=== PATIENT | female | born 1940 | race Caucasian/White ===

== ENCOUNTER → 2018-07-16 15:55 | Outpatient (CLI) | payer MEDICARE, SELFPAY ==
[2018-07-16 15:04] VITALS: BMI 23.3
[2018-07-17 01:14] LABS: Absolute Lymphocyte Count 2.67 X10^3/ul (0.83-4.51); Absolute Neutrophil Count 6.4 X10^3/uL (2.0-7.7); Basophil# 0.03 X10^3/uL; Basophil% 0.3 % (0-1); Eosinophil# 0.09 X10^3/uL; Eosinophils% 0.9 % (0-5); Hematocrit 46.9 % (37-47); Hemoglobin 15.3 g/dl (12.0-15.0); Lymphocyte # 2.67 X10^3/ul (4.0); Lymphocyte % 26.5 % (19-41); Mean Corp Hgb Conc 32.6 g/gl (32-36); Mean Corpuscular Hgb 29.4 pg (27.0-32.0); Mean Platelet Vol. 11.7 fl (6.2-12.0); Monocyte# 0.89 X10^3/uL; Monocyte% 8.8 % (0-10); Neutrophil # 6.36 X10^3/uL (2.7-7.7); Neutrophil % 63.2 % (47-70); Platelet Count 240 K/mm3 (150-450); RBC Distribution Width CV 13.6 % (11.6-14.6); RBC Distribution Width SD 44.5 fl (35.1-43.9); Red Blood Count 5.21 M/mm3 (4.2-5.4); White Blood Count 10.1 K/mm3 (4.4-11.0)
[2018-07-17 01:31] LABS: POSITIVE COUNT NO; POSITIVE DIFFERENTIAL NO; POSITIVE MORPHOLOGY NO
[2018-07-17 01:36] LABS: AST(SGOT) 19 U/L (15-37); Alanine Aminotransfer ALT/SGPT 16 U/L (13-56); Alkaline Phosphatase 70 U/L (45-117); Anion Gap 8 (5-15); BUN 23 mg/dL (7-18); BUN/Creat Ratio 19.8 RATIO (10-20); Calcium,Total 9.1 mg/dL (8.5-10.1); Chloride 105 mmol/L (98-107); Cholesterol 194 mg/dL (200); Creatinine, Serum 1.16 mg/dL (0.55-1.02); EST Glomerular Filtration Rate 48 mL/min (>60); Est Glom Filt Rate - Afr Amer 58 mL/min (>60); Globulin 4.1 g/dL (2.2-4.2); Glucose 99 mg/dL (74-106); High Density Lipoprotein 46 mg/dL; Potassium 4.6 mmol/L (3.5-5.1); Prealbumin 29.2 mg/dL (20.0-40.0); Protein, Total 8.1 g/dL (6.4-8.2); Sodium Level 137 mmol/L (136-145); Thyroid Stim Hormone (TSH) 1.07 uIU/mL (0.358-3.74); Triglycerides 170 mg/dL; Very Low Density Lipoprotein 34 mg/dL (5-40)
== END ==
PROVIDERS: Referring Provider Nurse Practitioner; Visit Provider Nurse Practitioner
DX: R63.4 Abnormal weight loss (principal); I10 Essential (primary) hypertension; E03.9 Hypothyroidism, unspecified
CPT/HCPCS: 80053; 80061; 84134; 84443; 85025

== ENCOUNTER → 2019-01-12 21:02 | Outpatient (CLI) | payer MEDICARE, SELFPAY ==
[2019-01-12 12:02] VITALS: BMI 22.8
[2019-01-12 21:25] LABS: Absolute Lymphocyte Count 3.11 X10^3/uL (0.83-4.51); Absolute Neutrophil Count 6.8 X10^3/uL (2.0-7.7); Basophil# 0.08 X10^3/uL; Basophil% 0.7 % (0-1); Eosinophil# 0.17 X10^3/uL; Eosinophils% 1.5 % (0-5); Hematocrit 44.9 % (37-47); Hemoglobin 14.5 g/dL (12.0-15.0); Lymphocyte # 3.11 X10^3/ul (4.0); Lymphocyte % 28.2 % (19-41); Mean Corp Hgb Conc 32.3 g/dL (32-36); Mean Corpuscular Hgb 29.8 pg (27.0-32.0); Mean Corpuscular Volume 92.2 fL (81-99); Mean Platelet Vol. 11.9 fl (6.2-12.0); Monocyte# 0.77 X10^3/uL; NRBC Flagged by Analyzer 0 % (0-5); Neutrophil # 6.83 X10^3/uL (2.7-7.7); Neutrophil % 62.1 % (47-70); Platelet Count 243 K/mm3 (150-450); RBC Distribution Width CV 13.2 % (11.6-14.6); RBC Distribution Width SD 44.9 fl (35.1-43.9); Red Blood Count 4.87 M/mm3 (4.2-5.4)
[2019-01-12 21:35] LABS: Erythrocyte Sedimentation Rate 12 mm/hr (0-30)
[2019-01-12 21:50] LABS: AST(SGOT) 16 U/L (15-37); Alanine Aminotransfer ALT/SGPT 24 U/L (13-56); Albumin, Serum 3.9 g/dL (3.2-5.0); Alkaline Phosphatase 70 U/L (45-117); Anion Gap 8 (5-15); BUN 34 mg/dL (7-18); BUN/Creat Ratio 34.4 RATIO (10-20); Calcium,Total 9.1 mg/dL (8.5-10.1); Chloride 107 mmol/L (98-107); Creatinine, Serum 0.99 mg/dL (0.55-1.02); EST Glomerular Filtration Rate 58 mL/min (>60); Est Glom Filt Rate - Afr Amer 70 mL/min (>60); Globulin 3.8 g/dL (2.2-4.2); Glucose 88 mg/dL (74-106); Potassium 4.4 mmol/L (3.5-5.1); Protein, Total 7.7 g/dL (6.4-8.2); Sodium Level 140 mmol/L (136-145); Thyroid Stim Hormone (TSH) 0.24 uIU/mL (0.358-3.74)
== END ==
PROVIDERS: Visit Provider Nurse Practitioner
DX: R42 Dizziness and giddiness (principal); I10 Essential (primary) hypertension; E03.9 Hypothyroidism, unspecified
CPT/HCPCS: 80053; 84443; 84484; 85025; 85652

== ENCOUNTER 2019-12-01 20:48 | Emergency (ER) | payer MEDICARE, SELFPAY ==
[2019-01-12 12:02] VITALS: BMI 22.8
[2019-12-01 20:52] VITALS: BP 180/89; PULSE 49; RESP 18; TEMP 36.1; O2SAT 99; BMI 22.9
--- NOTE | 2019-12-01 21:15 | RAD_ITS ---
STUDY: X-RAY - RIGHT WRIST REASON FOR EXAM: Female, 79 years old. Fall today. Rt wrist pain TECHNIQUE: 3 view(s) of the wrist were obtained. COMPARISON: None. FINDINGS: There is generalized osteopenia. There is a comminuted impacted fracture distal metaphysis of the radius with dorsal angulation. There is a nondisplaced comminuted fracture distal metaphysis of the ulna with avulsion of the ulnar styloid process. There is calcification of the TFCC. There are are faint density overlying the dorsal aspect of the wrist. There is sclerosis of the first carpometacarpal joint.. There is soft tissue edema. RAD/Wrist min 3 Views IMPRESSION: Generalized osteopenia Soft tissue edema comminuted impacted fracture distal metaphysis of the radius with dorsal angulation. There is a nondisplaced comminuted fracture distal metaphysis of the ulna with avulsion of the ulnar styloid process Calcification of the TFCC degenerative versus calcium pyrophosphate deposition disease Likely fractures of the triquetrum and possibly involving the pisiform Electronically Signed: Honorio Summers, at 21:54 EDT Tel , Service support ,
[2019-12-01] MEDS: fentaNYL 100 MCG/2 ML Ampul 50 MCG IM (21:17)
--- NOTE | 2019-12-01 23:22 | RAD_ITS ---
HISTORY: POST REDUCTION EXAMINATION/TECHNIQUE: XR right wrist one view portable 2334 hrs. COMPARISON: 2111 hrs. FINDINGS: Right wrist Colles' fracture status post closed reduction and cast fixation. Single post reduction AP view and bony detail is partly limited by cast material. Previously identified fractures of the distal right radius and ulna show improved position. Evaluation of fracture alignment is limited secondary to single view exam. RAD/Wrist min 3 Views IMPRESSION: Colles' fracture of the distal right radius status post closed reduction and cast fixation. No complication seen. at 0028 Reported and signed by: Ac Robbins MD Electronically Signed: Ac Robbins, at 0:27 EDT Tel , Service support ,
--- NOTE | 2019-12-01 23:58 | ED.DCSUM_ITS ---
- ER Visit Summary Date of Service: 12/01/19 Chief Complaint: Fall and right wrist pain History of Present Illness: The patient is a [address] Waters. She is right-hand dominant. She reports that just prior to coming emerge department she lost her balance stepping off a step and injured her right wrist. She states she did hit her head. No loss of consciousness. She is not on anticoagulants. She denies headache. She reports that she has right wrist pain that is a throbbing pain is 7 on 10 severity. Is worsened by movement relieved by rest. She denies any paresthesias distally. Physical Examination: Vitals: Stable. Afebrile. Neck: No vertebral tenderness. Full ROM without difficulty. Cleared by NEXUS criteria. Back: No vertebral tenderness. General: A&O x 3. NAD. Cardiovascular exam: Regular rate and rhythm, no murmur, rub or gallop. Respiratory exam: Chest nontender. No crepitus. Clear to auscultation bilaterally. No wheezes or stridor. Abdominal exam: Soft, nontender, nondistended, normal bowel sounds. No pain in RUQ or LUQ specifically. No peritoneal signs. Extremity: Severe tenderness palpation obvious deformity to the distal radius on the right. She has decreased range of motion secondary pain. She is neuro vas intact distally.. Test Results: Clinical Impression(s) from Imaging Studies Wrist X-Ray 12/01/19 21:15 IMPRESSION: Generalized osteopenia Soft tissue edema comminuted impacted fracture distal metaphysis of the radius with dorsal angulation. There is a nondisplaced comminuted fracture distal metaphysis of the ulna with avulsion of the ulnar styloid process Calcification of the TFCC degenerative versus calcium pyrophosphate deposition disease Likely fractures of the triquetrum and possibly involving the pisiform Electronically Signed: Honorio Summers, at 21:54 EDT Tel , Service support , Wrist X-Ray 12/01/19 23:22 IMPRESSION: Colles' fracture of the distal right radius status post closed reduction and cast fixation. No complication seen. at 0028 Reported and signed by: Ac Robbins MD Electronically Signed: Ac Rosendo, at 0:27 EDT Tel , Service support , Emergency Department Course and Treatment: Initial x-ray showed approximately 20 degrees of dorsal angulation. The patient was given a shot of fentanyl IM and a hematoma block was performed with 10 cc of lidocaine. She was then placed in finger traps and the fracture was reduced. She was placed in an AP plaster splint. She tolerated this well. Repeat x-ray shows the dorsal angulation to be improved. Treatment Plan: Patient was discussed with Dr. Abelino Zamorano. She will be discharged with instructions to follow-up in 3 to 5 days for another exam. She will be discharged with Percocet and Colace. Return to the emergency department for any worsening symptoms. Disposition: To home in improved and stable condition. Impression: 1. Fall. 2. Right distal radius fracture. 3. Right ulnar styloid fracture. 4. Reduction right distal radius fracture by ED physician. 5. Plaster AP splint, fabricated. This note was generated with [employer] dictation software. It may contain incorrect words, spelling, and punctuation that were not noted in review of the chart prior to signing ED Disposition - Plan for ED Patient: Disposition: Home or Assisted Living Instructions: ED Fx Colles Wrist Redu Requ Prescriptions: Docusate Sodium [Colace] 100 mg PO DAILY #20 cap Prescription Printed Oxycodone HCl/Acetaminophen [Percocet 5/325] 1 tab PO Q6H PRN PRN 5 Days #20 tab PRN Reason: Pain Score 6-10/10 Prescription Printed Referrals: Abelino Zamorano MD [STAFF PHYSICIAN] - 3-5 Days
[2019-12-02] MEDS: HYDROCODONE/APAP 7.5-325/15ML 15 ML UDC 10 ML PO (00:25)
[2019-12-02 00:32] VITALS: BP 173/75; PULSE 63; RESP 18; O2SAT 99
== END 2019-12-02 00:33 | disposition home or self-care (01) ==
LOC: ED 21:39
PROVIDERS: Emergency Provider Emergency Medicine; PCP Family Medicine
DX: S52.614A Nondisplaced fracture of right ulna styloid process, initial encounter for closed fracture (principal); S52.531A Colles' fracture of right radius, initial encounter for closed fracture; W10.8XXA Fall (on) (from) other stairs and steps, initial encounter; I10 Essential (primary) hypertension; J44.9 Chronic obstructive pulmonary disease, unspecified; E78.00 Pure hypercholesterolemia, unspecified; E03.9 Hypothyroidism, unspecified; Z79.899 Other long term (current) drug therapy; Z79.82 Long term (current) use of aspirin
CPT/HCPCS: 25605; 73110; 96372; 99283

== ENCOUNTER 2021-09-14 22:12 | Outpatient (CLI) | payer MEDICARE, SELFPAY ==
[2021-09-14 22:25] LABS: Absolute Lymphocyte Count 2.68 X10^3/uL (0.83-4.51); Absolute Neutrophil Count 6.4 X10^3/uL (2.0-7.7); Basophil# 0.07 X10^3/uL; Basophil% 0.7 % (0-1); Eosinophil# 0.28 X10^3/uL; Eosinophils% 2.7 % (0-5); Hematocrit 42.5 % (37-47); Hemoglobin 14.1 g/dL (12.0-15.0); Lymphocyte # 2.68 X10^3/ul (0.83-4.51); Lymphocyte % 26.2 % (19-41); Mean Corp Hgb Conc 33.2 g/dL (32-36); Mean Corpuscular Hgb 29.7 pg (27.0-32.0); Mean Corpuscular Volume 89.7 fL (81-99); Mean Platelet Vol. 10.9 fl (6.2-12.0); Monocyte# 0.74 X10^3/uL; Monocyte% 7.2 % (0-10); NRBC Flagged by Analyzer 0 % (0-5); Neutrophil # 6.39 X10^3/uL (2.7-7.7); Neutrophil % 62.6 % (47-70); Platelet Count 282 K/mm3 (150-450); RBC Distribution Width CV 13.4 % (11.6-14.6); RBC Distribution Width SD 43.8 fl (35.1-43.9); Red Blood Count 4.74 M/mm3 (4.2-5.4); White Blood Count 10.2 K/mm3 (4.4-11.0)
[2021-09-14 22:54] LABS: ALB/GLOB Ratio 1.1 RATIO (0.9-2.4); AST(SGOT) 22 U/L (15-37); Alanine Aminotransfer ALT/SGPT 24 U/L (13-56); Albumin, Serum 3.9 g/dL (3.2-5.0); Alkaline Phosphatase 79 U/L (45-117); Anion Gap 5 (5-15); BUN 23 mg/dL (7-18); BUN/Creat Ratio 22.5 RATIO (10-20); Calcium,Total 9.3 mg/dL (8.5-10.1); Chloride 103 mmol/L (98-107); Creatinine, Serum 1.02 mg/dL (0.55-1.02); EST Glomerular Filtration Rate 55 mL/min (>60); Est Glom Filt Rate - Afr Amer 67 mL/min (>60); Globulin 3.7 g/dL (2.2-4.2); Glucose 120 mg/dL (74-106); Potassium 4.4 mmol/L (3.5-5.1); Protein, Total 7.6 g/dL (6.4-8.2); Sodium Level 136 mmol/L (136-145); Thyroid Stim Hormone (TSH) 6.43 uIU/mL (0.358-3.74)
== END 2021-09-14 23:59 | disposition home or self-care (01) ==
PROVIDERS: PCP Family Medicine; Visit Provider Nurse Practitioner
DX: E03.9 Hypothyroidism, unspecified (principal); I10 Essential (primary) hypertension
CPT/HCPCS: 80053; 84443; 85025

== ENCOUNTER → 2021-11-30 | Outpatient (CLI) | payer MEDICARE, SELFPAY ==
[2021-11-30 21:37] LABS: Absolute Lymphocyte Count 2.92 X10^3/uL (0.83-4.51); Basophil# 0.05 X10^3/uL; Basophil% 0.4 % (0-1); Eosinophil# 0.22 X10^3/uL; Hematocrit 42.2 % (37-47); Lymphocyte # 2.92 X10^3/ul (0.83-4.51); Lymphocyte % 26.1 % (19-41); Mean Corp Hgb Conc 33.2 g/dL (32-36); Mean Corpuscular Hgb 29.4 pg (27.0-32.0); Mean Corpuscular Volume 88.5 fL (81-99); Mean Platelet Vol. 10.8 fl (6.2-12.0); Monocyte# 0.96 X10^3/uL; Monocyte% 8.6 % (0-10); NRBC Flagged by Analyzer 0 % (0-5); Neutrophil # 6.99 X10^3/uL (2.7-7.7); Neutrophil % 62.4 % (47-70); Platelet Count 307 K/mm3 (150-450); RBC Distribution Width CV 13.4 % (11.6-14.6); RBC Distribution Width SD 43.7 fl (35.1-43.9); Red Blood Count 4.77 M/mm3 (4.2-5.4); White Blood Count 11.2 K/mm3 (4.4-11.0)
[2021-11-30 21:59] LABS: AST(SGOT) 22 U/L (15-37); Alanine Aminotransfer ALT/SGPT 28 U/L (13-56); Albumin, Serum 3.8 g/dL (3.2-5.0); Alkaline Phosphatase 90 U/L (45-117); Anion Gap 7 (5-15); BUN 28 mg/dL (7-18); BUN/Creat Ratio 25.7 RATIO (10-20); CRP, High Sensitivity Cardiac 1.41 mg/L; Calcium,Total 9.5 mg/dL (8.5-10.1); Chloride 103 mmol/L (98-107); Cholesterol 111 mg/dL (200); Creatinine, Serum 1.09 mg/dL (0.55-1.02); EST Glomerular Filtration Rate 51 mL/min (>60); Est Glom Filt Rate - Afr Amer 62 mL/min (>60); Globulin 3.9 g/dL (2.2-4.2); Glucose 120 mg/dL (74-106); High Density Lipoprotein 48 mg/dL; Potassium 4.9 mmol/L (3.5-5.1); Protein, Total 7.7 g/dL (6.4-8.2); Sodium Level 137 mmol/L (136-145); Thyroid Stim Hormone (TSH) 0.41 uIU/mL (0.358-3.74); Triglycerides 113 mg/dL; Very Low Density Lipoprotein 23 mg/dL (5-40)
[2021-11-30 22:06] LABS: D-Dimer Quantitative (DVT/PE) 0.72 FEU/ug/m (0.27-0.49)
== END | disposition home or self-care (01) ==
PROVIDERS: PCP Family Medicine; Visit Provider Nurse Practitioner
DX: R06.02 Shortness of breath (principal); I10 Essential (primary) hypertension
CPT/HCPCS: 80053; 80061; 84443; 85025; 85379; 86141

== ENCOUNTER 2021-12-01 09:08 | Emergency (ER) | payer MEDICARE, SELFPAY ==
[2021-12-01 09:09] VITALS: BP 163/81; PULSE 81; RESP 14; TEMP 36.5; O2SAT 95; BMI 30.7
[2021-12-01 09:22] VITALS: BP 192/76; PULSE 66; RESP 20; O2SAT 95; O2SAT 96
--- NOTE | 2021-12-01 09:28 | EKG12_ITS ---
Test Reason : ABNORMAL LABS Blood Pressure : / mmHG Vent. Rate : 064 BPM Atrial Rate : 064 BPM P-R Int : 180 ms QRS Dur : 104 ms QT Int : 416 ms P-R-T Axes : 055 003 048 degrees QTc Int : 429 ms Normal sinus rhythm Normal ECG Confirmed by JUANCARLOS GUILLORY, PEDRO ([id number]), slot editor LALITO BRAUN ([id number]) on 12/03/2021 11:28:21 AM Referred By: TONYA Confirmed By:PEDRO BAUER MD
--- NOTE | 2021-12-01 09:29 | EX.ED.DYSGE1 ---
HPI History of Present Illness Chief Complaint: Abn Labs Informant: patient Narrative Narrative: Patient is an 81-year-old female with history of hypertension and hypothyroid presenting with worsening shortness of breath/dyspnea on exertion. She states she can even walk to the bathroom in her small apartment and then back without getting really short of breath again. She notes she does feel it gets harder to take a deep breath when she is laying flat on her back but she is been sleeping on her sides with pillows. She does get swelling in her legs that gets worse throughout the day or if she keeps her legs down/does not elevate them. Has had mild cough that is not productive. It seems to be worse when she lays flat. Denies any chest pain or chest discomfort. Denies any fever. Denies any upper respiratory symptoms. She saw nurse practitioner yesterday and had outpatient labs including a CBC, BMP, TSH and D-dimer. Lab work was grossly normal however her D-dimer was 0.79. This is normal for age adjustment. Patient was sent in by her nurse practitioner for further evaluation and for possible chest x-ray. Patient notes that she did not take her blood pressure medication this morning. [facility] Medical History COPD exacerbation COVID Hypertension Hypothyroid Pneumonia Home Medications aspirin 81 mg chewable tablet 81 mg PO DAILY 12/01/19 [History Last Taken Unknown] atorvastatin 20 mg tablet 20 mg PO QHS 12/01/19 [History Last Taken Unknown] cholecalciferol (vitamin D3) 50 mcg (2,000 unit) capsule 2,000 unit PO DAILY 12/01/19 [History Last Taken Unknown] metoprolol succinate 25 mg tablet,extended release 24 hr 12.5 mg PO DAILY 12/01/19 [History Last Taken Unknown] multivitamin 1 ea PO DAILY 12/01/19 [History Last Taken Unknown] levothyroxine 112 mcg tablet 112 mcg PO DAILY #90 tabs 09/15/21 [Rx Last Taken Unknown] amlodipine 5 mg tablet 5 mg PO DAILY 09/16/21 [History Last Taken Unknown] calcium carbonate 600 mg calcium (1,500 mg) tablet (Calcium) 600 mg PO DAILY 09/16/21 [History Last Taken Unknown] tiotropium bromide 18 mcg capsule with inhalation device 18 mcg inhalation DAILY #90 inhalations 11/30/21 [Rx Last Taken Unknown] prednisone 20 mg tablet 40 mg PO DAILY #8 tabs 12/01/21 [Rx Last Taken Unknown] Allergy/AdvReac Type Severity Reaction Status Date / Time Penicillins Allergy Severe Rash Verified 12/01/21 09:12 esomeprazole [From Nexium] Allergy Hives Verified 12/01/21 09:12 SB ANTIHISTAMINE Allergy Severe UNK Uncoded 12/01/21 09:12 Family History Other Breast cancer COPD (chronic obstructive pulmonary disease) Surgical History History of thyroid irradiation S/P appendectomy Tubal ligation status Social History Smoking Status: Former smoker ROS ROS ED Constitutional Constitutional ED: Denies chills, fever(s) or weight loss Eyes Eyes: Denies change in vision ENT ENT ED: Denies ear pain, rhinorrhea or sore throat Cardiovascular Cardiovascular: Reports orthopnea and other Details: Leg swelling ; Denies chest pain, palpitations or racing heartbeat Respiratory/Chest Respiratory/Chest: Reports cough, dyspnea on exertion and orthopnea Gastrointestinal Gastrointestinal: Reports other Details: Feels bloated ; Denies abdominal pain, constipation, nausea or vomiting Genitourinary Genitourinary ED: Denies dysuria or hematuria Musculoskeletal Musculoskeletal: Denies arthralgias, back pain or neck pain Integumentary Denies rash Neurologic Neurologic: Denies headache(s) or weakness Psychiatric Psychiatric: Denies anxiety EXAM Physical Exam Const Vital Signs: 12/01/21 09:09 12/01/21 09:22 12/01/21 09:22 Temperature 97.7 F L Temperature Source Temporal Pulse Rate 81 66 Respiratory Rate 14 20 H Respiratory Effort Short of Breath Respiratory Depth Normal Respiratory Pattern Normal Blood Pressure 163/81 H 192/76 H Blood Pressure Mean 108 114 Pulse Ox 95 96 Oxygen Delivery Method Room Air Room Air Room Air Positive well nourished and well developed General Appearance ED: well developed and NAD HEENT Reports moist mucous membranes Negative for trauma Eyes PERRL and EOMs intact bilaterally Neck supple and no JVD Chest Wall inspection of chest normal and palpation of chest normal Resp normal respiratory effort Resp Narrative: Crackles at the bases, more pronounced at the right base Auscultation: Negative for wheezes Cardio regular rate, regular rhythm and no murmurs GI non-tender GI Narrative: No pitting edema of the abdominal wall noted Inspection: abdominal distention Palpation: soft; Negative for tender or guarding Extremity normal to inspection General Extremety ED: Negative for edema or tenderness General Extremity: Negative for edema Neuro oriented x3 Motor Exam: general weakness Psych mental status grossly normal Skin no rashes or lesions noted MDM MDM MDM Narrative Medical decision making narrative: Evaluated for worsening dyspnea on exertion. Patient appears nontoxic. Arrival she is quite hypertensive however she admits she did not take her blood pressure medication this morning. She is given her amlodipine and metoprolol in the emergency room. I do not think her presentation is a hypertensive emergency. Cardiac work-up including high-sensitivity troponin, BNP and EKG does not show any acute ischemic changes or findings consistent with ACS. D-dimer is normal for age adjustment yesterday so its not repeated. Chest x-ray shows emphysema without pneumonia or atelectasis. Patient does not really have wheezing on exam however she is mildly tachypneic. She is ambulated in the emergency room and does not go below 90%. She is comfortable going home but we will treat with a short course of steroids to see if this helps with her work of breathing. She will be given a referral for pulmonology. She does have Spiriva and albuterol at home but she states she very rarely uses her albuterol. She is encouraged to use it more frequently. Patient is counseled on return precautions. Patient and her daughter verbalized agreement understand this plan. She is discharged home in stable condition. Lab Data Attestation: I reviewed the patient's lab results. Labs: Laboratory Results - last 24 hr 12/01/21 12/01/21 12/01/21 09:35 09:35 09:35 WBC 11.5 H RBC 4.64 Hgb 13.5 Hct 41.3 MCV 89.0 MCH 29.1 MCHC 32.7 RDW Std Deviation 43.3 RDW Coeff of Flaco 13.3 Plt Count 281 MPV 10.2 Immature Gran % (Auto) 0.500 Neut % (Auto) 64.1 Lymph % (Auto) 24.2 Harnett % (Auto) 8.7 Eos % (Auto) 1.9 Baso % (Auto) 0.6 Absolute Neuts (auto) 7.4 Absolute Lymphs (auto) 2.78 Nucleated RBC % 0 Sodium 139 Potassium 4.1 Chloride 106 Carbon Dioxide 27.0 Anion Gap 6 BUN 29 H Creatinine 1.11 H Estim Creat Clear Calc 43.71 Est GFR (MDRD) Af Amer 61 Est GFR (MDRD) Non-Af 50 L BUN/Creatinine Ratio 26.1 H Glucose 103 Calcium 9.3 Troponin I High Sens 7 B-Natriuretic Peptide 40.1 Radiography Chest X-Ray - ED: 1 View, Read by ED Physician, Read by Radiologist, Chronic Changes and No Infiltrates Diagnostic Testing: Clinical Impression(s) from Imaging Studies Chest X-Ray 12/01/21 09:45 IMPRESSION: Emphysema without pneumonia or atelectasis. Electronically Signed: Home Ya MD at 10:28 EDT Reading Location ID and State: [address] [place] [address] Tel , Service support , Rhythm Strip Rhythm Strip: Sinus Rhythm Rate: 64 Ectopy: None EKG Initial EKG: Attestation: I personally reviewed and interpreted this EKG as follows: Interpretation: Sinus Rhythm Comments: Normal sinus rhythm and rate of 64 Normal axis Normal intervals Normal ST segments Discharge Plan Triage Chief Complaint: Abn Labs ED Provider: Mariya Hoffman Dx/Rx/DC Orders Clinical Impression: LIRA (dyspnea on exertion), Emphysema/COPD Instructions: ED Dyspnea Prescriptions: New prednisone 20 mg tablet 40 mg PO DAILY Qty: 8 0RF No Action levothyroxine 112 mcg tablet 112 mcg PO DAILY Qty: 90 0RF amlodipine 5 mg tablet 5 mg PO DAILY calcium carbonate [Calcium 600] 600 mg calcium (1,500 mg) tablet 600 mg PO DAILY tiotropium bromide 18 mcg capsule, w/inhalation device 18 mcg inhalation DAILY Qty: 90 3RF multivitamin 1 EACH tablet 1 ea PO DAILY atorvastatin 20 MG tablet 20 mg PO QHS aspirin 81 MG tablet,chewable 81 mg PO DAILY metoprolol succinate 25 MG tablet 12.5 mg PO DAILY cholecalciferol (vitamin D3) 2,000 UNIT capsule 2,000 unit PO DAILY Primary Care Provider: Opal Aponte [employer] Referrals: Leo Cartagena MD [STAFF PHYSICIAN] - As soon as possible Melva Waters [[facility]] - Activity Restrictions/Additional Instructions: No signs of heart strain or fluid overload today. I do not think this is a blood clot. Your chest x-ray does show emphysema so we will treat her shortness of breath with steroids. Please use your albuterol inhaler a couple times a day as needed to help. Return if your symptoms are worsening or your oxygen is going below 90% at home, especially at rest. Disposition Disposition: Home, Self Care
--- NOTE | 2021-12-01 09:31 | NURSING ---
NO OLD EKGS
--- NOTE | 2021-12-01 09:45 | RAD_ITS ---
STUDY: X-RAY CHEST REASON FOR EXAM: Female, 81 years old. sob TECHNIQUE: Single AP portable view of the chest. COMPARISON: None. FINDINGS: There is hyperinflation of the lungs consistent with chronic obstructive lung disease (COPD). There is no demonstrated pleural abnormality. There is moderate cardiac enlargement. Normal mediastinum and gaby. Normal visualized pulmonary arteries. Normal visualized aortic arch and descending thoracic aorta. Normal visualized thoracic spine. Normal visualized ribs, clavicles, and shoulders. There is no demonstrated abnormality of the visualized soft tissue structures of the upper abdomen. RAD/Chest 1 View (Portable) IMPRESSION: Emphysema without pneumonia or atelectasis. Electronically Signed: Home Ya MD at 10:28 EDT ,
[2021-12-01 09:50] LABS: Absolute Lymphocyte Count 2.78 X10^3/uL (0.83-4.51); Absolute Neutrophil Count 7.4 X10^3/uL (2.0-7.7); Basophil# 0.07 X10^3/uL; Basophil% 0.6 % (0-1); Eosinophil# 0.22 X10^3/uL; Eosinophils% 1.9 % (0-5); Hematocrit 41.3 % (37-47); Hemoglobin 13.5 g/dL (12.0-15.0); Lymphocyte # 2.78 X10^3/ul (0.83-4.51); Lymphocyte % 24.2 % (19-41); Mean Corp Hgb Conc 32.7 g/dL (32-36); Mean Corpuscular Hgb 29.1 pg (27.0-32.0); Mean Platelet Vol. 10.2 fl (6.2-12.0); Monocyte% 8.7 % (0-10); NRBC Flagged by Analyzer 0 % (0-5); Neutrophil # 7.37 X10^3/uL (2.7-7.7); Neutrophil % 64.1 % (47-70); Platelet Count 281 K/mm3 (150-450); RBC Distribution Width CV 13.3 % (11.6-14.6); RBC Distribution Width SD 43.3 fl (35.1-43.9); Red Blood Count 4.64 M/mm3 (4.2-5.4); White Blood Count 11.5 K/mm3 (4.4-11.0)
[2021-12-01 10:04] LABS: Anion Gap 6 (5-15); BUN 29 mg/dL (7-18); BUN/Creat Ratio 26.1 RATIO (10-20); Calcium,Total 9.3 mg/dL (8.5-10.1); Chloride 106 mmol/L (98-107); Creatinine, Serum 1.11 mg/dL (0.55-1.02); EST Glomerular Filtration Rate 50 mL/min (>60); Est Glom Filt Rate - Afr Amer 61 mL/min (>60); Estimated Creatinine Clearance 43.71 ml/min; Glucose 103 mg/dL (74-106); Potassium 4.1 mmol/L (3.5-5.1); Sodium Level 139 mmol/L (136-145); Troponin-I HS 7 pg/mL (3.0-54.0)
[2021-12-01 10:05] LABS: BNP,B-Type NATRIURETIC PEPTIDE 40.1 pg/mL (0-100)
[2021-12-01] MEDS: Metoprolol(XL)Succ 25 MG Tablet 12.5 MG PO (10:24)
[2021-12-01] MEDS: amLODIPine 5 MG Tablet PO (10:24)
[2021-12-01] MEDS: predniSONE 20 MG Tablet 40 MG PO (11:58)
[2021-12-01 11:59] VITALS: BP 161/72; PULSE 75; RESP 17; O2SAT 95
== END 2021-12-01 12:12 | disposition home or self-care (01) ==
PROVIDERS: Emergency Provider Emergency Medicine; PCP Nurse Practitioner; Visit Provider Emergency Medicine
DX: R06.00 Dyspnea, unspecified (principal); J43.9 Emphysema, unspecified; I10 Essential (primary) hypertension; Z87.891 Personal history of nicotine dependence; E03.9 Hypothyroidism, unspecified; Z86.16 Personal history of COVID-19; Z79.82 Long term (current) use of aspirin
CPT/HCPCS: 71045; 80048; 83880; 84484; 85025; 87426; 93005; 99284; A4216

== ENCOUNTER → 2022-01-18 | Outpatient (CLI) | payer MEDICARE, SELFPAY ==
--- NOTE | 2022-01-19 08:37 | PFT ---
INTRODUCTION: The patient is an 81-year-old female that presents for pulmonary function studies secondary to a diagnosis of shortness of breath. Respiratory therapy reported good patient effort. Bronchodilators were used during testing. INTERPRETATION: Forced expiration spirometry demonstrates no evidence of a large airways obstructive ventilatory defect. There was no significant response to aerosolized bronchodilators. Spirograms are of good quality and plateau normally. Body plethysmography was performed and revealed a decreased TLC to 4.67 L, 79% of predicted, indicative of a mild restrictive ventilatory impairment. Diffusing capacity by single breath CO is reduced at 54% of predicted. IMPRESSION: Mild restrictive ventilatory impairment with disproportionate reduction in diffusing capacity.
== END | disposition home or self-care (01) ==
PROVIDERS: PCP Nurse Practitioner; Referring Provider Internal Medicine Critical Care Medicine; Visit Provider Internal Medicine Critical Care Medicine
DX: R06.02 Shortness of breath (principal)
CPT/HCPCS: 94060; 94726; 94729

== ENCOUNTER → 2022-01-20 | Outpatient (CLI) | payer MEDICARE, SELFPAY ==
[2022-01-20 13:08] VITALS: PULSE 56; PULSE 74; PULSE 78; PULSE 80; PULSE 83; PULSE 87; PULSE 91; PULSE 93; O2SAT 89; O2SAT 90; O2SAT 91; O2SAT 95; O2SAT 97
--- NOTE | 2022-01-21 07:33 | PCM.PSN.6M ---
PSN 6 Minute Walk Test 6 Minute Walk Test 6 Minute Walk Test: 6 Minute Walk Test PSN:6-Minute Walk Test Start: 01/20/22 13:08 Freq: Status: Active Protocol: RESP.6MINW Document 01/20/22 13:08 [facility] (Rec: 01/20/22 13:12 [facility] [id number]) 6 Minute Walk Test Date Performed 01/20/22 Time Performed 12:30 Height 5 ft 10.5 in Weight: 226 lb Weight in Pounds 226.[address]: Darryl Ramos Assistive device used: Walker Pre-test Oxygen Delivery Method Room Air Pulse Ox (%) 95 Pulse Rate (60-100 beats/min) 56 L Dyspnea Shruti Scale (0-10) 0 1st minute Oxygen Delivery Method Room Air Pulse Ox (%) 91 Pulse Rate (60-100 beats/min) 78 Dyspnea Shruti Scale (0-10) 0 Number of Rests Taken 0 2nd minute Oxygen Delivery Method Room Air Pulse Ox (%) 89 Pulse Rate (60-100 beats/min) 80 Dyspnea Shruti Scale (0-10) 0 Number of Rests Taken 0 3rd minute Oxygen Delivery Method Room Air Pulse Ox (%) 89 Pulse Rate (60-100 beats/min) 83 Dyspnea Shruti Scale (0-10) 0 Number of Rests Taken 0 4th minute Oxygen Delivery Method Room Air Pulse Ox (%) 90 Pulse Rate (60-100 beats/min) 87 Dyspnea Shruti Scale (0-10) 0 Number of Rests Taken 1 5th minute Oxygen Delivery Method Room Air Pulse Ox (%) 90 Pulse Rate (60-100 beats/min) 91 Dyspnea Shruti Scale (0-10) 0 Number of Rests Taken 0 6th minute Oxygen Delivery Method Room Air Pulse Ox (%) 90 Pulse Rate (60-100 beats/min) 93 Dyspnea Shruti Scale (0-10) 0 Number of Rests Taken 0 Post-test Oxygen Delivery Method Room Air Pulse Ox (%) 97 Pulse Rate (60-100 beats/min) 74 Dyspnea Shruti Scale (0-10) 0 Full Laps Walked 11 Partial Lap, Number of Tiles Walked 0 Total Distance Walked (ft) 649 Interpretation Interpretation: The patient ambulated 649 feet over the course of 6 minutes beginning on room air with the use of a wheeled walker. Pretesting oxygen saturation was noted to be 95% on room air. With ambulation, the delmar oxygen saturation was 89%. There was evidence of both impaired walk distance and significant exertional oxygen desaturation, consistent with a pulmonary limitation to exercise tolerance. Recommendations Recommendations: There is no indication for the use of supplemental oxygen at this time. However, close interval follow-up is recommended, given the degree of oxygen desaturation noted during this study.
== END | disposition home or self-care (01) ==
LOC: PSN 12:17
PROVIDERS: PCP Nurse Practitioner; Referring Provider Internal Medicine Critical Care Medicine; Visit Provider Internal Medicine Critical Care Medicine
DX: R06.02 Shortness of breath (principal)
CPT/HCPCS: 94618

== ENCOUNTER → 2022-02-25 | Outpatient (CLI) | payer MEDICARE, SELFPAY ==
--- NOTE | 2022-02-25 10:29 | ECHOCS_ITS ---
Reason For Study: DYSPNEA Procedure This was a 2D Doppler, Color Flow transthoracic echocardiogram. Technically difficult studdy due to breast implants. The study was technically difficult. Exam performed in department. Left Ventricle Normal LV size. Left ventricular systolic function is normal. The estimated ejection fraction is 65 %. No evidence for diastolic dysfunction. No regional wall motion abnormalities noted. Right Ventricle Normal RV size. Normal systolic function. Atria Normal left atrium. The right atrium is mildly enlarged. Prominent eustachian valve. No doppler evidence for ASD. Mitral Valve There is no mitral annular calcification. Normal mitral valve. Trivial mitral valve insufficiency. Tricuspid Valve Normal tricuspid valve. Trivial tricuspid valve insufficiency. Right ventricular systolic pressure estimated to be 31 mmHg. Aortic Valve The aortic valve is not well visualized, however, based upon the 2D echocardiographic images obtained there appears to be thickening, calcification, and partial restriction. Trivial aortic valve insufficiency. Pulmonic Valve The pulmonic valve is not well visualized. Great Vessels The aortic root is not well visualized. Pericardium/Pleural No pericardial effusion. MMode/2D Measurements & Calculations RVDd: 3.5 cm LAV(MOD-bp): 73.7 ml LVAd ap4: 27.1 cm2 LAV(MOD-bp) Indexed: 32.7 ml/m2 LVLd ap4: 8.4 cm LAV(MOD-sp2): 104.4 ml EDV(MOD-sp4): 72.1 ml LAV(MOD-sp4): 49.1 ml EDV(sp4-el): 74.1 ml LVAs ap4: 14.7 cm2 LVLs ap4: 6.9 cm ESV(MOD-sp4): 26.4 ml ESV(sp4-el): 26.4 ml EF(MOD-sp4): 63.4 % EF(sp4-el): 64.3 % SV(MOD-sp4): 45.7 ml SV(sp4-el): 47.7 ml LA A4 area: 18.5 cm2 LA dimension(2D): 4.3 cm RA A4 area: 21.0 cm2 Time Measurements MV dec time: 0.27 sec Doppler Measurements & Calculations MV E max ivan: 70.6 cm/sec Lat Peak E' Ivan: 12.2 cm/sec Med Peak E' Ivan: 8.4 cm/sec MV A max ivan: 94.3 cm/sec E/E' lat: 5.8 E/E' med: 8.4 MV E/A: 0.75 MV V2 max: 105.8 cm/sec MV dec slope: 270.2 cm/sec2 Ao V2 max: 184.3 cm/sec MV max P.5 mmHg Ao max P.7 mmHg MV V2 mean: 55.6 cm/sec Ao V2 mean: 120.8 cm/sec MV mean P.4 mmHg Ao mean P.9 mmHg MV V2 VTI: 38.3 cm Ao V2 VTI: 41.9 cm LV V1 max: 156.9 cm/sec TR max ivan: 240.9 cm/sec LV V1 max P.9 mmHg TR max P.2 mmHg LV V1 mean P.8 mmHg LV V1 mean: 101.4 cm/sec LV V1 VTI: 33.2 cm ECHO/Echo Complete W/ Contrast Interpretation Summary The study was technically difficult. Left ventricular systolic function is normal. The estimated ejection fraction is 65 %. The right atrium is mildly enlarged. Prominent eustachian valve. Trivial mitral valve insufficiency. Trivial tricuspid valve insufficiency. The aortic valve is not well visualized, however, based upon the 2D echocardiog raphic images obtained there appears to be thickening, calcification, and partial restriction . Trivial aortic valve insufficiency. Right ventricular systolic pressure estimated to be 31 mmHg. No evidence for diastolic dysfunction. Ordering Physician: Melva Donaldson Referring Physician: Melva Donaldson Performed By: María Gómez RCS
== END | disposition home or self-care (01) ==
PROVIDERS: PCP Nurse Practitioner; Referring Provider Nurse Practitioner Acute Care; Visit Provider Nurse Practitioner Acute Care
DX: R06.02 Shortness of breath (principal)
CPT/HCPCS: 93306; C8929

== ENCOUNTER → 2022-08-03 | Outpatient (CLI) | payer MEDICARE, SELFPAY ==
--- NOTE | 2022-08-03 12:13 | CT_ITS ---
STUDY: CTA CHEST REASON FOR EXAM: Female, 81 years old. Dyspnea RADIATION DOSAGE (If Supplied By Facility): CTDIvol = ( 10.56 ) mGy, DLP = ( 391.84 ) mGycm TECHNIQUE: The examination was performed with the intravenous administration of IV 100mL Isovue-370. Post-processing of the angiographic images was performed, with multiplanar reformation and 3D reconstruction. Individualized dose optimization techniques were used for this CT. COMPARISON: Chest x-ray 12/01/2021 FINDINGS: Bilateral breast implants. Normal enhancement of the main pulmonary artery and right and left pulmonary arteries. Normal enhancement of the bilateral peripheral pulmonary arteries. There is no demonstrated pulmonary embolism. Borderline aneurysmal dilatation of the ascending aorta measuring 3.97 cm transverse by 3.67 cm AP. 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 No evidence of aortic dissection. Moderate atherosclerotic vascular calcification of the aortic arch. There is no demonstrated aortic dissection. Mild cardiomegaly. No evidence of pericardial effusion. Normal mediastinum. Normal hilar regions. Normal visualized trachea and bronchi. The lungs are well expanded. Moderate biapical pleural parenchymal fibrosis. Moderate bronchiectasis within the right apex. Mild bronchiectasis throughout remainder of both upper lobes. Mild fibrosis throughout the right middle lobe and lingula. Moderate bibasilar fibrosis predominantly in the posterior basilar segments and to lesser degree remainder of the basilar segments. Normal pleura. Normal chest wall structures. Normal osseous structures. Mild degenerative changes lower thoracic spine. Atrophic right kidney which could represent scarring and/or renal vascular disease. There is some fullness to the anterior midpole of the left kidney. CT/CTA Chest W/WO Contrast IMPRESSION: No demonstrated pulmonary embolism or arterial dissection. 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 Bilateral breast implants. Mild cardiomegaly. Atrophic right kidney. Fullness change or midpole left kidney. If stability not previously established recommend ultrasound for further evaluation if clinically warranted. Mild degenerative changes lower thoracic spine. Electronically Signed: Chay Montes MD, SHERYL at 12:56 EST ,
[2022-08-03 12:51] LABS: CREATININE FINGERSTICK < 0.9 mg/dL (0.55-1.02); EGFR FINGERSTICK > 60.0000 mL/min (>60)
== END | disposition home or self-care (01) ==
LOC: CT 12:12
PROVIDERS: PCP Nurse Practitioner; Visit Provider Internal Medicine Critical Care Medicine
DX: I26.99 Other pulmonary embolism without acute cor pulmonale (principal)
CPT/HCPCS: 71275; Q9967

== ENCOUNTER → 2022-08-11 | Outpatient (CLI) | payer MEDICARE, SELFPAY ==
[2022-08-11 10:19] LABS: BNP,B-Type NATRIURETIC PEPTIDE 93.3 pg/mL (0-100)
[2022-08-11 10:22] LABS: Anion Gap 6 (5-15); BUN 25 mg/dL (7-18); BUN/Creat Ratio 22.7 RATIO (10-20); Calcium,Total 9.7 mg/dL (8.5-10.1); Chloride 105 mmol/L (98-107); EST Glomerular Filtration Rate 51 mL/min (>60); Est Glom Filt Rate - Afr Amer 61 mL/min (>60); Glucose 117 mg/dL (74-106); Potassium 4.4 mmol/L (3.5-5.1); Sodium Level 141 mmol/L (136-145)
== END | disposition home or self-care (01) ==
LOC: LAB 09:41
PROVIDERS: PCP Nurse Practitioner; Referring Provider Internal Medicine Cardiovascular Disease; Visit Provider Internal Medicine Cardiovascular Disease
DX: R06.02 Shortness of breath (principal); I10 Essential (primary) hypertension
CPT/HCPCS: 36415; 80048; 83880

== ENCOUNTER → 2022-08-20 | Outpatient (CLI) | payer MEDICARE, SELFPAY ==
[2022-08-20 10:34] LABS: BNP,B-Type NATRIURETIC PEPTIDE 46.9 pg/mL (0-100)
[2022-08-20 11:14] LABS: Anion Gap 8 (5-15); BUN 21 mg/dL (7-18); BUN/Creat Ratio 22.3 RATIO (10-20); Calcium,Total 9.7 mg/dL (8.5-10.1); Chloride 103 mmol/L (98-107); Creatinine, Serum 0.94 mg/dL (0.55-1.02); EST Glomerular Filtration Rate 61 mL/min (>60); Est Glom Filt Rate - Afr Amer 73 mL/min (>60); Glucose 123 mg/dL (74-106); Potassium 4.5 mmol/L (3.5-5.1); Sodium Level 136 mmol/L (136-145)
== END | disposition home or self-care (01) ==
LOC: LAB 09:54
PROVIDERS: PCP Nurse Practitioner; Referring Provider Internal Medicine Cardiovascular Disease; Visit Provider Internal Medicine Cardiovascular Disease
DX: I10 Essential (primary) hypertension (principal); R06.02 Shortness of breath
CPT/HCPCS: 36415; 80048; 83880

== ENCOUNTER → 2022-08-26 | Outpatient (CLI) | payer MEDICARE, SELFPAY ==
--- NOTE | 2022-08-26 06:17 | ECHOCS_ITS ---
Reason For Study: sob Procedure This was a 2D Doppler, Color Flow transthoracic echocardiogram. The study was technically difficult. Exam performed in department. Left Ventricle Normal size and thickness. The left ventricular ejection fraction is 60 %. Normal diastology for age. Right Ventricle Normal right ventricle. Atria The left and right atria are normal. Prominent eustachian valve. Bubble contrast study is negative for PFO/ASD. Mitral Valve The mitral valve is structurally normal. No prolapse or stenosis seen. Tricuspid Valve Trivial tricuspid valve insufficiency. Unable to estimate RV systolic pressure due to insufficient tricuspid regurgitant envelope. Aortic Valve Trisinus/trileaflet aortic valve. Trivial aortic valve insufficiency. Pulmonic Valve The pulmonic valve is not well visualized. Great Vessels Mildly dilated aortic root. Pericardium/Pleural No pericardial effusion. Medication Diluted definity 2ml given slow IV push to enhance endocardial definition. Performed a rapid injection of agitated mix of 9 cc saline and 1cc air to assess for atrial septal defect. MMode/2D Measurements & Calculations LVIDd: 4.4 cm IVSd: 0.85 cm LVOT diam: 2.0 cm LVIDs: 2.6 cm LVPWd: 1.0 cm RVDd: 3.4 cm FS: 42.5 % LVOT area: 3.0 cm2 Ao root diam: 3.3 cm LAV(MOD-bp): 34.5 ml LVAd ap4: 26.5 cm2 LAV(MOD-bp) Indexed: 15.9 ml/m2 LVLd ap4: 8.0 cm LAV(MOD-sp2): 36.4 ml EDV(MOD-sp4): 71.6 ml LAV(MOD-sp4): 32.3 ml EDV(sp4-el): 75.1 ml LVAs ap4: 12.6 cm2 LVLs ap4: 5.9 cm ESV(MOD-sp4): 21.4 ml ESV(sp4-el): 22.6 ml EF(MOD-sp4): 70.0 % EF(sp4-el): 69.9 % SV(MOD-sp4): 50.1 ml SV(sp4-el): 52.5 ml LA A4 area: 14.1 cm2 LA dimension(2D): 3.3 cm RA A4 area: 13.6 cm2 Time Measurements MV dec time: 0.31 sec Doppler Measurements & Calculations MV E max ivan: 60.4 cm/sec Lat Peak E' Ivan: 11.8 cm/sec Med Peak E' Ivan: 7.4 cm/sec MV A max ivan: 111.8 cm/sec E/E' lat: 5.1 E/E' med: 8.1 MV E/A: 0.54 Ao V2 max: 205.6 cm/sec LV V1 max: 151.5 cm/sec SV(LVOT): 96.9 ml Ao max P.9 mmHg LV V1 max P.2 mmHg Ao V2 mean: 149.7 cm/sec LV V1 mean P.1 mmHg Ao mean P.8 mmHg LV V1 mean: 93.9 cm/sec Ao V2 VTI: 44.9 cm LV V1 VTI: 32.3 cm AV (velocity ratio): 0.72 RAÚL(I,D): 2.2 cm2 RAÚL(V,D): 2.2 cm2 PA V2 max: 144.7 cm/sec TR max ivan: 268.9 cm/sec TR max P.9 mmHg ECHO/Echo Complete W/ Contrast Interpretation Summary The left ventricular ejection fraction is 60 %. Mildly dilated aortic root. Ordering Physician: Sriram Tomlin Referring Physician: ALBINA BAEZA Performed By: Lucia Torrez RDCS
== END | disposition home or self-care (01) ==
LOC: CVS 06:16
PROVIDERS: PCP Nurse Practitioner; Referring Provider Internal Medicine Cardiovascular Disease; Visit Provider Internal Medicine Cardiovascular Disease
DX: R06.02 Shortness of breath (principal); R07.89 Other chest pain; I10 Essential (primary) hypertension
CPT/HCPCS: 78452; 93017; 93306; A9500; Q9957; A4216; C8929; J2785

== ENCOUNTER → 2022-11-10 | Outpatient (CLI) | payer MEDICARE, SELFPAY ==
[2022-11-10 22:00] LABS: Absolute Neutrophil Count 6.4 X10^3/uL (2.0-7.7); Basophil# 0.08 X10^3/uL; Basophil% 0.8 % (0-1); Eosinophil# 0.24 X10^3/uL; Eosinophils% 2.3 % (0-5); Hematocrit 45.5 % (37-47); Hemoglobin 14.8 g/dL (12.0-15.0); Lymphocyte % 29.2 % (19-41); Mean Corp Hgb Conc 32.5 g/dL (32-36); Mean Corpuscular Hgb 28.7 pg (27.0-32.0); Mean Corpuscular Volume 88.3 fL (81-99); Mean Platelet Vol. 10.2 fl (6.2-12.0); Monocyte# 0.73 X10^3/uL; Monocyte% 6.9 % (0-10); NRBC Flagged by Analyzer 0 % (0-5); Neutrophil # 6.43 X10^3/uL (2.7-7.7); Neutrophil % 60.4 % (47-70); Platelet Count 327 K/mm3 (150-450); RBC Distribution Width SD 45.3 fl (35.1-43.9); Red Blood Count 5.15 M/mm3 (4.2-5.4); White Blood Count 10.6 K/mm3 (4.4-11.0)
[2022-11-10 22:20] LABS: ALB/GLOB Ratio 0.9 RATIO (0.9-2.4); AST(SGOT) 22 U/L (15-37); Alanine Aminotransfer ALT/SGPT 29 U/L (13-56); Albumin, Serum 3.7 g/dL (3.2-5.0); Alkaline Phosphatase 97 U/L (45-117); Anion Gap 8 (5-15); BUN 25 mg/dL (7-18); BUN/Creat Ratio 25.7 RATIO (10-20); Calcium,Total 9.4 mg/dL (8.5-10.1); Chloride 104 mmol/L (98-107); Cholesterol 170 mg/dL (200); Creatinine, Serum 0.97 mg/dL (0.55-1.02); EST Glomerular Filtration Rate 58 mL/min (>60); Est Glom Filt Rate - Afr Amer 71 mL/min (>60); Glucose 112 mg/dL (74-106); High Density Lipoprotein 58 mg/dL; Protein, Total 7.7 g/dL (6.4-8.2); Sodium Level 138 mmol/L (136-145); Thyroid Stim Hormone (TSH) 0.49 uIU/mL (0.358-3.74); Triglycerides 121 mg/dL; Very Low Density Lipoprotein 24 mg/dL (5-40)
[2022-11-11 12:01] LABS: BNP,B-Type NATRIURETIC PEPTIDE 66.9 pg/mL (0-100)
== END | disposition home or self-care (01) ==
PROVIDERS: PCP Nurse Practitioner; Visit Provider Nurse Practitioner
DX: I10 Essential (primary) hypertension (principal); E03.9 Hypothyroidism, unspecified; E78.5 Hyperlipidemia, unspecified
CPT/HCPCS: 80053; 80061; 83880; 84443; 85025

== ENCOUNTER → 2022-11-22 | Outpatient (CLI) | payer MEDICARE, SELFPAY ==
--- NOTE | 2022-11-22 07:40 | RDU_ITS ---
Reason For Study: uncontrolled HTN Right Renal Artery Left Renal Artery Unable to demonstrate flow in the Left renal artery ostium 397.5/52.2 right renal artery. PSV/EDV. Right Renal Parenchyma Left renal artery proximal PSV/EDV Upper Pole Medula 9.0/4.1 PSV/EDV. 330.7/48.2 . Right upper pole medulla EDR .45 . Left renal artery mid 187.4/37.1 Right upper pole medulla R.I. .55 . PSV/EDV . Upper [place] Cortx 10.8/5.3 PSV/EDV. Left renal artery distal 152.8/43.0 Right upper pole cortex EDR .49 . PSV/EDV. Right upper pole cortex R.I. .51 . Left RAR 4.9. Right lower Pole medulla 18.2/6.5 Left Renal Parenchyma PSV/EDV . Left upper pole medulla 58.1/14.2 Right lower pole medulla EDR .36 . PSV/EDV . Right lower pole medulla R.I. .64 . Left upper pole medulla EDR .25 . Lower Pole Cortex 9.0/4.7 PSV/EDV. Left upper pole medulla R.I. .75 . Right lower pole cortex EDR .52 . UP Cortex 21.5/6.9 PSV/EDV. Right lower pole cortex R.I. .48 . Left upper pole cortex EDR .32 . Right Renal Hilar Left upper pole cortex R.I. .68 . Right Hilar avg 20.0/6.5 PSV/EDV. Left lower Pole medulla 40.7/9.7 Right hilar acceleration time 50 PSV/EDV . m/sec. Left lower pole medulla EDR .24 . Right Renal Dimensions Left lower pole medulla R.I. .76 . Right kidney size 10.0 cm . Lower Pole Cortx 16.1/7.9 PSV/EDV. Right cortical dimension .71 cm . Left lower pole cortex EDR .49 . Left lower pole cortex R.I. .51 . Left Renal Hilar LT Hilar avg 57.2/15.2 PSV/EDV . Left hilar acceleration time 40 m/sec. Left Renal Dimensions Left kidney size 11.1 cm . Left cortical dimension 1.48 cm . Aorta Proximal abdominal aorta 1.97 x 2.01 cm . Proximal abdominal aorta peak systolic velocity is 80.6 cm/sec . Distal abdominal aorta 1.86 x 1.78 cm . Distal abdominal aorta peak systolic velocity is 58.5 cm/sec . Normal left renal vein. Prelim to Dr. Tomlin's office. VL/Renal Artery Duplex Ultrasound Interpretation Summary No flow is visualized in the right renal artery. There is evidence of hemodynamically significant stenosis on the left, greater than 60%. No flow visualized in the right renal vein Left renal vein patent Right kidney normal in size Left kidney normal in size Ordering Physician: Sriram Tomlin Performed By: Roe Feliciano RVT
[2022-11-22 09:48] LABS: Anion Gap 5 (5-15); BUN 21 mg/dL (7-18); Calcium,Total 9.3 mg/dL (8.5-10.1); Chloride 107 mmol/L (98-107); EST Glomerular Filtration Rate 57 mL/min (>60); Est Glom Filt Rate - Afr Amer 68 mL/min (>60); Glucose 105 mg/dL (74-106); Potassium 4.9 mmol/L (3.5-5.1); Sodium Level 138 mmol/L (136-145)
== END | disposition home or self-care (01) ==
PROVIDERS: PCP Nurse Practitioner; Referring Provider Internal Medicine Cardiovascular Disease; Visit Provider Internal Medicine Cardiovascular Disease
DX: I10 Essential (primary) hypertension (principal)
CPT/HCPCS: 36415; 80048; 93975

== ENCOUNTER 2022-12-02 11:29 | Observation (INO) | payer MEDICARE, SELFPAY ==
--- NOTE | 2022-12-02 07:28 | US_ITS ---
INDICATION: Renal Artery Stenosis -- In Clinical [facility] Room 3 EXAMINATION: Ultrasound US Kidney(s) complete (eg, kidneys and bladder) TECHNIQUE: Lin scale and color doppler images were obtained of the kidneys. COMPARISON: None. FINDINGS: Right kidney: 8.7 x 3.6 x 3.8 cm. Mildly asymmetrically atrophic. The cortex measures 0.9 cm and is asymmetrically thickened. There is mildly increased parenchymal echogenicity. No parenchymal masses. No echogenic calculi or hydronephrosis. Decreased intrarenal color flow. Left kidney: 12.8 x 5.5 x 5.4 cm. Normal size. The parenchyma measures 1.5 cm and is within normal limits. Normal parenchymal echogenicity. No parenchymal masses. No echogenic calculi or hydronephrosis. Bladder: No acute findings although assessment is limited without distention. US/Kidney and Bladder IMPRESSION: 1. Asymmetrically atrophic right kidney with parenchymal thinning, increased cortical echogenicity, and decreased intrarenal vascularity. Findings are compatible with chronic renal failure and likely secondary to provided history of renal artery stenosis. 2. No acute findings in the left kidney. Electronically Signed: Sivakumar Acevedo DO at 9:54 EDT ,
[2022-12-02 07:37] VITALS: BMI 31.5
--- NOTE | 2022-12-02 11:45 | PCM.OP.BLANK ---
Operative Report Date of Procedure: 12/02/22 Procedures performed: 1. Bilateral selective renal angiography 2. Successful balloon angioplasty and stent placement to the right renal artery. Indications: 1. Hypertension 2. Renal artery stenosis. Technique of procedure: Access was obtained from the right common femoral artery with modified Seldinger technique. A #6 Maur[place] Cordis sheath was introduced. Next a 5 Mauritanian mammary artery catheter was advanced over a J-wire. This catheter was used to selectively engage the ostium of the left renal artery and then the right renal artery. Selective left and right renal angiography was performed. After reviewing the angiographic films, it was decided to intervene on the right renal artery. Patient was given a bolus of heparin. #6 [place]ian mammary artery guiding catheter was selectively engaged in the ostium of the right renal artery. The lesion was successfully crossed using the 0.014 inch run-through wire. We tried to cross the lesion over this wire with a 3.5 mm noncompliant balloon and then a 3.0 mm compliant balloon. However these were unsuccessful.'s subsequently the lesion was first dilated using a 1.5 mm balloon. Subsequently angioplasty was performed using the 3.0 mm balloon and then 3.5 mm noncompliant balloon. Repeat angiography was performed. It showed improvement however still more than 70% residual stenosis was noted. Decision was therefore made to stent the vessel. A 4.0 x 15 mm stent was placed across the lesion and deployed. The stent was then optimized using a 5.0 mm balloon. Final angiography was performed. It showed excellent results with no dissections or perforations. The catheter was withdrawn over a J-wire. The access site in the right common femoral artery was successfully closed using a Perclose closure device. Angiographic findings: 1. The left renal artery is noted to have about 50 to 60% stenosis in its ostial and proximal part. 2. The right renal artery was noted to be heavily calcified in its proximal part with severe stenosis quantified at about 95 to 99%. Conclusions: 1. 50 to 60% stenosis of the proximal left renal artery. 2. 95 to 99% heavily calcified stenosis of the proximal right renal artery. Successfully treated using a 4.0 x 15 mm stent, postdilated using 5.0 mm balloon. Recommendations: Postprocedure care would be directed towards the prevention of any hemorrhagic or vascular complications. Continue aspirin lifelong. Clopidogrel treatment for at least 2 weeks.
[2022-12-02 12:00] VITALS: BP 130/74; PULSE 70; RESP 16; TEMP 36.7; O2SAT 91
[2022-12-02 12:11] LABS: ACT Activated Clotting Time 203 sec (74-137)
[2022-12-02 12:22] VITALS: BMI 33.4
[2022-12-02] MEDS: 0.9% Normal Saline 1,000 ML 150 ML IV ×2 (12:44→18:50)
[2022-12-02 14:00] VITALS: BP 167/69; PULSE 72; RESP 16; TEMP 36.6; O2SAT 93
[2022-12-02 18:14] VITALS: BP 142/69; PULSE 83; RESP 18; TEMP 36.8; O2SAT 90
[2022-12-02 20:00] VITALS: BP 135/84; PULSE 85; RESP 16; TEMP 36.6; O2SAT 92
[2022-12-02] MEDS: Acetaminophen 325 MG Tablet PO (21:00)
[2022-12-02] MEDS: Pravastatin 20 MG Tablet PO (21:00)
[2022-12-03] MEDS: 0.9% Normal Saline 1,000 ML 150 ML IV ×2 (01:07→07:01)
[2022-12-03 02:15] VITALS: BP 132/78; PULSE 56; RESP 14; TEMP 36.6; O2SAT 92
[2022-12-03] MEDS: Levothyroxine 112 MCG Tablet PO (05:57)
[2022-12-03 06:32] LABS: Hematocrit 41.2 % (37-47); Hemoglobin 13.4 g/dL (12.0-15.0); Mean Corp Hgb Conc 32.5 g/dL (32-36); Mean Corpuscular Hgb 29.2 pg (27.0-32.0); Mean Corpuscular Volume 89.8 fL (81-99); Mean Platelet Vol. 10.3 fl (6.2-12.0); Platelet Count 267 K/mm3 (150-450); RBC Distribution Width CV 13.7 % (11.6-14.6); RBC Distribution Width SD 44.8 fl (35.1-43.9); Red Blood Count 4.59 M/mm3 (4.2-5.4); White Blood Count 9.1 K/mm3 (4.4-11.0)
[2022-12-03 07:11] LABS: Anion Gap 5 (5-15); BUN 20 mg/dL (7-18); BUN/Creat Ratio 23.5 RATIO (10-20); Chloride 110 mmol/L (98-107); Creatinine, Serum 0.85 mg/dL (0.55-1.02); EST Glomerular Filtration Rate 68 mL/min (>60); Est Glom Filt Rate - Afr Amer 83 mL/min (>60); Estimated Creatinine Clearance 56.13 ml/min; Glucose 99 mg/dL (74-106); Potassium 4.2 mmol/L (3.5-5.1); Sodium Level 139 mmol/L (136-145)
[2022-12-03 08:15] VITALS: BP 124/53; PULSE 68; RESP 16; TEMP 36.5; O2SAT 94
[2022-12-03] MEDS: Furosemide 20 MG Tablet PO (09:35)
[2022-12-03] MEDS: Cholecalciferol (VIT D3) 25 MCG TABLET (1,000 UNITS) 50 MCG PO (09:35)
[2022-12-03] MEDS: Ascorbic Acid 500 MG Tablet PO (09:35)
[2022-12-03] MEDS: Losartan Potassium 25 MG Tablet PO (09:35)
[2022-12-03] MEDS: Aspirin 81 MG TAB.CHEW PO (09:36)
[2022-12-03] MEDS: Clopidogrel Bisulfate 75 MG Tablet PO (09:36)
[2022-12-03] MEDS: Calcium (Elemental) 500 MG Tablet PO (09:36)
[2022-12-03] MEDS: Potassium Chloride Oral Tablet 10 MEQ PO (09:36)
[2022-12-03] MEDS: amLODIPine 5 MG Tablet PO (09:36)
[2022-12-03] MEDS: Multivitamins,Therapeutic Tablet 1 TABLET PO (09:36)
== END 2022-12-03 10:07 | disposition home or self-care (01) ==
LOC: CLSP 11:39 → PCU 12:00
PROVIDERS: Admitting Provider Internal Medicine Cardiovascular Disease; PCP Nurse Practitioner; Referring Provider Internal Medicine Cardiovascular Disease; Visit Provider Internal Medicine Cardiovascular Disease
DX: I70.1 Atherosclerosis of renal artery (principal); I10 Essential (primary) hypertension; Z79.899 Other long term (current) drug therapy; Z79.82 Long term (current) use of aspirin; Z79.890 Hormone replacement therapy; E78.5 Hyperlipidemia, unspecified; E03.9 Hypothyroidism, unspecified; Z86.16 Personal history of COVID-19; Z87.891 Personal history of nicotine dependence; N28.89 Other specified disorders of kidney and ureter; R42 Dizziness and giddiness; M25.512 Pain in left shoulder; R60.0 Localized edema; R53.81 Other malaise; R06.02 Shortness of breath
CPT/HCPCS: 36252; 36415; 37236; 76770; 80048; 85027; 85347; 96360; 96361; 99152; 99153; 99221; J7030; J7040; Q9967; C1725; C1760; C1769; C1876; C1887; G0378

== ENCOUNTER → 2023-03-16 | Outpatient (CLI) | payer MEDICARE, SELFPAY ==
--- NOTE | 2023-03-16 14:29 | RAD_ITS ---
STUDY: X-RAY CHEST REASON FOR EXAM: Female, 82 years old. LIRA, for heart cath TECHNIQUE: PA and lateral views of the chest. COMPARISON: CT angiogram chest August 03, 2022 FINDINGS: There are bilateral breast implants obscuring the lower lobes on the PA view. There is minimal atelectasis in the lung bases seen on the lateral view. There is biapical scarring. There is a suggestion of possible emphysematous change in the lung apices. Normal size heart. Normal mediastinum and gaby. Normal visualized pulmonary arteries. There is atherosclerotic calcification of the aortic arch with tortuosity. Normal visualized thoracic spine. Normal visualized ribs, clavicles, and shoulders. There is no demonstrated abnormality of the visualized soft tissue structures of the upper abdomen. RAD/Chest PA and Lateral IMPRESSION: Limited images, due to overlying artifact from breast implants. No definitive focal infiltrate chronic interstitial changes.. A CT scan of the chest without contrast may be necessary to fully evaluate the parenchyma. Electronically Signed: Lalita Javier MD at 5:59 EDT ,
[2023-03-16 15:15] LABS: Hematocrit 43.4 % (37-47); Hemoglobin 13.7 g/dL (12.0-15.0); Mean Corp Hgb Conc 31.6 g/dL (32-36); Mean Corpuscular Hgb 29.2 pg (27.0-32.0); Mean Corpuscular Volume 92.5 fL (81-99); Mean Platelet Vol. 10.4 fl (6.2-12.0); Platelet Count 300 K/mm3 (150-450); RBC Distribution Width CV 13.4 % (11.6-14.6); RBC Distribution Width SD 45.1 fl (35.1-43.9); Red Blood Count 4.69 M/mm3 (4.2-5.4); White Blood Count 11.6 K/mm3 (4.4-11.0)
[2023-03-16 15:40] LABS: Anion Gap 4 (5-15); BUN 35 mg/dL (7-18); BUN/Creat Ratio 26.3 RATIO (10-20); Calcium,Total 9.5 mg/dL (8.5-10.1); Chloride 110 mmol/L (98-107); Creatinine, Serum 1.33 mg/dL (0.55-1.02); EST Glomerular Filtration Rate 41 mL/min (>60); Est Glom Filt Rate - Afr Amer 49 mL/min (>60); Glucose 115 mg/dL (74-106); Potassium 4.8 mmol/L (3.5-5.1); Sodium Level 140 mmol/L (136-145)
[2023-03-16 16:58] LABS: BNP,B-Type NATRIURETIC PEPTIDE 93.9 pg/mL (0-100)
== END | disposition home or self-care (01) ==
PROVIDERS: PCP Nurse Practitioner; Referring Provider Internal Medicine Cardiovascular Disease; Visit Provider Internal Medicine Cardiovascular Disease
DX: R06.00 Dyspnea, unspecified (principal); R07.89 Other chest pain; R94.31 Abnormal electrocardiogram [ECG] [EKG]; I10 Essential (primary) hypertension
CPT/HCPCS: 36415; 71046; 80048; 83880; 85027

== ENCOUNTER 2023-05-18 06:30 | Day surgery (SDC) | payer MEDICARE, SELFPAY ==
[2023-04-04 15:18] VITALS: BMI 32.4
--- NOTE | 2023-04-20 12:54 | PCM.HP.BLA ---
History and Physical Date of Admission: 05/03/23 This patient is here for a heart catheterization. She has had renal angiography done. It showed severe lesion in the right renal artery. It was successfully treated with balloon angioplasty and stent. Patient has been keeping a record of her blood pressure readings. Most of the time it is well controlled. Patient complains of retrosternal chest discomfort after eating food particularly breakfast. No relationship to exertion. For the last couple of months, patient has noticed increasing shortness of breath with exertion. Denies orthopnea or PND. No ankle edema. No rest symptoms. No wheezing. A heart catheterization was ordered after last office visit, but denied by insurance company on account of elevated blood pressure and not optimizing medical therapy. She was started on isosorbide therapy. She did not tolerate beta-yandy therapy on account of bradycardia. Despite adding isosorbide therapy, she continues to be short of breath. This is worsening. Given progressive shortness of breath despite medical therapy, it is recommend that she proceed with a heart catheterization. She has a history of significant atherosclerotic disease with bilateral renal artery stenosis. Intake Vital Signs: See EMR Intake Visit Reasons: [facility] Pitch Flaker Required: No Accompanied by: Daughter Is patient in pain?: No Allergies Penicillins Allergy (Severe, Verified 03/16/23 13:14) Rash Antihistamines - Alkylamine Allergy (Intermediate, Verified 03/16/23 13:14) NEEDS FOLLOW-UP esomeprazole [From Nexium] Allergy (Verified 03/16/23 13:14) Hives atorvastatin Adverse Reaction (Intermediate, Verified 03/16/23 13:14) Severe leg myalgias Medications See EMR Ejection fraction %: 60 to 64 [facility] Medical History Bilateral renal artery stenosis COVID Dizzy Dyslipidemia Hypertension Hypothyroidism (acquired) Left shoulder pain Malaise Obesity Pneumonia Rib pain on right side Sinusitis, acute maxillary SOB (shortness of breath) Unilateral edema of lower extremity Weight loss observed on examination Surgical History History of left heart catheterization History of thyroid irradiation Hx of breast augmentation Hx of hernia repair S/P appendectomy Tubal ligation status Family History Mother Lung cancerFather Heart disease Pacemaker COPD (chronic obstructive pulmonary disease)Other Breast cancer Social History Smoking Status: Former smoker pack-years: 15 Tobacco: How many years used: 30 Electronic Cigarette Use: not used second hand exposure: No alcohol intake: current alcohol intake frequency: holidays/special occasions only substance use type: does not use caffeine: Yes Type: coffee Number of servings: 1 and tea Number of servings: 2 ROS Const Const: Positive for fatigue; Negative for weakness ENT ENT: Negative for dizziness or balance problems Cardio Chest Pain: Yes (x 2-3 months, worsening) Frequency: weekly Character: other (uncomfortable) Onset: with meals (mainly with breakfast) Location: mid sternal Duration: minutes (5-10 minutes) Palpitations: Yes Edema: None Muscle aches with walking: None Resp Respiratory: Positive for SOB with activity (worsening over 2 months); Negative for SOB at rest or SOB orthopnea\SOB lying down GI GI: Negative nausea, vomiting or heartburn Musc Musc: Negative for muscle weakness or balance problems Neuro Neuro: Negative for dizziness, lightheadedness, near syncope, syncope or weakness Endo Endo: Positive for fatigue Cardiology Exam Const Appearance: comfortable and no acute distress Nutritional Appearance: well nourished Neck Neck: no JVD Carotids: Negative bruit Chest Auscultation: Bilateral: Clear to Auscultation Cardio Rate: regular rate Rhythm: regular rhythm Heart sounds: S1 normal and S2 normal 2/6 systolic murmur at base Neuro General: patient alert, patient awake and patient oriented x3 Extremities Lower Extremity Edema: None: Bilateral Supplemental Info Supplemental Information ECHOCARDIOGRAM 08/26/22 Interpretation Summary The left ventricular ejection fraction is 60 %. Mildly dilated aortic root. ECHOCARDIOGRAM 02/25/22: Interpretation Summary The study was technically difficult. ? Left ventricular systolic function is normal. The estimated ejection fraction is 65 %. The right atrium is mildly enlarged. Prominent eustachian valve. Trivial mitral valve insufficiency. Trivial tricuspid valve insufficiency. The aortic valve is not well visualized, however, based upon the 2D echocardiographic images obtained there appears to be thickening, calcification, and partial restriction. Trivial aortic valve insufficiency. Right ventricular systolic pressure estimated to be 31 mmHg. No evidence for diastolic dysfunction. Stress Test Report:Date: 08/26/2022 Procedure: Pharmacologic stress nuclear imaging study? ? Indications: Dyspnea ? Consent: Per the patient ? Procedure: ? The patient underwent pharmacologic (Regadenoson 0.4mg ) evaluation with a peak heart rate of 75 beats per minute (50%predicted maximal heart rate) and a peak blood pressure of 134/80 mmHg. ? The baseline ECG demonstrated normal sinus rhythm with left bundle branch block.? The peak pharmacologic ECG demonstrated no diagnostic change. ? There were no cardiac dysrhythmias pretest, during pharmacologic infusion, or recovery. ? There was no complaint of chest discomfort during pharmacologic infusion or recovery. The patient was injected with 15.0 millicuries of technetium 99m Cardiolite and subsequently rest SPECT Cardiolite nuclear imaging was obtained in the horizontal long, vertical long, and short axis views. The patient underwent pharmacologic (Regadenoson) evaluation. The patient was injected with 45.0 millicuries of technetium 99m Cardiolite and subsequently stress SPECT Cardiolite nuclear imaging was obtained in the horizontal long, vertical long, and short axis views.? A gated Cardiolite study at peak stress was obtained. ? The examination was stopped secondary to completion of protocol. Rest and stress SPECT Cardiolite nuclear imaging status post realignment, normalization, and attenuation correction demonstrate no fixed or reversible perfusion defects.? There is end systolic thickening and brightening.? The gated Cardiolite study demonstrates myocardial thickening and inward wall motion.? The reported LVEF is 75%. ? Impression: ? 1.? Pharmacologic (Regadenoson) evaluation 2.? Peak pharmacologic ECG with no diagnostic changes. 3.? There were no cardiac dysrhythmias pretest, during pharmacologic infusion, or recovery. 5.? No fixed or reversible perfusion defects. 6.? The gated Cardiolite study reports an LVEF of 75%. ? ? CTA CHEST 08/03/22: IMPRESSION: No demonstrated pulmonary embolism or arterial dissection. 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 Bilateral breast implants. Mild cardiomegaly. Atrophic right kidney. Fullness change or midpole left kidney.? If stability not previously established recommend ultrasound for further evaluation if clinically warranted. Mild degenerative changes lower thoracic spine. Assessment and Plan Assessment and Plan (1) Chest discomfort: Status: Chronic Plan: Postprandial. Consider GI related. Start on Protonix 20 mg daily. Further management and follow-up as per primary care physician. (2) LIRA (dyspnea on exertion): Status: Acute Plan: Given the patient's stress test done few months ago was negative for any inducible ischemia, concern remains for significant coronary artery disease in view of her history of atherosclerotic vascular disease. Risks benefits and alternatives explained. She understands these and wishes to proceed with heart catheterization. She did not tolerate additional medications and her symptoms are worsening despite such adjustments. (3) Hypertension: Status: Chronic Qualifiers: Hypertension type: essential hypertension Qualified Code(s): I10 - Essential (primary) hypertension Plan: Status post renal artery stent. Blood pressure controlled. Continue to monitor. (4) History of renal artery stenosis: Status: Chronic Plan: Status post stent to the right renal artery. Blood pressure improved. Continue to monitor. (5) History of stent insertion of renal artery: Status: Chronic Plan: Aspirin and Plavix. (6) Hypothyroidism: Status: Chronic Plan: TSH within normal range. Continue to follow as per primary care physician.
[2023-04-28 14:36] LABS: Hematocrit 40.7 % (37-47); Mean Corp Hgb Conc 31.9 g/dL (32-36); Mean Corpuscular Volume 90.8 fL (81-99); Mean Platelet Vol. 10.3 fl (6.2-12.0); Platelet Count 289 K/mm3 (150-450); RBC Distribution Width CV 13.4 % (11.6-14.6); RBC Distribution Width SD 44.8 fl (35.1-43.9); Red Blood Count 4.48 M/mm3 (4.2-5.4); White Blood Count 9.9 K/mm3 (4.4-11.0)
[2023-04-28 15:19] LABS: Anion Gap 6 (5-15); BUN 22 mg/dL (7-18); BUN/Creat Ratio 22.5 RATIO (10-20); Calcium,Total 9.2 mg/dL (8.5-10.1); Chloride 108 mmol/L (98-107); Creatinine, Serum 0.98 mg/dL (0.55-1.02); EST Glomerular Filtration Rate 58 mL/min (>60); Est Glom Filt Rate - Afr Amer 70 mL/min (>60); Estimated Creatinine Clearance 48.69 ml/min; Glucose 101 mg/dL (74-106); Potassium 4.4 mmol/L (3.5-5.1); Sodium Level 141 mmol/L (136-145)
--- NOTE | 2023-05-17 09:51 | HP.PCM_ITS ---
History and Physical Date of Admission: 05/18/23 This is a 82 year old lady who presents today for a cardiac catheterization. She has had renal angiography done. 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 It was successfully treated with balloon angioplasty and stent. Patient has been keeping a record of her blood pressure readings. Most of the time it is well controlled. Patient complains of retrosternal chest discomfort after eating food particularly breakfast. No relationship to exertion. For the last couple of months, patient has noticed increasing shortness of breath with exertion. Denies orthopnea or PND. No ankle edema. No rest symptoms. No wheezing. Intake Vital Signs See EMR Allergies See EMR Medications See EMR Ejection fraction %: 60 to 64 PFSH Medical History Bilateral renal artery stenosis COVID Dizzy Dyslipidemia Hypertension Hypothyroidism (acquired) Left shoulder pain Malaise Obesity Pneumonia Rib pain on right side Sinusitis, acute maxillary SOB (shortness of breath) Unilateral edema of lower extremity Weight loss observed on examination Surgical History History of left heart catheterization History of thyroid irradiation Hx of breast augmentation Hx of hernia repair S/P appendectomy Tubal ligation status Family History Mother Lung cancerFather Heart disease Pacemaker COPD (chronic obstructive pulmonary disease)Other Breast cancer Social History Smoking Status: Former smoker pack-years: 15 Tobacco: How many years used: 30 Electronic Cigarette Use: not used second hand exposure: No alcohol intake: current alcohol intake frequency: holidays/special occasions only substance use type: does not use caffeine: Yes Type: coffee Number of servings: 1 and tea Number of servings: 2 ROS Const Const: Positive for fatigue; Negative for weakness ENT ENT: Negative for dizziness or balance problems Cardio Chest Pain: Yes (x 2-3 months, worsening) Frequency: weekly Character: other (uncomfortable) Onset: with meals (mainly with breakfast) Location: mid sternal Duration: minutes (5-10 minutes) Palpitations: Yes Edema: None Muscle aches with walking: None Resp Respiratory: Positive for SOB with activity (worsening over 2 months); Negative for SOB at rest or SOB orthopnea\SOB lying down GI GI: Negative nausea, vomiting or heartburn Musc Musc: Negative for muscle weakness or balance problems Neuro Neuro: Negative for dizziness, lightheadedness, near syncope, syncope or weakness Endo Endo: Positive for fatigue Cardiology Exam Const Appearance: comfortable and no acute distress Nutritional Appearance: well nourished Neck Neck: no JVD Carotids: Negative bruit Chest Auscultation: Bilateral: Clear to Auscultation Cardio Rate: regular rate Rhythm: regular rhythm Heart sounds: S1 normal and S2 normal 2/6 systolic murmur at base Neuro General: patient alert, patient awake and patient oriented x3 Extremities Lower Extremity Edema: None: Bilateral Supplemental Info Supplemental Information ECHOCARDIOGRAM 08/26/22 Interpretation Summary The left ventricular ejection fraction is 60 %. Mildly dilated aortic root. ECHOCARDIOGRAM 02/25/22: Interpretation Summary The study was technically difficult. ? Left ventricular systolic function is normal. The estimated ejection fraction is 65 %. The right atrium is mildly enlarged. Prominent eustachian valve. Trivial mitral valve insufficiency. Trivial tricuspid valve insufficiency. The aortic valve is not well visualized, however, based upon the 2D echocardiographic images obtained there appears to be thickening, calcification, and partial restriction. Trivial aortic valve insufficiency. Right ventricular systolic pressure estimated to be 31 mmHg. No evidence for diastolic dysfunction. Stress Test Report:Date: 08/26/2022 Procedure: Pharmacologic stress nuclear imaging study? ? Indications: Dyspnea ? Consent: Per the patient ? Procedure: ? The patient underwent pharmacologic (Regadenoson 0.4mg ) evaluation with a peak heart rate of 75 beats per minute (50%predicted maximal heart rate) and a peak blood pressure of 134/80 mmHg. ? The baseline ECG demonstrated normal sinus rhythm with left bundle branch block.? The peak pharmacologic ECG demonstrated no diagnostic change. ? There were no cardiac dysrhythmias pretest, during pharmacologic infusion, or recovery. ? There was no complaint of chest discomfort during pharmacologic infusion or recovery. The patient was injected with 15.0 millicuries of technetium 99m Cardiolite and subsequently rest SPECT Cardiolite nuclear imaging was obtained in the horizontal long, vertical long, and short axis views. The patient underwent pharmacologic (Regadenoson) evaluation. The patient was injected with 45.0 millicuries of technetium 99m Cardiolite and subsequently stress SPECT Cardioli te nuclear imaging was obtained in the horizontal long, vertical long, and short axis views.? A gated Cardiolite study at peak stress was obtained. ? The examination was stopped secondary to completion of protocol. Rest and stress SPECT Cardiolite nuclear imaging status post realignment, normalization, and attenuation correction demonstrate no fixed or reversible perfusion defects.? There is end systolic thickening and brightening.? The gated Cardiolite study demonstrates myocardial thickening and inward wall motion.? The reported LVEF is 75%. ? Impression: ? 1.? Pharmacologic (Regadenoson) evaluation 2.? Peak pharmacologic ECG with no diagnostic changes. 3.? There were no cardiac dysrhythmias pretest, during pharmacologic infusion, or recovery. 5.? No fixed or reversible perfusion defects. 6.? The gated Cardiolite study reports an LVEF of 75%. ? ? CTA CHEST 08/03/22: IMPRESSION: No demonstrated pulmonary embolism or arterial dissection. 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 Bilateral breast implants. Mild cardiomegaly. Atrophic right kidney. Fullness change or midpole left kidney.? If stability not previously established recommend ultrasound for further evaluation if clinically warranted. Mild degenerative changes lower thoracic spine. Assessment and Plan Assessment and Plan (1) Chest discomfort: Status: Chronic Plan: (2) LIRA (dyspnea on exertion): Status: Acute Plan: A heart catheterization was ordered after last office visit, but denied by insurance company on account of elevated blood pressure and not optimizing medical therapy. She was started on isosorbide therapy. She did not tolerate beta-yandy therapy on account of bradycardia. Despite adding isosorbide therapy, she continues to be short of breath. This is worsening. Given progressive shortness of breath despite medical therapy, it is recommend that she proceed with a heart catheterization. She has a history of bilateral renal artery stenosis.
--- NOTE | 2023-05-18 10:49 | CL.D_ITS ---
Patient Name: PARVEEN CARUSO Study Date: 05/18/2023 Performing: Sriram Tomlin MD Ht: 70 inches 177.8 cm : 1940 Wt: 226 lbs 102.51 kg Age: 82 Gender: female BSA: 2.2 PROCEDURE(S) PERFORMED [id number])[facility] CLINICAL PROFILE AND INDICATIONS Indications: Suspected CAD Heart Failure: None Angina Classification Anginal Classification w/in 2 Weeks: CCS III CAD Presentations: Stable angina. CONCLUSIONS 80% Prox Mid, 65% distal Mid LAD Calcified Prox LCX with no luminal obstruction 70% calcified Prox RCA; 80% heavily calcified eccentric Mid RCA Accessory/dual LAD from RCA noted. Heavily calcified distal Ascending Aorta and Arch RECOMMENDATIONS Refer for consideration for rotablation of Mid RCA. Staged PCI to LAD DESCRIPTION OF PROCEDURE The patient arrived to the procedure lab. The risks and benefits of the procedure as well as a full description of our services here and current unavailability of surgical backup were fully explained to the patient and/or their significant other prior to the catheterization. The Timeout was completed, verifying the correct patient and procedure. The patient's procedural site was prepped and draped in the usual fashion. Local anesthetic was given subcutaneously to right radial region with Lidocaine 2%. Using a modified Seldinger technique, arterial access was obtained via the right radial artery, a 6Fr sheath was inserted. Left Coronary Artery selective angiography was performed in multiple views using a 5 Fr. JL3.5 catheter. Right Coronary Artery selective angiography was then performed in multiple views using a 5 Fr. 3DRC (Yan) catheter.The arterial sheath was pulled and a TR Band was applied for hemostasis 12 ml of air sheath flushed aspirated CORONARY ANGIOGRAPHY DOMINANCE: Right Dominant LEFT MAIN: 20% distal LEFT ANTERIOR DESCENDING ARTERY: LAD: Tubular 80% Mid lesion in LAD Tubular 65% Mid lesion in LAD OM 1: Tubular 50% Ostial lesion in MARG1 OM 2: Tubular 50% Ostial lesion in MARG1 RIGHT CORONARY ARTERY: RCA: Calcified 70% Proximal lesion in RCA Eccentric Calcified 80% Mid lesion in RCA COMPLICATIONS No Complications PROCEDURE MEDICATIONS Fentanyl 50 mcg IV Versed 1 mg IV Oxygen: 2 L/min via nasal cannula Heparin given IA 05/18/2023 09:17:15 Heparin 2000 unit(s) IV 05/18/2023 09:30:11 Heparin 3000 unit(s) IV 05/18/2023 09:42:05 Verapamil 2.5mg, Ntg 200mcgs, 2000 units of Heparin given IA 05/18/2023 09:17:15 IV Bolus: .9 NaCl 250 ml total 05/18/2023 09:11:25 SUMMARY OF HEMODYNAMIC DATA Time AIR REST ECG 07:01:31 AO 169/76 (109) SA 09:33:42 AO 166/76 (118) 09:33:57 Signed By Sriram Tomlin MD On 05/18/2023 10:48:13 Sriram Tomlin MD
[2023-05-18 11:55] LABS: ACT Activated Clotting Time 217 sec (74-137)
== END 2023-05-18 12:15 | disposition home or self-care (01) ==
PROVIDERS: PCP Nurse Practitioner; Referring Provider Internal Medicine Cardiovascular Disease; Visit Provider Internal Medicine Cardiovascular Disease
DX: I71.22 Aneurysm of the aortic arch, without rupture (principal); E78.5 Hyperlipidemia, unspecified; M47.814 Spondylosis without myelopathy or radiculopathy, thoracic region; N26.1 Atrophy of kidney (terminal); I10 Essential (primary) hypertension; Z87.891 Personal history of nicotine dependence; Z86.16 Personal history of COVID-19; R00.2 Palpitations; R06.00 Dyspnea, unspecified; R07.89 Other chest pain; E03.9 Hypothyroidism, unspecified
CPT/HCPCS: 36415; 80048; 85027; 85347; 93454; 99152; 99153; J7040; Q9967; C1769; C1894

== ENCOUNTER → 2023-06-21 | Outpatient (CLI) | payer MEDICARE, SELFPAY ==
--- OUTSIDE RECORDS SUMMARY | 2023-06-21 10:50 | XMS RPT_ITS | CCD ---
Author Name Unknown Address [address] [facility] [address] [place] [address] Organization [facility] Care Team Providers Care Fishing Gear Mechanic Name Role Phone Unavailable Primary Care Provider Unavailhelen e Melva Waters Primary Care Provider Melva Waters Primary Care Provider Melva Waters Primary Care Provider Melva Waters DO Primary Care Provider [phone] Melva Waters DO Primary Care Provider Melva Waters Referring Unavailable Melva Waters Primary Care Unavailable RILEY OLIVER Attending Unavailable Melva Waters Referring Unavailable Melva Waters Primary Care Unavailable Jillian Huyhn Attending Unavailable Melva Waters Referring Unavailable Melva Waters Primary Care Unavailable Melva Waters Attending Unavailable Fadi PVC LOADER.Albina MADERA Primary Care Provide r DEX OGDEN Referring Unavailable ALBINA BAEZA Primary Care Unavailable PEDRO WYLIE Attending Unavailable ALBINA BAEAZ Primary Care Unavailable DEX OGDEN Attending Unavailable DEX OGDEN Admitting Unavailable ALBINA BAEZA Primary Care Unavailable Allergies Allergy Classification Reported Allergen(s) Allergy Type Date of Onset Reaction(s) Facility Penicillins (antibiotic) (2 sources) Penicillins Drug Allergy 5 [facility] Proton Pump Inhibitors (2 sources) Esomeprazole Drug Allergy 5 [facility] (14 sources) Esomeprazole; Translations: [ESOMEPRAZOLE MAGNESIUM] Drug Allergy 5 Rash [place] (13 sources) Penicillins; Translations: [PENICILLINS] Propensity to adverse reactions to drug 5 [place] (1 source) Penicillins Drug Allergy 5 Rash [facility] Medications Current Medications Medication Drug Class(es) Dates Sig (Normalized) Sig (Original) atorvastatin 20 mg oral tablet (10 sources) HMG-CoA Reductase Inhibitor Start: 09-30-2019 take 1 tablet by mouth once daily atorvastatin (LIPITOR) 20 MG tablet take 1 tablet by mouth daily 90 tablet 3 10/06/2020 Active Completed/Discontinued Medications Medication Drug Class(es) Dates Sig (Normalized) Sig (Original) acetaminophen 500 mg oral tablet (1 source) Start: 08-06-2020 take 2 tablets by mouth every six hours as needed acetaminophen (TYLENOL) 500 mg tablet Take 2 tablets by mouth every 6 hours as needed. 0 08/06/2020 Active Problems Active Problems Problem Classification Problem Date Documented Da te Episodic/Chronic Chronic obstructive pulmonary disease and bronchiectasis (15 sources) Chronic obstructive lung disease; Translations: [Chronic obstructive pulmonary disease, unspecified] Onset: 10-05-2016 10-05-2016 Chronic Coronary atherosclerosis and other heart disease (5 sources) Stable angina; Translations: [Angina pectoris] Onset: 07-27-2020 05-19-2023 Chronic Coronary atherosclerosis and other heart disease (1 source) Coronary angioplasty status; Translations: [Post PTCA] Onset: 06-07-2023 Episodic Delirium dementia and amnestic and other cognitive disorders (13 sources) Primary degenerative dementia of the Alzheimer type, senile onset, uncomplicated; Translations: [Alzheimer's disease with late onset] Onset: 03-06-2019 03-06-2019 Chronic Disorders of lipid metabolism (3 sources) Mixed hyperlipidemia; Translations: [Dyslipidemia] Onset: 06-22-2021 06-22-2021 Chronic Essential hypertension (19 sources) Essential hypertension; Translations: [Essential (primary) hypertension] Onset: 10-06-2015 10-06-2015 Chronic Malaise and fatigue (1 source) Fatigue; Translations: [Chronic fatigue] Episodic Mycoses (1 source) Candidiasis of mouth; Translations: [Thrush] Episodic Nutritional deficiencies (2 sources) Vitamin D deficiency; Translations: [Vitamin D deficiency, unspecified] Chronic Other endocrine disorders (1 source) Syndrome of inappropriate vasopressin secretion; 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] Onset: 08-04-2020 08-06-2020 Chronic Other gastrointestinal disorders (1 source) Constipation; Translations: [Constipation, unspecified] 09-11-2021 Episodic Other injuries and conditions due to external causes (1 source) Injury of elbow; Translations: [Elbow injury, left, initial encounter] Episodic Other lower respiratory disease (1 source) Dyspnea; Translations: [Shortness of breath] Episodic Other non-traumatic joint disorders (1 source) Effusion, left elbow; Translations: [Elbow effusion, left] Episodic Other non-traumatic joint disorders (1 source) Pain in right hip joint; Translations: [Pain in right hip] Episodic Other screening for suspected conditions (not mental disorders or infectious disease) (1 source) Viral screening status; Translations: [Need for hepatitis C screening test] Episodic Pneumonia (except that caused by tuberculosis or sexually transmitted disease) (1 source) Pneumonia; Translations: [Pneumonia, unspecified organism] 08-06-2020 Episodic Residual codes; unclassified (1 source) Postmenopausal state; Translations: [Postmenopausal] Episodic Thyroid disorders (20 sources) Hypothyroidism; Translations: [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] Onset: 10-05-2016 10-05-2016 Chronic Thyroid disorders (1 source) Disorder of thyroid gland; Translations: [Disorder of thyroid, unspecified] 08-06-2020 Episodic Unclassified (1 source) Finding of region of thorax; Translations: [Chest heaviness] Past or Other Problems Problem Classification Problem Date Documented Date Episodic/Chronic Fluid and electrolyte disorders (2 sources) Hyperkalemia; Translations: [Hyponatremia] Onset: 08-04-2020 09-11-2021 Episodic Genitourinary symptoms and ill-defined conditions (1 source) Increased frequency of urination; Translations: [Urinary frequency] Episodic Other hematologic conditions (1 source) Other specified abnormalities of plasma proteins; Translations: [Elevated troponin] Onset: 11-15-2022 Episodic Other nervous system disorders (13 sources) Impairment of balance; Translations: [Other abnormalities of gait and mobility] Onset: 10-06-2015 10-06-2015 Episodic Residual codes; unclassified (13 sources) Memory impairment; Translations: [Other amnesia] Onset: 10-06-2015 10-06-2015 Episodic Residual codes; unclassified (13 sources) Amnesia; Translations: [Other amnesia] Onset: 11-06-2015 11-06-2015 Episodic Urinary tract infections (1 source) Urinary tract infectious disease; Translations: [Urinary tract infection, site not specified] Onset: 09-09-2021 09-09-2021 Episodic Viral infection (2 sources) COVID-19; Translations: [Acute respiratory failure] Onset: 07-25-2020 08-06-2020 Episodic Results Test Name Value Interpretation Reference Range Facil ity Vital Signs Date Time Vital Sign Value Performing Clinician Faci lity 02-02-2020 14:19-0400 Body Temperature 98.29 [degF] [facility] [place] 02-02-2020 14:19-0400 BP Diastolic 95 mm[Hg] [place], [place] 02-02-2020 14:19-0400 BP Systolic 138 mm[Hg] [place] 02-02-2020 14:19-0400 Pulse (Heart Rate) 103 /min [place], [place] 02-02-2020 14:19-0400 Pulse Oximetry 96 % [place] 02-02-2020 14:19-0400 Respiratory Rate 16 /min [place], [place] 09-05-2019 10:24-0400 BMI (Body Mass Index) 22.96 kg/m2 Evan Del Rio [place], [place] 09-05-2019 10:24-0400 Body weight 72.58 kg [place], [place] 09-05-2019 10:24-0400 Height 177.8 cm [place] Encounters Encounter Date Encounter Type Care Provider Facility Start: 06-07-2023 End: 06-08-2023 ambulatory DEX OGDEN Facility:[facility] Start: 05-25-2023 End: 05-26-2023 ambulatory DEX OGDEN Facility:[facility] Start: 05-19-2023 Orders Only Dex cates MD Work Phone: [facility] Procedures Date Procedure Procedure Detail Performing Clinician Start: 09-02-2021 Assay of free thyroxine Jillian Huynh APRN - FIRESETTER Work Phone: Start: 01-20-2021 Radex hip unilateral with pelvis 2-3 views Jillian Huynh PVC LOADER - FIRESETTER Work Phone: Start: 10-16-2020 End: 10-16-2020 Assay of free thyroxine Melva russell DO Work Phone: Start: 09-10-2020 Assay of free thyroxine Melva Waters Work Phone: Start: 09-10-2020 Assay of thyroid sti mulating hormone tsh Melva Waters Work Phone: Start: 09-10-2020 Hepatitis c antibody Ch edgar Waters Work Phone: Start: 06-02-2020 Dxa bone density chante dy 1/> sites axial skel Melva Waters Work Phone: Start: 06-02-2020 Comprehensive metabo lic panel Melva Waters Work Phone: Start: 06-02-2020 Lipid panel Melva Waters Work Phone: Start: 03-12-2020 Potassium serum plas ma/whole blood Melva Waters Work Phone: Start: 02-02-2020 Radex elbow complete minimum 3 views Bryan Vilma Work Phone: Start: 01-30-2020 Comprehensive metabo lic panel Josefa Saundra Work Phone: Start: 09-05-2019 ECHOCARDIOGRAM PHARMACOLOGICAL STRESS TEST Evan Del Rio Work Phone: Start: 08-26-2019 Radiologic exam ches t 2 views Melva Waters Work Phone: Start: 08-26-2019 Blood count complete automated Melva Waters Work Phone: Start: 08-26-2019 Comprehensive metabo lic panel Melva Waters Work Phone: Start: 08-06-2019 25 hydroxy includes fractions if performed Melva Waters Work Phone: Start: 04-17-2019 Assay of thyroid sti mulating hormone tsh Melva Waters Work Phone: Start: 04-17-2019 Blood count complete auto&auto difrntl wbc Melva Cullen Jt Work Phone: Start: 04-17-2019 Comprehensive metabo lic panel Melva Cullen Jt Work Phone: Start: 04-17-2019 Cyanocobalamin vitamin b-12 Melav Cullen Jt Work Phone: Plan of Treatment Date Care Activity Detail Author Start: 11-14-2025 Diabetes Screening Diabetes Screening [facility] Start: 02-10-2023 Covid-19 Vaccine () Covid-19 Vaccine () [facility] Start: 02-10-2023 Influenza vaccination Influ[facility] Vacc[facility] Start: 09-02-2022 Thyroid stimulating hormone measurement TSH testing [facility] Start: 06-12-2022 Advance Directive Discussion Advance Directive Discussion [facility] Start: 06-09-2022 Annual Wellness Visit (AWV) Annual Wellness Visit (AWV) [facility] Start: 06-08-2022 Creatinine measurement Creatinine monitoring [facility] Start: 06-08-2022 Depression Screen Depression Screen [facility] Start: 06-08-2022 Hepatitis B surface antibody level LDL Cholesterol [facility] Start: 06-08-2022 Lipid panel Lipid screen [facility] Start: 06-08-2022 Potassium monitoring Potassium monitoring [facility] Start: 12-07-2021 End: 12-07-2021 Patient encounter procedure 12/07/2021 Office Visit Family Medicine Melva Waters, DO [address] [place] [id number] [facility] Start: 10-16-2021 Thyroid stimulating hormone measurement TSH testing [facility] Work Phone: Start: 09-10-2021 Thyroid stimulating hormone measurement TSH testing [facility] Work Phone: Start: 09-10-2021 TSH Qn TSH testing [facility] Work Phone: Start: 08-05-2021 COVID-19 Vaccine (3 - Booster for Pfizer series) COVID-19 Vaccine (3 - Booster for Pfizer series) [facility] Start: 06-07-2021 End: 06-07-2021 Office Visit 06/07/2021 Office Visit Family Medicine Melva Waters DO [address] [place], [place] [id number] [facility] Start: 06-02-2021 Creatinine measurement Creatinine monitoring [facility] [place] Start: 06-02-2021 Lipid panel Lipid screen [facility] [place] [place] Start: 06-02-2021 Potassium monitoring Potassium monitoring [facility] [place] [place] Start: 05-31-2021 End: 05-31-2021 Patient encounter procedure 05/31/2021 Office Visit Family Medicine Melva Waters DO [address] [place], [place] [id number] [facility] Start: 05-30-2021 Annual Wellness Visit (AWV) Annual Wellness Visit (AWV) [facility] [place] [place] Start: 02-10-2021 Influenza vaccination [facility] Work Phone: Start: 02-06-2021 Creatinine measurement Creatinine monitoring [facility] [place] Start: 02-06-2021 Potassium monitoring Potassium monitoring [facility] [place] [place] Start: 01-29-2021 Creatinine measurement Creatinine monitoring [facility] [place] Start: 01-29-2021 Potassium monitoring Potassium monitoring [facility] [place] [place] Start: 11-27-2020 End: 11-27-2020 Office Visit 11/27/2020 Office Visit Family Medicine Melva Waters DO [address] [place], [place] [id number] [facility] Start: 09-29-2020 Statin Therapy Statin Therapy [facility] [place] [place] Start: 08-25-2020 Creatinine measurement Creatinine monitoring [facility] [place] Start: 08-25-2020 Creatinine monitoring Creatinine monitoring [facility] [place] [facility] [place] Start: 08-25-2020 Potassium monitoring Potassium monitoring [facility] [place] [place] Start: 05-29-2020 End: 05-29-2020 Office Visit 05/29/2020 Office Visit Family Medicine Melva Waters DO [address] [place], [place] [id number] [facility] Start: 04-17-2020 Creatinine monitoring Creatinine monitoring [facility] [place] Start: 04-17-2020 Potassium monitoring Potassium monitoring [facility] [place] Start: 04-17-2020 TSH Qn TSH testing [place] Start: 04-17-2020 TSH testing TSH testing [place] Start: 02-11-2020 Influenza vaccination Flu vaccine (#1) [place] Start: 02-03-2020 End: 02-03-2020 Office Visit 02/03/2020 Office Visit Family Medicine Troy Adkins MD [address] [place] [id number] [facility] Start: 10-18-2019 End: 10-18-2019 Office Visit 10/18/2019 Office Visit Cardiology Evan Del Rio MD [address] [place] [phone] [facility] Start: 03-07-2019 End: 03-07-2019 Office Visit 03/07/2019 Office Visit Geriatric Medicine Clara Rubio MD [address] [place] [address] [phone] [facility] Start: 02-10-2019 Influenza vaccination Flu vaccine (#1) [place] Start: 11-29-2018 Annual Wellness Visit (AWV) Annual Wellness Visit (AWV) [place] Start: 11-01-2018 Creatinine monitoring Creatinine monitoring [facility] [place] Start: 11-01-2018 Lipid panel Lipid screen [place] Start: 11-01-2018 Lipid screen Lipid screen [place] Start: 11-01-2018 Potassium monitoring Potassium monitoring [facility] [place] Start: 11-01-2018 TSH testing TSH testing [place] Start: 2006 DEXA (modify frequency per FRAX score) DEXA (modify frequency per FRAX score) [place] Start: 2004 Annual Wellness Visit (AWV) Annual Wellness Visit (AWV) [place] Start: 2001 RSV Vaccine (1 - 1-dose 60+ series) RSV Vaccine (1 - 1-dose 60+ series) [facility] Start: 1996 DEXA (modify frequency per FRAX score) DEXA (modify frequency per FRAX score) [place] Start: [address] lung screening Low dose CT lung screening [place] Start: 1996 Screening for osteoporosis DEXA (modify frequency per FRAX score) [place] Start: 11-29-1991 Screening for malignant neoplasm of lung Low dose CT lung screening [facility] Start: 11-29-1991 Shingles Vaccine (1 of 2) Shingles Vaccine (1 of 2) [facility] Start: 11-29-1991 Shingrix Vaccine (1 of 2) Shingrix Vaccine (1 of 2) [facility] Start: 1960 DTaP/Tdap/Td vaccine (1 - Tdap) DTaP/Tdap/Td vaccine (1 - Tdap) [facility] Start: 1960 Urine microalbumin profile DTaP,Tdap,Td Vaccine (1 - Tdap) [facility] Start: 11-29-1959 Spirometry Spirometry [facility] Start: 1957 COVID-19 Vaccine (1) COVID-19 Vaccine (1) [facility] Work Phone: Start: 1953 COVID-19 Vaccine (1) COVID-19 Vaccine (1) [facility] Work Phone: Start: 1952 DTaP/Tdap/Td vaccine (1 - Tdap) DTaP/Tdap/Td vaccine (1 - Tdap) [place] End: 09-02-2021 TSH with Reflex TSH with Reflex Lab Routine Hypothyroidism, unspecified type 1 Occurrences starting 09/02/2021 until 09/02/2021 [facility] Work Phone: Immunizations Immunization Date Immunization Notes Care Provider Robert diane 04-01-2022 influenza virus vacc ine, unspecified formulation Dex Ogden MD Work Phone: [facility] 06-08-2021 Influenza, High-dose , Quadv, 65 yrs +, IM (Fluzone) Melva Waters DO Work Phone: [facility] 04-17-2018 pneumococcal polysaccharide vaccine, 23 valent Clara Rubio [facility] 11-03-2016 pneumococcal conjuga te vaccine, 13 valent Clara Rubio [facility] Payers Date Payer Category Payer Medicare [id number] 2019 Unknown 2016 Medicare xxxxxxxxxxxx [id number] 1940 Unknown [id number] 1941 Unknown [id number] 1941 Unknown [id number] Social History Date Type Detail Facility Start: 01-08-2015 End: 01-24-2019 Tobacco smoking status NHIS Former sm[place] Start: 01-24-2019 End: 11-15-2022 Alcohol intake No [facility] Work Phone: Start: 1940 Sex Assigned At Not on file [place] End: 04-17-2007 History of tobacco use Current smoker [place] End: 04-17-2007 History of tobacco use Cigarette Smoker [place] Start: 04-17-2019 End: 11-15-2022 Cigarettes smoked current (pack per day) - Reported [facility] Work Phone: Start: 06-20-2019 End: 06-22-2021 Alcohol intake Current non-drinker of alcohol (finding) [facility] [place] Start: 02-02-2020 End: 06-19-2020 Tobacco use and exposure Never used [facility] [place] Exposure to SARS-CoV -2 (event) Not sure [facility] [place], [place] Exposure to SARS-CoV -2 (event) Yes [facility] [place] Start: 1940 Sex Assigned At Female S [facility] Work Phone: Start: 06-19-2020 Tobacco smoking stat [facility] Never smoked tobacco [facility] Start: 11-14-2022 Alcohol intake Lifetime non-d lyla (finding) [facility] How often to you hav e a drink containing alcohol? Never [facility] Work Phone: Average Number of Drinks Not on file [facility] Goals Date Patient Goal Desired Activity /State Clinical Note 06-08-2023 Note Date & Type Note Facility 06-08-2023 Note HNO ID: [id number] Author: Adrienne Chaney RN Service: Care Management Author Type: Registered Nurse Type: Care Mgt Initial Assessment Filed: 06/08/2023 9:42 AM Note Text: CARE MANAGEMENT: ASSESSMENT AND DISCHARGE PLAN SERVICE DATE: June 08, 2023 SERVICE TIME: 9:41 AM PCP: Albina Baeza APRN.CNP Primary Contact: Extended Emergency Contact Information Primary Emergency Contact: Kat Olmos [facility] Mobile Relation: Daughter Secondary Emergency Contact: Harpreet Robles Mobile Relation: Son Admission Status: Ambulatory Surgery Insurance Provider[place] [facility] Planning requested by: Per Department Practice Potential Transition Plans Home;No Services Indicated Advance Directives Current Living Arrangements and Support Lives with: Alone Type of Residence: Private Residence (Apartment or Condo) Does the patient have to climb stairs at home?: No Support: Children, Friends/neighbors How do you manage to accomplish the following: Independent: Ambulation;Bathe/Shower;Dress;Going to the bathroom;Medication Management Needs Assistance: Meals/Meal Prep ([place] facility provides meals) Dependent: Transportation to appointments/community (children provide transportation) Current Services/Equipment Current Post-Acute Service(s): DME Current DME Type: Rollator Scooter, Walker Discharge Planning Patient Goal(s): Independent living [place] Explained: [place] Given: No Reason Not Given: No placements necessary Are you interested in bedside delivery of your medications? No Discharge Planning Participant(s): Patient Patient/Family Comments: Caregiver Assessment: Transport at Discharge: Needs Prior to Discharge: Needs Prior to Discharge: Ready for Discharge Post-Acute Discharge Plan: Patient from [facility]. Patient admitted as amb surgery s/p heart cath with PCI. +PCP - albina Baeza +Rx - [facility] #[id number] +DME - rollator, walker Patient to return to [place] at discharge. Patient states her son will transport her home. SIGNATURE: Adrienne Chaney RN PATIENT NAME: Parveen Robles DATE: June 08, 2023 TIME: 9:41 AM CONTACT #: [phone] [facility] Clinical Note 06-07-2023 Note Date & Type Note Facility 06-07-2023 Note HNO ID: [id number] Author: Cleo Mattson RN Service: Nursing Author Type: Registered Nurse Type: Nursing Progress Note Filed: 06/07/2023 12:42 PM Note Text: Other: Dr Johnson aware of pain, no new orders given. [facility] Clinical Note 07-21-2020 Note Date & Type Note Facility 07-21-2020 Note Patient Outreach ([place] [facility]) ZULYPARVEEN ([id number]) 1940 F Date Time Provider Department 07/21/20 ANGELIC BUCKLEY During your visit today, we recorded the following information about you: Allergies As of Date: 07/21/2020 Noted Allergy Reaction ESOMEPRAZOLE MAGNESIUM 01/08/2015 2 - Rash PENICILLINS 01/08/2015 2 - Rash Date Reviewed: 06/19/2020 Reviewed by: Betzaida Martins Ma - Fully Assessed Order(s):SARS-COVID VACCINE 1ST DOSE APPT [[id number]] Order #: [id number] FUTURE Prescriptions as of 07/21/2020 Sig: ASPIRIN 81 MG TABLET,DELAYED * Take 81 mg by mouth once austen* ATORVASTATIN 20 MG TABLET Take 20 mg by mouth once austen* CHOLECALCIFEROL (VITAMIN D3) * Take 2,000 Units by mouth onc* LEVOTHYROXINE 88 MCG TABLET Take 1 tablet by mouth once d* LISINOPRIL 5 MG TABLET Take 1 tablet by mouth once d* METOPROLOL SUCCINATE ER 25 MG* Take 0.5 tablets by mouth onc* NITROGLYCERIN 0.4 MG SUBLINGU* Dissolve 0.4 mg under the ton* TIOTROPIUM BROMIDE 18 MCG CAP* Inhale 1 capsule as instructe* Problem List As Of Date: 07/21/2020 (None) Letter Text Encounter Status:Closed by ALEXUS, PRODUSER on 07/24/20 [facility] Evaluation note Note Date & Type Note Facility documented in this encounter [facility] Work Phone: Evaluation note Note Date & Type Note Facility documented in this encounter [facility] Work Phone: Evaluation note Note Date & Type Note Facility documented in this encounter [facility] Work Phone: Evaluation note Note Date & Type Note Facility documented in this encounter [facility] Advance Directives No Advanced Directives Records FoundDocuments on File Type Date Recorded Patient Foreman/Pile Driving And Erection Expl anation Advance Directives and Living Will Power of Chemical Librarian Power of Chemical Librarian 11/19/2015 1:07 PM 2015 Power of Chemical Librarian Documents on File Type Date Recorded Patient Foreman/Pile Driving And Erection Expl anation Advance Directives and Living Will Advance Directives and Living Will 03/07/2019 8:55 AM Living Will Power of Chemical Librarian Power of Chemical Librarian 11/19/2015 1:07 PM 2015 Power of Chemical Librarian Power of Chemical Librarian 03/07/2019 8:56 AM healt care Power of Chemical Librarian Documents on File Type Date Recorded Patient Foreman/Pile Driving And Erection Expl anation Advance Directives and Living Will Advance Directives and Living Will 03/07/2019 8:55 AM Living Will Power of Chemical Librarian Power of Chemical Librarian 11/19/2015 1:07 PM 2015 Power of Chemical Librarian Power of Chemical Librarian 03/07/2019 8:56 AM healt h care Power of Chemical Librarian Documents on File Type Date Recorded Patient Foreman/Pile Driving And Erection Expl anation ACP-Advance Directive ACP-Advance Directive 03/07/2019 8:55 AM L iving Will ACP-Power of Chemical Librarian ACP-Power of Chemical Librarian 11/19/2015 1:07 PM Power of Chemical Librarian ACP-Power of Chemical Librarian 03/07/2019 8:56 AM h ealth care Power of Chemical Librarian Documents on File Type Date Recorded Patient Foreman/Pile Driving And Erection Expl anation ACP-Advance Directive ACP-Advance Directive 03/07/2019 8:55 AM L iving Will ACP-Power of Chemical Librarian ACP-Power of Chemical Librarian 11/19/2015 1:07 PM Power of Chemical Librarian ACP-Power of Chemical Librarian 03/07/2019 8:56 AM h ealth care Power of Chemical Librarian Documents on File Type Date Recorded Patient Foreman/Pile Driving And Erection Expl anation ACP-Advance Directive ACP-Power of Chemical Librarian ACP-Advance Directive 03/07/2019 8:55 AM L iving Will ACP-Power of Chemical Librarian 03/07/2019 8:56 AM h [facility] Power of Chemical Librarian ACP-Power of Chemical Librarian 11/19/2015 1:07 PM Power of Chemical Librarian Latest Code Status on File Code Status Date Activated Date Inactivated Comments DNR-CCA 09/10/2021 5:19 PM 09/11/2021 3:29 PM Question Answer Comments DNR Order Discussed With: Patient Code Status History Code Status Date Activated Date Inactivated Comments Full Code 09/10/2021 5:06 PM 09/10/2021 5:19 PM Question Answer Comments Full Code Order Discussed With: Patient DNR-CCA 07/27/2020 5:07 PM 08/06/2020 9:32 PM Question Answer Comments DNR Order Discussed With: Patient Full Code 07/25/2020 4:36 PM 07/27/2020 5:07 PM Question Answer Comments Full Code Order Discussed With: Patient Assessments Diagnosis Vitamin D deficiency, unspecified Chronic fatigue Other malaise and fatigue Diagnosis Vitamin D deficiency Unspecified vitamin D deficiency Diagnosis Shortness of breath Chest heaviness Other chest pain Diagnosis Stable angina pectoris (HCC) Essential hypertension Unspecified essential hypertension Angina pectoris (HCC) Other and unspecified angina pectoris Diagnosis Elbow injury, left, initial encounter Elbow effusion, left Thrush Candidiasis of mouth Diagnosis Hyperkalemia Hyperpotassemia Diagnosis Essential hypertension Unspecified essential hypertension Mixed hyperlipidemia Postmenopausal Asymptomatic postmenopausal status (age-related) (natural) Diagnosis Urinary frequency Diagnosis Need for hepatitis C screening test Special screening examination for other specified viral diseases 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 Summary Purpose Family History No Family History Records FoundNo Family History Records FoundNo Family History Records FoundNo Family History Records FoundNo Family History Records FoundNo Family History Records FoundNo Family History Records Found Reason for Referral Status Reason Specialty Diagnoses / Procedures Re ferred By Contact Referred To Contact Closed Cardiology Diagnoses Stable angina pectoris (HCC) Essential hypertension Angina pectoris (HCC) Procedures ECHO (Dobutamine) Pharmacological Stress Test Evan Del Rio MD [address] [place] [address] Status Reason Specialty Diagnoses / Procedures Referred By Contact Referred To Contact Open Specialty Services Required Orthopedic Surgery Diagnoses Elbow effusion, left Bryan Esparza MD [address] [place] [address] [facility] [address] [place] [address] Scheduling Instructions [facility] [place] [address] Status Reason Specialty Diagnoses / Procedures Referre d By Contact Referred To Contact Open Radiology Diagnoses Postmenopausal Procedures DEXA BONE DENSITY AXIAL SKELETON Melva Waters DO [address] [place] [address] Discharge Instructions * Instructions* Bryan Esparza MD - 02/02/2020 Mandatory orthopedic follow-up with her referral orthopedist, call your general medical doctor on Monday regarding her urinary tract culture results, continue antibiotics, use the medication for thrush that was prescribed, return of his increasing pain numbness tingling in the arm or if there is fever chills sweats or other problems present. * Attachments The following attachments cannot be sent through Care Everywhere. * Candidiasis (Kazakh) * Radial Head Fracture (Kazakh) documented in this encounter Additional Source Comments INFORMATION SOURCE (unrecogn ized section and content) DATE CREATED AUTHOR AUTHOR'S ORGANIZ ATION 07/07/2021 [facility] DATE CREATED AUTHOR AUTHOR'S ORGANIZ ATION 03/19/2022 [facility] DATE CREATED AUTHOR AUTHOR'S ORGANIZ ATION 09/27/2022 [facility] DATE CREATED AUTHOR AUTHOR'S ORGANIZ ATION 05/27/2023 [facility] DATE CREATED AUTHOR AUTHOR'S ORGANIZ ATION 06/10/2023 [facility] Reason for Visit (unrecogniz ed section and content) Care Teams (unrecognized sec tion and content) Fishing Gear Mechanic Relationship Specialty Start Date End Date Albina Baeza APRN.FIRESETTER [address] [facility] [address] [place] [address] PCP - General Family Medicine 11/14/22 Source Comments (unrecognize d section and content) In the event this informatio n is protected by the Federal Confidentiality of Alcohol and Drug Abuse Patient Records regulations: The Federal rules restrict any use of the information to criminally investigate or prosecute any alcohol or drug abuse patient.[facility] FOR RECORDS PERTAINING TO PATIENTS WHO ARE OR HAVE BEEN ENROLLED IN A CHEMICAL DEPENDENCY/SUBSTANCEABUSE PROGRAM, SOME INFORMATION MAY BE OMITTED. This clinical summary was aggregated from multiple sources. Caution should be exercised in using it in the provision of clinical care. This summary normalizes information from multiple sources, and as a consequence, information in this document may materially change the coding, format and clinical context of patient data. In addition, data may be omitted in some cases. CLINICAL DECISIONS SHOULD BE BASED ON THE PRIMARY CLINICAL RECORDS. [employer] [facility]. provides no warranty or guarantee of the accuracy or completeness of information in this document.
[2023-06-21 11:09] LABS: Hemoglobin 12.2 g/dL (12.0-15.0); Mean Corp Hgb Conc 31.3 g/dL (32-36); Mean Corpuscular Hgb 28.4 pg (27.0-32.0); Mean Corpuscular Volume 90.7 fL (81-99); Mean Platelet Vol. 10.2 fl (6.2-12.0); Platelet Count 378 K/mm3 (150-450); RBC Distribution Width SD 46.5 fl (35.1-43.9); White Blood Count 10.2 K/mm3 (4.4-11.0)
[2023-06-21 11:25] LABS: Partial Thromboplast Time 26.5 Seconds (24.1-36.2); Prothrombin Time (Protime)PT. 12.7 SECONDS (11.7-14.9)
[2023-06-21 12:00] LABS: Anion Gap 4 (5-15); BUN 23 mg/dL (7-18); BUN/Creat Ratio 20.5 RATIO (10-20); Calcium,Total 9.5 mg/dL (8.5-10.1); Chloride 109 mmol/L (98-107); Creatinine, Serum 1.12 mg/dL (0.55-1.02); EST Glomerular Filtration Rate 50 mL/min (>60); Est Glom Filt Rate - Afr Amer 60 mL/min (>60); Glucose 103 mg/dL (74-106); Potassium 4.3 mmol/L (3.5-5.1); Sodium Level 141 mmol/L (136-145)
== END | disposition home or self-care (01) ==
LOC: LAB 10:17
PROVIDERS: PCP Nurse Practitioner; Referring Provider Internal Medicine Cardiovascular Disease; Visit Provider Internal Medicine Cardiovascular Disease
DX: I25.10 Atherosclerotic heart disease of native coronary artery without angina pectoris (principal); Z95.5 Presence of coronary angioplasty implant and graft
CPT/HCPCS: 36415; 80048; 85027; 85610; 85730

== ENCOUNTER 2023-07-21 10:36 | Observation (INO) | payer MEDICARE, SELFPAY ==
[2023-07-21] VITALS (12 sets, daily range): BP systolic 120–169; BP diastolic 45–92; PULSE 45–68; RESP 12–20; TEMP 36.2–36.6; O2SAT 91–96; BMI 32.4
--- OUTSIDE RECORDS SUMMARY | 2023-07-21 07:31 | XMS RPT_ITS | CCD ---
Author Name Unknown Address [address] [place] [address] Organization [facility] Care Team Providers Care Plate Gauger Name Role Phone Unavailable Primary Care Provider UnavailMelva Lay Primary Care Provider Melva Waters Primary Care Provider Melva Waters Primary Care Provider Melva Waters DO Primary Care Provider [phone] Melva Waters DO Primary Care Provider [phone] Melva Waters Referring Unavailable Melva Waters Primary Care Unavailable RILEY OLIVER Attending Unavailable Melva Waters Referring Unavailable Melva Waters Primary Care Unavailable Jillian Huynh Attending Unavailable Melva Waters Referring Unavailable Melva Waters Primary Care Unavailable Melva Waters Attending Unavailable Fadi CRAFT.Albina MADERA Primary Care Provide r DEX OGDEN Referring Unavailable ALBINA BAEZA Primary Care Unavailable PEDRO WYLIE Attending Unavailable ALBINA BAEZA Primary Care Unavailable DEX OGDEN Attending Unavailable DEX OGDEN Admitting Unavailable ALBINA BAEZA Primary Care Unavailable Allergies Allergy Classification Reported Allergen(s) Allergy Type Date of Onset Reaction(s) Facility Penicillins (antibiotic) (2 sources) Penicillins Drug Allergy 5 [facility] Proton Pump Inhibitors (2 sources) Esomeprazole Drug Allergy 5 [facility] (14 sources) Esomeprazole; Translations: [ESOMEPRAZOLE MAGNESIUM] Drug Allergy 5 Rash [place], [place] (13 sources) Penicillins; Translations: [PENICILLINS] Propensity to adverse reactions to drug 5 [place], [place] (1 source) Penicillins Drug Allergy 5 Rash [facility] Medications Current Medications Medication Drug Class(es) Dates [...] lity 02-02-2020 14:19-0400 Body Temperature 98.29 [degF] [place], [place] 02-02-2020 14:19-0400 BP Diastolic 95 mm[Hg] [place], [place] 02-02-2020 14:19-0400 BP Systolic 138 mm[Hg] [place] 02-02-2020 14:19-0400 Pulse (Heart Rate) 103 /min [place], [place] 02-02-2020 14:19-0400 Pulse Oximetry 96 % [place], [place] 02-02-2020 14:19-0400 Respiratory Rate 16 /min [place], [place] 09-05-2019 10:24-0400 BMI (Body Mass Index) 22.96 kg/m2 Evan Del Rio [place], [place] 09-05-2019 10:24-0400 Body weight 72.58 kg Evan [place], [place] 09-05-2019 10:24-0400 Height 177.8 cm [place], [place] Encounters Encounter Date Encounter Type Care Provider Facility Start: 06-07-2023 End: 06-08-2023 ambulatory DEX OGDEN Facility:[facility] Start: 05-25-2023 End: 05-26-2023 ambulatory DEX OGDEN Facility:[facility] Start: 05-19-2023 Orders Only Dex cates MD Work Phone: [facility] [place] Procedures Date Procedure Procedure Detail Performing Clinician Start: 09-02-2021 Assay of free thyroxine Jillian Huynh APRN - TAPE KELLER OPERATOR Work Phone: Start: 01-20-2021 Radex hip unilateral with pelvis 2-3 views Jillian Huynh SUPERINTENDENT GENERAL - TAPE KELLER OPERATOR Work Phone: Start: 10-16-2020 End: 10-16-2020 Assay [...] Radex elbow complete minimum 3 views Bryan Esparza Work Phone: Start: 01-30-2020 Comprehensive metabo lic [...] Work Phone: Start: 04-17-2019 Cyanocobalamin vitamin b-12 Melva M Jt Work Phone: Plan of Treatment Date Care Activity Detail Author Start: 11-14-2025 Diabetes Screening Diabetes Screening [facility] Start: 02-10-2023 Covid-19 Vaccine () Covid-19 Vaccine () [facility] Start: 02-10-2023 Influenza vaccination Influenza Vaccine (#1) [facility] Start: 09-02-2022 Thyroid stimulating hormone measurement TSH testing [facility] Start: 06-12-2022 Advance Directive Discussion Advance Directive Discussion [facility] Start: 06-09-2022 Annual Wellness Visit (AWV) Annual Wellness Visit (AWV) [facility] Start: 06-08-2022 Creatinine measurement Creatinine monitoring [facility] Start: 06-08-2022 Depression Screen Depression Screen [facility] Start: 06-08-2022 Hepatitis B surface antibody level LDL Cholesterol [facility] Start: 06-08-2022 Lipid panel Lipid screen [facility] Start: 06-08-2022 Potassium monitoring Potassium monitoring [facility] Start: 12-07-2021 End: 12-07-2021 Patient encounter procedure 12/07/2021 Office Visit Family Medicine Melva Waters, DO [address] [place] [address] [facility] Start: 10-16-2021 Thyroid stimulating hormone measurement TSH testing [facility] Work Phone: Start: 09-10-2021 Thyroid stimulating hormone measurement TSH testing [facility] Work Phone: Start: 09-10-2021 TSH Qn TSH testing [facility] Work Phone: Start: 08-05-2021 COVID-19 Vaccine (3 - Booster for Pfizer series) COVID-19 Vaccine (3 - Booster for Pfizer series) [facility] Start: 06-07-2021 End: 06-07-2021 Office Visit 06/07/2021 Office Visit Family Medicine Melva Waters DO [address], [place] [address] [facility] Start: 06-02-2021 Creatinine measurement Creatinine monitoring [facility] [place] Start: 06-02-2021 Lipid panel Lipid screen [facility] [place] [place] Start: 06-02-2021 Potassium monitoring Potassium monitoring [facility] [place] Start: 05-31-2021 End: 05-31-2021 Patient encounter procedure 05/31/2021 Office Visit Family Medicine Melva Waters DO [address], [place] [id number] [facility] Start: 05-30-2021 Annual Wellness Visit (AWV) Annual Wellness Visit (AWV) [facility] [place] [place] Start: 02-10-2021 Influenza vaccination [facility] Work Phone: Start: 02-06-2021 Creatinine measurement Creatinine monitoring [facility] [place] Start: 02-06-2021 Potassium monitoring Potassium monitoring [facility] [place] Start: 01-29-2021 Creatinine measurement Creatinine monitoring [facility] [place] Start: 01-29-2021 Potassium monitoring Potassium monitoring [facility] [place] Start: 11-27-2020 End: 11-27-2020 Office Visit 11/27/2020 Office Visit Family Medicine Melva Waters DO [address], [place] [id number] [facility] Start: 09-29-2020 Statin Therapy Statin Therapy [facility] [place] Start: 08-25-2020 Creatinine measurement Creatinine monitoring [facility] [place] Start: 08-25-2020 Creatinine monitoring Creatinine monitoring [facility] [place] [facility] [place] Start: 08-25-2020 Potassium monitoring Potassium monitoring [facility] [place] Start: 05-29-2020 End: 05-29-2020 Office Visit 05/29/2020 Office Visit Family Medicine Melva Waters DO [address], [place] [phone] [facility] Start: 04-17-2020 Creatinine monitoring Creatinine monitoring [place], [place] Start: 04-17-2020 Potassium monitoring Potassium monitoring [place] Start: 04-17-2020 TSH Qn TSH testing [place] Start: 04-17-2020 TSH testing TSH testing [place] Start: 02-11-2020 Influenza vaccination Flu vaccine (#1) [place] Start: 02-03-2020 End: 02-03-2020 Office Visit 02/03/2020 Office Visit Family Medicine Troy Adkins MD [address] [place] [id number] [facility] Start: 10-18-2019 End: 10-18-2019 Office Visit 10/18/2019 Office Visit Cardiology Evan Del Rio MD [address] [place] [id number] [facility] Start: 03-07-2019 End: 03-07-2019 Office Visit 03/07/2019 Office Visit Geriatric Medicine Clara Rubio MD [address] [place] [phone] [facility] Start: 02-10-2019 Influenza vaccination Flu vaccine (#1) [place] Start: 11-29-2018 Annual Wellness Visit (AWV) Annual Wellness Visit (AWV) [place] Start: 11-01-2018 Creatinine monitoring Creatinine monitoring [place] Start: 11-01-2018 Lipid panel Lipid screen [place] Start: 11-01-2018 Lipid screen Lipid screen [place] Start: 11-01-2018 Potassium monitoring Potassium monitoring [place] Start: 11-01-2018 TSH testing TSH testing [place] Start: 2006 DEXA (modify frequency per FRAX score) DEXA (modify frequency per FRAX score) [place] Start: 2004 Annual Wellness Visit (AWV) Annual Wellness Visit (AWV) [place] Start: 2001 RSV Vaccine (1 - 1-dose 60+ series) RSV Vaccine (1 - 1-dose 60+ series) [facility] Start: 1996 DEXA (modify frequency per FRAX score) DEXA (modify frequency per FRAX score) [place] Start: [address] lung screening Low dose CT lung screening [place] Start: 1996 Screening for osteoporosis DEXA (modify frequency per FRAX score) [place] Start: 11-29-1991 Screening for malignant neoplasm of lung Low dose CT lung screening [facility] Start: 11-29-1991 Shingles Vaccine (1 of 2) Shingles Vaccine (1 of 2) [facility] Start: 11-29-1991 Shingrix Vaccine (1 of 2) Shingrix Vaccine (1 of 2) [facility] Start: 1960 DTaP/Tdap/Td vaccine (1 - Tdap) DTaP/Tdap/Td vaccine (1 - Tdap) [facility] Start: 1960 Urine microalbumin profile DTaP,Tdap,Td Vaccine (1 - Tdap) [facility] Start: 11-29-1959 Spirometry Spirometry [facility] Start: 1957 COVID-19 Vaccine (1) COVID-19 Vaccine (1) [facility] Work Phone: Start: 1953 COVID-19 Vaccine (1) COVID-19 Vaccine (1) [facility] Work Phone: Start: 1952 DTaP/Tdap/Td vaccine (1 - Tdap) DTaP/Tdap/Td vaccine (1 - Tdap) [place] End: 09-02-2021 TSH with Reflex TSH with Reflex Lab Routine Hypothyroidism, unspecified type 1 Occurrences starting 09/02/2021 until 09/02/2021 [facility] Work Phone: Immunizations Immunization Date Immunization Notes Care Provider Robert diane 04-01-2022 influenza virus vacc ine, unspecified formulation Dex Ogden MD Work Phone: [facility] 06-08-2021 Influenza, High-dose , Quadv, 65 yrs +, IM (Fluzone) Melva Waters DO Work Phone: [facility] 04-17-2018 pneumococcal polysaccharide vaccine, 23 valent Clara Rubio [facility] 11-03-2016 pneumococcal conjuga te vaccine, 13 valent Clara Rubio [facility] Payers Date Payer Category Payer Medicare [id number] 2019 Unknown 2016 Medicare xxxxxxxxxxxx [id number] 1941 Unknown [id number] 1941 Unknown [id number] 1940 Unknown [id number] Social History Date Type Detail Facility Start: 01-08-2015 End: 01-24-2019 Tobacco smoking status NHIS Former sm[place] Start: 01-24-2019 End: 11-15-2022 Alcohol intake No [facility] Work Phone: Start: 1940 Sex Assigned At Not on file [place] End: 04-17-2007 History of tobacco use Current smoker [place] End: 04-17-2007 History of tobacco use Cigarette Smoker [place] Start: 04-17-2019 End: 11-15-2022 Cigarettes smoked current (pack per day) - Reported [facility] Work Phone: Start: 06-20-2019 End: 06-22-2021 Alcohol intake Current non-drinker of alcohol (finding) [employer] [place] Start: 02-02-2020 End: 06-19-2020 Tobacco use and exposure Never used [employer] Exposure to SARS-CoV -2 (event) Not sure [employer] Exposure to SARS-CoV -2 (event) Yes [employer] Start: 1940 Sex Assigned At Female [facility] Work Phone: Start: 06-19-2020 Tobacco smoking stat [facility] Never smoked tobacco [facility] Start: 11-14-2022 Alcohol intake Lifetime non-d lyla (finding) [facility] How often to you hav e a drink containing alcohol? Never [facility] Work Phone: Average Number of Drinks Not on file [facility] Goals Date Patient Goal Desired Activity /State Clinical Note 06-08-2023 Note Date & Type Note Facility 06-08-2023 Note HNO ID: [id number] Author: Adrienne Chaney RN Service: Care Management Author Type: Registered Nurse Type: Care Mgt Initial Assessment Filed: 06/08/2023 9:42 AM Note Text: CARE MANAGEMENT: ASSESSMENT AND DISCHARGE PLAN SERVICE DATE: June 08, 2023 SERVICE TIME: 9:41 AM PCP: Albina Baeza APRN.CNP Primary Contact: Extended Emergency Contact Information Primary Emergency Contact: Kat Olmos [facility] Mobile Relation: Daughter Secondary Emergency Contact: Harpreet Robles Mobile Relation: Son Admission Status: Ambulatory Surgery Insurance Provider: OMID YEPEZ [facility] [place] Planning requested by: Per Department Practice [...] Walker Discharge Planning Patient Goal(s): Independent living [place] Explained: [place] Given: No Reason Not Given: No placements necessary Are you interested in bedside delivery of your medications? No Discharge Planning Participant(s): Patient Patient/Family Comments: Caregiver Assessment: Transport at Discharge: Needs Prior to Discharge: Needs Prior to Discharge: Ready for Discharge Post-Acute Discharge Plan: Patient from [facility]. Patient admitted as amb surgery s/p heart cath with PCI. +PCP - albina Baeza +Rx - [facility] #[id number] +DME - rollator, walker Patient to return to [place] at discharge. Patient states her son will transport her home. SIGNATURE: Adrienne Chaney RN PATIENT NAME: Parveen Robles DATE: June 08, 2023 TIME: 9:41 AM CONTACT #: [phone] [facility] Clinical Note 06-07-2023 Note Date & Type Note Facility 06-07-2023 Note HNO ID: [id number] Author: Cleo Mattson RN Service: Nursing Author Type: Registered Nurse Type: Nursing Progress Note Filed: 06/07/2023 12:42 PM Note Text: Other: Dr Johnson aware of pain, no new orders given. [facility] Clinical Note 07-21-2020 Note Date & Type Note Facility 07-21-2020 Note Patient Outreach ([place] [facility]) ZULYPARVEEN Pena ([id number]) 1940 F Date Time Provider Department 07/21/20 ANGELIC BUCKLEY During your visit today, we recorded the following information about you: Allergies As of Date: 07/21/2020 Noted Allergy Reaction ESOMEPRAZOLE MAGNESIUM 01/08/2015 2 - Rash PENICILLINS 01/08/2015 2 - Rash Date Reviewed: 06/19/2020 Reviewed by: Betzaida Martins Ma - Fully Assessed Order(s):SARS-COVID VACCINE 1ST DOSE APPT [[id number]] Order #: [id number] FUTURE Prescriptions as of 07/21/2020 Sig: ASPIRIN [...] 07/21/2020 (None) Letter Text Encounter Status:Closed by EPIC, PRODUSER on 07/24/20 [facility] Evaluation note Note Date & Type Note Facility documented in this encounter [facility] Work Phone: Evaluation note Note Date & Type Note Facility documented in this encounter [facility] Work Phone: Evaluation note Note Date & Type Note Facility documented in this encounter [facility] Work Phone: Evaluation note Note Date & Type Note Facility documented in this encounter [facility] Advance Directives No Advanced Directives Records FoundDocuments on File Type Date Recorded Patient Energy And Sustainability Manager Expl anation Advance Directives and Living Will Power of Spring Up Supervisor Power of Spring Up Supervisor 11/19/2015 1:07 PM 2015 Power of Spring Up Supervisor Documents on File Type Date Recorded Patient Energy And Sustainability Manager Expl anation Advance Directives and Living Will Advance Directives and Living Will 03/07/2019 8:55 AM Living Will Power of Spring Up Supervisor Power of Spring Up Supervisor 11/19/2015 1:07 PM 2015 Power of Spring Up Supervisor Power of Spring Up Supervisor 03/07/2019 8:56 AM healt care Power of Spring Up Supervisor Documents on File Type Date Recorded Patient Energy And Sustainability Manager Expl anation Advance Directives and Living Will Advance Directives and Living Will 03/07/2019 8:55 AM Living Will Power of Spring Up Supervisor Power of Spring Up Supervisor 11/19/2015 1:07 PM 2015 Power of Spring Up Supervisor Power of Spring Up Supervisor 03/07/2019 8:56 AM healt h care Power of Spring Up Supervisor Documents on File Type Date Recorded Patient Energy And Sustainability Manager Expl anation ACP-Advance Directive ACP-Advance Directive 03/07/2019 8:55 AM L iving Will ACP-Power of Spring Up Supervisor ACP-Power of Spring Up Supervisor 11/19/2015 1:07 PM Power of Spring Up Supervisor ACP-Power of Spring Up Supervisor 03/07/2019 8:56 AM h ealth care Power of Spring Up Supervisor Documents on File Type Date Recorded Patient Energy And Sustainability Manager Expl anation ACP-Advance Directive ACP-Advance Directive 03/07/2019 8:55 AM L iving Will ACP-Power of Spring Up Supervisor ACP-Power of Spring Up Supervisor 11/19/2015 1:07 PM Power of Spring Up Supervisor ACP-Power of Spring Up Supervisor 03/07/2019 8:56 AM h ealth care Power of Spring Up Supervisor Documents on File Type Date Recorded Patient Energy And Sustainability Manager Expl anation ACP-Advance Directive ACP-Power of Spring Up Supervisor ACP-Advance Directive 03/07/2019 8:55 AM L iving Will ACP-Power of Spring Up Supervisor 03/07/2019 8:56 AM h ealth care Power of Spring Up Supervisor ACP-Power of Spring Up Supervisor 11/19/2015 1:07 PM Power of Spring Up Supervisor Latest Code Status on File Code Status [...] Stress Test Evan Del Rio MD [address] [place] [address] Status Reason Specialty Diagnoses / Procedures Referred By Contact Referred To Contact [facility] Required Orthopedic Surgery Diagnoses Elbow effusion, left Bryan Esparza MD [address] [place] [address] [facility] [address] [place] [address] Scheduling Instructions [facility] [place] [address] Status Reason Specialty Diagnoses / Procedures Referre d By Contact Referred To Contact [facility] Diagnoses Postmenopausal Procedures DEXA BONE DENSITY AXIAL SKELETON Melva Waters DO [address] [place] [address] Discharge Instructions * Instructions* Bryan Esparza MD [...] be sent through Care Everywhere. * Candidiasis (South African) * Radial Head Fracture ([place] African) documented in this encounter Additional Source Comments INFORMATION SOURCE (unrecogn ized section and content) DATE CREATED AUTHOR AUTHOR'S ORGANIZ ATION 07/07/2021 [facility] DATE CREATED AUTHOR AUTHOR'S ORGANIZ ATION 03/19/2022 [facility] DATE CREATED AUTHOR AUTHOR'S ORGANIZ ATION 09/27/2022 [facility] DATE CREATED AUTHOR AUTHOR'S ORGANIZ ATION 05/27/2023 [facility] DATE CREATED AUTHOR AUTHOR'S ORGANIZ ATION 06/10/2023 [facility] Reason for Visit (unrecogniz ed section and content) Care Teams (unrecognized sec tion and content) Plate Gauger Relationship Specialty Start Date End Date Albina Baeza APRN.TAPE KELLER OPERATOR [address] [facility] [address] [place] [address] PCP - General Family Medicine 11/14/22 Source Comments (unrecognize d section and content) In the event this informatio n is protected by the Federal Confidentiality of Alcohol and Drug Abuse Patient Records regulations: The Federal rules restrict any use of the information to criminally investigate or prosecute any alcohol or drug abuse patient.[facility] FOR RECORDS PERTAINING TO PATIENTS WHO ARE [...] BE BASED ON THE PRIMARY CLINICAL RECORDS. [employer] provides no warranty or guarantee of the accuracy or completeness of information in this document.
--- NOTE | 2023-07-21 10:44 | DCINST_ITS ---
Discharge Instructions Diet Discharge Diet: Low fat / Low cholesterol Activity Discharge Activity: Return to Normal Activity Dressing / Incision Call your doctor if your incision/area has: Continuous Slow Oozing, Sudden Increased Bleeding, Increased Pain/ Swelling, Increased Redness, Foul Smelling Discharge and Swelling at the incision site Follow Up Care Please Follow Up With: Sriram Tomlin MD When: 2-4 weeks Test Results: Test results from this visit will be discussed in further detail at your follow- up appointment, if applicable. Discharge Plan Admission Attending Provider: Sriram Tomlin Primary Care Provider: Opal Aponte NP Discharge Orders/Prescriptions Prescriptions: Continued ascorbic acid (vitamin C) 500 mg tablet 500 mg PO DAILY pravastatin 40 mg tablet 40 mg PO QHS Patient Comments: take 1 tablet by mouth at bedtime calcium carbonate [Calcium 600] 600 mg calcium (1,500 mg) tablet 600 mg PO DAILY coenzyme [id number] 100-100 mg-unit capsule 1 cap PO DAILY Fish Oil 300-500 mg capsule 1 cap PO DAILY levothyroxine 112 mcg tablet 112 mcg PO DAILY Qty: 90 3RF aspirin 81 MG tablet,chewable 81 mg PO DAILY cholecalciferol (vitamin D3) 2,000 UNIT capsule 2,000 unit PO DAILY multivitamin Tablet 1 tab PO DAILY furosemide [Lasix] 20 mg tablet 20 mg PO DAILY Qty: 90 3RF potassium chloride 10 mEq capsule, extended release 10 meq PO DAILY Qty: 90 3RF amlodipine 5 mg tablet 5 mg PO DAILY Qty: 90 3RF clopidogrel [Plavix] 75 mg tablet 75 mg PO DAILY Qty: 90 3RF valsartan 80 mg tablet 80 mg PO DAILY Qty: 90 3RF pantoprazole 20 mg tablet,delayed release (DR/EC) 20 mg PO DAILY Qty: 90 1RF isosorbide mononitrate 30 mg tablet extended release 24 hr 30 mg PO DAILY Qty: 90 3RF Referrals / Follow Up: Opal Aponte NP, [facility] [Primary Care Provider] - Disposition Disposition (needs filled in before D/C Order can be placed): Home, Self Care
--- NOTE | 2023-07-21 10:45 | EKG12_ITS ---
Test Reason : AM EKG Blood Pressure : / mmHG Vent. Rate : 044 BPM Atrial Rate : 044 BPM P-R Int : 214 ms QRS Dur : 136 ms QT Int : 488 ms P-R-T Axes : 050 038 008 degrees QTc Int : 417 ms Marked sinus bradycardia with 1st degree A-V block with Premature atrial complexes in a pattern of bi geminy Right bundle branch block Abnormal ECG When compared with ECG of 21-JUL-2023 12:09, MANUAL COMPARISON REQUIRED, DATA IS UNCONFIRMED Confirmed by Stephen Davis ([id number]), photography editor LALITO BRAUN ([id number]) on 07/25/2023 9:39:42 AM Referred By: Sriram Tomlin Confirmed By:Stephen Davis
[2023-07-21 11:12] LABS: ACT Activated Clotting Time 228 sec (74-137)
[2023-07-21 11:13] LABS: ACT Activated Clotting Time 244 sec (74-137)
--- OUTSIDE RECORDS SUMMARY | 2023-07-21 11:17 | XMS RPT_ITS | CCD ---
Author Name Unknown Address [address] [place] [address] Organization [facility] Care Team Providers Care Boilermaker Welder Name Role Phone Unavailable Primary Care Provider UnavailMelva Lay Primary Care Provider Melva Waters Primary Care Provider Melva Waters Primary Care Provider Melva Waters DO Primary Care Provider [phone] Melva Waters DO Primary Care Provider Melva [...] Translations: [ESOMEPRAZOLE MAGNESIUM] Drug Allergy 5 Rash [place], [place] (13 sources) Penicillins; Translations: [PENICILLINS] Propensity to adverse reactions to drug 5 [place], [place] (1 source) Penicillins Drug Allergy 5 Rash [facility] Medications Current Medications Medication Drug Class(es) [...] lity 02-02-2020 14:19-0400 Body Temperature 98.29 [degF] [place], [place] 02-02-2020 14:19-0400 BP Diastolic 95 mm[Hg] [place], [place] 02-02-2020 14:19-0400 BP Systolic 138 mm[Hg] [place], [place] 02-02-2020 14:19-0400 Pulse (Heart Rate) 103 /min [place] 02-02-2020 14:19-0400 Pulse Oximetry 96 % [place], [place] 02-02-2020 14:19-0400 Respiratory Rate 16 /min [place], [place] 09-05-2019 10:24-0400 BMI (Body Mass Index) 22.96 kg/m2 Evan Dle Rio [place], [place] 09-05-2019 10:24-0400 Body weight 72.58 kg Evan [place], [place] 09-05-2019 10:24-0400 Height 177.8 cm [place], [place] Encounters Encounter Date Encounter Type Care Provider Facility Start: 06-07-2023 End: 06-08-2023 ambulatory DEX OGDEN Facility:[facility] Start: 05-25-2023 End: 05-26-2023 ambulatory DEX OGDEN Facility:[facility] Start: 05-19-2023 Orders Only Dex cates MD Work Phone: [facility] Procedures Date Procedure Procedure Detail Performing Clinician Start: 09-02-2021 Assay of free thyroxine Jillian Huynh APRN - BORING MILL OPERATOR Work Phone: Start: 01-20-2021 Radex hip unilateral with pelvis 2-3 views Jillian Huynh FRAMING INSPECTOR - BORING MILL OPERATOR Work Phone: Start: 10-16-2020 End: 10-16-2020 [...] Author Start: 11-14-2025 Diabetes Screening Diabetes Screening [facility] Start: 02-10-2023 Covid-19 Vaccine () Covid-19 Vaccine () [facility] Start: 02-10-2023 Influenza vaccination Influenza Vaccine (#1) [facility] Start: 09-02-2022 Thyroid stimulating hormone measurement TSH testing [facility] Start: 06-12-2022 Advance Directive Discussion Advance Directive Discussion [facility] Start: 06-09-2022 Annual Wellness Visit (AWV) Annual Wellness Visit (AWV) [facility] Start: 06-08-2022 Creatinine measurement Creatinine monitoring [facility] Start: 06-08-2022 Depression Screen Depression Screen [facility] Start: 06-08-2022 Hepatitis B surface antibody level LDL Cholesterol [facility] Start: 06-08-2022 Lipid panel Lipid screen [facility] Start: 06-08-2022 Potassium monitoring Potassium monitoring [facility] Start: 12-07-2021 End: 12-07-2021 Patient encounter procedure 12/07/2021 Office Visit Family Medicine Melva Waters, DO [address] [place] [address] [facility] Start: 10-16-2021 Thyroid stimulating hormone measurement TSH testing [facility] Work Phone: Start: 09-10-2021 Thyroid stimulating hormone measurement TSH testing [facility] Work Phone: Start: 09-10-2021 TSH Qn TSH testing [facility] Work Phone: Start: 08-05-2021 COVID-19 Vaccine (3 - Booster for Pfizer series) COVID-19 Vaccine (3 - Booster for Pfizer series) [facility] Start: 06-07-2021 End: 06-07-2021 Office Visit 06/07/2021 Office Visit Family Medicine Melva Waters DO [address] [place], [place] [id number] [facility] Start: 06-02-2021 Creatinine measurement Creatinine monitoring [facility] [place] Start: 06-02-2021 Lipid panel Lipid screen [facility] [place] Start: 06-02-2021 Potassium monitoring Potassium monitoring [facility] [place] Start: 05-31-2021 End: 05-31-2021 Patient encounter procedure 05/31/2021 Office Visit Family Medicine Melva Waters DO [address] [place], [place] [id number] [facility] Start: 05-30-2021 Annual Wellness Visit (AWV) Annual Wellness Visit (AWV) [facility] [place] [place] Start: 02-10-2021 Influenza vaccination [facility] Work Phone: Start: 02-06-2021 Creatinine measurement Creatinine monitoring [facility] [place] [place] Start: 02-06-2021 Potassium monitoring Potassium monitoring [facility] [place] Start: 01-29-2021 Creatinine measurement Creatinine monitoring [facility] [place] Start: 01-29-2021 Potassium monitoring Potassium monitoring [facility] [place] Start: 11-27-2020 End: 11-27-2020 Office Visit 11/27/2020 Office Visit Family Medicine Melva Waters DO [address] [place], [place] [id number] [facility] Start: 09-29-2020 Statin Therapy Statin Therapy [facility] [place] Start: 08-25-2020 Creatinine measurement Creatinine monitoring [facility] [place] Start: 08-25-2020 Creatinine monitoring Creatinine monitoring [facility] [place] Start: 08-25-2020 Potassium monitoring Potassium monitoring [facility] [place] Start: 05-29-2020 End: 05-29-2020 Office Visit 05/29/2020 Office Visit Family Medicine Melva Waters DO [address] [place], [place] [address] [facility] Start: 04-17-2020 Creatinine monitoring Creatinine monitoring [place] Start: 04-17-2020 Potassium monitoring Potassium monitoring [place] Start: 04-17-2020 TSH Qn TSH testing [place] Start: 04-17-2020 TSH testing TSH testing [place] Start: 02-11-2020 Influenza vaccination Flu vaccine (#1) [place] Start: 02-03-2020 End: 02-03-2020 Office Visit 02/03/2020 Office Visit Family Medicine Troy Adkins MD [address] [place] [address] [id number] [facility] Start: 10-18-2019 End: 10-18-2019 Office Visit 10/18/2019 Office Visit Cardiology Evan Del Rio MD [address] [place] [address] [id number] [facility] Start: 03-07-2019 End: 03-07-2019 Office Visit 03/07/2019 Office Visit Geriatric Medicine Clara Rubio MD [address] [place] [phone] [facility] Start: 02-10-2019 Influenza vaccination Flu vaccine (#1) [place] Start: 11-29-2018 Annual Wellness Visit (AWV) Annual Wellness Visit (AWV) [place] Start: 11-01-2018 Creatinine monitoring Creatinine monitoring [place] Start: 11-01-2018 Lipid panel Lipid screen [place] Start: 11-01-2018 Lipid screen Lipid screen [place] Start: 11-01-2018 Potassium monitoring Potassium monitoring [place] Start: 11-01-2018 TSH testing TSH testing [place] Start: 2006 DEXA (modify frequency per FRAX score) DEXA (modify frequency per FRAX score) [place] Start: 2004 Annual Wellness Visit (AWV) Annual Wellness Visit (AWV) [place] Start: 2001 RSV Vaccine (1 - 1-dose 60+ series) RSV Vaccine (1 - 1-dose 60+ series) [facility] Start: 1996 DEXA (modify frequency per FRAX score) DEXA (modify frequency per FRAX score) [place] Start: [address] lung screening Low dose CT lung screening [place] Start: 1996 Screening for osteoporosis DEXA (modify frequency per FRAX score) [place] Start: 11-29-1991 Screening for malignant neoplasm of lung Low dose CT lung screening [facility] Start: 11-29-1991 Shingles Vaccine (1 of 2) Shingles Vaccine (1 of 2) [facility] Start: 11-29-1991 Shingrix Vaccine (1 of 2) Shingrix Vaccine (1 of 2) [facility] Start: 1960 DTaP/Tdap/Td vaccine (1 - Tdap) DTaP/Tdap/Td vaccine (1 - Tdap) [facility] Start: 1960 Urine microalbumin profile DTaP,Tdap,Td Vaccine (1 - Tdap) [facility] Start: 11-29-1959 Spirometry Spirometry [facility] Start: 1957 COVID-19 Vaccine (1) COVID-19 Vaccine (1) [facility] Work Phone: Start: 1953 COVID-19 Vaccine (1) COVID-19 Vaccine (1) [facility] Work Phone: Start: 1952 DTaP/Tdap/Td vaccine (1 - Tdap) DTaP/Tdap/Td vaccine (1 - Tdap) [place] End: 09-02-2021 TSH with Reflex TSH with Reflex Lab Routine Hypothyroidism, unspecified type 1 Occurrences starting 09/02/2021 until 09/02/2021 [facility] Work Phone: Immunizations Immunization Date Immunization Notes Care Provider Robert diane 04-01-2022 influenza virus vacc ine, unspecified formulation Dex Ogden MD Work Phone: [facility] 06-08-2021 Influenza, High-dose , Quadv, 65 yrs +, IM (Fluzone) Melva Waters DO Work Phone: [facility] 04-17-2018 pneumococcal polysaccharide vaccine, 23 valent Clara Rubio [facility] 11-03-2016 pneumococcal conjuga te vaccine, 13 valent Clara Rubio [facility] Payers Date Payer Category Payer Medicare [id number] 2019 Unknown 2016 Medicare xxxxxxxxxxxx [id number] 1941 Unknown [id number] 1941 Unknown [id number] 1941 Unknown [id number] Social History Date Type Detail Facility Start: 01-08-2015 End: 01-24-2019 Tobacco smoking status NHIS Former smoker [place] Start: 01-24-2019 End: 11-15-2022 Alcohol intake No [facility] Work Phone: Start: 1940 Sex Assigned At Not on file [place] End: 04-17-2007 History of tobacco use Current smoker [place] End: 04-17-2007 History of tobacco use Cigarette Smoker [place] Start: 04-17-2019 End: 11-15-2022 Cigarettes smoked current (pack per day) - Reported [facility] Work Phone: Start: 06-20-2019 End: 06-22-2021 Alcohol intake Current non-drinker of alcohol (finding) [employer] [place] Start: 02-02-2020 End: 06-19-2020 Tobacco use and exposure Never used [employer] Exposure to SARS-CoV -2 (event) Not sure [employer] Exposure to SARS-CoV -2 (event) Yes [employer] Start: 1940 Sex Assigned At Female [facility] Work Phone: Start: 06-19-2020 Tobacco smoking stat [facility] Never smoked tobacco [facility] Start: 11-14-2022 Alcohol intake Lifetime non-d lyla (finding) [facility] How often to you hav e a drink containing alcohol? Never [facility] Work Phone: Average Number of Drinks Not on file [facility] Goals Date Patient Goal Desired Activity /State Clinical Note 06-08-2023 Note Date & Type Note Facility 06-08-2023 Note HNO ID: [id number] Author: Adrienne Chaney RN Service: Care Management Author Type: Registered Nurse Type: Care Mgt Initial Assessment Filed: 06/08/2023 9:42 AM Note Text: CARE MANAGEMENT: ASSESSMENT AND DISCHARGE PLAN SERVICE DATE: June 08, 2023 SERVICE TIME: 9:41 AM PCP: Albina Baeza APRN.CNP Primary Contact: Extended Emergency Contact Information Primary Emergency Contact: Kat Olmos [facility] Mobile Relation: Daughter Secondary Emergency Contact: Harpreet Robles Mobile Relation: Son Admission Status: Ambulatory Surgery Insurance Provider: OMID YEPEZ [facility] Discharge Planning requested by: Per Department Practice [...] Walker Discharge Planning Patient Goal(s): Independent living [place] Explained: [place] Given: No Reason Not Given: No placements necessary Are you interested in bedside delivery of your medications? No Discharge Planning Participant(s): Patient Patient/Family Comments: Caregiver Assessment: Transport at Discharge: Needs Prior to Discharge: Needs Prior to Discharge: Ready for Discharge Post-Acute Discharge Plan: Patient from [facility]. Patient admitted as amb surgery s/p heart cath with PCI. +PCP - albina Baeza +Rx - [facility] #[id number] +DME - rollator, walker Patient to return to [place] at discharge. Patient states her son will transport her home. SIGNATURE: Adrienne Chaney RN PATIENT NAME: Parveen Robles DATE: June 08, 2023 TIME: 9:41 AM CONTACT #: [phone] [facility] Clinical Note 06-07-2023 Note Date & Type Note Facility 06-07-2023 Note HNO ID: [id number] Author: Cleo Mattson RN Service: Nursing Author Type: Registered Nurse Type: Nursing Progress Note Filed: 06/07/2023 12:42 PM Note Text: Other: Dr Johnson aware of pain, no new orders given. [facility] Clinical Note 07-21-2020 Note Date & Type Note Facility 07-21-2020 Note Patient Outreach ([place] [facility]) ZULYPARVEEN Pena ([id number]) 1940 F Date Time Provider Department 07/21/20 ANGELIC BUCKLEY During your visit today, we recorded the following information about you: Allergies As of Date: 07/21/2020 Noted Allergy Reaction ESOMEPRAZOLE MAGNESIUM 01/08/2015 2 - Rash PENICILLINS 01/08/2015 2 - Rash Date Reviewed: 06/19/2020 Reviewed by: Betzaida Martins Ma - Fully Assessed Order(s):SARS-COVID VACCINE 1ST DOSE APPT [[id number]] Order #: [id number] FUTURE Prescriptions as of 07/21/2020 Sig: ASPIRIN [...] on 07/24/20 [facility] Evaluation note Note Date & Type Note Facility documented in this encounter [facility] Work Phone: Evaluation note Note Date & Type Note Facility documented in this encounter [facility] Work Phone: Evaluation note Note Date & Type Note Facility documented in this encounter [facility] Work Phone: Evaluation note Note Date & Type Note Facility documented in this encounter [facility] Advance Directives No Advanced Directives Records FoundDocuments on File Type Date Recorded Patient Sql Engineer Expl anation Advance Directives and Living Will Power of Library Circulation Department Chief Power of Library Circulation Department Chief 11/19/2015 1:07 PM 2015 Power of Library Circulation Department Chief Documents on File Type Date Recorded Patient Sql Engineer Expl anation Advance Directives and Living Will Advance Directives and Living Will 03/07/2019 8:55 AM Living Will Power of Library Circulation Department Chief Power of Library Circulation Department Chief 11/19/2015 1:07 PM 2015 Power of Library Circulation Department Chief Power of Library Circulation Department Chief 03/07/2019 8:56 AM healt care Power of Library Circulation Department Chief Documents on File Type Date Recorded Patient Sql Engineer Expl anation Advance Directives and Living Will Advance Directives and Living Will 03/07/2019 8:55 AM Living Will Power of Library Circulation Department Chief Power of Library Circulation Department Chief 11/19/2015 1:07 PM 2015 Power of Library Circulation Department Chief Power of Library Circulation Department Chief 03/07/2019 8:56 AM healt h care Power of Library Circulation Department Chief Documents on File Type Date Recorded Patient Sql Engineer Expl anation ACP-Advance Directive ACP-Advance Directive 03/07/2019 8:55 AM L iving Will ACP-Power of Library Circulation Department Chief ACP-Power of Library Circulation Department Chief 11/19/2015 1:07 PM Power of Library Circulation Department Chief ACP-Power of Library Circulation Department Chief 03/07/2019 8:56 AM h ealth care Power of Library Circulation Department Chief Documents on File Type Date Recorded Patient Sql Engineer Expl anation ACP-Advance Directive ACP-Advance Directive 03/07/2019 8:55 AM L iving Will ACP-Power of Library Circulation Department Chief ACP-Power of Library Circulation Department Chief 11/19/2015 1:07 PM Power of Library Circulation Department Chief ACP-Power of Library Circulation Department Chief 03/07/2019 8:56 AM h ealth care Power of Library Circulation Department Chief Documents on File Type Date Recorded Patient Sql Engineer Expl anation ACP-Advance Directive ACP-Power of Library Circulation Department Chief ACP-Advance Directive 03/07/2019 8:55 AM L iving Will ACP-Power of Library Circulation Department Chief 03/07/2019 8:56 AM h ealth care Power of Library Circulation Department Chief ACP-Power of Library Circulation Department Chief 11/19/2015 1:07 PM Power of Library Circulation Department Chief Latest Code Status on File Code Status [...] Stress Test Evan Del Rio MD [address] [place] [address] Status Reason Specialty Diagnoses / Procedures Referred By Contact Referred To Contact [facility] Required Orthopedic Surgery Diagnoses Elbow effusion, left Bryan Esparza MD [address] [place] [address] [facility] [address] [place] [address] Scheduling Instructions [facility] [place] [address] Status Reason Specialty Diagnoses / Procedures Referre d By Contact Referred To Contact [facility] Diagnoses Postmenopausal Procedures DEXA BONE DENSITY AXIAL SKELETON Melva Waters DO [address] [place] [address] Discharge Instructions * Instructions* Bryan Esparaz MD - 02/02/2020 Mandatory orthopedic follow-up with [...] sent through Care Everywhere. * Candidiasis ([place]) * Radial Head Fracture ([place]) documented in this encounter Additional Source Comments INFORMATION SOURCE (unrecogn ized section and content) DATE CREATED AUTHOR AUTHOR'S ORGANIZ ATION 07/07/2021 [facility] DATE CREATED AUTHOR AUTHOR'S ORGANIZ ATION 03/19/2022 [facility] DATE CREATED AUTHOR AUTHOR'S ORGANIZ ATION 09/27/2022 [facility] DATE CREATED AUTHOR AUTHOR'S ORGANIZ ATION 05/27/2023 [facility] DATE CREATED AUTHOR AUTHOR'S ORGANIZ ATION 06/10/2023 [facility] Reason for Visit (unrecogniz ed section and content) Care Teams (unrecognized sec tion and content) Boilermaker Welder Relationship Specialty Start Date End Date Albina Baeza APRN.BORING MILL OPERATOR [address] [facility] [address] [place] [address] PCP - General Family Medicine 11/14/22 Source Comments (unrecognize d section and content) In the event this informatio n is protected by the Federal Confidentiality of Alcohol and Drug Abuse Patient Records regulations: The Federal rules restrict any use of the information to criminally investigate or prosecute any alcohol or drug abuse patient.[facility] FOR RECORDS PERTAINING TO PATIENTS WHO [...] BE BASED ON THE PRIMARY CLINICAL RECORDS. [employer] provides no warranty or guarantee of the accuracy or completeness of information in this document.
--- NOTE | 2023-07-21 11:46 | CRPHASE1 ---
Patient Communication Patient Information Former Patient:: Phase I PHII Cardiac Rehab Discussed with Patient:: Yes Guide to Cardiac Rehab Given to Patient:: Yes Cardiac Rehab Facility Choice List Given to Patient:: Yes Communication to Cardiac Rehab Choice Program [facility] CR PHII:: Communication Given to CR Wine Steward/Stewardess:: Sriram Tomlin Phase II Cardiac Rehab:: Yes Sessions:: 36 sessions - 3 days/wk, 12 weeks Cardiac Rehabilitation Info Program Information Cardiac Rehabilitation Program Information: Cardiac Rehab The cardiac rehab team at [facility] consists of highly skilled exercise physiologists, nurses, respiratory therapists and physicians working together with you. Our purpose is to help you have a full recovery and achieve the goals you set for yourself. Over the years many of our patients have returned to activities they assumed they would never do again! We can help restore your confidence and motivation to make lifestyle changes that can have a significant impact on your health and quality of life! We can help answer questions and concerns you may have about exercise, lifestyle, medications, diet, stress and anxiety which are common following a hospitalization. WE monitor ECG and vital signs during exercise and discuss your progress with you and report to your physician(s). Cardiac Rehab is proven to help reduce readmissions, improve functional capacity and lower recurrence of problems with your heart. Our Cardiac Rehab program is Certified by the [place] [employer] Cardio-Vascular and Pulmonary Rehabilitation (AACVPR) and Accredited by the [place] through our [facility]. You can contact us at . We invite you to call us with your questions or to get started in our program. If you have other questions or concerns be sure to ask your physician/provider during your follow-up visit. WE look forward to seeing you!
--- NOTE | 2023-07-21 11:47 | CRPH1.INSTRU ---
General Education Discussed with Patient CAD and cardiac anatomy and function:: Patient communicates acknowledgment Explanation of diagnoses and procedures:: Patient communicates acknowledgment Sign/Symptoms of AK:: Patient communicates acknowledgment Antiplatelet therapy: Patient communicates acknowledgment Proper use of NTG-SL: Patient communicates acknowledgment Emergency procedures and activation of EMS: Patient communicates acknowledgment Compliance of all prescribed medications: Patient communicates acknowledgment Smoking Risk Factors Patient Nicotine/Smoking Risk Factors Are:: Non-smoker Recommendations Recommendations Include:: Previous smoker; encourage continued cessation Response Code Nicotine/Smoking Response Code:: Patient communicates acknowledgment Dyslipidemia Risk Factors Patient Dyslipidemia Risk Factors Are:: Total Cholesterol, Triglycerides, HDL and LDL Recommendations Recommendations Include:: Lipid profile not available and Therapeutic Lifestyle Change dietary guidelines Response Code Dyslipidemia Response Code:: Patient communicates acknowledgment Overweight/Obesity Risk Factors Patient Overweight/Obesity Risk Factors Are:: Obesity - > or = 30 Recommendations Recommendations Include:: Weight loss of 5-10%, Reduced calorie diet and Exercise 5-7 times/week Response Code Overweight/Obesity:: Patient communicates acknowledgment Hypertension Recommendations Recommendations Include:: Maintain BP <130/85 and Decrease/maintain normal body weight Response Code Hypertension:: Patient communicates acknowledgment Heart Disease Risk Factors Patient Heart Disease Risk Factors Are:: Family history of heart disease < 65 years old Recommendations Recommendations Include:: Educated family members of their risk Response Code Heart Disease Response Code:: Patient communicates acknowledgment Diabetes Risk Factors Patient Diabetes Risk Factors Are:: No documented hx of diabetes Sedentary Risk Factors Patient Sedentary Risk Factors Are:: Lack of regular exercise Recommendations Recommendations Include:: Aerobic exercise 5-7 times/week for 20-30 minutes continuously, Benefits of regular exercise, Discussed home walking program and Monitored Outpatient Cardiac Rehab Response Code Sedentary Response Code:: Patient communicates acknowledgment
[2023-07-21] MEDS: 0.9% Normal Saline (1000mL) 1,000 ML 150 ML IV (12:02)
--- NOTE | 2023-07-21 12:07 | PHA.DC.MR.R ---
Pharmacy [place] Med Reconciliation Pharmacy Service has performed discharge medication reconciliation for this patient. The patient's discharge medication list was reviewed for discrepancies and discrepancies were resolved. Medications at Discharge Home Medications aspirin 81 mg chewable tablet 81 mg PO DAILY 12/01/19 cholecalciferol (vitamin D3) 50 mcg (2,000 unit) capsule 2,000 unit PO DAILY 12/01/19 calcium carbonate 600 mg calcium (1,500 mg) tablet (Calcium) 600 mg PO DAILY 09/16/21 multivitamin 1 tab PO DAILY 08/10/22 furosemide 20 mg tablet (Lasix) 20 mg PO DAILY #90 tabs 08/22/22 potassium chloride 10 mEq capsule,extended release 10 meq PO DAILY #90 caps 08/22/22 coenzyme [id number] E 100 mg-100 unit capsule 1 cap PO DAILY 11/10/22 omega-3 fatty acids-fish oil 300 mg-500 mg capsule (Fish Oil) 1 cap PO DAILY 11/10/22 levothyroxine 112 mcg tablet 112 mcg PO DAILY #90 tabs 11/11/22 ascorbic acid (vitamin C) 500 mg tablet 500 mg PO DAILY 11/15/22 amlodipine 5 mg tablet 5 mg PO DAILY #90 tabs 05/02/23 clopidogrel 75 mg tablet (Plavix) 75 mg PO DAILY #90 tabs 05/15/23 pantoprazole 20 mg tablet,delayed release 20 mg PO DAILY #90 tabs 05/22/23 valsartan 80 mg tablet 80 mg PO DAILY #90 tabs 05/22/23 isosorbide mononitrate 30 mg tablet,extended release 24 hr 30 mg PO DAILY #90 tabs 06/14/23 pravastatin 40 mg tablet 40 mg PO QHS 06/21/23
[2023-07-21] MEDS: Pravastatin 40 MG Tablet PO (22:21)
[2023-07-21] MEDS: 0.9% Saline Lock 10 ML Syringe IV (22:31)
[2023-07-22 04:00] VITALS: BP 120/57; PULSE 53; RESP 18; TEMP 36.9; O2SAT 93
[2023-07-22] MEDS: Levothyroxine 112 MCG Tablet PO (05:14)
[2023-07-22 05:52] LABS: Hematocrit 40.3 % (37-47); Hemoglobin 12.8 g/dL (12.0-15.0); Mean Corp Hgb Conc 31.8 g/dL (32-36); Mean Corpuscular Hgb 28.8 pg (27.0-32.0); Mean Corpuscular Volume 90.6 fL (81-99); Mean Platelet Vol. 10.3 fl (6.2-12.0); Platelet Count 296 K/mm3 (150-450); RBC Distribution Width CV 13.6 % (11.6-14.6); RBC Distribution Width SD 45.6 fl (35.1-43.9); Red Blood Count 4.45 M/mm3 (4.2-5.4); White Blood Count 8.4 K/mm3 (4.4-11.0)
[2023-07-22 06:18] LABS: AST(SGOT) 14 U/L (15-37); Alanine Aminotransfer ALT/SGPT 20 U/L (13-56); Albumin, Serum 3.5 g/dL (3.2-5.0); Alkaline Phosphatase 72 U/L (45-117); Anion Gap 5 (5-15); BUN 20 mg/dL (7-18); BUN/Creat Ratio 20.6 RATIO (10-20); Calcium,Total 9.3 mg/dL (8.5-10.1); Chloride 108 mmol/L (98-107); Creatinine, Serum 0.97 mg/dL (0.55-1.02); EST Glomerular Filtration Rate 58 mL/min (>60); Est Glom Filt Rate - Afr Amer 71 mL/min (>60); Estimated Creatinine Clearance 58.96 ml/min; Globulin 3.4 g/dL (2.2-4.2); Glucose 100 mg/dL (74-106); Potassium 4.5 mmol/L (3.5-5.1); Protein, Total 6.9 g/dL (6.4-8.2); Sodium Level 141 mmol/L (136-145)
[2023-07-22 07:32] VITALS: BP 148/54; PULSE 60; RESP 16; TEMP 36.6; O2SAT 98
--- NOTE | 2023-07-22 09:36 | PCM.PN.BLA ---
Progress Note Patient noted to have marked sinus bradycardia. One 3-second pause overnight. DC amlodipine. Check 48-hour Holter monitor. Increase valsartan for blood pressure control. Follow-up as outpatient.
--- NOTE | 2023-07-22 09:37 | PCM.DC ---
Discharge Instructions Diet Discharge Diet: Low fat / Low cholesterol Dressing / Incision Call your doctor if your incision/area has: Continuous Slow Oozing, Sudden Increased Bleeding, Increased Pain/ Swelling, Increased Redness, Foul Smelling Discharge and Swelling at the incision site Follow Up Care Please Follow Up With: Sriram Tomlin MD Test Results: Test results from this visit will be discussed in further detail at your follow-up appointment, if applicable. Discharge Plan Admission Admit Date/Time: 07/21/23 10:36 Attending Provider: Sriram Tomlin Primary Care Provider: Opal Aponte NP Discharge Orders/Prescriptions Prescriptions: New valsartan 160 mg tablet 160 mg PO DAILY Qty: 30 3RF Continued ascorbic acid (vitamin C) 500 mg tablet 500 mg PO DAILY pravastatin 40 mg tablet 40 mg PO QHS Patient Comments: take 1 tablet by mouth at bedtime calcium carbonate [Calcium 600] 600 mg calcium (1,500 mg) tablet 600 mg PO DAILY coenzyme F40-szdyyvl E 100-100 mg-unit capsule 1 cap PO DAILY Fish Oil 300-500 mg capsule 1 cap PO DAILY levothyroxine 112 mcg tablet 112 mcg PO DAILY Qty: 90 3RF aspirin 81 MG tablet,chewable 81 mg PO DAILY cholecalciferol (vitamin D3) 2,000 UNIT capsule 2,000 unit PO DAILY multivitamin Tablet 1 tab PO DAILY furosemide [Lasix] 20 mg tablet 20 mg PO DAILY Qty: 90 3RF potassium chloride 10 mEq capsule, extended release 10 meq PO DAILY Qty: 90 3RF clopidogrel [Plavix] 75 mg tablet 75 mg PO DAILY Qty: 90 3RF pantoprazole 20 mg tablet,delayed release (DR/EC) 20 mg PO DAILY Qty: 90 1RF isosorbide mononitrate 30 mg tablet extended release 24 hr 30 mg PO DAILY Qty: 90 3RF Discontinued amlodipine 5 mg tablet 5 mg PO DAILY Qty: 90 3RF valsartan 80 mg tablet 80 mg PO DAILY Qty: 90 3RF Referrals / Follow Up: Opal Aponte NP, LEAD J[employer] J2EE DEVELOPER-C [Primary Care Provider] - Disposition Disposition (needs filled in before D/C Order can be placed): Home, Self Care
[2023-07-22] MEDS: Isosorbide Mononitrate 30 MG Tablet PO (09:43)
[2023-07-22] MEDS: Losartan Potassium 25 MG Tablet PO (09:43)
[2023-07-22] MEDS: Aspirin 81 MG TAB.CHEW PO (09:43)
[2023-07-22] MEDS: Multivitamins,Therapeutic Tablet 1 TABLET PO (09:43)
[2023-07-22] MEDS: Clopidogrel Bisulfate 75 MG Tablet PO (09:44)
[2023-07-22] MEDS: Furosemide 20 MG Tablet PO (09:44)
[2023-07-22] MEDS: Potassium Chloride Oral Tablet 10 MEQ PO (09:44)
[2023-07-22] MEDS: Cholecalciferol (VIT D3) 25 MCG TABLET (1,000 UNITS) 50 MCG PO (09:45)
[2023-07-22] MEDS: Calcium Carbonate 500 MG Tablet PO (09:45)
[2023-07-22] MEDS: Ascorbic Acid 500 MG Tablet PO (09:45)
[2023-07-22] MEDS: Pantoprazole Sodium 20 MG Tablet PO (09:45)
--- NOTE | 2023-07-22 10:00 | EKG12_ITS ---
Test Reason : POST PCI Blood Pressure : / mmHG Vent. Rate : 059 BPM Atrial Rate : 059 BPM P-R Int : 192 ms QRS Dur : 124 ms QT Int : 468 ms P-R-T Axes : 049 012 -10 degrees QTc Int : 463 ms Sinus bradycardia Possible Left atrial enlargement Right bundle branch block T wave abnormality, consider inferior ischemia Abnormal ECG Confirmed by Stephen Davis ([id number]), greeting card editor LALITO BRAUN ([id number]) on 07/25/2023 9:40:49 AM Referred By: Sriram Tomlin Confirmed By:Stephen Davis
[2023-07-22 10:44] VITALS: BP 148/54; PULSE 60; RESP 16; TEMP 36.6; O2SAT 92
--- NOTE | 2023-07-24 10:15 | CL.I_ITS ---
Patient Name: PARVEEN CARUSO Study Date: 07/21/2023 Performing: Sriram Tomlin MD Ht: 70 inches 177.8 cm : 1940 Wt: 226 lbs 102.51 kg Age: 82 Gender: female BSA: 2.2 PROCEDURE(S) PERFORMED IC12-(96583/[id number])CASANDRA W/WO PTCA, SINGLE CORONARY ARTERY CLINICAL PROFILE AND CO-MORBIDITIES Indications: Stable Known CAD Heart Failure: None CAD Presentations: Stable angina. CONCLUSIONS Successful CASANDRA Mid LAD using Sparks Benson 2.5x12 mm. Tissue prolapse noted within stent struts, treated using an overlapping 2.5x8 mm Jailene Benson CASANDRA. Post-dilated using 2.75 mm NC balloon RECOMMENDATIONS ASA Indefinitley Plavix for at least 12 months DESCRIPTION OF PROCEDURE The patient arrived to the procedure lab. The risks and benefits of the procedure as well as a full description of our services here and current unavailability of surgical backup were fully explained to the patient and/or their significant other prior to the catheterization. The Timeout was completed, verifying the correct patient and procedure. The patient's procedural site was prepped and draped in the usual fashion. Local anesthetic was given subcutaneously to right radial region with Lidocaine 2%. Using a modified Seldinger technique, arterial access was obtained via the right radial artery, a 6Fr sheath was inserted.. XB 3.0 Guide catheter was inserted and engaged into the LCA. runthrough Guide wire was advanced to the LAD. oynx frontier 2.5 x 12 Drug Eluting stent was inserted. Drug Eluting stent was advanced across the lesion in the LAD, mid. Angiogram performed post stent deployment. nc emerge 2.5 x 8 Balloon catheter was inserted. Balloon catheter was inserted post stent. PTCA balloon inflated at 12 atms for 7 secs. PTCA balloon inflated at 16 atms for 11 secs. Angiogram performed post balloon dilatation. PTCA balloon inflated at 16 atms for 10 secs. Angiogram performed post balloon dilatation. Balloon catheter was reinserted Balloon catheter was advanced across lesion in the LAD, mid. PTCA balloon inflated at 20 atms for 20 secs. PTCA balloon inflated at 20 atms for 25 secs. Angiogram performed post balloon dilatation. jailene frontier 2.5 x 8 Drug Eluting stent was inserted. Angiogram performed pre stent deployment. Angiogram performed post stent deployment. nc emerge 2.75 x 8 Balloon catheter was inserted. Balloon catheter was inserted post stent. Angiogram performed post balloon dilatation. The arterial sheath was pulled and a TR Band was applied for hemostasis 12 ml of air INTERVENTION INFORMATION LESION SITE: LAD (Mid) Lesion Complexity: Non-High/Non-C, lesion length: 10 mm Pre Stenosis: 80 % Pre intervention URSZULA flow: 3 Post Stenosis: 0 % Post intervention URSZULA flow: 3 Lesion Devices: Terumo .014 180cm Runthrough Extra Floppy straight Cordis 6 Fr XB3.0 100cm Guide Catheter Medtronic 2.50 x 12 JAILENE FRONTIER CASANDRA Abiodun Sci NC EMERGE MR 2.50x08 BALLOON Abiodun Sci NC EMERGE MR 2.75x08 BALLOON Medtronic 2.50 x 08 JAILENE FRONTIER CASANDRA COMPLICATIONS No Complications PROCEDURE MEDICATIONS Versed 1 mg IV Fentanyl 50 mcg IV Oxygen: 2 L/min via nasal cannula Heparin given IA 07/21/2023 09:50:32 Heparin 6000 unit(s) IV 07/21/2023 09:52:33 Heparin 3000 unit(s) IV 07/21/2023 09:59:33 Heparin 2000 unit(s) IV 07/21/2023 10:37:24 Nitro 200 mcg IC 07/21/2023 10:12:08 Nitro 150 mcg IC 07/21/2023 10:18:14 Plavix 300 mg PO 07/21/2023 10:37:32 Verapamil 2.5mg, Ntg 200mcgs, 2000 units of Heparin given IA 07/21/2023 09:50:32 SUMMARY OF HEMODYNAMIC DATA Time AIR REST ECG 07:32:35 AO 139/59 (88) SA 09:56:00 AO 170/71 (107) 10:07:20 Signed By Sriram Tomlin MD On 07/24/2023 10:14:26 Sriram Tomlin MD
== END 2023-07-22 10:00 | disposition home or self-care (01) ==
LOC: CLSP 10:44 → PCU 10:46
PROVIDERS: Admitting Provider Internal Medicine Cardiovascular Disease; PCP Nurse Practitioner; Referring Provider Internal Medicine Cardiovascular Disease; Visit Provider Internal Medicine Cardiovascular Disease
DX: I25.118 Atherosclerotic heart disease of native coronary artery with other forms of angina pectoris (principal); Z95.5 Presence of coronary angioplasty implant and graft; Z79.899 Other long term (current) drug therapy; Z79.82 Long term (current) use of aspirin; Z79.890 Hormone replacement therapy; Z79.02 Long term (current) use of antithrombotics/antiplatelets; E03.9 Hypothyroidism, unspecified; E78.5 Hyperlipidemia, unspecified; I10 Essential (primary) hypertension; Z87.891 Personal history of nicotine dependence
CPT/HCPCS: 36415; 80053; 85027; 85347; 92928; 93005; 96360; 96361; 99152; 99153; 99221; J7030; J7040; Q9967; A4216; C1725; C1769; C1874; C1887; C1894; C9600; G0378

== ENCOUNTER → 2023-07-22 | Outpatient (CLI) | payer MEDICARE, SELFPAY ==
--- OUTSIDE RECORDS SUMMARY | 2023-07-22 09:42 | XMS RPT_ITS | CCD ---
Author Name Unknown Address [address] [place] [address] Organization [facility] Care Team Providers Care Credit Collection Associate Name Role Phone Unavailable Primary Care Provider UnavailMelva Lay Primary Care Provider Melva Waters Primary Care Provider Melva Waters Primary Care Provider Melva Waters DO Primary Care Provider [phone] Melva Waters DO Primary Care Provider Melva [...] Translations: [ESOMEPRAZOLE MAGNESIUM] Drug Allergy 5 Rash [place], [place] (13 sources) Penicillins; Translations: [PENICILLINS] Propensity to adverse reactions to drug 5 [place], [place] (1 source) Penicillins Drug Allergy 5 Rash [facility] Medications Current Medications Medication Drug Class(es) [...] lity 02-02-2020 14:19-0400 Body Temperature 98.29 [degF] [place], [place] 02-02-2020 14:19-0400 BP Diastolic 95 mm[Hg] [place], [place] 02-02-2020 14:19-0400 BP Systolic 138 mm[Hg] [place] 02-02-2020 14:19-0400 Pulse (Heart Rate) 103 /min [place], [place] 02-02-2020 14:19-0400 Pulse Oximetry 96 % [place], [place] 02-02-2020 14:19-0400 Respiratory Rate 16 /min [place], [place] 09-05-2019 10:24-0400 BMI (Body Mass Index) 22.96 kg/m2 Evan Del Rio [place], [place] 09-05-2019 10:24-0400 Body weight 72.58 kg Evan [place], [place] 09-05-2019 10:24-0400 Height 177.8 cm [place], [place] Encounters Encounter Date Encounter Type Care Provider Facility Start: 06-07-2023 End: 06-08-2023 ambulatory DEX OGDEN Facility:[facility] Start: 05-25-2023 End: 05-26-2023 ambulatory DEX OGDEN Facility:[facility] Start: 05-19-2023 Orders Only Dex cates MD Work Phone: [facility] Procedures Date Procedure Procedure Detail Performing Clinician Start: 09-02-2021 Assay of free thyroxine Jillian Huynh APRN - PSYCHOLOGY TEACHER Work Phone: Start: 01-20-2021 Radex hip unilateral with pelvis 2-3 views Jillian Huynh ROOF ASSEMBLER - PSYCHOLOGY TEACHER Work Phone: Start: 10-16-2020 End: 10-16-2020 Assay [...] Author Start: 11-14-2025 Diabetes Screening Diabetes Screening [facility] Start: 02-10-2023 Covid-19 Vaccine () Covid-19 Vaccine () [facility] Start: 02-10-2023 Influenza vaccination Influenza Vaccine (#1) [facility] Start: 09-02-2022 Thyroid stimulating hormone measurement TSH testing [facility] Start: 06-12-2022 Advance Directive Discussion Advance Directive Discussion [facility] Start: 06-09-2022 Annual Wellness Visit (AWV) Annual Wellness Visit (AWV) [facility] Start: 06-08-2022 Creatinine measurement Creatinine monitoring [facility] Start: 06-08-2022 Depression Screen Depression Screen [facility] Start: 06-08-2022 Hepatitis B surface antibody level LDL Cholesterol [facility] Start: 06-08-2022 Lipid panel Lipid screen [facility] Start: 06-08-2022 Potassium monitoring Potassium monitoring [facility] Start: 12-07-2021 End: 12-07-2021 Patient encounter procedure 12/07/2021 Office Visit Family Medicine Melva Waters, DO [address] [place] [address] [facility] Start: 10-16-2021 Thyroid stimulating hormone measurement TSH testing [facility] Work Phone: Start: 09-10-2021 Thyroid stimulating hormone measurement TSH testing [facility] Work Phone: Start: 09-10-2021 TSH Qn TSH testing [facility] Work Phone: Start: 08-05-2021 COVID-19 Vaccine (3 - Booster for Pfizer series) COVID-19 Vaccine (3 - Booster for Pfizer series) [facility] Start: 06-07-2021 End: 06-07-2021 Office Visit 06/07/2021 Office Visit Family Medicine Melva Waters DO [address] [place], [place] [id number] [facility] Start: 06-02-2021 Creatinine measurement Creatinine monitoring [facility] [place] [place] Start: 06-02-2021 Lipid panel Lipid screen [facility] [place] [place] Start: 06-02-2021 Potassium monitoring Potassium monitoring [facility] [place] Start: 05-31-2021 End: 05-31-2021 Patient encounter procedure 05/31/2021 Office Visit Family Medicine Melva Waters DO [address] [place], [place] [id number] [facility] Start: 05-30-2021 Annual Wellness Visit (AWV) Annual Wellness Visit (AWV) [facility] [place] [place] Start: 02-10-2021 Influenza vaccination [facility] Work Phone: Start: 02-06-2021 Creatinine measurement Creatinine monitoring [facility] [place] Start: 02-06-2021 Potassium monitoring Potassium monitoring [facility] [place] Start: 01-29-2021 Creatinine measurement Creatinine monitoring [facility] [place] Start: 01-29-2021 Potassium monitoring Potassium monitoring [facility] [place] Start: 11-27-2020 End: 11-27-2020 Office Visit 11/27/2020 Office Visit Family Medicine Melva Waters DO [address], [place] [id number] [facility] Start: 09-29-2020 Statin Therapy Statin Therapy [facility] [place] Start: 08-25-2020 Creatinine measurement Creatinine monitoring [facility] [place] Start: 08-25-2020 Creatinine monitoring Creatinine monitoring [facility] [place] Start: 08-25-2020 Potassium monitoring Potassium monitoring [facility] [place] Start: 05-29-2020 End: 05-29-2020 Office Visit 05/29/2020 Office Visit Family Medicine Melva Waters DO [address], [place] [address] [facility] Start: 04-17-2020 Creatinine monitoring Creatinine monitoring [place], [place] Start: 04-17-2020 Potassium monitoring Potassium monitoring [place] Start: 04-17-2020 TSH Qn TSH testing [place] Start: 04-17-2020 TSH testing TSH [place] Start: 02-11-2020 Influenza vaccination Flu vaccine (#1) [place] Start: 02-03-2020 End: 02-03-2020 Office Visit 02/03/2020 Office Visit Family Medicine Troy Adkins MD [address] [place] [id number] [facility] Start: 10-18-2019 End: 10-18-2019 Office Visit 10/18/2019 Office Visit Cardiology Evan Del Rio MD [address] [place] [id number] [facility] Start: 03-07-2019 End: 03-07-2019 Office Visit 03/07/2019 Office Visit Geriatric Medicine Clara Rubio MD [address] [place] [phone] [facility] Start: 02-10-2019 Influenza vaccination Flu vaccine (#1) [place] Start: 11-29-2018 Annual Wellness Visit (AWV) Annual Wellness Visit (AWV) [place] Start: 11-01-2018 Creatinine monitoring Creatinine monitoring [place] Start: 11-01-2018 Lipid panel Lipid screen [place] Start: 11-01-2018 Lipid screen Lipid [place] Start: 11-01-2018 Potassium monitoring Potassium [place] Start: 11-01-2018 TSH testing T[place] testing [place] Start: 2006 DEXA (modify frequency per FRAX score) DEXA (modify frequency per FRAX score) [place] Start: 2004 Annual Wellness Visit (AWV) Annual Wellness Visit (AWV) [place] Start: 2001 RSV Vaccine (1 - 1-dose 60+ series) RSV Vaccine (1 - 1-dose 60+ series) [facility] Start: 1996 DEXA (modify frequency per FRAX score) DEXA (modify frequency per FRAX score) [place] Start: [address] lung screening Low dose CT lung screening [place] Start: 1996 Screening for osteoporosis DEXA (modify frequency per FRAX score) [place] Start: 11-29-1991 Screening for malignant neoplasm of lung Low dose CT lung screening [facility] Start: 11-29-1991 Shingles Vaccine (1 of 2) Shingles Vaccine (1 of 2) [facility] Start: 11-29-1991 Shingrix Vaccine (1 of 2) Shingrix Vaccine (1 of 2) [facility] Start: 1960 DTaP/Tdap/Td vaccine (1 - Tdap) DTaP/Tdap/Td vaccine (1 - Tdap) [facility] Start: 1960 Urine microalbumin profile DTaP,Tdap,Td Vaccine (1 - Tdap) [facility] Start: 11-29-1959 Spirometry Spirometry [facility] Start: 1957 COVID-19 Vaccine (1) COVID-19 Vaccine (1) [facility] Work Phone: Start: 1953 COVID-19 Vaccine (1) COVID-19 Vaccine (1) [facility] Work Phone: Start: 1952 DTaP/Tdap/Td vaccine (1 - Tdap) DTaP/Tdap/Td vaccine (1 - Tdap) [place] End: 09-02-2021 TSH with Reflex TSH with Reflex Lab Routine Hypothyroidism, unspecified type 1 Occurrences starting 09/02/2021 until 09/02/2021 [facility] Work Phone: Immunizations Immunization Date Immunization Notes Care Provider Robert diane 04-01-2022 influenza virus vacc ine, unspecified formulation Dex Ogden MD Work Phone: [facility] 06-08-2021 Influenza, High-dose , Quadv, 65 yrs +, IM (Fluzone) Melva Waters DO Work Phone: [facility] 04-17-2018 pneumococcal polysaccharide vaccine, 23 valent Clara Rubio [facility] 11-03-2016 pneumococcal conjuga te vaccine, 13 valent Clara Rubio [facility] Payers Date Payer Category Payer Medicare [id number] 2019 Unknown 2016 Medicare xxxxxxxxxxxx [id number] 1940 Unknown [id number] 1940 Unknown [id number] 1940 Unknown [id number] Social History Date Type Detail Facility Start: 01-08-2015 End: 01-24-2019 Tobacco smoking status NHIS Former sm[place] Start: 01-24-2019 End: 11-15-2022 Alcohol intake No [facility] Work Phone: Start: 1940 Sex Assigned At Not on file [place] End: 04-17-2007 History of tobacco use Current smoker [place] End: 04-17-2007 History of tobacco use Cigarette Smoker [place] Start: 04-17-2019 End: 11-15-2022 Cigarettes smoked current (pack per day) - Reported [facility] Work Phone: Start: 06-20-2019 End: 06-22-2021 Alcohol intake Current non-drinker of alcohol (finding) [facility], [facility] Start: 02-02-2020 End: 06-19-2020 Tobacco use and exposure Never used Iggli COLE Exposure to SARS-CoV -2 (event) Not sure ThemBid, COLE Exposure to SARS-CoV -2 (event) Yes Iggli COLE Start: 1940 Sex Assigned At Female [facility] Work Phone: Start: 06-19-2020 Tobacco smoking stat [facility] Never smoked tobacco [facility] Start: 11-14-2022 Alcohol intake Lifetime non-d lyla (finding) [facility] How often to you hav e a drink containing alcohol? Never [facility] Work Phone: Average Number of Drinks Not on file [facility] Goals Date Patient Goal Desired Activity /State Clinical Note 06-08-2023 Note Date & Type Note Facility 06-08-2023 Note HNO ID: [id number] Author: Adrienne Chaney RN Service: Care Management Author Type: Registered Nurse Type: Care Mgt Initial Assessment Filed: 06/08/2023 9:42 AM Note Text: CARE MANAGEMENT: ASSESSMENT AND DISCHARGE PLAN SERVICE DATE: June 08, 2023 SERVICE TIME: 9:41 AM PCP: Albina Baeza APRN.CNP Primary Contact: Extended Emergency Contact Information Primary Emergency Contact: Kat Olmos [facility] Mobile Relation: Daughter Secondary Emergency Contact: Harpreet Robles Mobile Relation: Son Admission Status: Ambulatory Surgery Insurance Provider: OMID YEPEZ [facility] Discharge Planning requested by: Per Department Practice [...] Walker Discharge Planning Patient Goal(s): Independent living [place] of Choice Explained: [place] of Choice Given: No Reason Not Given: No placements necessary Are you interested in bedside delivery of your medications? No Discharge Planning Participant(s): Patient Patient/Family Comments: Caregiver Assessment: Transport at Discharge: Needs Prior to Discharge: Needs Prior to Discharge: Ready for Discharge Post-Acute Discharge Plan: Patient from [facility]. Patient admitted as amb surgery s/p heart cath with PCI. +PCP - albina Baeza +Rx - [facility] #[id number] +DME - rollator, walker Patient to return to [place] at discharge. Patient states her son will transport her home. SIGNATURE: Adrienne Chaney RN PATIENT NAME: Parveen Robles DATE: June 08, 2023 TIME: 9:41 AM CONTACT #: [phone] [facility] Clinical Note 06-07-2023 Note Date & Type Note Facility 06-07-2023 Note HNO ID: [id number] Author: Cleo Mattson RN Service: Nursing Author Type: Registered Nurse Type: Nursing Progress Note Filed: 06/07/2023 12:42 PM Note Text: Other: Dr Johnson aware of pain, no new orders given. [facility] Clinical Note 07-21-2020 Note Date & Type Note Facility 07-21-2020 Note Patient Outreach ([place] [facility]) ZULYPARVEEN Pena ([id number]) 1940 F Date Time Provider Department 07/21/20 ANGELIC BUCKLEY During your visit today, we recorded the following information about you: Allergies As of Date: 07/21/2020 Noted Allergy Reaction ESOMEPRAZOLE MAGNESIUM 01/08/2015 2 - Rash PENICILLINS 01/08/2015 2 - Rash Date Reviewed: 06/19/2020 Reviewed by: Betzaida Martins Ma - Fully Assessed Order(s):SARS-COVID VACCINE 1ST DOSE APPT [[id number]] Order #: [id number] FUTURE Prescriptions as of 07/21/2020 Sig: ASPIRIN [...] Encounter Status:Closed by EPIC, PRODUSER on 07/24/20 [facility] Evaluation note Note Date & Type Note Facility documented in this encounter [facility] Work Phone: Evaluation note Note Date & Type Note Facility documented in this encounter [facility] Work Phone: Evaluation note Note Date & Type Note Facility documented in this encounter [facility] Work Phone: Evaluation note Note Date & Type Note Facility documented in this encounter [facility] Advance Directives No Advanced Directives Records FoundDocuments on File Type Date Recorded Patient Pulling Unit Floorhand Expl anation Advance Directives and Living Will Power of Supermarket Manager Power of Supermarket Manager 11/19/2015 1:07 PM 2015 Power of Supermarket Manager Documents on File Type Date Recorded Patient Pulling Unit Floorhand Expl anation Advance Directives and Living Will Advance Directives and Living Will 03/07/2019 8:55 AM Living Will Power of Supermarket Manager Power of Supermarket Manager 11/19/2015 1:07 PM 2015 Power of Supermarket Manager Power of Supermarket Manager 03/07/2019 8:56 AM healt care Power of Supermarket Manager Documents on File Type Date Recorded Patient Pulling Unit Floorhand Expl anation Advance Directives and Living Will Advance Directives and Living Will 03/07/2019 8:55 AM Living Will Power of Supermarket Manager Power of Supermarket Manager 11/19/2015 1:07 PM 2015 Power of Supermarket Manager Power of Supermarket Manager 03/07/2019 8:56 AM healt h care Power of Supermarket Manager Documents on File Type Date Recorded Patient Pulling Unit Floorhand Expl anation ACP-Advance Directive ACP-Advance Directive 03/07/2019 8:55 AM L iving Will ACP-Power of Supermarket Manager ACP-Power of Supermarket Manager 11/19/2015 1:07 PM Power of Supermarket Manager ACP-Power of Supermarket Manager 03/07/2019 8:56 AM h ealth care Power of Supermarket Manager Documents on File Type Date Recorded Patient Pulling Unit Floorhand Expl anation ACP-Advance Directive ACP-Advance Directive 03/07/2019 8:55 AM L iving Will ACP-Power of Supermarket Manager ACP-Power of Supermarket Manager 11/19/2015 1:07 PM Power of Supermarket Manager ACP-Power of Supermarket Manager 03/07/2019 8:56 AM h ealth care Power of Supermarket Manager Documents on File Type Date Recorded Patient Pulling Unit Floorhand Expl anation ACP-Advance Directive ACP-Power of Supermarket Manager ACP-Advance Directive 03/07/2019 8:55 AM L iving Will ACP-Power of Supermarket Manager 03/07/2019 8:56 AM h ealth care Power of Supermarket Manager ACP-Power of Supermarket Manager 11/19/2015 1:07 PM Power of Supermarket Manager Latest Code Status on File Code Status [...] Stress Test Evan Del Rio MD [address] [place] [address] Status Reason Specialty Diagnoses / Procedures Referred By Contact Referred To Contact Open Specialty Services Required Orthopedic Surgery Diagnoses Elbow effusion, left Bryan Esparza MD [address] [place] [address] [facility] [address] [place] [address] Scheduling Instructions [facility] [place] [address] Status Reason Specialty Diagnoses / Procedures Referre d By Contact Referred To Contact Open Radiology Diagnoses Postmenopausal Procedures DEXA BONE DENSITY AXIAL SKELETON Melva Waters DO [address] [place] [address] Discharge Instructions * Instructions* Bryan Esparza MD [...] be sent through Care Everywhere. * Candidiasis (Frisian) * Radial Head Fracture (Frisian) documented in this encounter Additional Source Comments INFORMATION SOURCE (unrecogn ized section and content) DATE CREATED AUTHOR AUTHOR'S ORGANIZ ATION 07/07/2021 [facility] DATE CREATED AUTHOR AUTHOR'S ORGANIZ ATION 03/19/2022 [facility] DATE CREATED AUTHOR AUTHOR'S ORGANIZ ATION 09/27/2022 [facility] DATE CREATED AUTHOR AUTHOR'S ORGANIZ ATION 05/27/2023 [facility] DATE CREATED AUTHOR AUTHOR'S ORGANIZ ATION 06/10/2023 [facility] Reason for Visit (unrecogniz ed section and content) Care Teams (unrecognized sec tion and content) Credit Collection Associate Relationship Specialty Start Date End Date Albina Baeza APRN.PSYCHOLOGY TEACHER [address] [facility] [address] [place] [address] PCP - General Family Medicine 11/14/22 Source Comments (unrecognize d section and content) In the event this informatio n is protected by the Federal Confidentiality of Alcohol and Drug Abuse Patient Records regulations: The Federal rules restrict any use of the information to criminally investigate or prosecute any alcohol or drug abuse patient.[facility] FOR RECORDS PERTAINING TO PATIENTS WHO [...] BE BASED ON THE PRIMARY CLINICAL RECORDS. [employer] provides no warranty or guarantee of the accuracy or completeness of information in this document.
== END | disposition home or self-care (01) ==
LOC: PSN 09:39
PROVIDERS: PCP Nurse Practitioner; Referring Provider Internal Medicine Cardiovascular Disease; Visit Provider Internal Medicine Cardiovascular Disease
DX: Z00.00 Encounter for general adult medical examination without abnormal findings (principal)

== ENCOUNTER 2023-07-31 14:28 | Observation (INO) | payer MEDICARE, SELFPAY ==
[2023-07-27 12:38] LABS: Mucous, Urine 0 SEEN /hpf (<or=2+); Red Blood Cells-Urine 0 SEEN /hpf (0-5); White Blood Cells 0 SEEN /hpf (0-5)
[2023-07-27 13:41] LABS: Color, Urine Yellow (Yellow); Glucose, Dipstick Normal (Normal); Ketone-Dipstick Negative (Negative); Leukocyte Esterase-Dipstick 100 /ul (Negative); Nitrite-Dipstick Negative (Negative); Occult Blood-Urine Negative /ul (Negative); Protein-Dipstick Negative (Negative); Urine Bilirubin Dipstick Negative (Negative); Urine Clarity Clear (Clear); Urine Urobilinogen Normal (Normal)
[2023-07-27 13:49] LABS: Bacteria 2+ /hpf (None Seen); Squamous Epithelial Cells - UA 5-10 SEEN /hpf (5-10)
[2023-07-27 14:13] LABS: Thyroid Stim Hormone (TSH) 0.32 uIU/mL (0.358-3.74)
--- NOTE | 2023-07-27 16:31 | PCM.HP.BLA ---
History and Physical Liv Robles is an 82-year-old female that presents here today for a pacemaker placement for sick sinus syndrome. While she was here in the hospital for a staged procedure for stenting she was noted to have marked bradycardia at times and a 3-second pauses. She was not on beta-blockers. She has not been on beta-blockers due to her bradycardia. She does have a history of coronary artery disease. In June 2023 she underwent balloon angioplasty with a drug-eluting stent to her RCA. This was done by Dr. Ogden in [place]. In July 2023 she had staged procedure to her LAD. This was done here. She also has a history of hypertension, hyperlipidemia and bilateral renal artery stenosis with stenting in November [address] Tomlin. [facility] Medical History Abnormal ECG Bilateral renal artery stenosis CAD (coronary artery disease) Chest discomfort Cough COVID Dizzy LIRA (dyspnea on exertion) Dyslipidemia History of renal artery stenosis Hypertension Hypothyroidism Hypothyroidism (acquired) Left shoulder pain Malaise Obesity Pneumonia RCA occlusion Rib pain on right side Sinusitis, acute maxillary SOB (shortness of breath) Unilateral edema of lower extremity Weight loss observed on examination Wellness examination Surgical History History of heart artery stent History of stent insertion of renal artery History of thyroid irradiation Hx of breast augmentation Hx of cardiac catheterization (~06/07/23) Hx of hernia repair S/P appendectomy Stented coronary artery (~06/07/23) Tubal ligation status Family History Mother Lung cancer Father Heart disease Pacemaker COPD (chronic obstructive pulmonary disease) Other Breast cancer Social History Smoking Status: Former smoker pack-years: 15 Tobacco: How many years used: 30 Electronic Cigarette Use: not used second hand exposure: No alcohol intake: current alcohol intake frequency: holidays/special occasions only substance use type: does not use caffeine: Yes Type: coffee Number of servings: 1 and tea Number of servings: 2 ROS Const Const: Negative for fatigue, weakness, headache(s), frequent falls, difficulty sleeping or excessive sweating Eyes Eyes: Negative for loss of peripheral vision, transient loss of vision, blurry vision, double vision or tunnel vision ENT ENT: Positive for balance problems; Negative for headache(s), dizziness or Nosebleed/epistaxis Cardio Chest Pain: Yes Frequency: weekly (couple times a week) Character: dull Location: mid sternal and left chest Duration: minutes (5 minutes) Palpitations: No Edema: None Muscle aches with walking: None Resp Respiratory: Positive for SOB with activity (especially when using arms); Negative for SOB at rest, SOB orthopnea\SOB lying down, Cough or paroxysmal nocturnal dyspnea GI GI: Positive for heartburn (occasionally); Negative nausea, vomiting or black,tarry stools : Negative for hematuria Musc Musc: Positive for balance problems; Negative for muscle aches/ myalgia, muscle weakness or joint pain Skin Skin: Negative non-healing lesions, rash or unusual bruising Neuro Neuro: Positive for lightheadedness; Negative for dizziness, near syncope, syncope, frequent falls, headache(s), weakness, blurry vision, double vision or lack of coordination [place] Hematologic/Lymphatic: Negative for easy bleeding or easy bruising Endo Endo: Negative for fatigue, excessive sweating or increased thirst/drinking Psych Psych: Negative for anxiety or depression Allergy Allergy/Immunology: Negative for hives and Negative for rash Cardiology Exam Const Appearance: comfortable and no acute distress Nutritional Appearance: well nourished Neck Neck: no JVD Carotids: Negative bruit Chest Auscultation: Bilateral: Clear to Auscultation Cardio Rate: regular rate Rhythm: regular rhythm Heart sounds: S1 normal and S2 normal 2/6 systolic murmur at base Neuro General: patient alert, patient awake and patient oriented x3 Extremities Lower Extremity Edema: None: Bilateral Supplemental Info Supplemental Information ECHOCARDIOGRAM 08/26/22 Interpretation Summary The left ventricular ejection fraction is 60 %. Mildly dilated aortic root. ECHOCARDIOGRAM 02/25/22: Interpretation Summary The study was technically difficult. Left ventricular systolic function is normal. The estimated ejection fraction is 65 %. The right atrium is mildly enlarged. Prominent eustachian valve. Trivial mitral valve insufficiency. Trivial tricuspid valve insufficiency. The aortic valve is not well visualized, however, based upon the 2D echocardiographic images obtained there appears to be thickening, calcification, and partial restriction. Trivial aortic valve insufficiency. Right ventricular systolic pressure estimated to be 31 mmHg. No evidence for diastolic dysfunction. Stress Test Report:Date: 08/26/2022 The patient underwent pharmacologic (Regadenoson 0.4mg ) evaluation with a peak heart rate of 75 beats per minute (50%predicted maximal heart rate) and a peak blood pressure of 134/80 mmHg. The baseline ECG demonstrated normal sinus rhythm with left bundle branch block. The peak pharmacologic ECG demonstrated no diagnostic change. There were no cardiac dysrhythmias pretest, during pharmacologic infusion, or recovery. There was no complaint of chest discomfort during pharmacologic infusion or recovery. The patient was injected with 15.0 millicuries of technetium 99m Cardiolite and subsequently rest SPECT Cardiolite nuclear imaging was obtained in the horizontal long, vertical long, and short axis views. The patient underwent pharmacologic (Regadenoson) evaluation. The patient was injected with 45.0 millicuries of technetium 99m Cardiolite and subsequently stress SPECT Cardiolite nuclear imaging was obtained in the horizontal long, vertical long, and short axis views. A gated Cardiolite study at peak stress was obtained. The examination was stopped secondary to completion of protocol. Rest and stress SPECT Cardiolite nuclear imaging status post realignment, normalization, and attenuation correction demonstrate no fixed or reversible perfusion defects. There is end systolic thickening and brightening. The gated Cardiolite study demonstrates myocardial thickening and inward wall motion. The reported LVEF is 75%. Impression: 1. Pharmacologic (Regadenoson) evaluation 2. Peak pharmacologic ECG with no diagnostic changes. 3. There were no cardiac dysrhythmias pretest, during pharmacologic infusion, or recovery. 5. No fixed or reversible perfusion defects. 6. The gated Cardiolite study reports an LVEF of 75%. CTA CHEST 08/03/22: IMPRESSION: No demonstrated pulmonary embolism or arterial dissection. 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 Bilateral breast implants. Mild cardiomegaly. Atrophic right kidney. Fullness change or midpole left kidney. If stability not previously established recommend ultrasound for further evaluation if clinically warranted. Mild degenerative changes lower thoracic spine. CARDIAC CATHETERIZATION 05/18/23: CONCLUSIONS 80% Prox Mid, 65% distal Mid LAD Calcified Prox LCX with no luminal obstruction 70% calcified Prox RCA; 80% heavily calcified eccentric Mid RCA Accessory/dual LAD from RCA noted. Heavily calcified distal Ascending Aorta and Arch RECOMMENDATIONS Refer for consideration for rotablation of Mid RCA. Staged PCI to LAD CORONARY ANGIOGRAPHY DOMINANCE: Right Dominant LEFT MAIN: 20% distal LEFT ANTERIOR DESCENDING ARTERY: LAD: Tubular 80% Mid lesion in LAD Tubular 65% Mid lesion in LAD OM 1: Tubular 50% Ostial lesion in MARG1 OM 2: Tubular 50% Ostial lesion in MARG1 RIGHT CORONARY ARTERY: RCA: Calcified 70% Proximal lesion in RCA Eccentric Calcified 80% Mid lesion in RCA COMPLICATIONS No Complications CARDIAC CATHETERIZATION 06/07/23: FINDINGS Right Coronary Artery: Large dominant vessel with moderate to severe calcification from the proximal to the distal vessel. There is a large PDA and posterior ventricular branch. There is an eccentric 70-80% stenosis that starts from the proximal to the mid distal vessel with an area in the mid to distal with eccentric calcification and a severe 80% stenosis on IVUS evaluation. Initial intravascular ultrasound images were obtained. The lesions were able to be predilated with placement of a 4.0 x 48 mm Synergy stent. The stent was able to be successfully postdilated to 4.6 mm with a good angiographic and intravascular ultrasound result. Assessment & Plan Assessment/Plan (1) Sick sinus syndrome: (2) Stented coronary artery: (3) History of stent insertion of renal artery: (4) Hypertension: QUALIFIERS: Hypertension type: essential hypertension Qualified Code(s): I10 - Essential (primary) hypertension (5) Dyslipidemia: PLAN: Plan Patient will undergo pacemaker insertion. She will follow-up in our office accordingly after.
[2023-07-28 10:01] VITALS: BMI 32.4
--- OUTSIDE RECORDS SUMMARY | 2023-07-31 12:10 | XMS RPT_ITS | CCD ---
Author Name Unknown Address [address] [place] [address] Organization [facility] Care Team Providers Care Studio Technician Video Operator Name Role Phone Unavailable Primary Care Provider UnavailMelva Lay Primary Care Provider Melva Waters Primary Care Provider Melva Waters Primary Care Provider Melva Waters DO Primary Care Provider [phone] Melva Waters DO Primary Care Provider [phone] Melva Waters Referring Unavailable Melva Waters Primary [...] Attending Unavailable DEX OGDEN Admitting Unavailable ALBINA BAEAZ Primary Care Unavailable Allergies Allergy Classification Reported Allergen(s) Allergy Type Date of Onset Reaction(s) Facility Penicillins (antibiotic) (2 sources) Penicillins Drug Allergy 5 [facility] Proton Pump Inhibitors (2 sources) Esomeprazole Drug Allergy 5 [facility] (14 sources) Esomeprazole; Translations: [ESOMEPRAZOLE MAGNESIUM] Drug Allergy 5 Rash [place] (13 sources) Penicillins; Translations: [PENICILLINS] Propensity to adverse reactions to drug 5 [place] (1 source) Penicillins Drug Allergy 5 Rash [facility] Medications Current Medications Medication Drug Class(es) [...] lity 02-02-2020 14:19-0400 Body Temperature 98.29 [degF] [place], [place] 02-02-2020 14:19-0400 BP Diastolic 95 mm[Hg] [place], [place] 02-02-2020 14:19-0400 BP Systolic 138 mm[Hg] [place] 02-02-2020 14:19-0400 Pulse (Heart Rate) 103 /min [place], [place] 02-02-2020 14:19-0400 Pulse Oximetry 96 % [place] 02-02-2020 14:19-0400 Respiratory Rate 16 /min [place] 09-05-2019 10:24-0400 BMI (Body Mass Index) 22.96 kg/m2 Evan Del [place], [place] 09-05-2019 10:24-0400 Body weight 72.58 kg Evan [place], [place] 09-05-2019 10:24-0400 Height 177.8 cm [place] Encounters Encounter Date Encounter Type Care Provider Facility Start: 06-07-2023 End: 06-08-2023 ambulatory DEX OGDEN Facility:[facility] Start: 05-25-2023 End: 05-26-2023 ambulatory DEX OGDEN Facility:[facility] Start: 05-19-2023 Orders Only Dex cates MD Work Phone: [facility] [place] Procedures Date Procedure Procedure Detail Performing Clinician Start: 09-02-2021 Assay of free thyroxine Jillian Huynh APRN - DUSTLESS OPERATOR Work Phone: Start: 01-20-2021 Radex hip unilateral with pelvis 2-3 views Jillian Huynh MACHINE COIL ASSEMBLER - DUSTLESS OPERATOR Work Phone: Start: 10-16-2020 End: 10-16-2020 [...] Author Start: 11-14-2025 Diabetes Screening Diabetes Screening [facility] Start: 02-10-2023 Covid-19 Vaccine () Covid-19 Vaccine () [facility] Start: 02-10-2023 Influenza vaccination Influenza Vaccine (#1) [facility] Start: 09-02-2022 Thyroid stimulating hormone measurement TSH testing [facility] Start: 06-12-2022 Advance Directive Discussion Advance Directive Discussion [facility] Start: 06-09-2022 Annual Wellness Visit (AWV) Annual Wellness Visit (AWV) [facility] Start: 06-08-2022 Creatinine measurement Creatinine monitoring [facility] Start: 06-08-2022 Depression Screen Depression Screen [facility] Start: 06-08-2022 Hepatitis B surface antibody level LDL Cholesterol [facility] Start: 06-08-2022 Lipid panel Lipid screen [facility] Start: 06-08-2022 Potassium monitoring Potassium monitoring [facility] Start: 12-07-2021 End: 12-07-2021 Patient encounter procedure 12/07/2021 Office Visit Family Medicine Melva Waters, DO [address] [place] [address] [facility] Start: 10-16-2021 Thyroid stimulating hormone measurement TSH testing [facility] Work Phone: Start: 09-10-2021 Thyroid stimulating hormone measurement TSH testing [facility] Work Phone: Start: 09-10-2021 TSH Qn TSH testing [facility] Work Phone: Start: 08-05-2021 COVID-19 Vaccine (3 - Booster for Pfizer series) COVID-19 Vaccine (3 - Booster for Pfizer series) [facility] Start: 06-07-2021 End: 06-07-2021 Office Visit 06/07/2021 Office Visit Family Medicine Melva Waters DO [address], [place] [id number] [facility] Start: 06-02-2021 Creatinine measurement Creatinine monitoring [facility] [place] [place] Start: 06-02-2021 Lipid panel Lipid screen [facility] [place] [place] Start: 06-02-2021 Potassium monitoring Potassium monitoring [facility] [place] Start: 05-31-2021 End: 05-31-2021 Patient encounter procedure 05/31/2021 Office Visit Family Medicine Melva Waters DO [address] [place], [place] [id number] [facility] Start: 05-30-2021 Annual Wellness Visit (AWV) Annual Wellness Visit (AWV) [facility] [place] [place] Start: 02-10-2021 Influenza vaccination [facility] Work Phone: Start: 02-06-2021 Creatinine measurement Creatinine monitoring [facility] [place] Start: 02-06-2021 Potassium monitoring Potassium monitoring [facility] [place] Start: 01-29-2021 Creatinine measurement Creatinine monitoring [facility] Start: 01-29-2021 Potassium monitoring Potassium monitoring [facility] [place] Start: 11-27-2020 End: 11-27-2020 Office Visit 11/27/2020 Office Visit Family Medicine Melva Waters DO [address], [place] [address] [facility] Start: 09-29-2020 Statin Therapy Statin Therapy [facility] [place] Start: 08-25-2020 Creatinine measurement Creatinine monitoring [facility] [place] Start: 08-25-2020 Creatinine monitoring Creatinine monitoring [facility] [place] [facility] [place] Start: 08-25-2020 Potassium monitoring Potassium monitoring [facility] [place] Start: 05-29-2020 End: 05-29-2020 Office Visit 05/29/2020 Office Visit Family Medicine Melva Waters DO [address] [place], [place] [address] [facility] Start: 04-17-2020 Creatinine monitoring Creatinine monitoring [place], [place] Start: 04-17-2020 Potassium monitoring Potassium monitoring [place] Start: 04-17-2020 TSH Qn TSH testing [place] Start: 04-17-2020 TSH testing TSH [place] Start: 02-11-2020 Influenza vaccination Flu vaccine (#1) [place] Start: 02-03-2020 End: 02-03-2020 Office Visit 02/03/2020 Office Visit Family Medicine Troy Adkins MD [address] [place] [id number] [facility] Start: 10-18-2019 End: 10-18-2019 Office Visit 10/18/2019 Office Visit Cardiology Evan Del Rio MD [address] [place] [id number] [facility] Start: 03-07-2019 End: 03-07-2019 Office Visit 03/07/2019 Office Visit Geriatric Medicine Clara Rubio MD [address] [place] [phone] [facility] Start: 02-10-2019 Influenza vaccination Flu vaccine (#1) [place] Start: 11-29-2018 Annual Wellness Visit (AWV) Annual Wellness Visit (AWV) [place] Start: 11-01-2018 Creatinine monitoring Creatinine monitoring [place] Start: 11-01-2018 Lipid panel Lipid [place] Start: 11-01-2018 Lipid screen Lipid [place] Start: 11-01-2018 Potassium monitoring Potassium [place] Start: 11-01-2018 TSH testing [place] Start: 2006 DEXA (modify frequency per FRAX score) DEXA (modify frequency per FRAX score) [place] Start: 2004 Annual Wellness Visit (AWV) Annual Wellness Visit (AWV) [place] Start: 2001 RSV Vaccine (1 - 1-dose 60+ series) RSV Vaccine (1 - 1-dose 60+ series) [facility] Start: 1996 DEXA (modify frequency per FRAX score) DEXA (modify frequency per FRAX score) [place] Start: [address] lung screening Low dose CT lung screening [place] Start: 1996 Screening for osteoporosis DEXA (modify frequency per FRAX score) [place] Start: 11-29-1991 Screening for malignant neoplasm of lung Low dose CT lung screening [facility] Start: 11-29-1991 Shingles Vaccine (1 of 2) Shingles Vaccine (1 of 2) [facility] Start: 11-29-1991 Shingrix Vaccine (1 of 2) Shingrix Vaccine (1 of 2) [facility] Start: 1960 DTaP/Tdap/Td vaccine (1 - Tdap) DTaP/Tdap/Td vaccine (1 - Tdap) [facility] Start: 1960 Urine microalbumin profile DTaP,Tdap,Td Vaccine (1 - Tdap) [facility] Start: 11-29-1959 Spirometry Spirometry [facility] Start: 1957 COVID-19 Vaccine (1) COVID-19 Vaccine (1) [facility] Work Phone: Start: 1953 COVID-19 Vaccine (1) COVID-19 Vaccine (1) [facility] Work Phone: Start: 1952 DTaP/Tdap/Td vaccine (1 - Tdap) DTaP/Tdap/Td vaccine (1 - Tdap) [place] End: 09-02-2021 TSH with Reflex TSH with Reflex Lab Routine Hypothyroidism, unspecified type 1 Occurrences starting 09/02/2021 until 09/02/2021 [facility] Work Phone: Immunizations Immunization Date Immunization Notes Care Provider Robert diane 04-01-2022 influenza virus vacc ine, unspecified formulation Dex Ogden MD Work Phone: [facility] 06-08-2021 Influenza, High-dose , Quadv, 65 yrs +, IM (Fluzone) Melva Waters DO Work Phone: [facility] 04-17-2018 pneumococcal polysaccharide vaccine, 23 valent Clara Rubio [facility] 11-03-2016 pneumococcal conjuga te vaccine, 13 valent Clara Rubio [facility] Payers Date Payer Category Payer Medicare [id number] 2019 Unknown 2016 Medicare xxxxxxxxxxxx [id number] 1940 Unknown [id number] 1940 Unknown [id number] 1940 Unknown [id number] Social History Date Type Detail Facility Start: 01-08-2015 End: 01-24-2019 Tobacco smoking status NHIS Former smoker [place] Start: 01-24-2019 End: 11-15-2022 Alcohol intake No [facility] Work Phone: Start: 1940 Sex Assigned At Not on file [place] End: 04-17-2007 History of tobacco use Current smoker [place] End: 04-17-2007 History of tobacco use Cigarette Smoker [place] Start: 04-17-2019 End: 11-15-2022 Cigarettes smoked current (pack per day) - Reported [facility] Work Phone: Start: 06-20-2019 End: 06-22-2021 Alcohol intake Current non-drinker of alcohol (finding) [employer] [place] Start: 02-02-2020 End: 06-19-2020 Tobacco use and exposure Never used [employer] [place] Exposure to SARS-CoV -2 (event) Not sure [employer] [place] Exposure to SARS-CoV -2 (event) Yes [employer] [place] Start: 1940 Sex Assigned At Female [facility] Work Phone: Start: 06-19-2020 Tobacco smoking stat [facility] Never smoked tobacco [facility] Start: 11-14-2022 Alcohol intake Lifetime non-d lyla (finding) [facility] How often to you hav e a drink containing alcohol? Never [facility] Work Phone: Average Number of Drinks Not on file [facility] Goals Date Patient Goal Desired Activity /State Clinical Note 06-08-2023 Note Date & Type Note Facility 06-08-2023 Note HNO ID: [id number] Author: Adrienne Cahney RN Service: Care Management Author Type: Registered Nurse Type: Care Mgt Initial Assessment Filed: 06/08/2023 9:42 AM Note Text: CARE MANAGEMENT: ASSESSMENT AND DISCHARGE PLAN SERVICE DATE: June 08, 2023 SERVICE TIME: 9:41 AM PCP: Albina Baeza APRN.CNP Primary Contact: Extended Emergency Contact Information Primary Emergency Contact: Kat Olmos [facility] Mobile Relation: Daughter Secondary Emergency Contact: Harpreet Robles Mobile Relation: Son Admission Status: Ambulatory Surgery Insurance Provider: OMID YEPEZ [facility] Discharge Planning requested by: Per Department Practice [...] Walker Discharge Planning Patient Goal(s): Independent living [place] Explained: [place] Given: No Reason Not Given: No placements necessary Are you interested in bedside delivery of your medications? No Discharge Planning Participant(s): Patient Patient/Family Comments: Caregiver Assessment: Transport at Discharge: Needs Prior to Discharge: Needs Prior to Discharge: Ready for Discharge Post-Acute Discharge Plan: [facility]. Patient admitted as amb surgery s/p heart cath with PCI. +PCP - albina Baeza +Rx - [facility] #[id number] +DME - rollator, walker Patient to return to [place] at discharge. Patient states her son will transport her home. SIGNATURE: Adrienne Chaney RN PATIENT NAME: Parveen Robles DATE: June 08, 2023 TIME: 9:41 AM CONTACT #: [phone] [facility] Clinical Note 06-07-2023 Note Date & Type Note Facility 06-07-2023 Note HNO ID: [id number] Author: Cleo Mattson RN Service: Nursing Author Type: Registered Nurse Type: Nursing Progress Note Filed: 06/07/2023 12:42 PM Note Text: Other: Dr Johnson aware of pain, no new orders given. [facility] Clinical Note 07-21-2020 Note Date & Type Note Facility 07-21-2020 Note Patient Outreach ([place] [facility]) ZULYPARVEEN Pena ([id number]) 1940 F Date Time Provider Department 07/21/20 ANGELIC BUCKLEY During your visit today, we recorded the following information about you: Allergies As of Date: 07/21/2020 Noted Allergy Reaction ESOMEPRAZOLE MAGNESIUM 01/08/2015 2 - Rash PENICILLINS 01/08/2015 2 - Rash Date Reviewed: 06/19/2020 Reviewed by: Betzaida Martins Ma - Fully Assessed Order(s):SARS-COVID VACCINE 1ST DOSE APPT [[id number]] Order #: [id number] FUTURE Prescriptions as of 07/21/2020 Sig: ASPIRIN [...] Encounter Status:Closed by EPIC, PRODUSER on 07/24/20 [facility] Evaluation note Note Date & Type Note Facility documented in this encounter [facility] Work Phone: Evaluation note Note Date & Type Note Facility documented in this encounter [facility] Work Phone: Evaluation note Note Date & Type Note Facility documented in this encounter [facility] Work Phone: Evaluation note Note Date & Type Note Facility documented in this encounter [facility] Advance Directives No Advanced Directives Records FoundDocuments on File Type Date Recorded Patient Teacher Home Therapy Expl anation Advance Directives and Living Will Power of Bulk Tank Car Unloader Power of Bulk Tank Car Unloader 11/19/2015 1:07 PM 2015 Power of Bulk Tank Car Unloader Documents on File Type Date Recorded Patient Teacher Home Therapy Expl anation Advance Directives and Living Will Advance Directives and Living Will 03/07/2019 8:55 AM Living Will Power of Bulk Tank Car Unloader Power of Bulk Tank Car Unloader 11/19/2015 1:07 PM 2015 Power of Bulk Tank Car Unloader Power of Bulk Tank Car Unloader 03/07/2019 8:56 AM healt care Power of Bulk Tank Car Unloader Documents on File Type Date Recorded Patient Teacher Home Therapy Expl anation Advance Directives and Living Will Advance Directives and Living Will 03/07/2019 8:55 AM Living Will Power of Bulk Tank Car Unloader Power of Bulk Tank Car Unloader 11/19/2015 1:07 PM 2015 Power of Bulk Tank Car Unloader Power of Bulk Tank Car Unloader 03/07/2019 8:56 AM healt h care Power of Bulk Tank Car Unloader Documents on File Type Date Recorded Patient Teacher Home Therapy Expl anation ACP-Advance Directive ACP-Advance Directive 03/07/2019 8:55 AM L iving Will ACP-Power of Bulk Tank Car Unloader ACP-Power of Bulk Tank Car Unloader 11/19/2015 1:07 PM Power of Bulk Tank Car Unloader ACP-Power of Bulk Tank Car Unloader 03/07/2019 8:56 AM h ealth care Power of Bulk Tank Car Unloader Documents on File Type Date Recorded Patient Teacher Home Therapy Expl anation ACP-Advance Directive ACP-Advance Directive 03/07/2019 8:55 AM L iving Will ACP-Power of Bulk Tank Car Unloader ACP-Power of Bulk Tank Car Unloader 11/19/2015 1:07 PM Power of Bulk Tank Car Unloader ACP-Power of Bulk Tank Car Unloader 03/07/2019 8:56 AM h ealth care Power of Bulk Tank Car Unloader Documents on File Type Date Recorded Patient Teacher Home Therapy Expl anation ACP-Advance Directive ACP-Power of Bulk Tank Car Unloader ACP-Advance Directive 03/07/2019 8:55 AM L iving Will ACP-Power of Bulk Tank Car Unloader 03/07/2019 8:56 AM h ealth care Power of Bulk Tank Car Unloader ACP-Power of Bulk Tank Car Unloader 11/19/2015 1:07 PM Power of Bulk Tank Car Unloader Latest Code Status on File Code Status [...] Stress Test Evan Del Rio MD [address] [place] [address] Status Reason Specialty Diagnoses / Procedures Referred By Contact Referred To Contact [facility] Special[facility] Services Required Orthopedic Surgery Diagnoses Elbow effusion, left Bryan Esparza MD [address] [place] [address] [facility] [address] [place] [address] Scheduling Instructions [facility] [place] [address] Status Reason Specialty Diagnoses / Procedures Referre d By Contact Referred To Contact [facility] Rad[facility] Diagnoses Postmenopausal Procedures DEXA BONE DENSITY AXIAL SKELETON Melva Waters DO [address] [place] [address] Discharge Instructions * Instructions* Bryan Esparza MD [...] be sent through Care Everywhere. * Candidiasis (Urdu) * Radial Head Fracture (Urdu) documented in this encounter Additional Source Comments INFORMATION SOURCE (unrecogn ized section and content) DATE CREATED AUTHOR AUTHOR'S ORGANIZ ATION 07/07/2021 [facility] DATE CREATED AUTHOR AUTHOR'S ORGANIZ ATION 03/19/2022 [facility] DATE CREATED AUTHOR AUTHOR'S ORGANIZ ATION 09/27/2022 [facility] DATE CREATED AUTHOR AUTHOR'S ORGANIZ ATION 05/27/2023 [facility] DATE CREATED AUTHOR AUTHOR'S ORGANIZ ATION 06/10/2023 [facility] Reason for Visit (unrecogniz ed section and content) Care Teams (unrecognized sec tion and content) Studio Technician Video Operator Relationship Specialty Start Date End Date Albina Baeza APRN.DUSTLESS OPERATOR [address] [facility] [address] [place] [address] PCP - General Family Medicine 11/14/22 Source Comments (unrecognize d section and content) In the event this informatio n is protected by the Federal Confidentiality of Alcohol and Drug Abuse Patient Records regulations: The Federal rules restrict any use of the information to criminally investigate or prosecute any alcohol or drug abuse patient.[facility] FOR RECORDS PERTAINING TO PATIENTS WHO [...] BE BASED ON THE PRIMARY CLINICAL RECORDS. [employer] provides no warranty or guarantee of the accuracy or completeness of information in this document.
--- NOTE | 2023-07-31 14:28 | CL.IE_ITS ---
Patient: PARVEEN CARUSO Study Date: 07/31/2023 Performing: Rafael Lopez MD : 1940 Age: 82 Gender: female PROCEDURES PERFORMED [id number])INITIAL PACER INSERT+DUAL LEADS INDICATIONS Sinoatrial node dysfunction/Sick sinus syndrome PROCEDURE DETAILS The patient was brought to the Catheterization Lab in the postabsorptive nonsedated state. Informed consent was obtained prior to the procedure. Local anesthetic was given subcutaneously to the left subclavian region with Lidocaine 2%. Access was achieved and a guidewire was advanced into the left subclavian vein. Incision was made to the left subclavicular area. PPM ventricular lead was inserted / positioned to right ventricular apex. PPM ventricular lead testing performed. PPM ventricular lead testing performed. The sheath was then removed. A peel-away sheath was inserted into the left subclavian vein. PPM atrial lead was inserted / positioned to the right atrial appendage. The sheath was then removed. PPM atrial lead testing performed. The Ventricular PM lead sutured in place with 2-0 Silk. The Atrial lead sutured in place with 2-0 Silk. Device pocket was irrigated with antibiotic. PPM generator was attached to the lead(s) and inserted into the pocket. The PPM generator was sutured in place with 2-0 Silk. Subcutaneous closure was completed with 3-0 Vicryl. Skin closure was completed with 4-0 Vicryl. Instrument, sponge, and needle counts were noted to be normal. The patient tolerated the procedure well. Estimated Blood Loss: 30 ml's IMPLANTED / EX-PLANTED DEVICES IMPLANTED DEVICE(S): PPM Ventricular lead - Boilermaker'S Assistant: [employer], Model # ingevity , Serial # [id number] PPM Atrial lead - Boilermaker'S Assistant: [employer], Model # INGEVITY , Serial # [id number] PPM Generator - Boilermaker'S Assistant: [employer], Model # ESSENTIO MRI DR MODELL L111 , Serial # [id number] DEVICE PARAMETERS ATRIAL LEAD PARAMETERS: Current (mA) - 1.0 threshold (V) - 0.8 impedence (OHMS) - 714 P wave (mV) - 3.5 P wave- 3.5 (mV) Current- 1.0 (mA) threshold- 0.8 (V) impedence- 772 (OHMS) 10V test, no diaphragmatic capture VENTRICULAR LEAD PARAMETERS: R wave (mV) - 7.8 current (mA) - 0.5 threshold (V) - 0.5 impedence (OHMS) - 939 R wave- 7.8 (mV) Current- 0.5 (mA) threshold- 0.5 (V) impedence- 939 (OHMS) 10V test, no diaphragmatic capture DEVICE PARAMETERS: Mode - DDD lower rate - 60 upper rate - 130 rate response off Mode- DDD Lower rate- 60 Upper rate- 130 CONCLUSIONS / RECOMMENDATIONS Device Conclusions: Successful implantation of a dual chamber pacemaker Device Recommendations: Follow up with Primary Care Physician PROCEDURE MEDICATIONS Fentanyl 50 mcg IV Versed 1 mg IV Versed 1 mg IV Oxygen: 2 L/min via nasal cannula Antibiotic given in appropriate timeframe. Clindamycin 900 mg IV 07/31/2023 13:14:07 Signed By Rafael Lopez MD On 07/31/2023 14:27:47 Rafael Lopez MD
[2023-07-31 15:00] VITALS: BP 141/72; PULSE 60; RESP 16; TEMP 37.1; O2SAT 90; BMI 32.4
[2023-07-31] MEDS: Nitrofurantoin Macrocrystals 100 MG Capsule PO (16:52)
[2023-07-31 21:31] VITALS: BP 154/73; PULSE 60; RESP 15; TEMP 36.8; O2SAT 92
[2023-07-31] MEDS: Pravastatin 40 MG Tablet PO (21:33)
[2023-07-31] MEDS: Acetaminophen 325 MG Tablet 650 MG PO (22:05)
[2023-08-01 04:14] VITALS: BP 147/65; PULSE 55; RESP 16; TEMP 36.2; O2SAT 92
[2023-08-01] MEDS: Levothyroxine 112 MCG Tablet PO (05:32)
--- NOTE | 2023-08-01 05:55 | RAD_ITS ---
STUDY: X-RAY CHEST REASON FOR EXAM: Female, 82 years old patient status post permanent ICD/Pacemaker placement. TECHNIQUE: PA and lateral views of the chest. COMPARISON: Chest radiograph dated March 16, 2023. FINDINGS: The patient has left-sided intracardiac pacemaker. Cardiac monitoring leads are present. Lungs are hyperexpanded. There are prominent vascular markings of both lungs. There is pleural fibrotic thickening of the pulmonary lung apices. There is mild cardiac enlargement. Normal mediastinum and gaby. There is prominence of the pulmonary hilar arteries with peripheral pulmonary vascular congestion. There is atherosclerotic calcification of the aortic arch with tortuosity. There is demineralization of the osseous structures. Normal visualized ribs, clavicles, and shoulders. There is no demonstrated abnormality of the visualized soft tissue structures of the upper abdomen. RAD/Chest 3 View IMPRESSION: 1. Appropriate positioning of intracardiac pacemaker without obvious pneumothorax. 2. Cardiomegaly and mild pulmonary vascular congestion. Electronically Signed: Soheila Zamorano MD at 5:07 EST Reading Location ID and State: [facility] / [place] , Service support ,
[2023-08-01 07:36] VITALS: BP 148/62; PULSE 65; RESP 18; TEMP 36.4; O2SAT 95
--- NOTE | 2023-08-01 07:55 | PN.CARD_ITS ---
Subjective Subjective Patient seen and evaluated. Objective Data Vital Signs: Vital Signs Temp Pulse Resp BP Pulse Ox O2 Del Method 97.6 F L 65 18 148/62 H 95 Room Air 08/01/23 07:36 08/01/23 07:36 08/01/23 07:36 08/01/23 07:36 08/01/23 07:36 08/01/23 07:36 Oxygen Delivery Method Room Air Weight: 226 lb Body Mass Index (BMI) 32.4 Intake & Output: Intake and Output for Last 24 Hours 07/30/23 07/31/23 08/01/23 23:59 23:59 23:59 Intake Total 240 / 240 Output Total 400 / 400 850 / 850 Balance -160 / -160 -850 / -850 Cardiology Labs/Tests Rhythm: EKG: ECHO: Stress Test: Cardiac Cath: PCI: CT Surgery: Holter monitor: EPS: PPM: CXR: Chest CT Scan: Radiography Diagnostic Testing: Radiology Impression Chest X-Ray 08/01/23 05:55 IMPRESSION: 1. Appropriate positioning of intracardiac pacemaker without obvious pneumothorax. 2. Cardiomegaly and mild pulmonary vascular congestion. Electronically Signed: Soheila Zamorano MD at 5:07 EST Reading Location ID and State: [address] [place] [address] , Service support , Physical Exam Const alert, oriented x3 and no apparent distress General Appearance: cooperative HEENT hearing grossly normal bilaterally Head and Scalp: atraumatic Eyes EOMs intact bilaterally Neck General: normal visual inspection Chest inspection of chest normal and palpation of chest normal Resp normal respiratory effort Auscultation: clear to auscultation bilaterally Cardio regular rate, regular rhythm, S1 normal heart sound and S2 normal heart sound Jugular Venous Distention: JVD GI normal to inspection, nondistended, normoactive bowel sounds Extremity normal capillary refill and no pedal edema Peripheral Pulses: Yes pulses 2+ throughout and femoral pulses present Skin no rashes or lesions noted Neuro oriented x3 and CN's II-XII intact bilaterally Psych Appearance: grossly normal and appropriate Assessment & Plan Assessment/Plan (1) Sick sinus syndrome: PLAN: Patient is status post permanent pacemaker implantation. Chest x-ray demonstrates adequate positioning. Device interrogated this morning and noted to be functioning well. Will schedule for outpatient follow-up.
[2023-08-01 08:13] VITALS: BP 147/65; PULSE 70; RESP 16; TEMP 37; O2SAT 92
[2023-08-01] MEDS: Clopidogrel Bisulfate 75 MG Tablet PO (08:20)
[2023-08-01] MEDS: Isosorbide Mononitrate 30 MG Tablet PO (08:20)
[2023-08-01] MEDS: Ascorbic Acid 500 MG Tablet PO (08:20)
[2023-08-01] MEDS: Potassium Chloride Oral Tablet 10 MEQ PO (08:20)
[2023-08-01] MEDS: Furosemide 40 MG Tablet PO (08:20)
[2023-08-01] MEDS: Nitrofurantoin Macrocrystals 100 MG Capsule PO (08:21)
[2023-08-01] MEDS: Pantoprazole Sodium 20 MG Tablet PO (08:21)
[2023-08-01] MEDS: Aspirin 81 MG TAB.CHEW PO (08:21)
[2023-08-01] MEDS: Losartan Potassium 50 MG Tablet PO (08:21)
[2023-08-01] MEDS: Calcium Carbonate 500 MG Tablet PO (08:21)
[2023-08-01] MEDS: Acetaminophen 325 MG Tablet 650 MG PO (08:21)
[2023-08-01] MEDS: Cholecalciferol (VIT D3) 25 MCG TABLET (1,000 UNITS) 50 MCG PO (08:22)
[2023-08-01 08:43] VITALS: BP 144/67; PULSE 67; RESP 14; TEMP 36.6; O2SAT 92
--- NOTE | 2023-08-01 08:43 | PCM.DC ---
Discharge Instructions Diet Discharge Diet: No restrictions (as you feel able. No excessive stretching. No lifting your arm over your head (keep elbow below shoulder level) until seen for your pacemaker check. Do not lift your elbow away from your side until you are seen for your first visit. Keep the arm sling on if it helps remind you not to lift your arm.) Activity Discharge Activity: May Not Drive May shower in (days): 2 Additional Activity Instructions:: May shower or bathe on [day 3]. Do not scrub the incision or soak in the tub. Just wash with soap and let the water run over the incision. Gently pat dry with towel. Medications: Take your pain medication as directed. Refer to your discharge instruction sheet for a list of medications you are to take. Dressing / Incision Call your doctor if your incision/area has: Continuous Slow Oozing, Sudden Increased Bleeding, Increased Pain/ Swelling, Increased Redness, Foul Smelling Discharge and Swelling at the incision site Call your doctor if you observe: Fever of 101 or Higher, Shortness of breath, Dizziness, Fainting spells, Swelling in the ankles, Chest pain, Prolonged hiccupping and Increased palpitations (irregular heartbeat) Suture Line Care: Avoid Pulling/Pushing and Avoid Pinching/Bending Additional Dressing/Incision Instructions:: When dressing is removed, wash and dry incision. Keep covered with a light bandage if it is rubbing against your clothing. Do not cover the incision with an airtight bandage. Change the bandage daily. Do not remove steri strips. The strips will fall off on their own. Follow Up Care Please Follow Up With: Rafael Lopez MD When: Pacer follow-up on aug 08 at 10:30 Test Results: Test results from this visit will be discussed in further detail at your follow-up appointment, if applicable. Discharge Plan Admission Admit Date/Time: 07/31/23 14:28 Attending Provider: Rafael Lopez Primary Care Provider: Opal Aponte NP Consulting Providers: Sriram Tomlin; [place] Discharge Orders/Prescriptions Prescriptions: No Action ascorbic acid (vitamin C) 500 mg tablet 500 mg PO DAILY pravastatin 40 mg tablet 40 mg PO QHS Patient Comments: take 1 tablet by mouth at bedtime calcium carbonate [Calcium 600] 600 mg calcium (1,500 mg) tablet 600 mg PO DAILY coenzyme [id number] 100-100 mg-unit capsule 1 cap PO DAILY Fish Oil 300-500 mg capsule 1 cap PO DAILY levothyroxine 112 mcg tablet 112 mcg PO DAILY Qty: 90 3RF aspirin 81 MG tablet,chewable 81 mg PO DAILY cholecalciferol (vitamin D3) 2,000 UNIT capsule 2,000 unit PO DAILY multivitamin Tablet 1 tab PO DAILY potassium chloride 10 mEq capsule, extended release 10 meq PO DAILY Qty: 90 3RF clopidogrel [Plavix] 75 mg tablet 75 mg PO DAILY Qty: 90 3RF pantoprazole 20 mg tablet,delayed release (DR/EC) 20 mg PO DAILY Qty: 90 1RF isosorbide mononitrate 30 mg tablet extended release 24 hr 30 mg PO DAILY Qty: 90 3RF furosemide 40 mg tablet 40 mg PO DAILY Qty: 90 3RF valsartan 160 mg tablet 160 mg PO DAILY Qty: 90 3RF nitrofurantoin monohyd/m-cryst [Macrobid] 100 mg capsule 100 mg PO Q12H 7 Days Qty: 14 0RF Rx Instructions: must administer with a meal/food Referrals / Follow Up: Opal Aponte NP, [employer]ING MACHINE [employer] [Primary Care Provider] - Disposition Disposition (needs filled in before D/C Order can be placed): Home, Self Care
--- NOTE | 2023-08-01 10:10 | CASEMGMT ---
Patient has order for discharge. HAZEL MALHOTRA in to discuss needs at discharge. Reviewed progress with therapy and patient was SBA for ADLs, transfers, and ambulation. Patient has concerns about going home to her independent living. Patient states she can have her meals delivered to room and already pays to have her laundry done. Patient states her daughter is an aide and could assist with bathing. Patient states she has [facility] through her [facility]. RN MARYA called and spoke to Yamila and she explained that their services are an extention of primary care. Sabrina will have tractor driver teamster call patient tomorrow at 1:15pm. RN MARYA updated patient regarding services. Patient is anxious about going home and states she does not like asking for help. HAZEL MALHOTRA provided emotional and educated patient that it is okay to ask for help and reassured patient she performed ADLs on her own here. Patient states she will ask daughter to assist with bathing. Patient states she has all cane, walker, walk in shower with seat and grab bars. Discuss purchasing sock aide and long shoe horn. Patient states she can have family get her those items. Patient states she feels better about going to her independent living, denied additional needs. Patient states she will call son for transportation. Patient had no further questions or concerns. Nursing updated regarding discharge plans.
[2023-08-01 11:47] VITALS: O2SAT 92
== END 2023-08-01 08:43 | disposition home or self-care (01) ==
LOC: PCU 14:53
PROVIDERS: Internal Medicine Cardiovascular Disease; Physician Assistant Medical; Admitting Provider Internal Medicine Cardiovascular Disease; PCP Nurse Practitioner; Referring Provider Internal Medicine Cardiovascular Disease; Visit Provider Internal Medicine Cardiovascular Disease
DX: Z45.018 Encounter for adjustment and management of other part of cardiac pacemaker (principal); I49.5 Sick sinus syndrome; Z95.5 Presence of coronary angioplasty implant and graft; R06.02 Shortness of breath; I10 Essential (primary) hypertension; Z87.891 Personal history of nicotine dependence; I25.10 Atherosclerotic heart disease of native coronary artery without angina pectoris; E78.5 Hyperlipidemia, unspecified
CPT/HCPCS: 33208; 36415; 71047; 81001; 84443; 97162; 97166; 99152; 99153; 99221; J7040; J7050; C1894; G0378

== ENCOUNTER → 2023-08-09 | Outpatient (CLI) | payer MEDICARE, SELFPAY ==
[2023-08-09 22:41] LABS: ALB/GLOB Ratio 1.1 RATIO (0.9-2.4); AST(SGOT) 15 U/L (15-37); Alanine Aminotransfer ALT/SGPT 22 U/L (13-56); Alkaline Phosphatase 80 U/L (45-117); Anion Gap 6 (5-15); BUN 48 mg/dL (7-18); BUN/Creat Ratio 26.1 RATIO (10-20); Calcium,Total 9.6 mg/dL (8.5-10.1); Chloride 103 mmol/L (98-107); Cholesterol 134 mg/dL (200); Creatinine, Serum 1.84 mg/dL (0.55-1.02); EST Glomerular Filtration Rate 28 mL/min (>60); Est Glom Filt Rate - Afr Amer 34 mL/min (>60); Globulin 3.7 g/dL (2.2-4.2); Glucose 122 mg/dL (74-106); High Density Lipoprotein 49 mg/dL; Protein, Total 7.7 g/dL (6.4-8.2); Sodium Level 135 mmol/L (136-145); Thyroid Stim Hormone (TSH) 0.43 uIU/mL (0.358-3.74); Triglycerides 100 mg/dL; Very Low Density Lipoprotein 20 mg/dL (5-40)
== END | disposition home or self-care (01) ==
PROVIDERS: PCP Nurse Practitioner; Visit Provider Nurse Practitioner
DX: E03.9 Hypothyroidism, unspecified (principal); I10 Essential (primary) hypertension; E78.5 Hyperlipidemia, unspecified
CPT/HCPCS: 80053; 80061; 84443

== ENCOUNTER → 2023-08-24 | Outpatient (CLI) | payer MEDICARE, SELFPAY ==
[2023-08-24 16:16] LABS: Absolute Lymphocyte Count 2.22 X10^3/uL (0.83-4.51); Absolute Neutrophil Count 5.4 X10^3/uL (2.0-7.7); Basophil# 0.08 X10^3/uL; Basophil% 0.9 % (0-1); Eosinophil# 0.73 X10^3/uL; Eosinophils% 7.8 % (0-5); Hematocrit 39.4 % (37-47); Hemoglobin 12.7 g/dL (12.0-15.0); Lymphocyte # 2.22 X10^3/ul (0.83-4.51); Lymphocyte % 23.8 % (19-41); Mean Corp Hgb Conc 32.2 g/dL (32-36); Mean Corpuscular Hgb 29.5 pg (27.0-32.0); Mean Corpuscular Volume 91.4 fL (81-99); Mean Platelet Vol. 10.8 fl (6.2-12.0); Monocyte# 0.84 X10^3/uL; NRBC Flagged by Analyzer 0 % (0-5); Neutrophil # 5.41 X10^3/uL (2.7-7.7); Neutrophil % 58.1 % (47-70); Platelet Count 280 K/mm3 (150-450); RBC Distribution Width CV 13.4 % (11.6-14.6); RBC Distribution Width SD 45.3 fl (35.1-43.9); Red Blood Count 4.31 M/mm3 (4.2-5.4); White Blood Count 9.3 K/mm3 (4.4-11.0)
[2023-08-24 17:02] LABS: AST(SGOT) 16 U/L (15-37); Alanine Aminotransfer ALT/SGPT 17 U/L (13-56); Albumin, Serum 3.6 g/dL (3.2-5.0); Alkaline Phosphatase 67 U/L (45-117); Anion Gap 7 (5-15); BUN 40 mg/dL (7-18); BUN/Creat Ratio 30.3 RATIO (10-20); Calcium,Total 9.5 mg/dL (8.5-10.1); Chloride 106 mmol/L (98-107); Creatinine, Serum 1.32 mg/dL (0.55-1.02); EST Glomerular Filtration Rate 41 mL/min (>60); Est Glom Filt Rate - Afr Amer 50 mL/min (>60); Globulin 3.5 g/dL (2.2-4.2); Glucose 131 mg/dL (74-106); Potassium 4.9 mmol/L (3.5-5.1); Protein, Total 7.1 g/dL (6.4-8.2); Sodium Level 140 mmol/L (136-145)
== END | disposition home or self-care (01) ==
LOC: LAB 14:25
PROVIDERS: PCP Nurse Practitioner; Referring Provider Internal Medicine Cardiovascular Disease; Visit Provider Internal Medicine Cardiovascular Disease
DX: R06.02 Shortness of breath (principal); R60.9 Edema, unspecified; Z51.81 Encounter for therapeutic drug level monitoring; Z79.899 Other long term (current) drug therapy; Z95.0 Presence of cardiac pacemaker; I10 Essential (primary) hypertension; R53.83 Other fatigue
CPT/HCPCS: 36415; 80053; 85025

== ENCOUNTER → 2023-09-08 | Outpatient (CLI) | payer MEDICARE, SELFPAY ==
[2023-09-08 11:16] LABS: Anion Gap 6 (5-15); BUN 34 mg/dL (7-18); BUN/Creat Ratio 25.2 RATIO (10-20); Calcium,Total 9.5 mg/dL (8.5-10.1); Chloride 109 mmol/L (98-107); Creatinine, Serum 1.35 mg/dL (0.55-1.02); EST Glomerular Filtration Rate 40 mL/min (>60); Est Glom Filt Rate - Afr Amer 48 mL/min (>60); Glucose 126 mg/dL (74-106); Potassium 4.5 mmol/L (3.5-5.1); Sodium Level 141 mmol/L (136-145)
== END | disposition home or self-care (01) ==
LOC: LAB 09:58
PROVIDERS: PCP Nurse Practitioner; Referring Provider Nurse Practitioner Gerontology; Visit Provider Nurse Practitioner Gerontology
DX: I10 Essential (primary) hypertension (principal)
CPT/HCPCS: 36415; 80048

== ENCOUNTER → 2023-09-22 | Outpatient (CLI) | payer MEDICARE, SELFPAY ==
[2023-09-22 11:16] LABS: Absolute Lymphocyte Count 2.29 X10^3/uL (0.83-4.51); Absolute Neutrophil Count 6.9 X10^3/uL (2.0-7.7); Basophil# 0.08 X10^3/uL; Basophil% 0.8 % (0-1); Eosinophil# 0.27 X10^3/uL; Eosinophils% 2.6 % (0-5); Hematocrit 39.1 % (37-47); Hemoglobin 12.5 g/dL (12.0-15.0); Lymphocyte # 2.29 X10^3/ul (0.83-4.51); Lymphocyte % 21.7 % (19-41); Mean Corpuscular Hgb 28.7 pg (27.0-32.0); Mean Corpuscular Volume 89.9 fL (81-99); Mean Platelet Vol. 10.9 fl (6.2-12.0); Monocyte# 0.89 X10^3/uL; Monocyte% 8.4 % (0-10); NRBC Flagged by Analyzer 0 % (0-5); Neutrophil # 6.93 X10^3/uL (2.7-7.7); Neutrophil % 65.6 % (47-70); Platelet Count 314 K/mm3 (150-450); RBC Distribution Width CV 13.9 % (11.6-14.6); RBC Distribution Width SD 45.2 fl (35.1-43.9); Red Blood Count 4.35 M/mm3 (4.2-5.4); White Blood Count 10.6 K/mm3 (4.4-11.0)
[2023-09-22 11:40] LABS: Anion Gap 5 (5-15); BUN 39 mg/dL (7-18); BUN/Creat Ratio 30.2 RATIO (10-20); Calcium,Total 9.9 mg/dL (8.5-10.1); Chloride 107 mmol/L (98-107); Creatinine, Serum 1.29 mg/dL (0.55-1.02); EST Glomerular Filtration Rate 42 mL/min (>60); Est Glom Filt Rate - Afr Amer 51 mL/min (>60); Glucose 107 mg/dL (74-106); Potassium 4.6 mmol/L (3.5-5.1); Sodium Level 137 mmol/L (136-145)
== END | disposition home or self-care (01) ==
LOC: LAB 09:43
PROVIDERS: PCP Nurse Practitioner; Referring Provider Nurse Practitioner Gerontology; Visit Provider Nurse Practitioner Gerontology
DX: R53.83 Other fatigue (principal)
CPT/HCPCS: 36415; 80048; 85025

== ENCOUNTER → 2023-09-29 | Outpatient (CLI) | payer MEDICARE, SELFPAY ==
--- NOTE | 2023-09-29 09:49 | CDU_ITS ---
Reason For Study: Dizziness Rt. Velocities/BP Lt. Velocities/BP Prox CCA 56.7/13.8 cm/sec. Prox CCA 62.2/13.8 cm/sec. Mid CCA 66.6/18.2 cm/sec. Mid CCA 73.2/16.0 cm/sec. Dist CCA 63.3/16.0 cm/sec. Dist CCA 58.9/16.0 cm/sec. Prox ICA 113.8/26.1 cm/sec. Prox ICA 130.8/25.5 cm/sec. Mid ICA 99.2/28.9 cm/sec. Mid ICA 119.9/29.9 cm/sec. Dist ICA 86.8/22.5 cm/sec. Dist ICA 195.9/40.7 cm/sec. Rt. ICA/CCA = 1.7. Lt. ICA/CCA = 2.7. Prox ECA 139.4/15.2 cm/sec. Prox ECA 199.1/24.6 cm/sec. Rt. Vert. 45.7/11.7 cm/sec. Lt. Vert. 56.7/12.7 cm/sec. Right Extracranial There is heterogeneous, irregular atherosclerotic plaque noted in the right common carotid artery. There is heterogeneous, irregular atherosclerotic plaque noted in the right internal carotid artery. The atherosclerotic plaque causes acoustic shadowing. There is heterogeneous, irregular atherosclerotic plaque noted in the right external carotid artery. The atherosclerotic plaque causes acoustic shadowing. Antegrade flow is noted in the right vertebral artery. Left Extracranial There is heterogeneous, irregular atherosclerotic plaque noted in the left common carotid artery. There is heterogeneous, irregular atherosclerotic plaque noted in the left internal carotid artery. The atherosclerotic plaque causes acoustic shadowing. There is heterogeneous, irregular atherosclerotic plaque noted in the left external carotid artery. The atherosclerotic plaque causes acoustic shadowing. Antegrade flow is noted in the left vertebral artery. Procedure Carotid Duplex 15853. This is a Carotid Duplex examination using B-mode, color flow and specral Doppler. The exam was diagnostic. Exam performed in department. VL/Carotid Duplex Ultrasound Interpretation Summary Mild (<50%) stenosis right extracranial internal carotid. Moderate (50-69%) stenosis left extracranial internal carotid. Patent and antegrade vertebrals bilaterally. Limited due to calcific shadowing, alternative imaging modality may be benefici al Ordering Physician: Yamila Araiza Referring Physician: Sriram Tomlin Performed By: Domo Aj RVT
--- NOTE | 2023-09-29 09:49 | ECHOD_ITS ---
Reason For Study: Dyspnea Procedure This was a 2D Doppler, Color Flow transthoracic echocardiogram. Exam performed in department. Left Ventricle Normal size and thickness. The left ventricular ejection fraction is 65 %. Stage 1 diastolic dysfunction. Right Ventricle Normal right ventricle. Atria The left and right atria are normal. Mitral Valve Trivial mitral valve insufficiency. Tricuspid Valve Trivial tricuspid valve insufficiency. Normal pulmonary artery pressure. Aortic Valve Mild aortic valve stenosis with mild regurgitation. Pulmonic Valve The pulmonic valve is not well visualized. Great Vessels Mildly dilated aortic root. Pericardium/Pleural No pericardial effusion. MMode/2D Measurements & Calculations LVIDd: 4.4 cm IVSd: 1.0 cm LVOT diam: 2.0 cm LVIDs: 2.4 cm LVPWd: 0.93 cm LVOT area: 3.1 cm2 RVDd: 4.0 cm FS: 46.8 % Ao root diam: 3.5 cm LAV(MOD-bp): 41.5 ml LVAd ap4: 24.0 cm2 LAV(MOD-bp) Indexed: 19.0 ml/m2 LVLd ap4: 8.4 cm LAV(MOD-sp2): 54.1 ml EDV(MOD-sp4): 56.8 ml LAV(MOD-sp4): 26.9 ml EDV(sp4-el): 58.0 ml LVAs ap4: 11.9 cm2 LVLs ap4: 6.4 cm ESV(MOD-sp4): 18.8 ml ESV(sp4-el): 18.8 ml EF(MOD-sp4): 66.9 % EF(sp4-el): 67.6 % SV(MOD-sp4): 38.0 ml SV(sp4-el): 39.2 ml LA A4 area: 13.5 cm2 LA dimension(2D): 3.4 cm RA A4 area: 17.1 cm2 TAPSE: 2.5 cm Time Measurements MV dec time: 0.32 sec Doppler Measurements & Calculations MV E max ivan: 61.6 cm/sec Lat Peak E' Ivan: 7.3 cm/sec Med Peak E' Ivan: 5.0 cm/sec MV A max ivan: 95.7 cm/sec E/E' lat: 8.4 E/E' med: 12.3 MV E/A: 0.64 Ao V2 max: 224.0 cm/sec AI max ivan: 351.2 cm/sec MV dec slope: 191.9 cm/sec2 Ao max P.2 mmHg AI max P.3 mmHg Ao V2 mean: 172.8 cm/sec Ao mean P.8 mmHg AI dec slope: 173.0 cm/sec2 Ao V2 VTI: 48.3 cm AI P1/2t: 594.6 msec AV (velocity ratio): 0.60 RAÚL(I,D): 1.8 cm2 RAÚL(V,D): 2.1 cm2 LV V1 max: 149.4 cm/sec SV(LVOT): 88.6 ml PA V2 max: 109.4 cm/sec LV V1 max P.9 mmHg LV V1 mean P.6 mmHg LV V1 mean: 102.0 cm/sec LV V1 VTI: 28.8 cm TR max ivan: 261.9 cm/sec TR max P.4 mmHg ECHO/Echo Complete Interpretation Summary The left ventricular ejection fraction is 65 %. Stage 1 diastolic dysfunction. Mild aortic valve stenosis with mild regurgitation Mildly dilated aortic root. Ordering Physician: Sriram Tomlin Referring Physician: Opal Aponte Performed By: Clara Nicole, TERRY, RVT
== END | disposition home or self-care (01) ==
PROVIDERS: PCP Nurse Practitioner; Referring Provider Internal Medicine Cardiovascular Disease; Visit Provider Internal Medicine Cardiovascular Disease
DX: R06.02 Shortness of breath (principal); I10 Essential (primary) hypertension; Z95.5 Presence of coronary angioplasty implant and graft; I25.10 Atherosclerotic heart disease of native coronary artery without angina pectoris; R53.83 Other fatigue; Z95.0 Presence of cardiac pacemaker; R42 Dizziness and giddiness
CPT/HCPCS: 93306; 93880

== ENCOUNTER → 2023-12-26 | Outpatient (CLI) | payer MEDICARE, SELFPAY ==
[2023-12-26 11:10] LABS: ALB/GLOB Ratio 1.1 RATIO (0.9-2.4); AST(SGOT) 15 U/L (15-37); Alanine Aminotransfer ALT/SGPT 17 U/L (13-56); Albumin, Serum 3.9 g/dL (3.2-5.0); Alkaline Phosphatase 81 U/L (45-117); Anion Gap 6 (5-15); BUN 25 mg/dL (7-18); BUN/Creat Ratio 25.9 RATIO (10-20); Calcium,Total 9.3 mg/dL (8.5-10.1); Chloride 103 mmol/L (98-107); Cholesterol 112 mg/dL (200); Creatinine, Serum 0.96 mg/dL (0.55-1.02); EST Glomerular Filtration Rate 59 mL/min (>60); Est Glom Filt Rate - Afr Amer 71 mL/min (>60); Globulin 3.5 g/dL (2.2-4.2); Glucose 104 mg/dL (74-106); High Density Lipoprotein 50 mg/dL; Potassium 4.6 mmol/L (3.5-5.1); Protein, Total 7.4 g/dL (6.4-8.2); Sodium Level 136 mmol/L (136-145); Triglycerides 99 mg/dL; Very Low Density Lipoprotein 20 mg/dL (5-40)
== END | disposition home or self-care (01) ==
LOC: LAB 09:25
PROVIDERS: PCP Nurse Practitioner; Referring Provider Internal Medicine Cardiovascular Disease; Visit Provider Internal Medicine Cardiovascular Disease
DX: R53.83 Other fatigue (principal); R60.9 Edema, unspecified; R07.89 Other chest pain; I10 Essential (primary) hypertension; R06.02 Shortness of breath; E78.5 Hyperlipidemia, unspecified; Z95.5 Presence of coronary angioplasty implant and graft; I25.10 Atherosclerotic heart disease of native coronary artery without angina pectoris
CPT/HCPCS: 36415; 80053; 80061

== ENCOUNTER → 2024-08-13 | Outpatient (CLI) | payer MEDICARE, SELFPAY ==
--- NOTE | 2024-08-13 08:44 | RDU_ITS ---
Reason For Study Reason For Study: Lt Renal Artery Stenosis Right Renal Artery Left Renal Artery Unable to visualize flow in RRA. Left renal artery ostium 352.2/55.2 Right Renal Parenchyma PSV/EDV. Upper Pole Medula 25.3/6.1 PSV/EDV. Left renal artery proximal PSV/EDV Right upper pole medulla EDR 0.20 . 310.7/55.3 . Right upper pole medulla R.I. 0.76 . Left renal artery mid 213.1/46.0 Upper [place] Cortx 13.9/4.3 PSV/EDV. PSV/EDV . Right upper pole cortex EDR 0.30 . Left renal artery distal 82.1/18.5 Right upper pole cortex R.I. 0.69 . PSV/EDV. Right lower Pole medulla 10.0/3.4 Left RAR 4.57. PSV/EDV . Left Renal Parenchyma Right lower pole medulla EDR 0.30 . Left upper pole medulla 53.8/14.5 Right lower pole medulla R.I. 0.66 . PSV/EDV . Lower Pole Cortex 10.6/3.1 PSV/EDV. Left upper pole medulla EDR 0.30 . Right lower pole cortex EDR 0.30 . Left upper pole medulla R.I. 0.73 . Right lower pole cortex R.I. 0.71 . UP Cortex 25.5/7.2 PSV/EDV. Right Renal Hilar Left upper pole cortex EDR 0.30 . Right Hilar avg 74.8/10.9 PSV/EDV. Left upper pole cortex R.I. 0.72 . Right hilar acceleration time 30 m/sec. Left lower Pole medulla 67.5/18.2 Right Renal Dimensions PSV/EDV . Right kidney size 9.16 cm . Left lower pole medulla EDR 0.30 . Right cortical dimension 0.78 cm . Left lower pole medulla R.I. 0.73 . Lower Pole Cortx 20.9/6.3 PSV/EDV. Left lower pole cortex EDR 0.30 . Left lower pole cortex R.I. 0.70 . Left Renal Hilar LT Hilar avg 76.8/21.6 PSV/EDV . Left hilar acceleration time 40 m/sec. Left Renal Dimensions Left kidney size 11.12 cm . Left cortical dimension 1.58 cm . Aorta Proximal abdominal aorta 2.60 x 2.44 cm . Proximal abdominal aorta peak systolic velocity is 69.8 cm/sec . Distal abdominal aorta 1.67 x 1.71 cm . Distal abdominal aorta peak systolic velocity is 77.1 cm/sec . Procedures Renal Artery Duplex with B-Mode, Pulsed Wave and Color Doppler. VL/Renal Artery Duplex Ultrasound Interpretation Summary Right renal vein with no visualized flow. Left renal artery patent with > 60% stenosis. Right renal vein patent. Left renal vein patent. Right kidney normal in size. Left kidney normal in size. Ordering Physician: Sriram Tomlin Referring Physician: Beba Leyva Performed By: Domo Aj RVT
[2024-08-13 10:36] LABS: ALB/GLOB Ratio 1.4 RATIO (0.9-2.4); AST(SGOT) 22 U/L (<=31); Alanine Aminotransfer ALT/SGPT 13 U/L (<=34); Albumin, Serum 4.3 g/dL (3.4-4.8); Alkaline Phosphatase 71 U/L (35-104); Anion Gap 12 (5-15); BUN 24 mg/dL (4-19); BUN/Creat Ratio 23.1 RATIO (10-20); Calcium,Total 9.6 mg/dL (7.6-11.0); Carbon Dioxide 22.9 mmol/L (21.0-32.0); Chloride 103 mmol/L (98-108); Cholesterol 161 mg/dL (<=200); Creatinine, Serum 1.02 mg/dL (0.70-1.20); EST Glomerular Filtration Rate 55 (>60); Glucose 109 mg/dL (70-99); High Density Lipoprotein 54 mg/dL; Low Density Lipoprotein Calc. 88 mg/dL; Potassium 4.8 mmol/L (3.3-5.1); Protein, Total 7.2 g/dL (5.9-8.4); Sodium Level 138 mmol/L (133-145); Total Bilirubin 0.45 mg/dL (0.00-1.30); Triglycerides 93 mg/dL; Very Low Density Lipoprotein 19 mg/dL (5-40); cholesterol:hdl ratio screen 2.99
== END | disposition home or self-care (01) ==
PROVIDERS: PCP Family Medicine; Referring Provider Internal Medicine Cardiovascular Disease; Visit Provider Internal Medicine Cardiovascular Disease
DX: I70.1 Atherosclerosis of renal artery (principal); I25.10 Atherosclerotic heart disease of native coronary artery without angina pectoris; E78.5 Hyperlipidemia, unspecified; R42 Dizziness and giddiness; R60.9 Edema, unspecified; I10 Essential (primary) hypertension; R06.02 Shortness of breath
CPT/HCPCS: 36415; 80053; 80061; 82248; 93975

== ENCOUNTER → 2024-12-06 | Outpatient (CLI) | payer MEDICARE, SELFPAY ==
--- NOTE | 2024-12-06 08:34 | CDU_ITS ---
Reason For Study Reason For Study: Carotid Disease Rt. Velocities/BP Lt. Velocities/BP Prox CCA 87/16 cm/sec. Prox CCA 67/17 cm/sec. Mid CCA 57/14 cm/sec. Mid CCA 59/15 cm/sec. Dist CCA 48/13 cm/sec. Dist CCA 59/14 cm/sec. Prox ICA 94/23 cm/sec. Prox ICA 145/27 cm/sec. Mid ICA 74/20 cm/sec. Mid ICA 138/29 cm/sec. Dist ICA 75/25 cm/sec. Dist ICA 129/36 cm/sec. Rt. ICA/CCA = 1.65. Lt. ICA/CCA = 2.5. Prox ECA 133/8 cm/sec. Prox ECA 162/12 cm/sec. Rt. Vert. 56/10 cm/sec. Lt. Vert. 81/16 cm/sec. Right Extracranial There is heterogeneous, irregular atherosclerotic plaque noted in the right common carotid artery. There is heterogeneous, irregular atherosclerotic plaque noted in the right internal carotid artery. The atherosclerotic plaque causes acoustic shadowing. There is heterogeneous, irregular atherosclerotic plaque noted in the right external carotid artery. Antegrade flow is noted in the right vertebral artery. Left Extracranial There is heterogeneous, irregular atherosclerotic plaque noted in the left common carotid artery. There is heterogeneous, irregular atherosclerotic plaque noted in the left internal carotid artery. The atherosclerotic plaque causes acoustic shadowing. There is heterogeneous, irregular atherosclerotic plaque noted in the left external carotid artery. Antegrade flow is noted in the left vertebral artery. Procedure Carotid Duplex [id number]. This is a Carotid Duplex examination using B-mode, color flow and specral Doppler. Exam performed in department. VL/Carotid Duplex Ultrasound Interpretation Summary Mild (<50%) stenosis right extracranial internal carotid. Moderate (50-69%) stenosis left extracranial internal carotid. Limited due to c alcific shadowing, alternative imaging may be beneficial. Patent and antegrade vertebrals bilaterally. Ordering Physician: Alejandro Nicole Referring Physician: Beba Leyva Performed By: Clara Nicole, TERRY, RVT
== END | disposition home or self-care (01) ==
LOC: CVS 08:33
PROVIDERS: PCP Family Medicine; Referring Provider Nurse Practitioner Family; Visit Provider Nurse Practitioner Family
DX: I65.22 Occlusion and stenosis of left carotid artery (principal)
CPT/HCPCS: 93880

== ENCOUNTER → 2025-06-02 05:00 | Outpatient (REF) | payer MEDICARE, SELFPAY ==
--- OUTSIDE RECORDS SUMMARY | 2025-06-02 04:24 | XMS RPT_ITS | CCD ---
Author Organization [facility] Care Team Providers Care Systems Navigator Name Role Phone Unavailable Primary Care Provider UnavailMelva Lay Primary Care Provider Melva Corbett Primary Care Provider Melva Corbett Primary Care Provider Melva Corbett DO Primary Care Provider [phone] Melva Corbett DO Primary Care Provider [phone] Fadi COMBINE DRIVER, COMBINE DRIVER-C Albina Primary Care Provider Fadi COMBINE DRIVER, COMBINE DRIVER-C Albina Referring Provider Dr. Darryl Ramos Attending Provider Dr. Darryl Ramos Referring Provider Dr. Darryl Ramos Other Provider Mendoza MEDEIROS, COMBINE DRIVER-C Melva Attending Provider Dr. Chris Guerra Attending Provider Melva Corbett Referring Unavailable Deisi, Melva Primary Care Unavailable RILEY OLIVER Attending Unavailable Deisi Melva Referring Unavailable Corbett, Melva Primary Care Unavailable Kush Huynh Attending Unavailable Deisi, Melva Referring Unavailable Corbett, Melva Primary Care Unavailable Melva Corbett Attending Unavailable Fadi COMBINE DRIVER, COMBINE DRIVER-C Albina Primary Care Provider Fadi COMBINE DRIVER, COMBINE DRIVER-C Albina Referring Provider Dr. Darryl Ramos Attending Provider Dr. Sriram Tomlin Attending Provider Fadi COMBINE DRIVER, COMBINE DRIVER-C Albina Primary Care Provider Fadi COMBINE DRIVER, COMBINE DRIVER-C Albina Referring Provider Dr. Darryl Ramos Attending Provider Nabor, Dr. Bhatia Attending Provider Nabor, Dr. Bhatia Referring Provider Nabor, Dr. Bhatia Other Provider Nabor, Dr. Bhatia Referring Provider Mendoza COMBINE DRIVER, COMBINE DRIVER-C Melva Attending Provider Bee Stephens Attending Provider Unavailable Dr. Aroldo Tirado Attending Provider Fadi COMBINE DRIVER, COMBINE DRIVER-C Albina Primary Care Provider Aponte COMBINE DRIVER, COMBINE DRIVER-C Albina Referring Provider Aponte PAGEANT DIRECTOR.MUSIC ORCHESTRATOR, Albina L Primary Care Provide r DEX GOMEZ Attending Unavailable DEX GOMEZ Admitting Unavailable APONTE, ALBINA L Primary Care Unavailable Aponte COMBINE DRIVER, COMBINE DRIVER-C Albina Primary Care Provider Fadi COMBINE DRIVER, COMBINE DRIVER-C Albina Referring Provider Nabor, Dr. Bhatia Attending Provider Nabor, Dr. Bhatia Other Provider Dr. Sriram Tomlin Referring Provider Fadi COMBINE DRIVER, COMBINE DRIVER-C Albina Primary Care Provider Dr. Sriram Tomlin Attending Provider Fadi COMBINE DRIVER, COMBINE DRIVER-C Albina Referring Provider Nabor, Dr. Bhatia Admit Provider Erika Franklin Attending Provider Unavailable Dr. Rafael Lopez Referring Provider Dr. Rafael Lopez Other Provider CIERRA Mcwilliams Attending Provider CIERRA Mcwilliams Other Provider [phone] Dr. Rafael Lopez Admit Provider Dr. Rafael Lopez Attending Provider [phone] Fadi MEDEIROS, COMBINE DRIVER-C Albina Primary Care Provider Nabor, Dr. Bhatia Attending Provider Nabor, Dr. Bhatia Referring Provider Nabor, Dr. Bhatia Other Provider Fadi COMBINE DRIVER, COMBINE DRIVER-C Albina Referring Provider Nabor, Dr. Bhatia Admit Provider Erika Franklin Attending Provider Unavailable Dr. Rafael Lopez Referring Provider [phone] Rafael Lopez Other Provider CIERRA Mcwilliams Attending Provider CIERRA Mcwilliams Other Provider [phone] Jessica, Dr. Hall Admit Provider Dr. Rafael Lopez Attending Provider [phone] DEX GOMEZ Referring Unavailable JACOB APONTEA Anahy Primary Care Unavailable CHRIS JACKSON Attending Unavailable FADI, ALBINA L Primary Care Unavailable Fadi COMBINE DRIVER, COMBINE DRIVER-C Albina Primary Care Provider Nabor, Dr. Bhatia Attending Provider Nabor, Dr. Bhatia Referring Provider Nabor, Dr. Bhatia Other Provider Jose G COMBINE DRIVER, COMBINE DRIVER-C Riley Attending Provider Dr. Aroldo Tirado Attending Provider [phone] Jose G COMBINE DRIVER, COMBINE DRIVER-C Riley Referring Provider Unavailable Primary Care Provider UnavailMelva Lay DO Primary Care Provider Fadi COMBINE DRIVER-C, Albina Primary Care Provider Dr. Rafael Lopez MD Attending Provider [phone] Jessica GUILLORY, Dr. Hall Referring Provider Fadi COMBINE DRIVER-C, Albina Referring Provider Nabor GUILLORY, Dr. Bhatia Attending Provider [facility] Doctor, Out of Primary Care Provider Shey Leyva DO, Dr. Beba Cavazos Primary Care Provid er Nabor GUILLORY, Dr. Bhatia Referring Provider Celestino GUILLORY, Dr. Kendrick Attending Provider Jessica GUILLORY, Dr. Hall Attending Provider Nabor GUILLORY, Dr. Bhatia Attending Provider Gordon ZHONG, Dr. Beba Cavazos Referring Provider Alejandro Carey Attending Provider [phone] Gordon ZHONG, Dr. Beba Cavazos Primary [facility] [place] Provid er Jessica GUILLORY, Dr. Hall Attending Provider Jessica GUILLORY, Dr. Hall Referring Provider Alejandro Carey Referring Provider [phone] Gordon ZHONG, Dr. Beba Cavazos Primary [facility] Provid er Celestino GUILLORY, Dr. Kendrick Attending Provider [phone] Beba Leyva Primary Care Provider BEBA LEYVA Attending Unavailable BEBA LEYVA Referring Unavailable MELVA CORBETT Primary Care Unavailable BEBA LEYVA Attending Unavailable BEBA LEYVA Referring Unavailable GORDON RICHWOODS Primary Care Unavailable Olga Vernon Attending Unavailable Beba Leyva Referring Unavailabl e GordonBeba phillipsgh Primary Care Unavailabl e Rafael Lopez Referring Unavailable Rafael Lopez Attending Unavailable Fadi MEDEIROS, Albina Primary Care Unavailable Sriram Tomlin Attending Unavailable [facility] Doctor, Out of Primary Care Unavailable Fadi COMBINE DRIVER, Albina Referring Unavailable [facility] Unavailabl e Jessica, [place] Referring Unavailable Jessica, Rafael Attending Unavailable [facility] Referring Unavailabl e Roof COMBINE DRIVER, Alejandro Cruz Attending Unavailable [facility] e [facility] Unavail[facility] e GreenbushAroldo griffin Attending Unavailable Nabor, Sriram Referring Unavailable [facility] Unavailabl e Roof COMBINE DRIVER, Alejandro Cruz Attending Unavailable Roof COMBINE DRIVER, Alejandro H Referring [facility] Nabor, Sriram Attending Unavailable Nabor, Sriram Referring Unavailable [facility] Unavailabl e Aroldo Tirado Attending Unavailable Roof COMBINE DRIVER, Alejandro H Referring Unavailable Jessica, [place] Attending Unavailable [facility] Unavailabl e Jessica, [place] Referring Unavailable Jessica, [place] Attending Unavailable [facility] Unavailabl e Jessica, Rafael Referring Unavailable Allergies Allergy Classification Reported Allergen(s) Allergy Type Date of Onset Reaction(s) Facility Penicillins (antibiotic) (2 sources) Penicillins Drug Allergy 01-09-20 15 [facility] Proton Pump Inhibitors (2 sources) Esomeprazole Drug Allergy 01-09-20 15 [facility] (16 sources) Esomeprazole; Translations: [ESOMEPRAZOLE MAGNESIUM] Drug Allergy 01-09-20 15 [place], [place] (17 sources) Penicillins; Translations: [PENICILLINS] Propensity to adverse reactions to drug 01-09-20 15 [place], [place] (11 sources) SB ANTIHISTAMINE Allergy to substance 12-01-19 20 [facility] (20 sources) Esomeprazole Drug Allergy 12-02-19 22 Hives [facility] (20 sources) Penicillins Allergy to substance 01-29-20 22 [facility] (17 sources) atorvastatin Drug Allergy 11-16-19 23 Severe leg myalgias [facility] (3 sources) Penicillins Drug Allergy 01-09-[address] [facility] (14 sources) Antihistamines - Alkylamine Allergy to substance 06-21-19 24 NEEDS FOLLOW-UP [facility] (11 sources) Esomeprazole Drug Allergy 01-09-20 [facility] (11 sources) Penicillins Drug Allergy 01-09-20 15 [facility] (5 sources) Pravastatin Drug Allergy 07-31-19 Myalgias, joint pain, itching [facility] (1 source) atorvastatin Drug Allergy 04-23-20 [facility] (1 source) Esomeprazole Drug Allergy 04-23-20 [facility] (1 source) Penicillins Drug allergy (disorder) 04-23-20 [facility] (1 source) Pravastatin Drug Allergy 04-23-20 [facility] (1 source) Antihistamines - Alkylamine Drug allergy (disorder) 04-23-20 [facility] Medications Current Medications Medication Drug Class(es) Dates Sig (Normalized) Sig (Original) [id number] 200 actuat albuterol 0.09 mg/actuat metered dose inhaler (20 sources) beta2-Adrenergic Agonist Start: 12-23-2021 take 2 puff(s) by mouth every four hours as needed albuterol 108 (90 Base) MCG/ACT inhaler INHALE 2 PUFFS BY MOUTH INTO THE LUNGS EVERY 4 HOURS NEEDED FOR ASTHMA 12/23/2021 Active Start: 12-23-2021 End: 07-28-2022 Albuterol Sulfate (Ventolin Hfa) 90 mcg/actuation HFA aerosol inhaler Discontinued 2 NMA INHALATION Q4H as needed for asthma 8.5 12 December 23, 2021 12:00am July 28, 2022 6:59pm Unspecified asthma, uncomplicated Start: 12-23-2021 End: 07-28-2022 take 1 puff(s) by inhalation every four hours Albuterol Sulfate (Ventolin Hfa) 90 mcg/actuation HFA aerosol inhaler Discontinued 2 PUFF INHALATION Q4H 8.December 23, 2021 12:00am July 28, 2022 6:59pm ascorbic acid 500 mg oral tablet (20 sources) Vitamin C Start: 11-15-2022 End: 07-11-2024 take 1 g by mouth once daily Ascorbic Acid (Vitamin C) 500 mg tablet Active 1 g PO DAILY July 11, 2024 10:54am take 1 tablet by mouth once aust[place] y Ascorbic Acid (VITAMIN C) 1,000 mg tablet Take 1,000 mg by mouth once daily. 0 Active Comment on above: Take 1,000 mg by whit th once daily. aspirin 81 mg chewable tablet (20 sources) Platelet Aggregation Inhibitor, Nonsteroidal Anti-inflammatory Drug Start: 12-01-2019 take 1 tablet by mouth once daily Aspirin 81 MG tablet,chewable Active 81 mg PO DAILY December 01, 2019 12:00am Start: 08-30-2019 take 1 tablet by whit th in the morning aspirin 81 MG EC tablet Take 1 tablet by mouth in the morning. 08/30/2019 Active take 1 tablet by whit th once daily aspirin 81 MG tablet Take 81 mg by mouth daily 0 Active Comment on above: Take 81 mg by mouth once daily. atorvastatin 20 mg oral tablet (20 sources) HMG-CoA Reductase Inhibitor Start: 0 End: 3 take 1 tablet by mouth in the morning atorvastatin (Lipitor) 20 MG tablet Take 1 tablet by mouth in the morning. 04/10/2020 Active Start: 08-30-2019 take 1 tablet by whit th once daily atorvastatin (LIPITOR) 20 MG tablet Take 1 tablet by mouth daily 30 tablet 1 08/30/2019 Active Comment on above: Take 20 mg by mouth once daily. azithromycin 250 mg oral tablet (1 source) Macrolide Antimicrobial Start: azithromycin (ZITHROMAX) 250 MG tablet Indications: Acute non-recurrent maxillary sinusitis Take 2 tabs (500 mg) on Day 1, and take 1 tab (250 mg) on days 2 through 5. 1 packet 0 06/20/2019 Active calcium carbonate 1500 mg oral tablet (20 sources) Start: take 1 tablet by mouth once daily Calcium Carbonate (Calcium 600) 600 mg calcium (1,500 mg) tablet Active 600 mg PO DAILY September 16, 2021 12:00am clotrimazole 10 mg oral lozenge (1 source) Azole Antifungal Start: End: take 1 tablet by mouth three times daily clotrimazole (MYCELEX) 10 MG renée Take 1 tablet by mouth 3 times daily for 10 days 30 tablet 0 02/02/2020 02/12/2020 Active cyclobenzaprine hydrochloride 5 mg oral tablet (20 sources) Muscle Relaxant Start: End: 025 take 1 tablet by mouth three times daily as needed cyclobenzaprine (Flexeril) 5 MG tablet Take 5 mg by mouth 3 times daily as needed. 01/27/2022 Active diclofenac sodium 0.01 mg/mg topical gel (2 sources) Nonsteroidal Anti-inflammatory Drug Start: diclofenac sodium (VOLTAREN) 1 % GEL Indications: Right hip pain Apply 2 g topically 2 times daily 150 g 2 01/20/2021 Active donepezil hydrochloride 5 mg oral tablet (3 sources) Start: take 1 tablet by mouth once daily in the morning donepezil (ARICEPT) 5 MG tablet Indications: Late onset Alzheimer's disease without behavioral disturbance (HCC) Take 1 tablet by mouth every morning 90 tablet 1 05/24/2019 Active Start: 03-07-2019 take 1 tablet by whit th once daily donepezil (ARICEPT) 5 MG tablet Take 1 tablet by mouth nightly 30 tablet 1 03/07/2019 Active ergocalciferol 55063 unt oral capsule (1 source) Provitamin D2 Compound Start: 08-01-2019 take 1 capsule by mouth every week vitamin D (ERGOCALCIFEROL) 1.25 MG (78290 UT) CAPS capsule take 1 capsule by mouth every week 4 capsule 3 08/01/2019 Active famotidine 20 mg oral tablet (2 sources) Histamine-2 Receptor Antagonist Start: 11-27-2020 take 1 tablet by mouth twice daily famotidine (PEPCID) 20 MG tablet Indications: Gastroesophageal reflux disease without esophagitis Take 1 tablet by mouth 2 times daily 60 tablet 3 11/27/2020 Active furosemide 20 mg oral tablet (20 sources) Loop Diuretic Start: 01-17-2025 End: 01-17-2025 take 1 tablet by mouth once daily Furosemide (Lasix) 20 mg tablet Active 20 mg PO daily 90 3 January 17, 2025 4:01pm Start: 07-11-2024 End: 01-17-2025 Furosemide 40 mg tablet Disc ontinued 20 mg PO DAILY July 11, 2024 10:53am January 17, 2025 3:58pm Start: 08-24-2023 End: 07-11-2024 take 1 tablet by mouth once daily Furosemide 40 mg tablet Discontinued 40 mg PO DAILY August 24, 2023 1:36pm July 11, 2024 10:59am Start: 08-11-2023 End: 08-24-2023 take 1 tablet by mouth every other day Furosemide 40 mg tablet Discontinued 40 mg PO every other day 90 3 August 11, 2023 12:50pm August 24, 2023 1:37pm Start: 07-27-2023 End: 08-11-2023 take 1 tablet by mouth once daily Furosemide 40 mg tablet Discontinued 40 mg PO DAILY 90 3 August 08, 2023 12:04pm August 11, 2023 12:50pm this is a dose increase for CHF Start: 08-11-2022 End: 06-07-2024 take 1 tablet by mouth once daily Furosemide (Lasix) 20 mg tablet Discontinued 20 mg PO DAILY 90 3 August 22, 2022 9:15am July 27, 2023 2:35pm Comment on above: Take 1 tablet by whit th once daily. melatonin 1 mg oral tablet (2 sources) Start: 05-24-2019 take 2 tablets by mouth once daily melatonin 1 MG tablet Indications: Insomnia, unspecified type Take 2 tablets by mouth nightly 60 tablet 5 05/24/2019 Active Multiple Vitamin (multivitamin) capsule (11 sources) take 1 capsule by mouth in the morning Multiple Vitamin (multivitamin) capsule Take 1 capsule by mouth in the morning. Active Multivitamin preparation (20 sources) Start: 08-10-2022 take 1 tablet by mouth once daily Multivitamin Active 1 TABLET PO DAILY August 10, 2022 8:50am Start: 08-10-2022 take 1 tablet by whit th once daily Multivitamin Active 1 TABLET PO DAILY August 10, 2022 7:50am Start: 12-01-2019 Multivitamin A ctive 1 EACH PO DAILY December 01, 2019 8:48pm Start: 12-01-2019 End: 08-10-2022 Multivitamin Discontinued 1 EACH PO DAILY December 01, 2019 12:00am August 10, 2022 8:51am Start: 12-01-2019 End: 08-10-2022 Multivitamin Discontinued 1 EACH PO DAILY November 30, 2019 11:00pm August 10, 2022 7:51am Start: 12-01-2019 Multivitamin A ctive 1 EACH PO DAILY November 30, 2019 11:00pm Start: 12-01-2019 Multivitamin A ctive 1 EACH PO DAILY December 01, 2019 12:00am Multivitamin tablet (5 sources) Start: 08-10-2022 Multivitamin tablet Active 1 {tbl} PO DAILY August 10, 2022 8:50am naproxen 500 mg oral tablet (7 sources) Nonsteroidal Anti-inflammatory Drug Start: 02-02-2020 take 1 tablet by mouth twice daily naproxen (NAPROSYN) 500 MG tablet Take 1 tablet by mouth 2 times daily 20 tablet 0 02/02/2020 Active nitroglycerin 0.4 mg sublingual tablet (20 sources) Nitrate Vasodilator Start: 08-30-2019 nitroglycerin (Nitrostat) 0.[address] 0.4 mg under the tongue. 08/30/2019 Active Comment on above: Dissolve 0.4 mg unde r the tongue every 5 minutes as needed. [place]-3 Fatty Acids-Fish Oil (Fish Oil) 300-500 mg capsule (17 sources) Start: 11-10-2022 [place]-3 Fatty Acids-Fish Oil (Fish Oil) 300-500 mg capsule Active 1 NMA PO DAILY November 10, 2022 12:00am Start: 11-10-2022 take 1 capsule by [facility] daily [place]-3 Fatty Acids-Fish Oil (Fish Oil) 300-500 mg capsule Active 1 CAP PO DAILY November 09, 2022 11:00pm Start: 11-10-2022 take 1 capsule by [facility] daily [place]-3 Fatty Acids-Fish Oil (Fish Oil) 300-500 mg capsule Active 1 CAP PO DAILY November 10, 2022 12:00am Start: 11-10-2022 [place]-3 Fatty Acids-Fish Oil (Fish Oil) 300-500 mg capsule Active CAP PO November 10, 2022 12:00am pantoprazole 20 mg delayed release oral tablet (20 sources) Proton Pump Inhibitor Start: 03-16-2023 End: 12-16-2024 take 1 tablet by mouth once daily Pantoprazole 20 mg tablet,delayed release (DR/EC) Active 20 mg PO DAILY December 16, 2024 7:50am sulfamethoxazole 400 mg / trimethoprim 80 mg oral tablet (1 source) Dihydrofolate Reductase Inhibitor Antibacterial, Sulfonamide Antimicrobial Start: 01-30-2020 End: 02-06-2020 take 1 tablet by mouth twice daily sulfamethoxazole-tr imethoprim (BACTRIM) 400-80 MG per tablet Indications: Urinary frequency Take 1 tablet by mouth 2 times daily for 7 days 14 tablet 0 01/30/2020 02/06/2020 Active Vitamin E (5 sources) Start: 07-11-2024 vitamin e Active PO DAILY July 11, 2024 1:00am Zinc with Vitamin D tablet (5 sources) Start: 07-11-2024 Zinc with Vitamin D tablet Active PO DAILY July 11, 2024 1:00am Completed/Discontinued Medications Medication Drug Class(es) Dates Sig (Normalized) Sig (Original) acetaminophen 500 mg oral tablet (2 sources) Start: 08-06-2020 take 2 tablets by mouth every six hours as needed acetaminophen (TYLENOL) 500 mg tablet Take 2 tablets by mouth every 6 hours as needed. 0 08/06/2020 Active Comment on above: Take 2 tablets by mo ut every 6 hours as needed. acetaminophen 325 mg / oxyCODONE hydrochloride 5 mg oral tablet (20 sources) Opioid Agonist Start: 12-02-2019 End: 12-07-2019 Oxycodone-Acetamino phen 1 TABLET tablet Discontinued 1 {tbl} PO EVERY 6 HOURS NEEDED as needed for Pain Score 6-10/10 20 5 0 December 02, 2019 December 06, 2019 12:00am December 07, 2019 12:02am Fracture of right wrist Start: 12-02-2019 End: 12-07-2019 take 1 tablet by mouth every six hours as needed Oxycodone-Acetaminophen Discontinued 1 TABLET PO EVERY 6 HOURS NEEDED 20 5 December 02, 2019 December 07, 2019 12:02am amLODIPine 2.5 mg oral tablet (20 sources) Dihydropyridine Calcium Channel Yandy Start: 05-02-2023 End: 05-02-2023 take 1 tablet by mouth once daily Amlodipine 2.5 mg tablet Discontinued 2.5 mg PO DAILY May 02, 2023 1:00am May 02, 2023 10:42am Start: 03-31-2023 End: 05-02-2023 take 2.5 mg by mouth once daily Amlodipine 5 mg tablet Discontinued 2.5 mg PO DAILY March 31, 2023 3:39pm May 02, 2023 10:41am Start: 03-31-2023 End: 05-02-2023 take 2.5 mg by mouth once daily Amlodipine Discontinue d 2.5 MG PO DAILY March 31, 2023 3:39pm May 02, 2023 10:41am Start: 08-11-2022 End: 11-11-2022 take 1 tablet by mouth once daily Amlodipine 2.5 mg tablet Discontinued 2.5 mg PO DAILY 90 3 August 22, 2022 9:15am November 11, 2022 11:28am Start: 09-16-2021 End: 07-22-2023 take 1 tablet by mouth in the morning amLODIPine (Norvasc) 5 MG tablet Take 1 tablet by mouth in the morning. 03/04/2022 Active Comment on above: Take 5 mg by mouth o nce daily. cholecalciferol 0.05 mg oral capsule (20 sources) Vitamin D Start: 12-01-19 End: 07-11-19 take 1 capsule by mouth once daily Cholecalciferol (Vitamin D3) 2,000 UNIT capsule Discontinued 2000 U PO DAILY December 01, 2019 12:00am July 11, 2024 10:55am take 1 capsule by mouth in the m orning cholecalciferol (Vitamin D-3) 50 MCG (2000 UT) capsule Take 2,000 Units by mouth in the morning. Active Cholecalciferol (VITAMIN D) 50 MCG (2000 UT) CAPS capsule Take 2,000 Units by mouth daily 0 Active Comment on above: Take 2,000 Units by mouth once daily. cider trim (17 sources) Start: 11-10-2022 End: 03-31-2023 cider trim Discontinued PO November 10, 2022 12:00am March 31, 2023 3:41pm Start: 11-10-2022 End: 03-31-2023 cider trim Discontinued PO [facility] 2022 11:00pm March 31, 2023 2:41pm Start: 11-10-2022 cider trim Act singh PO November 10, 2022 12:00am clopidogrel 75 mg oral tablet (20 sources) [id number] Platelet Inhibitor Start: 12-02-2022 End: 09-09-2024 take 1 tablet by mouth once daily Clopidogrel (Plavix) 75 mg tablet Discontinued 75 mg PO DAILY 90 3 September 25, 2023 2:22pm September 09, 2024 9:49am Comment on above: Take 1 tablet by whit th once daily. Coenzyme K28-Dfpvgtq E (12 sources) Start: 11-10-2022 End: 08-24-2023 take 1 capsule by mouth once daily Coenzyme N95-Czrgfzo E Discontinued 1 CAP PO DAILY November 10, 2022 12:00am August 24, 2023 1:36pm Start: 11-10-2022 take 1 capsule by mo uth once daily Coenzyme O78-Xtknpmk E Active 1 CAP PO DAILY November 09, 2022 11:00pm Start: 11-10-2022 take 1 capsule by mo ut once daily Coenzyme L88-Ktpgvrw E Active 1 CAP PO DAILY November 10, 2022 12:00am Start: 11-10-2022 Coenzyme Q10-V itamin E Active CAP PO November 10, 2022 12:00am Coenzyme J03-Ureutsp E 100-100 mg-unit capsule (5 sources) Start: 11-10-2022 End: 08-24-2023 Coenzyme Q21-Beticil E 100-100 mg-unit capsule Discontinued 1 NMA PO DAILY November 10, 2022 12:00am August 24, 2023 1:36pm 250 ml DOBUTamine 1 mg/ml injection (1 source) beta-Adrenergic Agonist Start: 09-05-2019 End: 09-05-2019 DOBUTamine (DOBUTREX) 250 mg in dextrose 5 % 250 mL infusion docusate sodium 100 mg oral capsule (20 sources) Start: 12-02-2019 End: 09-14-2021 take 1 capsule by mouth once daily Docusate Sodium 100 MG capsule Discontinued 100 mg PO DAILY 20 December 02, 2019 12:00am September 14, 2021 5:57pm 24 hr isosorbide mononitrate 30 mg extended release oral tablet (20 sources) Nitrate Vasodilator Start: 04-07-2023 End: 04-03-2024 take 1 tablet by mouth once daily, then take 1 tablet by mouth every twenty-four hours Isosorbide Mononitrate 30 mg tablet extended release 24 hr Discontinued 30 mg PO DAILY June 14, 2023 1:54pm April 03, 2024 7:54am levothyroxine sodium 0.112 mg oral tablet (20 sources) l-Thyroxine Start: 09-15-2021 End: 08-10-2023 take 1 tablet by mouth once daily Levothyroxine 112 mcg tablet Discontinued 112 ug PO DAILY December 06, 2021 6:46pm November 11, 2022 11:55am Start: 09-06-2021 levothyroxine (Synthroid, Levoxyl) 100 MCG tablet Take 100 mcg by mouth. 09/06/2021 Active Start: 03-30-2021 take 1 tablet by whit th once daily levothyroxine (SYNTHROID) 75 MCG tablet Indications: Hypothyroidism, unspecified type take 1 tablet by mouth once daily 90 tablet 2 03/30/2021 Active Start: 10-06-2020 take 1 tablet by whit th once daily levothyroxine (SYNTHROID) 75 MCG tablet Indications: Hypothyroidism, unspecified type take 1 tablet by mouth once daily 30 tablet 5 10/06/2020 Active Start: 12-10-2019 End: 09-09-2021 levothyroxine (SYNTHROID) 88 mcg tablet Take 100 mcg by mouth once daily. 12/10/2019 09/09/2021 Discontinued (Patient chooses alternative therapy) Start: 04-17-2018 End: 09-15-2021 take 1 tablet by mouth once daily Levothyroxine 88 mcg tablet Discontinued 88 ug PO DAILY 90 July 17, 2018 3:38pm September 15, 2021 7:09pm take 1 capsule by mo uth once daily before breakfast levothyroxine 100 mcg cap Take 100 mcg by mouth daily before breakfast. 0 Active Comment on above: Take 100 mcg by mout h daily before breakfast. lisinopril 5 mg oral tablet (20 sources) Angiotensin Converting Enzyme Inhibitor Start: 9 End: 2 take 1 tablet by mouth once daily Lisinopril 5 mg tablet Discontinued 5 mg PO DAILY 90 July 17, 2018 1:00am September 14, 2021 5:55pm Start: 07-16-2018 End: 07-16-2018 take 1 tablet by mouth once daily Lisinopril 10 mg tablet Discontinued 10 mg PO DAILY July 16, 2018 1:00am July 16, 2018 4:21pm meclizine hydrochloride 12.5 mg oral tablet (20 sources) Antiemetic Start: 01-14-2019 End: 09-14-2021 take 1 tablet by mouth three times daily as needed for dizziness Meclizine 12.5 mg tablet Discontinued 12.5 mg PO THREE TIMES A DAY as needed for dizziness 09 12January 14, 2019 12:00am September 14, 2021 5:57pm metoprolol tartrate 25 mg oral tablet (20 sources) beta-Adrenergic Yandy Start: 08-01-2023 End: 08-24-2023 take 1 tablet by mouth twice daily Metoprolol Tartrate 25 mg tablet Discontinued 25 mg PO TWICE A DAY 180 August 21, 2023 12:00am August 24, 2023 2:08pm Start: 08-15-2022 End: 09-16-2022 take 2 tablets by mouth twice daily Metoprolol Succinate 25 mg tablet extended release 24 hr Discontinued 12.5 mg PO TWICE A DAY August 15, 2022 1:00am September 16, 2022 11:45am Start: 08-15-2022 End: 09-16-2022 take 12.5 mg by mouth twice daily Metoprolol Succinate Discontinued 12.5 MG PO TWICE A DAY August 15, 2022 1:00am September 16, 2022 11:45am Start: 08-11-2022 End: 08-11-2022 take 2 tablets by mouth twice daily Metoprolol Succinate 25 mg tablet extended release 24 hr Discontinued 12.5 mg PO TWICE A DAY August 11, 2022 9:47am August 11, 2022 10:19am Start: 08-11-2022 End: 08-11-2022 take 12.5 mg by mouth twice daily Metoprolol Succinate Discontinued 12.5 MG PO TWICE A DAY August 11, 2022 9:47am August 11, 2022 10:19am Start: 04-29-2022 take 0.5 tablet by m outh every twenty-four hours in the morning metoprolol succinate XL (Toprol-XL) 25 MG 24 hr tablet Take 0.5 tablets (12.5 mg) by mouth in the morning. 45 tablet 1 04/29/2022 Active Start: 04-21-2020 End: 08-11-2022 take 1 tablet by mouth once daily Metoprolol Succinate 25 mg tablet extended release 24 hr Discontinued 25 mg PO DAILY July 28, 2022 7:00pm July 28, 2022 7:06pm Start: 04-21-2020 End: 06-08-2023 take 0.5 tablet by mouth once daily metoprolol succinate (TOPROL XL) 25 MG extended release tablet take 1/2 tablet by mouth daily 45 tablet 3 04/29/2021 Active Start: 12-01-2019 End: 07-28-2022 Metoprolol Succinate 25 MG t ablet Discontinued 12.5 mg PO DAILY December 01, 2019 12:00am July 28, 2022 7:00pm Start: 12-01-2019 End: 07-28-2022 take 12.5 mg by mouth once daily Metoprolol Succinate Discontinued 12.5 MG PO DAILY December 01, 2019 12:00am July 28, 2022 7:00pm Start: 08-30-2019 take 0.5 tablet by m outh once daily metoprolol succinate (TOPROL XL) 25 MG extended release tablet Take 0.5 tablets by mouth daily 30 tablet 3 08/30/2019 Active Comment on above: Take 0.5 tablets by mouth once daily. Multivitamin 1 EACH tablet (5 sources) Start: End: Multivitamin 1 EACH tablet Discontinued 1 NMA PO DAILY December 01, 2019 12:00am August 10, 2022 8:51am Multivitamin capsule (2 sources) take 1 capsule by mouth once daily Multivitamin capsule Take 1 capsule by mouth once daily. 0 Active Comment on above: Take 1 capsule by mo uth once daily. nitrofurantoin, macrocrystals 25 mg / nitrofurantoin, monohydrate 75 mg oral capsule (12 sources) Nitrofuran Antibacterial Start: End: take 1 capsule by mouth every twelve hours at mealtime Nitrofurantoin Monohyd/M-Cryst (Macrobid) 100 mg capsule Discontinued 100 mg PO Q12H 14 7 0 July 27, 2023 1:00am August 02, 2023 1:00am August 03, 2023 1:04am must administer with a meal/food Start: 02-01-2020 End: 02-08-2020 take 1 capsule by mouth twice daily nitrofurantoin, macrocrystal-monohydrate , (MACROBID) 100 MG capsule Take 1 capsule by mouth 2 times daily for 7 days 14 capsule 0 02/01/2020 02/08/2020 Active polyethylene glycol 3350 60499 mg powder for oral solution (2 sources) Osmotic Laxative Start: 08-07-2020 take 1 dose by mouth once daily polyethylene glycol 3350 (MIRALAX, GLYCOLAX) 17 gram packet Take 1 Packet by mouth once daily. 0 08/07/2020 Active Comment on above: Take 1 Packet by whit once daily. potassium chloride 10 meq extended release oral capsule (20 sources) Start: 08-11-2022 End: 08-24-2023 take 1 capsule by mouth once daily Potassium Chloride 10 mEq capsule, extended release Discontinued 10 meq PO DAILY 90 3 August 22, 2022 9:15am August 24, 2023 1:37pm pravastatin sodium 20 mg oral tablet (20 sources) HMG-CoA Reductase Inhibitor Start: 07-24-2024 End: 07-31-2024 take 1 tablet by mouth at bedtime Pravastatin 20 mg tablet Discontinued 20 mg PO AT BEDTIME 30 July 24, 2024 1:00am July 31, 2024 12:33pm Start: 06-19-2023 End: 06-21-2023 take 1 tablet by mouth at bedtime Pravastatin 80 mg tablet Discontinued 80 mg PO AT BEDTIME June 19, 2023 1:00am June 21, 2023 12:08pm Start: 06-08-2023 End: 07-24-2024 take 1 tablet by mouth at bedtime Pravastatin 40 mg tablet Discontinued 40 mg PO AT BEDTIME 90 3 September 04, 2023 4:16pm July 24, 2024 9:36am Start: 11-16-2022 End: 06-19-2023 take 1 tablet by mouth at bedtime Pravastatin 20 mg tablet Discontinued 20 mg PO AT BEDTIME 90 3 May 02, 2023 10:45am June 19, 2023 9:42am Comment on above: Take 1 tablet by whit daily at bedtime. predniSONE 20 mg oral tablet (20 sources) Start: 03-22-2024 End: 07-11-2024 take 2 tablets by mouth once daily Prednisone 20 mg tablet Discontinued 40 mg PO DAILY 20 March 22, 2024 5:53pm July 11, 2024 10:54am Start: 12-01-2021 End: 12-27-2021 take 2 tablets by mouth once daily Prednisone 20 mg tablet Discontinued 40 mg PO DAILY 8 December 01, 2021 12:00am December 27, 2021 12:53pm Start: 12-01-2021 End: 12-27-2021 take 40 mg by mouth once daily Prednisone Discontinued 40 MG PO DAILY 8 December 01, 2021 12:00am December 27, 2021 12:53pm tiotropium 0.018 mg inhalation powder (20 sources) Anticholinergic Start: 11-27-2020 take 1 capsule by inhalation once daily tiotropium (SPIRIVA HANDIHALER) 18 MCG inhalation capsule Indications: Chronic obstructive pulmonary disease, unspecified COPD type (HCC) INHALE THE CONTENTS OF 1 CAPSULE DAILY 90 capsule 2 11/27/2020 Active Start: 12-18-2019 End: 01-28-2022 take 1 capsule by inhalation once daily Tiotropium [place] 18 mcg capsule, w/inhalation device Discontinued 18 ug INHALATION DAILY 90 3 November 30, 2021 3:32pm January 28, 2022 1:01pm Start: 12-18-2019 take 1 capsule by in halation once daily SPIRIVA HANDIHALER 18 MCG inhalation capsule INHALE THE CONTENTS OF 1 CAPSULE DAILY 90 capsule 1 12/18/2019 Active Start: 12-01-2019 End: 11-30-2021 Tiotropium [place] 1 PUFF in haler Discontinued 1 NMA INHALATION DAILY December 01, 2019 12:00am November 30, 2021 3:33pm Start: 12-01-2019 End: 11-30-2021 take 1 puff(s) by inhalation once daily Tiotropium [place] Discontinued 1 PUFF INHALATION DAILY December 01, 2019 12:00am November 30, 2021 3:33pm Start: 04-17-2019 take 1 capsule by in halation once daily tiotropium (SPIRIVA HANDIHALER) 18 MCG inhalation capsule Inhale 1 capsule into the lungs daily 30 capsule 1 04/17/2019 Active Start: 05-02-2017 take 1 capsule by in halation once daily tiotropium (SPIRIVA HANDIHALER) 18 MCG inhalation capsule Inhale 1 capsule into the lungs daily 30 capsule 5 05/02/2017 Active Comment on above: Inhale 1 capsule as instructed once daily. valsartan 160 mg oral tablet (20 sources) Angiotensin 2 Receptor Yandy Start: End: take 1 tablet by mouth once daily Valsartan 160 mg tablet Discontinued 160 mg PO DAILY 90 3 July 27, 2023 2:35pm July 08, 2024 1:47pm Start: 11-15-2022 End: 06-07-2024 take 1 tablet by mouth once daily Valsartan 80 mg tablet Discontinued 80 mg PO DAILY 90 3 May 22, 2023 2:52pm July 22, 2023 10:39am Comment on above: Take 1 tablet by whit th once daily. Problems Active Problems Problem Classification Problem Date Documented Da te Episodic/Chronic Acute myocardial infarction (1 source) Myocardial infarction; Translations: [Non-ST elevation (NSTEMI) myocardial infarction] Onset: 06-07-2023 06-07-2023 Chronic Cardiac dysrhythmias (20 sources) Sick sinus syndrome; Translations: [Sick sinus syndrome] Onset: 07-11-2024 07-24-2023 Chronic Chronic obstructive pulmonary disease and bronchiectasis (20 sources) Chronic obstructive lung disease; Translations: [Chronic obstructive pulmonary disease, unspecified] Onset: 10-05-2016 10-05-2016 Chronic Conditions associated with dizziness or vertigo (20 sources) Dizziness; Translations: [Dizziness and giddiness] 01-12-2019 Episodic Conduction disorders (20 sources) Sinus node dysfunction; Translations: [Other specified heart block] Onset: 06-12-2023 07-24-2023 Chronic Coronary atherosclerosis and other heart disease (20 sources) Stable angina; Translations: [Angina pectoris] Onset: 07-27-2020 05-19-2023 Chronic Delirium dementia and amnestic and other cognitive disorders (20 sources) Primary degenerative dementia of the Alzheimer type, senile onset, uncomplicated; Translations: [Alzheimer's disease with late onset] Onset: 03-06-2019 03-06-2019 Chronic Disorders of lipid metabolism (20 sources) Mixed hyperlipidemia; Translations: [Dyslipidemia] Onset: 06-22-2021 06-22-2021 Chronic Essential hypertension (20 sources) Essential hypertension; Translations: [Essential (primary) hypertension] Onset: 10-06-2015 10-06-2015 Chronic Mycoses (1 source) Candidiasis of mouth; Translations: [Thrush] Episodic Nonspecific chest pain (15 sources) Chest discomfort; Translations: [Other chest pain] 06-19-2023 Episodic Nutritional deficiencies (2 sources) Vitamin D deficiency; Translations: [Vitamin D deficiency, unspecified] Chronic Occlusion or stenosis of precerebral arteries (7 sources) Left carotid artery stenosis; Translations: [Occlusion and stenosis of left carotid artery] Onset: 12-11-2024 11-26-2024 Chronic Other aftercare (6 sources) Patient encounter status; Translations: [Encounter for therapeutic drug level monitoring] 07-27-2023 Episodic Other aftercare (5 sources) Long-term current use of diuretic; Translations: [Encounter for therapeutic drug level monitoring] 08-21-2023 Episodic Other circulatory disease (19 sources) H/O: kidney disease; Translations: [Personal history of other diseases of the circulatory system] 06-19-2023 Episodic Other endocrine disorders (2 sources) Syndrome of inappropriate vasopressin secretion; 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] Onset: 08-04-2020 08-06-2020 Chronic Other gastrointestinal disorders (3 sources) Constipation; Translations: [Constipation, unspecified] 09-11-2021 Episodic Other injuries and conditions due to external causes (1 source) Injury of elbow; Translations: [Elbow injury, left, initial encounter] Episodic Other lower respiratory disease (20 sources) Dyspnea; Translations: [Shortness of breath] 11-30-2021 Episodic Other lower respiratory disease (20 sources) Dyspnea on exertion; Translations: [Dyspnea, unspecified] 12-09-2021 Episodic Other lower respiratory disease (17 sources) Shortness of breath; Translations: [Shortness of breath] Episodic Other lower respiratory disease (17 sources) Cough; Translations: [Cough] 11-10-2022 Episodic Other lower respiratory disease (10 sources) Other forms of dyspnea; Translations: [Other respiratory abnormalities] 03-16-2023 Episodic Other non-traumatic joint disorders (1 source) Effusion, left elbow; Translations: [Elbow effusion, left] Episodic Other non-traumatic joint disorders (1 source) Pain in right hip joint; Translations: [Pain in right hip] Episodic Other non-traumatic joint disorders (9 sources) Shoulder pain; Translations: [Pain in left shoulder] 09-05-2018 Episodic Other non-traumatic joint disorders (16 sources) Pain in left shoulder; Translations: [Left shoulder pain] 08-10-2022 Episodic Other non-traumatic joint disorders (5 sources) Decreased range of shoulder movement; Translations: [Stiffness of unspecified shoulder, not elsewhere classified] 03-22-2024 Episodic Other nutritional; endocrine; and metabolic disorders (20 sources) Obesity; Translations: [Obesity, unspecified] 12-27-2021 Chronic Other nutritional; endocrine; and metabolic disorders (4 sources) Obesity, unspecified; Translations: [Obesity, unspecified] Chronic Other nutritional; endocrine; and metabolic disorders (20 sources) Weight loss; Translations: [Abnormal weight loss] 07-16-2018 Episodic Other nutritional; endocrine; and metabolic disorders (5 sources) Weight decreased; Translations: [Abnormal weight loss] 08-10-2022 Episodic Other screening for suspected conditions (not mental disorders or infectious disease) (20 sources) Viral screening status; Translations: [Electrocardiogram abnormal] 08-11-2022 Episodic Other upper respiratory infections (20 sources) Acute maxillary sinusitis; Translations: [Acute maxillary sinusitis, unspecified] 01-12-2019 Episodic Peripheral and visceral atherosclerosis (20 sources) Bilateral renal artery stenosis; Translations: [Atherosclerosis of renal artery] Onset: 08-27-2024 11-29-2022 Chronic Pneumonia (except that caused by tuberculosis or sexually transmitted disease) (3 sources) Pneumonia; Translations: [Pneumonia, unspecified organism] 08-06-2020 Episodic Residual codes; unclassified (1 source) Postmenopausal state; Translations: [Postmenopausal] Episodic Residual codes; unclassified (19 sources) Past history of procedure; Translations: [Other specified postprocedural states] 06-19-2023 Episodic Comment on above: 12/02/22- Residual codes; unclassified (11 sources) Edema; Translations: [Edema, unspecified] 07-27-2023 Episodic Thyroid disorders (20 sources) Hypothyroidism; Translations: [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] Onset: 10-05-2016 10-05-2016 Chronic Thyroid disorders (3 sources) Disorder of thyroid gland; Translations: [Disorder of thyroid, unspecified] 08-06-2020 Episodic Unclassified (1 source) Finding of region of thorax; Translations: [Chest heaviness] Past or Other Problems Problem Classification Problem Date Documented Da te Episodic/Chronic Coronary atherosclerosis and other heart disease (20 sources) Coronary angioplasty status; Translations: [Stented coronary artery] Onset: 05-12-2023 06-19-2023 Episodic Comment on above: Prox to mid distal R CA- CASANDRA [employer] 4.0 x 48 mm (06/07/23), Mid LAD- CASANDRA [place] 2.50 x 12 mm and [place] 2.50 x 8 mm (07/21/23) Fluid and electrolyte disorders (3 sources) Hyperkalemia; Translations: [Hyponatremia] Onset: 08-04-2020 09-11-2021 Episodic Genitourinary symptoms and ill-defined conditions (1 source) Increased frequency of urination; Translations: [Urinary frequency] Episodic Malaise and fatigue (20 sources) Fatigue; Translations: [Malaise] Onset: 07-11-2024 01-12-2019 Episodic Other circulatory disease (15 sources) Personal history of other diseases of the circulatory system; Translations: [Personal history of other specified urinary system disorders] Onset: 07-11-2024 03-16-2023 Episodic Other hematologic conditions (1 source) Other specified abnormalities of plasma proteins; Translations: [Elevated troponin] Onset: 11-15-2022 Episodic Other nervous system disorders (20 sources) Impairment of balance; Translations: [Other abnormalities of gait and mobility] Onset: 10-06-2015 10-06-2015 Episodic Other non-traumatic joint disorders (10 sources) Pain in right shoulder; Translations: [Pain in joint, shoulder region] Onset: 05-07-2024 05-07-2024 Episodic Residual codes; unclassified (20 sources) Memory impairment; Translations: [Other amnesia] Onset: 10-06-2015 10-06-2015 Episodic Residual codes; unclassified (20 sources) Amnesia; Translations: [Other amnesia] Onset: 11-06-2015 11-06-2015 Episodic Residual codes; unclassified (20 sources) Other specified postprocedural states; Translations: [Other postprocedural status] Onset: 07-11-2024 03-16-2023 Episodic Urinary tract infections (2 sources) Urinary tract infectious disease; Translations: [Urinary tract infection, site not specified] Onset: 09-09-2021 09-09-2021 Episodic Viral infection (4 sources) COVID-19; Translations: [Acute respiratory failure] Onset: 07-25-2020 08-06-2020 Episodic Results Test Name Value Interpretation Reference Range Facility US Lower extremity arteryOrd ered By: Eduin Hernandez on 03-01-2025 Left LEIDA 0.76 [facility] [employer] Work Phone: Left arm BP 170 mmHg [facility] Work Phone: Left calf pressure 169 mmHg [facility] Work Phone: Left dorsalis pedis BP 116 mmHg [facility] Work Phone: Left posterior tibial 130 mmHg [facility] Work Phone: Right LEIDA 0.77 [facility] Work Phone: Right arm BP 153 mmHg [facility] Work Phone: Right calf pressure 148 mmHg [facility] Work Phone: Right dorsalis pedis BP 125 mmHg [facility] Work Phone: Right low thigh pressure 219 mmHg [facility] Work Phone: Right posterior tibial 131 mmHg [facility] Work Phone: US Lower extremity arteryon 03-01-2025 Right side findings: Resting LEIDA is 0.77. This is moderately decreased. Arterial disease noted at the level of the popliteal artery. Left side findings: Resting LEIDA is 0.76. This is moderately decreased. Arterial disease noted at the level of the tibial artery. Left brachial blood pressure is significantly greater than the right side. Exercise study unable to be performed due to unsteady gait. Patient uses a walker. Study Details Continuous wave doppler was performed. The exam was performed with the patient in the sitting position. Overall the study quality was adequate. LEIDA Left brachial blood pressure is significantly greater than the right side. Right side findings: Moderately decreased resting LEIDA. Arterial disease noted at the level of the popliteal artery. Left side findings: Moderately decreased resting LEIDA. Arterial disease noted at the level of the tibial artery. Right PVR waveforms: Consistent with MILD disease - upper thigh, lower thigh, calf, ankle and metatarsal region. Left PVR waveforms: Consistent with MILD disease - upper thigh, lower thigh, calf, ankle and metatarsal region. Exercise study unable to be performed due to unsteady gait. Patient uses a walker. [facility] artery reportOrdered By: Aroldo Tirado on 12-09-2024 Study report [facility] [place] [address] Carotid Duplex Ultrasound 12/06/24 0856 MR#: [id number] Acct: [id number] Name: PARVEEN CARUSO Rep #:[id number] : 1940 84 From: Aroldo Grubbs Attending Dr: TREASURE Parker Sta tus: REG CLI Ordering Dr: Alejandro Nicole NP COMBINE DRIVERAugustusC Date: 12/06/24 Location: [facility] Sex: F C Admitted: Reason For Study Reason For Study: Carotid Disease Rt. Velocities/BP Lt. Velocities/BP Prox CCA 87/16 cm/sec. Prox CCA 67/17 cm/sec. Mid CCA 57/14 cm/sec. Mid CCA 59/15 cm/sec. Dist CCA 48/13 cm/sec. Dist CCA 59/14 cm/sec. Prox ICA 94/23 cm/sec. Prox ICA 145/27 cm/sec. Mid ICA 74/20 cm/sec. Mid ICA 138/29 cm/sec. Dist ICA 75/25 cm/sec. Dist ICA 129/36 cm/sec. Rt. ICA/CCA = 1.65. Lt. ICA/CCA = 2.5. Prox ECA 133/8 cm/sec. Prox ECA 162/12 cm/sec. Rt. Vert. 56/10 cm/sec. Lt. Vert. 81/16 cm/sec. Right Extracranial There is heterogeneous, irregular atherosclerotic plaque noted in the right common carotid artery. There is heterogeneous, irregular atherosclerotic plaque noted in the right internal carotid artery. The atherosclerotic plaque causes acoustic shadowing. There is heterogeneous, irregular atherosclerotic plaque noted in the right external carotid artery. Antegrade flow is noted in the right vertebral artery. Left Extracranial There is heterogeneous, irregular atherosclerotic plaque noted in the left common carotid artery. There is heterogeneous, irregular atherosclerotic plaque noted in the left internal carotid artery. The atherosclerotic plaque causes acoustic shadowing. There is heterogeneous, irregular atherosclerotic plaque noted in the left external carotid artery. Antegrade flow is noted in the left vertebral artery. Procedure Carotid Duplex 37179. This is a Carotid Duplex examination using B-mode, color flow and specral Doppler. Exam performed in department. VL/Carotid Duplex Ultrasound Interpretation Summary Mild (<50%) stenosis right extracranial internal carotid. Moderate (50-69%) stenosis left extracranial internal carotid. Limited due to calcific shadowing, alternative imaging may be beneficial. Patent and antegrade vertebrals bilaterally. Ordering Physician: Alejandro Nicole Referring Physician: Beba Leyva Performed By: Clara Nicole, TERRY, RVT 12/09/24 1320 Date _ Arolod Tirado MD CC: COMBINE DRIVER-C Alejandro Nicole; DO Jorge Mir Date Dictated: 12/06/24 0856 Date Transcribed: 12/09/24 1320 Composing Room Machinist Apprentice: Signed [facility] Work Phone: Carotid Duplex Ultrasoundon 12-06-2024 Carotid Duplex Ultrasound [facility] [address] [place] [address] Carotid Duplex Ultrasound 12/06/24855 MR#: [id number] Acct: [id number] Name: PARVEEN CARUSO Rep #: [id number] : 1940 84 From: Aroldo Tirado MD Attending Dr: Alejandro Nicole, COMBINE DRIVER-C Status: REG CLI Ordering Dr: Alejandro Nicole COMBINE DRIVER COMBINE DRIVER-C Date: 12/06/24 Location: [facility] Sex: F C Admitted: Reason For Study Reason For Study: Carotid Disease Rt. Velocities/BP Lt. Velocities/BP Prox CCA 87/16 cm/sec. Prox CCA 67/17 cm/sec. Mid CCA 57/14 cm/sec. Mid CCA 59/15 cm/sec. Dist CCA 48/13 cm/sec. Dist CCA 59/14 cm/sec. Prox ICA 94/23 cm/sec. Prox ICA 145/27 cm/sec. Mid ICA 74/20 cm/sec. Mid ICA 138/29 cm/sec. Dist ICA 75/25 cm/sec. Dist ICA 129/36 cm/sec. Rt. ICA/CCA = 1.65. Lt. ICA/CCA = 2.5. Prox ECA 133/8 cm/sec. Prox ECA 162/12 cm/sec. Rt. Vert. 56/10 cm/sec. Lt. Vert. 81/16 cm/sec. Right Extracranial There is heterogeneous, irregular atherosclerotic plaque noted in the right common carotid artery. There is heterogeneous, irregular atherosclerotic plaque noted in the right internal carotid artery. The atherosclerotic plaque causes acoustic shadowing. There is heterogeneous, irregular atherosclerotic plaque noted in the right external carotid artery. Antegrade flow is noted in the right vertebral artery. Left Extracranial There is heterogeneous, irregular atherosclerotic plaque noted in the left common carotid artery. There is heterogeneous, irregular atherosclerotic plaque noted in the left internal carotid artery. The atherosclerotic plaque causes acoustic shadowing. There is heterogeneous, irregular atherosclerotic plaque noted in the left external carotid artery. Antegrade flow is noted in the left vertebral artery. Procedure Carotid Duplex [id number]. This is a Carotid Duplex examination using B-mode, color flow and specral Doppler. Exam performed in department. VL/Carotid Duplex Ultrasound Interpretation Summary Mild (<50%) stenosis right extracranial internal carotid. Moderate (50-69%) stenosis left extracranial internal carotid. Limited due to calcific shadowing, alternative imaging may be beneficial. Patent and antegrade vertebrals bilaterally. Ordering Physician: Alejandro Nicole Referring Physician: Beba Leyva Performed By: Clara Nicole, RDCS, RVT 12/09/24 1320 Date Aroldo Tirado MD CC: TREASURE Nicole; Beba Leyva, Date Dictated: 12/06/24 0856 Date Transcribed: 12/09/24 1320 Composing Room Machinist Apprentice: Signed Normal [facility] Cardiology Visit Reporton Cardiology Visit Report [facility] [address] [place] [address] OFFICE VISIT Date of Service: 11/26/24 MR#: [id number] Acct: [id number] Name: PARVEEN CARUSO Rep #: [id number] : 1940 Provider: TREASURE alfaro Age/Sex: 83/F Location: [facility] Status: Signed HPI HPI History of Present Illness Details: This lady with history of coronary artery disease status post drug-eluting stents to the RCA and LAD, hypertension, renal artery stenosis status post left renal stent, sick sinus syndrome status post permanent pacemaker placement and dyslipidemia is here for a follow-up visit. She denies chest, arm, jaw, or neck discomfort. She denies palpitations. She denies bilateral lower extremity edema. She denies claudication. She states shortness of breath with activity that she attributes to her COPD. This fluctuates with respects to severity. She denies shortness of breath at rest, orthopnea, or PND. She denies chronic cough. She denies significant, sudden weight gain. She states intermittent, random lightheadedness. She denies dizziness, near-syncope, or syncope. She denies blood in urine, blood in stool, or epistaxis. He denies fever with chills. She denies myalgia. She denies fatigue. Her exercise level has remained stable. Intake Vital Signs 07/11/24 07:36 11/26/24 07:59 Height 5 ft 10 in 5 ft 10 in Weight: 221 lb BMI 31.7 BP 144/85 H Blood Pressure Location Rt brachial Position Sitting Respiration 14 Pulse 60 Pulse Source NIBP Pulse Oximetry (%) 93 Oxygen Delivery Method room air Intake Visit Reasons: 6 M FU Allergies Penicillins Allergy (Severe, Verified 07/11/24 09:52) Rash Antihistamines - Alkylamine Allergy (Intermediate, Verified 07/11/24 09:52) NEEDS FOLLOW-UP esomeprazole (From Nexium) Allergy (Verified 07/11/24 09:52) Hives atorvastatin Adverse Reaction (Intermediate, Verified 07/11/24 09:52) Severe leg myalgias pravastatin Adverse Reaction (Intermediate, Verified 07/31/24 11:32) Myalgias, joint pain, itching Medications ???Medication ???Instructions ???Recorded ???Confirmed ???Type aspirin 81 mg chewable tablet 81 mg PO DAILY 12/01/19 11/26/24 H istory calcium carbonate (Calcium 600) 600 mg PO DAILY 09/16/21 11/26/24 History multivitamin 1 tab PO DAILY 08/10/22 11/26/24 H istory omega-3 fatty acids-fish oil 300 1 cap PO DAILY 11/10/22 11/26/24 H istory mg-500 mg capsule (Fish Oil) levothyroxine 112 mcg tablet 112 mcg PO DAILY #90 tabs 08/10/23 11/26/24 Rx pantoprazole 20 mg tablet,delayed 20 mg PO DAILY #90 TABLETS 11/26/24 Rx release isosorbide mononitrate 30 mg 30 mg PO DAILY #90 TABLETS 4 11/26/24 Rx tablet,extended release 24 hr valsartan 160 mg tablet 160 mg PO DAILY #90 tabs 07/08/24 11/26/24 Rx Zinc with Vitamin D PO DAILY 07/11/24 11/26/24 History ascorbic acid (vitamin C) 500 mg 1 g PO DAILY 07/11/24 11/26/24 His tory tablet furosemide 40 mg tablet 20 mg PO DAILY 07/11/24 11/26/24 H istory vitamin e PO DAILY 07/11/24 11/26/24 History clopidogrel 75 mg tablet (Plavix) 75 mg PO DAILY #90 tabs 09/09/24 11/26/24 Rx Have you fallen in the past year?: No PFSH Medical History Abnormal ECG Bilateral renal artery stenosis CAD (coronary artery disease) Chest discomfort Cough COVID Dizzy LIRA (dyspnea on exertion) Dyslipidemia Edema Encounter for monitoring diuretic therapy Fatigue History of renal artery stenosis Hypertension Hypothyroidism Hypothyroidism (acquired) Left shoulder pain Malaise Obesity Pneumonia RCA occlusion Rib pain on right side Sick sinus syndrome Sinus pause Sinusitis, acute maxillary SOB (shortness of breath) Unilateral edema of lower extremity Weight loss observed on examination Wellness examination Surgical History History of heart artery stent History of stent insertion of renal artery History of thyroid irradiation Hx of breast augmentation Hx of cardiac catheterization ( 06/07/23) Hx of hernia repair Presence of cardiac pacemaker ( 07/2023) S/P appendectomy Stented coronary artery ( 07/21/23) Tubal ligation status Family History Mother Lung cancer Father Heart disease Pacemaker COPD (chronic obstructive pulmonary disease) Other Breast cancer Social History Smoking Status: Former smoker pack-years: 15 Tobacco: How many years used: 30 Electronic Cigarette Use: not used second hand exposure: No alcohol intake: current alcohol intake frequency: holidays/special occasions only substance use type: does not use ca (more content not included)... Normal [facility] Anion gap in Serum or Plasma Ordered By: Sriram Tomlin on 08-13-2024 Anion gap [Moles/Vol] 12 mmol/L 5-15 [facility] BUN/creatinine ratioOrdered By: Sriram Tomlin on 08-13-2024 Urea nitrogen/Creatinine [Mass ratio] 23.1 mg/mg High 10- [facility] Bilirubin directOrdered By: Sriram Tomlin on 08-13-2024 Bilirubin.direct [Mass/Vol] 0.20 mg/dL 0.00-0.30 [facility] Bilirubin, Directon 08-14-19 25 Bilirubin.direct [Mass/Vol] 0.20 mg/dL Normal 0.00-0.30 [facility] Comment on above: Performed By: #### L 500.3987, L501.4700, L500.4050 #### [facility] [address] [place], [place], [id number] Bilirubin, totalOrdered By: Sriram Tomlin on 08-13-2024 Bilirubin [Mass/Vol] 0.45 mg/dL 0.00-1.30 [facility] Calculated very low density lipoprotein (VLDL) cholesterol measurementOrdered By: Sriram Tomlin on 08-13-2024 Calculated very low density lipoprotein (VLDL) cholesterol measurement 19 mg/dL -40 [facility] VLDL Cholesterol 19 mg/dL -40 [facility] Carbon dioxide, total [Moles /volume] in Central venous bloodOrdered By: Sriram Tomlin on 08-13-2024 CO2 [Moles/Vol] 22.9 mmol/L 21.0-32.0 [facility] Chloride assayOrdered By: Micheal Tomlin on 08-13-2024 Chloride [Moles/Vol] 103 mmol/L 98-108 [facility] Comprehensive Metabolic Prof ilon 08-13-2024 Albumin [Mass/Vol] 4.3 g/dL Normal 3.4-4.8 [facility] Comment on above: Performed By: #### L 500.4100, L501.4700, L500.4050 #### [facility] [address] [place], [address] Albumin/Globulin [Mass ratio] 1.4 {ratio} Normal 0.9-2.4 [facility] Comment on above: Performed By: #### L 500.4100, L501.4700, L500.4050 #### [facility] [address] [place], [address] ALK PHOS 71 U/L Normal 35-104 [facility] Comment on above: Performed By: #### L 500.4100, L501.4700, L500.4050 #### [facility] [address] [place], [address] ALT [Catalytic activity/Vol] 13 U/L Normal <=34 [facility] Comment on above: Performed By: #### L 500.4100, L501.4700, L500.4050 #### [facility] [address] [place], [address] AST [Catalytic activity/Vol] 22 U/L Normal <=31 [facility] Comment on above: Performed By: #### L 500.4100, L501.4700, L500.4050 #### [facility] [address] [place], [address] Bilirubin [Mass/Vol] 0.45 mg/dL Normal 0.00-1.30 [facility] Comment on above: Performed By: #### L 500.4100, L501.4700, L500.4050 #### [facility] [address] [place], [address] BUN/CRE 23.1 RATIO High 10-20 [facility] Comment on above: Performed By: #### L 500.4100, L501.4700, L500.4050 #### [facility] [address] [place], [address] Calcium [Mass/Vol] 9.6 mg/dL Normal 7.6-11.0 [facility] Comment on above: Performed By: #### L 500.4100, L501.4700, L500.4050 #### [facility] [address] [place], [address] Chloride [Moles/Vol] 103 mmol/L Normal 98-108 [facility] Comment on above: Performed By: #### L 500.4100, L501.4700, L500.4050 #### [facility] [address] [place], [address] CO2 [Moles/Vol] 22.9 mmol/L Normal 21.0-32.0 [facility] Comment on above: Performed By: #### L 500.4100, L501.4700, L500.4050 #### [facility] [address] [place], [address] Creatinine [Mass/Vol] 1.02 mg/dL Normal 0.70-1.20 [facility] Comment on above: Performed By: #### L 500.4100, L501.4700, L500.4050 #### [facility] [address] [place], [address] GAP 12 Normal 5-15 [facility] Comment on above: Performed By: #### L 500.4100, L501.4700, L500.4050 #### [facility] [address] [place], [address] GFR/1.73 sq M.predicted among non-blacks MDRD (S/P/Bld) [Vol rate/Area] 55 mL/min/{1.73_m2} Low >60 [facility] Comment on above: Result Comment: mL/m in/1.73m2 CKD-EPI Creatinine Equation (2020) Performed By: #### L 500.4100, L501.4700, L500.4050 #### [facility] [address] [place], [address] Globulin (S) [Mass/Vol] 3.0 g/dL Normal 2.2-4.2 [facility] Comment on above: Performed By: #### L 500.4100, L501.4700, L500.4050 #### [facility] [address] [place], [address] Glucose [Mass/Vol] 109 mg/dL High 70-99 [facility] Comment on above: Performed By: #### L 500.4100, L501.4700, L500.4050 #### [facility] [address] [place], [address] Potassium [Moles/Vol] 4.8 mmol/L Normal 3.3-5.1 [facility] Comment on above: Performed By: #### L 500.4100, L501.4700, L500.4050 #### [facility] [address] [place], [address] Sodium [Moles/Vol] 138 mmol/L Normal 133-145 [facility] Comment on above: Performed By: #### L 500.4100, L501.4700, L500.4050 #### [facility] [address] [place], [address] T PROT 7.2 g/dL Normal 5.9-8.4 [facility] Comment on above: Performed By: #### L 500.4100, L501.4700, L500.4050 #### [facility] [address] [place], [address] Urea nitrogen [Mass/Vol] 24 mg/dL High 4-19 [facility] Comment on above: Performed By: #### L 500.4100, L501.4700, L500.4050 #### [facility] [address] [place], [address] Duplex ultrasound of renal a rtery reportOrdered By: Aroldo Tirado on 08-13-2024 Study report [facility] [address] [place] [address] Renal Artery Duplex Ultrasound 08/13/24 0919 MR#: [id number] Acct: [id number] Name: PARVEEN CARUSO Rep #:[id number] : 1940 83 From: Aroldo Grubbs Attending Dr: Dr. Sriram Tomlin MD Status: REG CLI Ordering Dr: Sriram Tomlin MD Date: Location: [facility] Sex: F C Admitted: Reason For Study Reason For Study: Lt Renal Artery Stenosis Right Renal Artery Left Renal Artery Unable to visualize flow in RRA. Left renal artery ostium 352.2/55.2 Right Renal Parenchyma PSV/EDV. Upper Pole Medula 25.3/6.1 PSV/EDV. Left renal artery proximal PSV/EDV Right upper pole medulla EDR 0.20 . 310.7/55.3 . Right upper pole medulla R.I. 0.76 . Left renal artery mid 213.1/46.0 Upper [place]ison Cortx 13.9/4.3 PSV/EDV. PSV/EDV . Right upper pole cortex EDR 0.30 . Left renal artery distal 82.1/18.5 Right upper pole cortex R.I. 0.69 . PSV/EDV. Right lower Pole medulla 10.0/3.4 Left RAR 4.57. PSV/EDV . Left Renal Parenchyma Right lower pole medulla EDR 0.30 . Left upper pole medulla 53.8/14.5 Right lower pole medulla R.I. 0.66 . PSV/EDV . Lower Pole Cortex 10.6/3.1 PSV/EDV. Left upper pole medulla EDR 0.30 . Right lower pole cortex EDR 0.30 . Left upper pole medulla R.I. 0.73 . Right lower pole cortex R.I. 0.71 . UPCortex 25.5/7.2 PSV/EDV. Right Renal Hilar Left upper pole cortex EDR 0.30 . Right Hilar avg 74.8/10.9 PSV/EDV. Left upper pole cortex R.I. 0.72 . Right hilar acceleration time 30 m/sec. Left lower Pole medulla 67.5/18.2 Right Renal Dimensions PSV/EDV . Right kidney size 9.16 cm . Left lower pole medulla EDR 0.30 . Right cortical dimension 0.78 cm . Left lower pole medulla R.I. 0.73 . Lower Pole Cortx 20.9/6.3 PSV/EDV. Left lower pole cortex EDR 0.30 . Left lower pole cortex R.I. 0.70 . Left Renal Hilar LTHilar avg 76.8/21.6 PSV/EDV . Left hilar acceleration time 40 m/sec. Left Renal Dimensions Left kidney size 11.12 cm . Left cortical dimension 1.58 cm . Aorta Proximal abdominal aorta 2.60 x 2.44 cm . Proximal abdominal aorta peak systolicvelocity is 69.8 cm/sec . Distal abdominal aorta 1.67 x 1.71 cm . Distal abdominal aorta peak systolic velocity is 77.1 cm/sec . Procedures Renal Artery Duplex with B-Mode, Pulsed Wave and Color Doppler. VL/Renal Artery Duplex Ultrasound Interpretation Summary Right renal vein with no visualized flow. Left renal artery patent with > 60% stenosis. Right renal vein patent. Left renal vein patent. Right kidney normal in size. Left kidney normal in size. Ordering Physician: Sriram Tomlin Referring Physician: Beba Leyva Performed By: Domo Aj, RVT 08/13/24 1538 Date _ Aroldo Tirado MD CC: Dr. 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 Work Phone: GFR/1.73 sq M.predicted pérez g non-blacks MDRD (S/P/Bld) [Vol rate/Area]Ordered By: Sriram Tomlin on 08-13-2024 Estimated GFR (MDRD) Non-Af Amer 55 Low >60 [facility] Comment on above: mL/min/1.73m2 CKD-EP I Creatinine Equation (2020) Glomerular filtration rate ( GFR) estimation/1.73 sq m using serum, plasma, or whole bOrdered By: Sriram Tomlin on 08-13-2024 GFR/1.73 sq M.predicted among non-blacks MDRD (S/P/Bld) [Vol rate/Area] 55 mL/min/{1.73_m2} Low >60 [facility] Comment on above: mL/min/1.73m2 CKD-EP I Creatinine Equation (2020) LDL calc ser/plasOrdered By: Sriram Tomlin on 08-13-2024 Cholesterol in LDL [Mass/Vol] 88 mg/dL [facility] Comment on above: Fsninkxgwr=152-476 m g/dL & Higher Bfou=572 mg/dL or greater LDL Cholesterol, Calculated 88 mg/dL [facility] Comment on above: Cgypjarebe=672-903 m g/dL & Higher Mtlk=494 mg/dL or greater Laboratory - Chemistry and C hemistry - challengeOrdered By: Sriram Tomlin on 08-13-2024 AST [Catalytic activity/Vol] 22 U/L <32 [facility] Lipid Profileon 08-13-2024 CHOL:HDL 2.99 Normal [facility] Comment on above: Performed By: #### L 500.4100, L501.4700, L500.4050 #### [facility] [address] [place], [address] Cholesterol [Mass/Vol] 161 mg/dL Normal <=200 [facility] Comment on above: Result Comment: Chol esterol level, Desirable <200 mg/dL Borderline high cholesterol 200-239 mg/dL High cholesterol >=240 mg/dL Recommendations of the NCEP Adult Treatment Panel for the following risk-cutoff thresholds for the [place] population. Performed By: #### L 500.4100, L501.4700, L500.4050 #### [facility] [address] [place], [address] Cholesterol in HDL [Mass/Vol] 54 mg/dL Normal [facility] Comment on above: Result Comment: Sophia onal Cholesterol Education Program (NCEP) guidelines: <40 mg/dL: Low HDL-cholesterol (major risk factor for CHD) >= 60 mg/dL: High HDL-cholesterol (negative risk factor for CHD) HDL-cholesterol is affected by a number of factors, e.g. smoking, exercise, hormones, sex and age. Performed By: #### L 500.4100, L501.4700, L500.4050 #### [facility] [address] [place], [address] Cholesterol in LDL [Mass/Vol] 88 mg/dL Normal [facility] Comment on above: Result Comment: Bord mtwvpm=623-601 mg/dL Higher Icpn=520 mg/dL or greater Performed By: #### L 500.4100, L501.4700, L500.4050 #### [facility] [address] [place], [address] Cholesterol in VLDL [Mass/Vol] 19 mg/dL Normal 5-40 [facility] Comment on above: Performed By: #### L 500.4100, L501.4700, L500.4050 #### [facility] [address] [place], [address] Triglyceride [Mass/Vol] 93 mg/dL Normal [facility] Comment on above: Result Comment: The drugs N-Acetylcysteine and Metamizole may falsely depress this assay. Normal range: <150 mg/dL Borderline High: 150-199 mg/dL High: 200-499 mg/dL Very High: >500 mg/dL Performed By: #### L 500.4100, L501.4700, L500.4050 #### [facility] [address] [place], [address] Potassium (Unsp spec) [Mass/ Vol]Ordered By: Sriram Tomlin on 08-13-2024 Potassium [Moles/Vol] 4.8 mmol/L 3.3-5.1 [facility] Potassium measurement (mass/ volume)Ordered By: Sriram Tomlin on 08-13-2024 Potassium (Unsp spec) [Mass/Vol] 4.8 mmol/L 3.3-5.1 [facility] Renal Artery Duplex Ultrasou ndon 08-13-2024 Renal Artery Duplex Ultrasound [facility] [address] [place] [address] Renal Artery Duplex Ultrasound 08/13/24918 MR#: [id number] Acct: [id number] Name: PARVEEN CARUSO Rep #: [id number] : 1940 83 From: Aroldo Tirado MD Attending Dr: Dr. Sriram Tomlin MD Status: REG CLI Ordering Dr: Sriram Tomlin MD Date: 08/13/24 Location: [facility] Sex: F C Admitted: Reason For Study Reason For Study: Lt Renal Artery Stenosis Right Renal Artery Left Renal Artery Unable to visualize flow in RRA. Left renal artery ostium 352.2/55.2 Right Renal Parenchyma PSV/EDV. Upper Pole Medula 25.3/6.1 PSV/EDV. Left renal artery proximal PSV/EDV Right upper pole medulla EDR 0.20 . 310.7/55.3 . Right upper pole medulla R.I. 0.76 . Left renal artery mid 213.1/46.0 Upper [place] Cortx 13.9/4.3 PSV/EDV. PSV/EDV . Right upper pole cortex EDR 0.30 . Left renal artery distal 82.1/18.5 Right upper pole cortex R.I. 0.69 . PSV/EDV. Right lower Pole medulla 10.0/3.4 Left RAR 4.57. PSV/EDV . Left Renal Parenchyma Right lower pole medulla EDR 0.30 . Left upper pole medulla 53.8/14.5 Right lower pole medulla R.I. 0.66 . PSV/EDV . Lower Pole Cortex 10.6/3.1 PSV/EDV. Left upper pole medulla EDR 0.30 . Right lower pole cortex EDR 0.30 . Left upper pole medulla R.I. 0.73 . Right lower pole cortex R.I. 0.71 . UP Cortex 25.5/7.2 PSV/EDV. Right Renal Hilar Left upper pole cortex EDR 0.30 . Right Hilar avg 74.8/10.9 PSV/EDV. Left upper pole cortex R.I. 0.72 . Right hilar acceleration time 30 m/sec. Left lower Pole medulla 67.5/18.2 Right Renal Dimensions PSV/EDV . Right kidney size 9.16 cm . Left lower pole medulla EDR 0.30 . Right cortical dimension 0.78 cm . Left lower pole medulla R.I. 0.73 . Lower Pole Cortx 20.9/6.3 PSV/EDV. Left lower pole cortex EDR 0.30 . Left lower pole cortex R.I. 0.70 . Left Renal Hilar LT Hilar avg 76.8/21.6 PSV/EDV . Left hilar acceleration time 40 m/sec. Left Renal Dimensions Left kidney size 11.12 cm . Left cortical dimension 1.58 cm . Aorta Proximal abdominal aorta 2.60 x 2.44 cm . Proximal abdominal aorta peak systolic velocity is 69.8 cm/sec . Distal abdominal aorta 1.67 x 1.71 cm . Distal abdominal aorta peak systolic velocity is 77.1 cm/sec . Procedures Renal Artery Duplex with B-Mode, Pulsed Wave and Color Doppler. VL/Renal Artery Duplex Ultrasound Interpretation Summary Right renal vein with no visualized flow. Left renal artery patent with > 60% stenosis. Right renal vein patent. Left renal vein patent. Right kidney normal in size. Left kidney normal in size. Ordering Physician: Sriram Tomlin Referring Physician: Beba Leyva Performed By: Domo Aj, RUST 08/13/24 153 Date Aroldo Tirado MD CC: Dr. 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 Screening total cholesterol/ high density lipoprotein (HDL) cholesterol ratioOrdered By: Sriram Tomlin on 08-13-2024 Cholesterol.total/Miladys sterol in HDL [Mass ratio] 2.99 {ratio} [facility] Serum creatinine measurement (mass/volume)Ordered By: Sriram Tomlin on 08-13-2024 Creatinine [Mass/Vol] 1.02 mg/dL 0.70-1.20 [facility] Serum globulin measurementOr dered By: Sriram Tomlin on 08-13-2024 Globulin (S) [Mass/Vol] 3.0 g/dL 2.2-4.2 [facility] Serum glucose measurement (m ass/volume)Ordered By: Sriram Tomlin on 08-13-2024 Glucose [Mass/Vol] 109 mg/dL High 70-99 [facility] Serum or plasma alanine rocha otransferase (ALT) measurementOrdered By: Sriram Tomlin on 08-13-2024 ALT [Catalytic activity/Vol] 13 U/L <35 [facility] Serum or plasma albumin christianne urement (mass/volume)Ordered By: Sriram Tomlin on 08-13-2024 Albumin [Mass/Vol] 4.3 g/dL 3.4-4.8 [facility] Serum or plasma albumin/glob ulin mass ratioOrdered By: Sriram Tomlin on 08-13-2024 Albumin/Globulin [Mass ratio] 1.4 {ratio} 0.9-2.4 [facility] Serum or plasma alkaline cale sphatase measurementOrdered By: Sriram Tomlin on 08-13-2024 ALP [Catalytic activity/Vol] 71 U/L 35-104 [facility] Serum or plasma calcium christianne urement (mass/volume)Ordered By: Sriram Tomlin on 08-13-2024 Calcium [Mass/Vol] 9.6 mg/dL 7.6-11.0 [facility] Serum or plasma cholesterol in HDL measurement (mass/volume)Ordered By: Sriram Tomlin on 08-13-2024 Cholesterol in HDL [Mass/Vol] 54 mg/dL >40 [facility] Comment on above: National Cholesterol Education Program (NCEP) guidelines:<40 mg/dL: Low HDL-cholesterol (major risk factor for CHD)>= 60 mg/dL: High HDL-cholesterol (negative risk factor for CHD)HDL-cholesterol is affected by a number of factors, e.g. smoking, exercise, hormones, sex and age. Serum or plasma cholesterol measurement (mass/volume)Ordered By: Sriram Tomlin on 08-13-2024 Cholesterol [Mass/Vol] 161 mg/dL <201 [facility] Comment on above: Cholesterol level, D esirable <200 mg/dLBorderline high cholesterol 200-239 mg/dLHigh cholesterol >=240 mg/dLRecommendations of the NCEP Adult Treatment Panel for the following risk-cutoff thresholds for the [place] population. Serum or plasma urea nitroge n measurement (mass/volume)Ordered By: Sriram Tomlin on 08-13-2024 Urea nitrogen [Mass/Vol] 24 mg/dL High 4-19 [facility] Sodium levelOrdered By: Catrachito Tomlin on 08-13-2024 Sodium [Moles/Vol] 138 mmol/L 133-145 [facility] Total proteinOrdered By: Sylvia Tomlin on 08-13-2024 Protein [Mass/Vol] 7.2 g/dL 5.9-8.4 [facility] Triglycerides measurementOrd ered By: Srriam Tomlin on 08-13-2024 Triglyceride [Mass/Vol] 93 mg/dL <199 [facility] Comment on above: The drugs N-Acetylcy steine and Metamizole may falsely depress this assay. Normal range: <150 mg/dLBorderline High: 150-199 mg/dLHigh: 200-499 mg/dLVery High: >500 mg/dL Cardiology Visit Reporton Cardiology Visit Report [facility] [address] [place] [address] OFFICE VISIT Date of Service: 07/11/24 MR#: [id number] Acct: [id number] Name: ZULYPARVEEN E Rep #: [id number] : 1940 Provider: Dr. Sriram Tomlin MD Age/Sex: 83/F Location: [facility] Status: Signed HPI HPI History of Present Illness Details: This lady with history of coronary artery disease status post drug-eluting stents to the RCA and LAD, hypertension, renal artery stenosis status post left renal stent, sick sinus syndrome status post permanent pacemaker placement and dyslipidemia is here for a follow-up visit. Denies any chest pains or shortness of breath either at rest or with exertion. No orthopnea. No PND. No ankle edema. Denies any palpitations. 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 Accompanied by: Daughter Is patient in pain?: No Allergies Penicillins Allergy (Severe, Verified 07/11/24 09:52) Rash Antihistamines - Alkylamine Allergy (Intermediate, Verified 07/11/24 09:52) NEEDS FOLLOW-UP esomeprazole (From Nexium) Allergy (Verified 07/11/24 09:52) Hives atorvastatin Adverse Reaction (Intermediate, Verified 07/11/24 09:52) Severe leg myalgias Medications ???Medication ???Instructions ???Recorded ???Confirmed ???Type aspirin 81 mg chewable tablet 81 mg PO DAILY 12/01/19 07/11/24 H istory calcium carbonate (Calcium 600) 600 mg PO DAILY 09/16/21 07/11/24 History multivitamin 1 tab PO DAILY 08/10/22 07/11/24 H istory omega-3 fatty acids-fish oil 300 1 cap PO DAILY 11/10/22 03/22/24 H istory mg-500 mg capsule (Fish Oil) levothyroxine 112 mcg tablet 112 mcg PO DAILY #90 tabs 08/10/23 07/11/24 Rx pravastatin 40 mg tablet 40 mg PO QHS #90 tabs 09/04/23 Rx clopidogrel 75 mg tablet (Plavix) 75 mg PO DAILY #90 tabs 09/25/23 07/11/24 Rx pantoprazole 20 mg tablet,delayed 20 mg PO DAILY #90 TABLETS 07/11/24 Rx release isosorbide mononitrate 30 mg 30 mg PO DAILY #90 TABLETS 4 07/11/24 Rx tablet,extended release 24 hr valsartan 160 mg tablet 160 mg PO DAILY #90 tabs 07/08/24 07/11/24 Rx Zinc with Vitamin D PO DAILY 07/11/24 History ascorbic acid (vitamin C) 500 mg 1 g PO DAILY 07/11/24 07/11/24 His tory tablet furosemide 40 mg tablet 20 mg PO DAILY 07/11/24 07/11/24 H istory vitamin e PO DAILY 07/11/24 History Ejection fraction %: 65 Have you fallen in the past year?: No PFSH Medical History Abnormal ECG Bilateral renal artery stenosis CAD (coronary artery disease) Chest discomfort Cough COVID Dizzy LIRA (dyspnea on exertion) Dyslipidemia Edema Encounter for monitoring diuretic therapy Fatigue History of renal artery stenosis Hypertension Hypothyroidism Hypothyroidism (acquired) Left shoulder pain Malaise Obesity Pneumonia RCA occlusion Rib pain on right side Sick sinus syndrome Sinus pause Sinusitis, acute maxillary SOB (shortness of breath) Unilateral edema of lower extremity Weight loss observed on examination Wellness examination Surgical History History of heart artery stent History of stent insertion of renal artery History of thyroid irradiation Hx of breast augmentation Hx of cardiac catheterization ( 06/07/23) Hx of hernia repair Presence of cardiac pacemaker ( 07/2023) S/P appendectomy Stented coronary artery ( 07/21/23) Tubal ligation status Family History Mother Lung cancer Father Heart disease Pacemaker COPD (chronic obstructive pulmonary disease) Other Breast cancer Social History Smoking Status: Former smoker pack-years: 15 Tobacco: How many years used: 30 Electronic Cigarette Use: not used second hand exposure: No alcohol intake: current alcohol intake frequency: holidays/special occasions only substance use type: does not use caffeine: Yes Type: coffee Number of servings: 1 and tea Number of servings: 2 ROS Const Const: Positive for fatigue and daytime sleepiness; Negative for weakness, headache(s) or weight gain ENT ENT: Negative for headache(s), dizziness, Nosebleed/epistaxis or balance problems Cardio Chest Pain: No Palpitations: No Edema: None Muscle aches with walking: No (more content not included)... Normal [facility] 36on 06-19-[address] Corbett I have not seen her in over 3 years, I can not place orders for therapy or supply notes Normal [facility] 36 I have not seen her in over 3 years, I can not place orders for therapy or supply notes [facility] 36 Last time pt saw you 06/08/21 [facility] 36 Name of caller: lopez Contact phone number: [phone] Relationship to Patient: [facility] Provider: deisi Practice: [facility] Chief Complaint/Reason for Call: Lopez is requesting an order for occupational therapy for the pt for her right shoulder. Lopez also stated did physical therapy eval with pt today and will be seeing her once a week for 5 weeks for physical therapy. Please advise. Best time of day caller can be reached: AM Patient advised that office/PCP has 24-48 business hours to return their call: Yes [facility] 36on 06-13-2024 36 Name of caller: Doretha lombardi Contact phone number: [phone] Relationship to Patient: [facility] Provider: Dr Leyva Practice: [facility] Chief Complaint/Reason for Call: Martha states that the patient and facility is requesting physical therapy for the patient and would need a facesheet, visit notes, history and physical, order for Physical Therapy. Visit notes has to talk about the diagnosis and what was done to qualify her for therapy. Information can be faxed to fax# [phone]. Thank you Best time of day caller can be reached: any Patient advised that office/PCP has 24-48 business hours to return their call: Yes [facility] XR Shoulder - right 2 Viewso n 05-09-2024 1. Narrowing of acromial humeral space may suggest impingement of the rotator cuff tendon. 2. Mild right AC joint arthrosis. Osteopenia. Report Dictated on Electronically Signed By: Dex Camara DO Electronically Signed Date/Time: 05/09/2024 7:14 AM [facility] [employer] Patient Name: PARVEEN CARUSO : 1940 Exam Date/Time: 05/07/2024 09:26 Procedure: XR SHOULDER 2+ VIEWS RIGHT Ordering Provider: LEYVA HANNAH Reason For Exam: [id number] RIGHT SHOULDER: CLINICAL INDICATION: Right shoulder pain. TECHNIQUE: Three views of the right shoulder. COMPARISON: None. FINDINGS: There is no fracture or dislocation. The acromiohumeral space is narrowed. Mild right AC joint arthrosis. Glenohumeral joint is maintained. Mediastinal structures are demineralized. No bone lesion is identified. No soft tissue abnormality is identified. [facility] Dex Camara DO - 05/09/2024 Patient Name: [facility]VE[facility] : 1940 [id number] Exam Date/Time: 05/07/2024 09:26 Procedure: XR SHOULDER 2+ VIEWS RIGHT Ordering Provider: LEYVA HANNAH Reason For Exam: [id number] RIGHT SHOULDER: CLINICAL INDICATION: Right shoulder pain. TECHNIQUE: Three views of the right shoulder. COMPARISON: None. FINDINGS: There is no fracture or dislocation. The acromiohumeral space is narrowed. Mild right AC joint arthrosis. Glenohumeral joint is maintained. Mediastinal structures are demineralized. No bone lesion is identified. No soft tissue abnormality is identified. IMPRESSION: 1. Narrowing of acromial humeral space may suggest impingement of the rotator cuff tendon. 2. Mild right AC joint arthrosis. Osteopenia. Report Dictated on Electronically Signed By: Dex Camara DO Electronically Signed Date/Time: 05/09/2024 7:14 AM EST [employer] XR Shoulder - right 2 ViewsO rdered By: Dex Camara on 05-09-2024 [employer] Work Phone: XR Shoulder - right 2 Viewso n 05-07-2024 Radiology Study observation (narrative) [facility] 36on 05-03-2024 36 S: Patient spoke wit h CAC nurse regarding medication question B: Onset of symptoms/concern n/a A: Patient states that she was seen earlier today 05/03 and questioning where the Albuterol inhaler Rx was sent to, she was not given a Rx in hand. R: Advised the patient that the Rx was sent to [facility] as seen in [facility]. Patient voiced understanding. No further needs at this time. Reason for Disposition Caller with prescription and triager answers question Protocols used: Medication Refill and Renewal [id number] [facility] Absolute lymphocyte countOrd ered By: Riley Araiza on 09-22-2023 Lymphocytes Auto (Unsp spec) [#/Vol] 2.29 10*3/uL 0.83-4.51 [facility] Automated lymphocyte count a s percentage of total leukocytesOrdered By: Riley Araiza on 09-22-2023 Lymphocytes/100 WBC Auto (Unsp spec) 21.7 % 19-41 [facility] Basophil percentageOrdered B y: Riley Araiza on 09-22-2023 Basophils/100 WBC (Bld) 0.8 % 0-1 [facility] Chloride [Moles/Vol] 107 mmol/L 98-107 [facility] Eosinophils/100 WBC (Bld) 2.6 % 0-5 [facility] Glucose [Mass/Vol] 107 mg/dL 74-106 [facility] Comment on above: Fasting Glucose resu lt from 100 to 125 mg/dL suggests IMPAIRED HOMEOSTASIS per A.D.A. criteria. Hemoglobin (Bld) [Mass/Vol] 12.5 g/dL 12.0-15.0 [facility] Monocytes/100 WBC (Bld) 8.4 % 0-10 [facility] Neutrophils (Bld) [#/Vol] 6.9 10*3/uL 2.0-7.7 [facility] Neutrophils/100 WBC (Bld) 65.6 % 47-70 [facility] Potassium [Moles/Vol] 4.6 mmol/L 3.5-5.1 [facility] Sodium [Moles/Vol] 137 mmol/L 136-145 [facility] WBC (Bld) [#/Vol] 10.6 10*3/uL 4.4-11.0 [facility] Determination of erythrocyte mean corpuscular volume (MCV)Ordered By: Riley Araiza on 09-22-2023 MCV (RBC) [Entitic vol] 89.9 fL 81-99 [facility] Erythrocyte distribution wid th ratioOrdered By: Riley Araiza on 09-22-2023 Erythrocyte distribution width (RBC) [Ratio] 13.9 % 11.6-14.6 [facility] Erythrocyte distribution wid th standard deviationOrdered By: Riley Araiza on 09-22-2023 Erythrocyte distribution width (RBC) [Entitic vol] 45.2 fL 35.1-43.9 [facility] Hematocrit Auto (Bld) [Volum e fraction]Ordered By: Riley Araiza on 09-22-2023 Hematocrit (Bld) [Volume fraction] 39.1 % 37-47 [facility] Immature granulocytes/100 WB C Auto (Bld)Ordered By: Riley Araiza on 09-22-2023 Immature granulocytes/100 WBC (Bld) 0.900 % 0.0-0.9 [facility] Comment on above: IG% - Immature Granu locytes (promyelocytes, myelocytes and metamyelocytes) > 1% indicates that a LEFT SHIFT is Present. Laboratory - Chemistry and C hemistry - challengeOrdered By: Riley Araiza on 09-22-2023 CO2 [Moles/Vol] 25.0 mmol/L 21.0-32.0 [facility] Urea nitrogen/Creatinine [Mass ratio] 30.2 mg/mg 10-20 [facility] Laboratory - Hematology and Cell countsOrdered By: Riley Araiza on 09-22-2023 MCH (RBC) [Entitic mass] 28.7 pg 27.0-32.0 [facility] MCHC (RBC) [Mass/Vol] 32.0 g/dL 32-36 [facility] Nucleated RBC/100 WBC (Bld) [Ratio] 0 % 0-5 [facility] Platelet mean volume (Bld) [Entitic vol] 10.9 fL 6.2-12.0 [facility] Platelets (Bld) [#/Vol] 314 10*3/uL 150-450 [facility] No Panel InformationOrdered By: Riley Araiza on 09-22-2023 Estimated GFR (MDRD) Amer 51 mL/min >60 [facility] Comment on above: GFR Calc Estimated GFR (MDRD) Non-Af Amer 42 mL/min >60 [facility] Comment on above: Non- GFR Calc RBC Auto (Bld) [#/Vol]Ordere d By: Riley Araiza on 09-22-2023 RBC (Bld) [#/Vol] 4.35 10*6/uL 4.2-5.4 [facility] Serum or plasma calcium christianne urement (mass/volume)Ordered By: Riley Araiza on 09-22-2023 Calcium [Mass/Vol] 9.9 mg/dL 8.5-10.1 [facility] Serum or plasma creatinine m easurement (mass/volume)Ordered By: Riley Araiza on 09-22-2023 Creatinine [Mass/Vol] 1.29 mg/dL 0.55-1.02 [facility] Comment on above: The validity of the calculated GFR & GFRAA in patients over 70 years has not been determined. Clinical correlation is essential. Serum or plasma urea nitroge n measurement (mass/volume)Ordered By: Riley Araiza on 09-22-2023 Urea nitrogen [Mass/Vol] 39 mg/dL 7-18 [facility] Thin prep Papanicolaou smear with manual screeningOrdered By: Riley Araiza on 09-22-2023 Thin prep Papanicolaou smear with manual screening 5 5-15 [facility] Basophil percentageOrdered B y: Riley Araiza on 09-08-2023 Chloride [Moles/Vol] 109 mmol/L 98-107 [facility] Glucose [Mass/Vol] 126 mg/dL 74-106 [facility] Comment on above: Fasting Glucose resu lt greater than or equal to 126 mg/dL suggests DIABETES MELLITUS per A.D.A. criteria. Potassium [Moles/Vol] 4.5 mmol/L 3.5-5.1 [facility] Sodium [Moles/Vol] 141 mmol/L 136-145 [facility] Laboratory - Chemistry and C hemistry - challengeOrdered By: Riley Araiza on 09-08-2023 CO2 [Moles/Vol] 26.0 mmol/L 21.0-32.0 [facility] Urea nitrogen/Creatinine [Mass ratio] 25.2 mg/mg 10-20 [facility] No Panel InformationOrdered By: Riley Araiza on 09-08-2023 Estimated GFR (MDRD) Amer 48 mL/min >60 [facility] Comment on above: GFR Calc Estimated GFR (MDRD) Non-Af Amer 40 mL/min >60 [facility] Comment on above: Non- GFR Calc Serum or plasma calcium christianne urement (mass/volume)Ordered By: Riley Araiza on 09-08-2023 Calcium [Mass/Vol] 9.5 mg/dL 8.5-10.1 [facility] Serum or plasma creatinine m easurement (mass/volume)Ordered By: Riley Araiza on 09-08-2023 Creatinine [Mass/Vol] 1.35 mg/dL 0.55-1.02 [facility] Comment on above: The validity of the calculated GFR & GFRAA in patients over 70 years has not been determined. Clinical correlation is essential. Serum or plasma urea nitroge n measurement (mass/volume)Ordered By: Riley Araiza on 09-08-2023 Urea nitrogen [Mass/Vol] 34 mg/dL 7-18 [facility] Thin prep Papanicolaou smear with manual screeningOrdered By: Riley Araiza on 09-08-2023 Thin prep Papanicolaou smear with manual screening 6 5-15 [facility] CNPNon 09-01-2023 CNPN Telephone (ALLEN) PARVEEN CARUSO ([id number]) 1940 F Date Time Provider Department 09/01/23 LATISHA RUIZ During your visit today, we recorded the following information about you: Latisha Ruiz, Rehab Services Aide 09/01/2023 2:20 PM Signed Called patient regarding cardiac rehab program. Patient did not answer, so I left a message on [email or web address] with instructions on how to contact me. Allergies As of Date: 09/01/2023 Noted Allergy Reaction ESOMEPRAZOLE MAGNESIUM 01/08/2015 2 - Rash PENICILLINS 01/08/2015 2 - Rash Date Reviewed: 06/07/2023 Reviewed by: Gladis Zamorano, RN - Fully Assessed Reason for Visit: Appointment [[id number]] Cmt: Cardiac Rehab Eval Prescriptions as of 09/01/2023 - clopidogrel (PLAVIX) 75 mg tablet Take 1 tablet by mouth once daily. - pravastatin (PRAVACHOL) 40 mg tablet Take 1 tablet by mouth daily at bedtime. - valsartan (DIOVAN) 80 mg tablet Take 1 tablet by mouth once daily. - furosemide (LASIX) 20 mg tablet Take 1 tablet by mouth once daily. - levothyroxine 100 mcg cap Take 100 mcg by mouth daily before breakfast. - amLODIPine (NORVASC) 5 mg tablet Take 5 mg by mouth once daily. - Multivitamin capsule Take 1 capsule by mouth once daily. - Ascorbic Acid (VITAMIN C) 1,000 mg tablet Take 1,000 mg by mouth once daily. - acetaminophen (TYLENOL) 500 mg tablet Take 2 tablets by mouth every 6 hours as needed. - polyethylene glycol 3350 (MIRALAX, GLYCOLAX) 17 gram packet Take 1 Packet by mouth once daily. - aspirin, enteric coated (ASPIRIN, ENTERIC COATED) 81 mg EC tablet Take 81 mg by mouth once daily. - Cholecalciferol, Vitamin D3, 50 mcg (2,000 unit) cap Take 2,000 Units by mouth once daily. - nitroglycerin sublingual (NITROQUICK) 0.4 mg SL tablet Dissolve 0.4 mg under the tongue every 5 minutes as needed. - tiotropium (SPIRIVA WITH HANDIHALER) 18 mcg inhalation capsule Inhale 1 capsule as instructed once daily. 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 Automated lymphocyte count a s percentage of total leukocytesOrdered By: Sriram Tomlin on 08-24-2023 Lymphocytes/100 WBC Auto (Unsp spec) 23.8 % 19-41 [facility] Basophil percentageOrdered B y: Sriram Tomlin on 08-24-2023 Basophils/100 WBC (Bld) 0.9 % 0-1 [facility] Bilirubin [Mass/Vol] 0.60 mg/dL 0.20-1.00 [facility] Comment on above: For patients on eltr ombopag therapy, use of Dimension [place] TBIL is not recommended. Chloride [Moles/Vol] 106 mmol/L 98-107 [facility] Eosinophils/100 WBC (Bld) 7.8 % 0-5 [facility] Glucose [Mass/Vol] 131 mg/dL 74-106 [facility] Comment on above: Fasting Glucose resu lt greater than or equal to 126 mg/dL suggests DIABETES MELLITUS per A.D.A. criteria. Hemoglobin (Bld) [Mass/Vol] 12.7 g/dL 12.0-15.0 [facility] Monocytes/100 WBC (Bld) 9.0 % 0-10 [facility] Neutrophils (Bld) [#/Vol] 5.4 10*3/uL 2.0-7.7 [facility] Neutrophils/100 WBC (Bld) 58.1 % 47-70 [facility] Potassium [Moles/Vol] 4.9 mmol/L 3.5-5.1 [facility] Protein [Mass/Vol] 7.1 g/dL 6.4-8.2 [facility] Sodium [Moles/Vol] 140 mmol/L 136-145 [facility] WBC (Bld) [#/Vol] 9.3 10*3/uL 4.4-11.0 [facility] Determination of erythrocyte mean corpuscular volume (MCV)Ordered By: Sriram Tomlin on 08-24-2023 MCV (RBC) [Entitic vol] 91.4 fL 81-99 [facility] Erythrocyte distribution wid th ratioOrdered By: [facility] on 08-[facility]-2023 Erythrocyte distribution width (RBC) [Ratio] 13.4 % 11.6-14.6 [facility] Erythrocyte distribution wid th standard deviationOrdered By: [facility] on 08-24-2023 Erythrocyte distribution width (RBC) [Entitic vol] 45.3 fL 35.1-43.9 [facility] Hematocrit Auto (Bld) [Volum e fraction]Or[facility]: [facility] on 08-24-2023 Hematocrit (Bld) [Volume fraction] 39.4 % 37-47 [facility] Immature granulocytes/100 WB C Auto (Bld)Ordered By: [facility] on 08-24-2023 Immature granulocytes/100 WBC (Bld) 0.400 % 0.0-0.9 [facility] Comment on above: IG% - Immature Granu locytes (promyelocytes, myelocytes and metamyelocytes) > 1% indicates that a LEFT SHIFT is Present. Laboratory - Chemistry and C hemistry - challengeOrdered By: [facility] on 08-24-2023 Albumin/Globulin [Mass ratio] 1.0 {ratio} 0.9-2.4 [facility] ALP [Catalytic activity/Vol] 67 U/L 45-117 [facility] ALT [Catalytic activity/Vol] 17 U/L 13-56 [facility] CO2 [Moles/Vol] 27.0 mmol/L 21.0-32.0 [facility] Globulin (S) [Mass/Vol] 3.5 g/dL 2.2-4.2 [facility] Urea nitrogen/Creatinine [Mass ratio] 30.3 mg/mg 10-20 [facility] Laboratory - Hematology and Cell countsOrdered By: [facility] on 08-24-2023 MCH (RBC) [Entitic mass] 29.5 pg 27.0-32.0 [facility] MCHC (RBC) [Mass/Vol] 32.2 g/dL 32-36 [facility] Nucleated RBC/100 WBC (Bld) [Ratio] 0 % 0-5 [facility] Platelet mean volume (Bld) [Entitic vol] 10.8 fL 6.2-12.0 [facility] Platelets (Bld) [#/Vol] 280 10*3/uL 150-450 [facility] No Panel InformationOrdered By: Sriram Tomlin on 08-24-2023 Estimated GFR (MDRD) Amer 50 mL/min >60 [facility] Comment on above: GFR Calc Estimated GFR (MDRD) Non-Af Amer 41 mL/min >60 [facility] Comment on above: Non- GFR Calc RBC Auto (Bld) [#/Vol]Ordere d By: Sriram Tomlin on 08-24-2023 RBC (Bld) [#/Vol] 4.31 10*6/uL 4.2-5.4 [facility] Serum or plasma calcium christianne urement (mass/volume)Ordered By: Sriram Tomlin on 08-24-2023 Calcium [Mass/Vol] 9.5 mg/dL 8.5-10.1 [facility] Serum or plasma creatinine m easurement (mass/volume)Ordered By: Sriram Tomlin on 08-24-2023 Creatinine [Mass/Vol] 1.32 mg/dL 0.55-1.02 [facility] Comment on above: The validity of the calculated GFR & GFRAA in patients over 70 years has not been determined. Clinical correlation is essential. Serum or plasma urea nitroge n measurement (mass/volume)Ordered By: Sriram Tomlin on 08-24-2023 Urea nitrogen [Mass/Vol] 40 mg/dL 7-18 [facility] Thin prep Papanicolaou smear with manual screeningOrdered By: Sriram Tomlin on 08-24-2023 Thin prep Papanicolaou smear with manual screening 3.6 g/dL 3.2-5.0 [facility] Thin prep Papanicolaou smear with manual screening 16 U/L 15-37 [facility] Thin prep Papanicolaou smear with manual screening 7 5-15 [facility] Basophil percentageOrdered B y: Albina Aponte on 08-09-2023 Bilirubin [Mass/Vol] 0.60 mg/dL 0.20-1.00 [facility] Comment on above: For patients on eltr ombopag therapy, use of Dimension [place] TBIL is not recommended. Chloride [Moles/Vol] 103 mmol/L 98-107 [facility] Cholesterol [Mass/Vol] 134 mg/dL <200 [facility] Comment on above: <200 mg/dL Desirable 200-240 mg/dL Borderline >240 mg/dL High Risk Glucose [Mass/Vol] 122 mg/dL 74-106 [facility] Comment on above: Fasting Glucose resu lt from 100 to 125 mg/dL suggests IMPAIRED HOMEOSTASIS per A.D.A. criteria. Potassium [Moles/Vol] 6.0 mmol/L 3.5-5.1 [facility] Protein [Mass/Vol] 7.7 g/dL 6.4-8.2 [facility] Sodium [Moles/Vol] 135 mmol/L 136-145 [facility] Triglyceride [Mass/Vol] 100 mg/dL <199 [facility] Comment on above: The drugs N-Acetylcy steine and Metamizole may falsely depress this assay.Serum Triglycerides Reference Interval Normal <150 mg/dL Borderline high 150 - 199 mg/dL High 200 - 499 mg/dL Very High > or = 500 mg/dL Laboratory - Chemistry and C hemistry - challengeOrdered By: Albina Aponte on 08-09-2023 Albumin/Globulin [Mass ratio] 1.1 {ratio} 0.9-2.4 [facility] ALP [Catalytic activity/Vol] 80 U/L 45-117 [facility] ALT [Catalytic activity/Vol] 22 U/L 13-56 [facility] Cholesterol in HDL [Mass/Vol] 49 mg/dL >40 [facility] Comment on above: The drugs N-Acetylcy steine and Metamizole may falsely depress this assay. Reference Range HDL <40 mg/dL Low HDL Cholesterol HDL >or= 60 mg/dL High HDL Cholesterol Cholesterol in LDL [Mass/Vol] 65 mg/dL 0-130 [facility] CO2 [Moles/Vol] 26.0 mmol/L 21.0-32.0 [facility] Globulin (S) [Mass/Vol] 3.7 g/dL 2.2-4.2 [facility] Urea nitrogen/Creatinine [Mass ratio] 26.1 mg/mg 10-20 [facility] No Panel InformationOrdered By: Albina Aponte on 08-09-2023 Estimated GFR (MDRD) Amer 34 mL/min >60 [facility] Comment on above: GFR Calc Estimated GFR (MDRD) Non-Af Amer 28 mL/min >60 [facility] Comment on above: Non- GFR Calc VLDL Cholesterol 20 mg/dL 5-40 [facility] Serum or plasma calcium christianne urement (mass/volume)Ordered By: Albina Aponte on 08-09-2023 Calcium [Mass/Vol] 9.6 mg/dL 8.5-10.1 [facility] Serum or plasma creatinine m easurement (mass/volume)Ordered By: Albina Aponte on 08-09-2023 Creatinine [Mass/Vol] 1.84 mg/dL 0.55-1.02 [facility] Comment on above: The validity of the calculated GFR & GFRAA in patients over 70 years has not been determined. Clinical correlation is essential. Serum or plasma thyroid stim ulating hormone (TSH) measurement (units/volume)Ordered By: Albina Aponte on 08-09-2023 TSH Qn 0.43 uIU/mL 0.358-3.74 [facility] Serum or plasma urea nitroge n measurement (mass/volume)Ordered By: Albina Aponte on 08-09-2023 Urea nitrogen [Mass/Vol] 48 mg/dL 7-18 [facility] Thin prep Papanicolaou smear with manual screeningOrdered By: Albina Aponte on 08-09-2023 Thin prep Papanicolaou smear with manual screening 4.0 g/dL 3.2-5.0 [facility] Thin prep Papanicolaou smear with manual screening 15 U/L 15-37 [facility] Thin prep Papanicolaou smear with manual screening 6 5-15 [facility] Basophil percentageOrdered B y: Bee Park on 07-27-2023 Basophil percentage 0 SEEN /hpf 0-5 [facility] Bilirubin Test strip Ql (U)O rdered By: Bee Park on 07-27-2023 Bilirubin Ql (U) Negative Negative [facility] Ketones Test strip Ql (U)Ord ered By: Bee Park on 07-27-2023 Ketones Ql (U) Negative Negative [facility] Mucus LM Ql (Urine sed)Order ed By: Bee Park on 07-27-2023 Mucus Ql (Urine sed) 0 SEEN /hpf [facility] Nitrite Test strip Ql (U)Ord ered By: Bee Park on 07-27-2023 Nitrite Ql (U) Negative Negative [facility] No Panel InformationOrdered By: Bee Park on 07-27-2023 Urine RBC 0 SEEN /hpf 0-5 [facility] Protein Test strip Ql (U)Ord ered By: Bee Park on 07-27-2023 Protein Ql (U) Negative Negative [facility] Serum or plasma thyroid stim ulating hormone (TSH) measurement (units/volume)Ordered By: Sriram Tomlin on 07-27-2023 TSH Qn 0.32 uIU/mL 0.358-3.74 [facility] Squamous epithelial cells de tection in urine sediment by light microscopyOrdered By: Bee Park on 07-27-2023 Epithelial cells.squamous LM Ql (Urine sed) 5-10 SEEN /hpf 5-10 [facility] Urine blood detectionOrdered By: Bee Park on 07-27-2023 RBC Ql (U) Negative Negative [facility] Urine clarityOrdered By: Faraz Park on 07-27-2023 Clarity (U) Clear Clear [facility] Urine color determinationOrd ered By: Bee Park on 07-27-2023 Color (U) Yellow Yellow [facility] Urine glucose detectionOrder ed By: Bee Park on 07-27-2023 Glucose Ql (U) Normal mg/dl Normal [facility] Urine leukocyte esterase det ection by dipstickOrdered By: Bee Park on 07-27-2023 Leukocyte esterase Test strip Ql (U) 100 /ul Negative [facility] Urine pHOrdered By: Bee Park on 07-27-2023 pH (U) 6.0 [pH] 5.0 - 8.0 [facility] Urine sediment bacteria coun t by microscopy (number/high power field)Ordered By: Bee Park on 07-27-2023 Bacteria LM.HPF (Urine sed) [#/Area] 2 /[HPF] None Seen [facility] Urine specific gravity measu rementOrdered By: Bee Park on 07-27-2023 Specific gravity (U) [Rel density] 1.010 1.002-1.030 [facility] Urine urobilinogen measureme ntOrdered By: Bee Park on 07-27-2023 Urobilinogen Ql (U) Normal mg/dl Normal [facility] Basophil percentageOrdered B y: Sriram Tomlin on 07-22-2023 Bilirubin [Mass/Vol] 0.70 mg/dL 0.20-1.00 [facility] Comment on above: For patients on eltr ombopag therapy, use of Dimension [place] TBIL is not recommended. Chloride [Moles/Vol] 108 mmol/L 98-107 [facility] Glucose [Mass/Vol] 100 mg/dL 74-106 [facility] Comment on above: Fasting Glucose resu lt from 100 to 125 mg/dL suggests IMPAIRED HOMEOSTASIS per A.D.A. criteria. Hemoglobin (Bld) [Mass/Vol] 12.8 g/dL 12.0-15.0 [facility] Potassium [Moles/Vol] 4.5 mmol/L 3.5-5.1 [facility] Protein [Mass/Vol] 6.9 g/dL 6.4-8.2 [facility] Sodium [Moles/Vol] 141 mmol/L 136-145 [facility] WBC (Bld) [#/Vol] 8.4 10*3/uL 4.4-11.0 [facility] Determination of erythrocyte mean corpuscular volume (MCV)Ordered By: Sriram Tomlin on 07-22-2023 MCV (RBC) [Entitic vol] 90.6 fL 81-99 [facility] Erythrocyte distribution wid th ratioOrdered By: Sriram Tomlin on 07-22-2023 Erythrocyte distribution width (RBC) [Ratio] 13.6 % 11.6-14.6 [facility] Erythrocyte distribution wid th standard deviationOrdered By: Sriram Tomlin on 07-22-2023 Erythrocyte distribution width (RBC) [Entitic vol] 45.6 fL 35.1-43.9 [facility] Hematocrit Auto (Bld) [Volum e fraction]Ordered By: Sriram Tomlin on 07-22-2023 Hematocrit (Bld) [Volume fraction] 40.3 % 37-47 [facility] Laboratory - Chemistry and C hemistry - challengeOrdered By: Sriram Tomlin on 07-22-2023 Albumin/Globulin [Mass ratio] 1.0 {ratio} 0.9-2.4 [facility] ALP [Catalytic activity/Vol] 72 U/L 45-117 [facility] ALT [Catalytic activity/Vol] 20 U/L 13-56 [facility] CO2 [Moles/Vol] 28.0 mmol/L 21.0-32.0 [facility] Globulin (S) [Mass/Vol] 3.4 g/dL 2.2-4.2 [facility] Urea nitrogen/Creatinine [Mass ratio] 20.6 mg/mg 10-20 [facility] Laboratory - Hematology and Cell countsOrdered By: Sriram Tomlin on 07-22-2023 MCH (RBC) [Entitic mass] 28.8 pg 27.0-32.0 [facility] MCHC (RBC) [Mass/Vol] 31.8 g/dL 32-36 [facility] Platelet mean volume (Bld) [Entitic vol] 10.3 fL 6.2-12.0 [facility] Platelets (Bld) [#/Vol] 296 10*3/uL 150-450 [facility] No Panel InformationOrdered By: Sriram Tomlin on 07-22-2023 Estimated Creatinine Clearance Calc 58.96 ml/min [facility] Estimated GFR (MDRD) Amer 71 mL/min >60 [facility] Comment on above: GFR Calc Estimated GFR (MDRD) Non-Af Amer 58 mL/min >60 [facility] Comment on above: Non- GFR Calc RBC Auto (Bld) [#/Vol]Ordere d By: Sriram Tomlin on 07-22-2023 RBC (Bld) [#/Vol] 4.45 10*6/uL 4.2-5.4 [facility] Serum or plasma calcium christianne urement (mass/volume)Ordered By: Sriram Tomlin on 07-22-2023 Calcium [Mass/Vol] 9.3 mg/dL 8.5-10.1 [facility] Serum or plasma creatinine m easurement (mass/volume)Ordered By: Sriram Tomlin on 07-22-2023 Creatinine [Mass/Vol] 0.97 mg/dL 0.55-1.02 [facility] Comment on above: The validity of the calculated GFR & GFRAA in patients over 70 years has not been determined. Clinical correlation is essential. Serum or plasma urea nitroge n measurement (mass/volume)Ordered By: Sriram Tomlin on 07-22-2023 Urea nitrogen [Mass/Vol] 20 mg/dL 7-18 [facility] Thin prep Papanicolaou smear with manual screeningOrdered By: Sriram Tomlin on 07-22-2023 Thin prep Papanicolaou smear with manual screening 3.5 g/dL 3.2-5.0 [facility] Thin prep Papanicolaou smear with manual screening 14 U/L 15-37 [facility] Thin prep Papanicolaou smear with manual screening 5 5-15 [facility] No Panel InformationOrdered By: Sriram Tomlin on 07-21-2023 Activated Clotting Time 244 sec 74-137 [facility] Basophil percentageOrdered B y: Sriram Tomlin on 06-21-2023 Chloride [Moles/Vol] 109 mmol/L 98-107 [facility] Glucose [Mass/Vol] 103 mg/dL 74-106 [facility] Comment on above: Fasting Glucose resu lt from 100 to 125 mg/dL suggests IMPAIRED HOMEOSTASIS per A.D.A. criteria. Potassium [Moles/Vol] 4.3 mmol/L 3.5-5.1 [facility] Sodium [Moles/Vol] 141 mmol/L 136-145 [facility] WBC (Bld) [#/Vol] 10.2 10*3/uL 4.4-11.0 [facility] Blood erythrocytes count (nu mber/volume)Ordered By: Sriram Tomlin on 06-21-2023 RBC (Bld) [#/Vol] 4.30 10*6/uL 4.2-5.4 [facility] Blood hemoglobin measurement (mass/volume)Ordered By: Sriram Tomlin on 06-21-2023 Hemoglobin (Bld) [Mass/Vol] 12.2 g/dL 12.0-15.0 [facility] Blood platelet mean volumeOr dered By: Sriram Tomlin on 06-21-2023 Platelet mean volume (Bld) [Entitic vol] 10.2 fL 6.2-12.0 [facility] Determination of erythrocyte mean corpuscular volume (MCV)Ordered By: Sriram Tomlin on 06-21-2023 MCV (RBC) [Entitic vol] 90.7 fL 81-99 [facility] Hematocrit Auto (Bld) [Volum e fraction]Ordered By: Sriram Tomlin on 06-21-2023 Hematocrit (Bld) [Volume fraction] 39.0 % 37-47 [facility] INR in Blood by Coagulation assayOrdered By: Sriram Tomlin on 06-21-2023 INR Coag (Bld) [Relative time] 1.0 {INR} [facility] Laboratory - Chemistry and C hemistry - challengeOrdered By: Sriram Tomlin on 06-21-2023 CO2 [Moles/Vol] 28.0 mmol/L 21.0-32.0 [facility] Urea nitrogen/Creatinine [Mass ratio] 20.5 mg/mg 10-20 [facility] Laboratory - CoagulationOrde red By: Sriram Tomlin on 06-21-2023 aPTT Coag (Bld) [Time] 26.5 s 24.1-36.2 [facility] PT Coag (PPP) [Time] 12.7 s 11.7-14.9 [facility] Laboratory - Hematology and Cell countsOrdered By: Sriram Tomlin on 06-21-2023 Erythrocyte distribution width (RBC) [Entitic vol] 46.5 fL 35.1-43.9 [facility] Erythrocyte distribution width (RBC) [Ratio] 14.0 % 11.6-14.6 [facility] MCH (RBC) [Entitic mass] 28.4 pg 27.0-32.0 [facility] MCHC Auto (RBC) [Mass/Vol]Or dered By: Sriram Tomlin on 06-21-2023 MCHC (RBC) [Mass/Vol] 31.3 g/dL 32-36 [facility] No Panel InformationOrdered By: Sriram Tomlin on 06-21-2023 Estimated GFR (MDRD) Amer 60 mL/min >60 [facility] Comment on above: GFR Calc Estimated GFR (MDRD) Non-Af Amer 50 mL/min >60 [facility] Comment on above: Non- GFR Calc Platelets bldOrdered By: Sylvia Tomlin on 06-21-2023 Platelets (Bld) [#/Vol] 378 10*3/uL 150-450 [facility] Serum or plasma calcium christianne urement (mass/volume)Ordered By: Sriram Tomlin on 06-21-2023 Calcium [Mass/Vol] 9.5 mg/dL 8.5-10.1 [facility] Serum or plasma creatinine m easurement (mass/volume)Ordered By: Sriram Tomlin on 06-21-2023 Creatinine [Mass/Vol] 1.12 mg/dL 0.55-1.02 [facility] Comment on above: The validity of the calculated GFR & GFRAA in patients over 70 years has not been determined. Clinical correlation is essential. Serum or plasma urea nitroge n measurement (mass/volume)Ordered By: Sriram Tomlin on 06-21-2023 Urea nitrogen [Mass/Vol] 23 mg/dL 7-18 [facility] Thin prep Papanicolaou smear with manual screeningOrdered By: Sriram Tomlin on 06-21-2023 Thin prep Papanicolaou smear with manual screening 4 5-15 [facility] Basic metabolic 2000 panelon 06-08-2023 Anion gap [Moles/Vol] 8 mmol/L Low 9-18 [facility] Comment on above: Order Comment: Speci men Type: BLOOD SPECIMEN Ordering Facility: [facility] Address: [address] [place] [address] Performed By: #### 2 4321-2 #### [facility] CLIA [id number] [address] [place] [address] [place] Calcium [Mass/Vol] 9.0 mg/dL Normal 8.5-10.2 [facility] Comment on above: Order Comment: Speci men Type: BLOOD SPECIMEN Ordering Facility: [facility] Address: [address] [place] [address] Performed By: #### 2 4321-2 #### [facility] CLIA [id number] [address] Chloride [Moles/Vol] 104 mmol/L Normal 97-105 [facility] Comment on above: Order Comment: Speci men Type: BLOOD SPECIMEN Ordering Facility: [facility] Address: [address] [place] [address] Performed By: #### 2 4321-2 #### [facility] CLIA [id number] [address] [facility] CO2 [Moles/Vol] 24 mmol/L Normal 22-30 [facility] Comment on above: Order Comment: Speci men Type: BLOOD SPECIMEN Ordering Facility: [facility] Address: [address] [place] [address] Performed By: #### 2 4321-2 #### [facility] CLIA [id number] [address] Creatinine [Mass/Vol] 0.83 mg/dL Normal 0.58-0.96 [facility] Comment on above: Order Comment: Speci men Type: BLOOD SPECIMEN Ordering Facility: [facility] Address: [address] [place] [address] Performed By: #### 2 4321-2 #### [facility] CLIA [id number] [address] Creatinine and Glomerular filtration rate.predicted panel (S/P/Bld) 71 mL/min/1.73m??? Normal >=60 [facility] Comment on above: Order Comment: Speci men Type: BLOOD SPECIMEN Ordering Facility: [facility] Address: [address] [place] [address] Result Comment: Loreta mated Glomerular Filtration Rate (eGFR) is calculated using the 2020 CKD-EPI creatinine equation. This equation utilizes serum creatinine, sex, and age as parameters. The creatinine assay has traceable calibration to isotope dilution-mass spectrometry. Refer to KDIGO guidelines for clinical interpretation. In patients with unstable renal function, e.g. those with acute kidney injury, the eGFR may not accurately reflect actual GFR. Performed By: #### 2 4321-2 #### [facility] CLIA [id number] [address] [place] [address] [place] Glucose [Mass/Vol] 114 mg/dL High 74-99 [facility] Comment on above: Order Comment: Val estrada Type: BLOOD SPECIMEN Ordering Facility: [facility] Address: [address] [place] [address] Result Comment: The [place] Diabetes Association (ADA) provides guidance for cutoff values for fasting glucose and random glucose. The ADA defines fasting as no caloric intake for at least 8 hours. Fasting plasma glucose results between 100 to 125 mg/dL indicate increased risk for diabetes (prediabetes). Fasting plasma glucose results greater than or equal to 126 mg/dL meet the criteria for diagnosis of diabetes. In the absence of unequivocal hyperglycemia, results should be confirmed by repeat testing. In a patient with classic symptoms of hyperglycemia or hyperglycemic crisis, random plasma glucose results greater than or equal to 200 mg/dL meet the criteria for diagnosis of diabetes. Reference: Standards of Medical Care in Diabetes 2016, [place] Diabetes Association. Diabetes Care. 2016.39(Suppl 1). Performed By: #### 2 4321-2 #### [facility] CLIA [id number] [address] [place] [address] [place] Potassium [Moles/Vol] 4.1 mmol/L Normal 3.7-5.1 [facility] Comment on above: Order Comment: Val estrada Type: BLOOD SPECIMEN Ordering Facility: [facility] Address: [address] [place] [address] Performed By: #### 2 4321-2 #### [facility] CLIA [id number] [address] [place] [address] [place] Sodium [Moles/Vol] 136 mmol/L Normal 136-144 [facility] Comment on above: Order Comment: Val estrada Type: BLOOD SPECIMEN Ordering Facility: [facility] Address: [address] [place] [address] Performed By: #### 2 4321-2 #### [facility] CLIA [id number] [address] Urea nitrogen [Mass/Vol] 21 mg/dL Normal 7-21 [facility] Comment on above: Order Comment: Speci men Type: BLOOD SPECIMEN Ordering Facility: [facility] Address: [address] [place] [address] Performed By: #### 2 4321-2 #### [facility] CLIA [id number] [address] [facility] CBC panel Auto (Bld)on 06-08 Erythrocyte distribution width (RBC) [Ratio] 13.2 % Normal 11.5-15.0 [facility] Comment on above: Order Comment: Speci men Type: BLOOD SPECIMENOrdering Facility: [facility] Address: [address] [place] [address] Performed By: #### 5 8410-2 ####[facility] [id number] [address] STATES [facility] Hematocrit (Bld) [Volume fraction] 37.1 % Normal 36.0-46.0 [facility] Comment on above: Order Comment: Speci men Type: BLOOD SPECIMENOrdering Facility: [facility] Address: [address] [place] [address] Performed By: #### 5 8410-2 ####[facility] [id number] [address] STATES [facility] Hemoglobin (Bld) [Mass/Vol] 12.2 g/dL Normal 11.5-15.5 [facility] Comment on above: Order Comment: Speci men Type: BLOOD SPECIMENOrdering Facility: [facility] Address: [address] [place] [address] Performed By: #### 5 8410-2 ####[facility]IA [id number] [address] STATES [facility] MCH (RBC) [Entitic mass] 29.3 pg Normal 26.0-34.0 [facility] Comment on above: Order Comment: Speci men Type: BLOOD SPECIMENOrdering Facility: [facility] Address: [address] [place] [address] Performed By: #### 5 8410-2 ####[facility]IA [id number] [address] OF [facility] MCHC (RBC) [Mass/Vol] 32.9 g/dL Normal 30.5-36.0 [facility] Comment on above: Order Comment: Speci men Type: BLOOD SPECIMENOrdering Facility: [facility] Address: [address] [place] [address] Performed By: #### 5 8410-2 ####[facility]IA [id number] [address] [place] MCV (RBC) [Entitic vol] 89.2 fL Normal 80.0-100.0 [facility] Comment on above: Order Comment: Speci men Type: BLOOD SPECIMENOrdering Facility: [facility] Address: [address] [place] [address] Performed By: #### 5 8410-2 ####[facility]ORYCLIA [id number] [address] OF [facility] Nucleated RBC (Bld) [#/Vol] 10*3/uL Normal <0.01 [facility] Comment on above: Order Comment: Speci men Type: BLOOD SPECIMENOrdering Facility: [facility] Address: [address] [place] [address] Performed By: #### 5 8410-2 ####[facility]ORYCLIA [id number] [address] [place] Platelet mean volume (Bld) [Entitic vol] 10.6 fL Normal 9.0-12.7 [facility] Comment on above: Order Comment: Speci men Type: BLOOD SPECIMENOrdering Facility: [facility] Address: [address] [place] [address] Performed By: #### 5 8410-2 ####[facility]ORYCLIA [id number] [address] [place] Platelets (Bld) [#/Vol] 235 10*3/uL Normal 150-400 [facility] Comment on above: Order Comment: Speci men Type: BLOOD SPECIMENOrdering Facility: [facility] Address: [address] [place] [address] Performed By: #### 5 8410-2 ####[facility]ORYCLIA [id number] [place] [id number] [facility] RBC (Bld) [#/Vol] 4.16 10*6/uL Normal 3.90-5.20 [facility] Comment on above: Order Comment: Val estrada Type: BLOOD SPECIMENOrdering Facility: [facility] Address: [address] [place] [address] Performed By: #### 5 8410-2 ####[facility]ORYCLIA [id number] [place] [id number] [facility] WBC (Bld) [#/Vol] 12.42 10*3/uL High 3.70-11.00 [facility] Comment on above: Order Comment: Val sean Type: BLOOD SPECIMENOrdering Facility: [facility] Address: [address] [place] [address] Performed By: #### 5 8410-2 ####[facility]ORYCLIA [id number] [place] [id number] [facility] CNDSon 06-08-2023 CNDS HNO ID: [id number] Author: Dex Gomez MD Service: Cardiovascular Disease Author Type: Physician Type: Discharge Summary Filed: 06/08/2023 12:00 PM Note Text: DISCHARGE SUMMARY PATIENT NAME: Parveen Caruso Code Status: Prior Highest Readmission Risk Score: 10 The 30 day readmissions risk score is derived from an internally validated risk model which evaluates patient level characteristics, utilization history, medication orders and lab results up until the day of discharge. Patients with a score of 40 or above are considered highest risk for readmission. Specific patient level drivers will be listed at the bottom of the summary. Admission Information Admission Information ADMIT DATE: 06/07/2023 DISCHARGE DATE: 06/08/2023 MY DOCTORS AND MEDICAL TEAM: My Main Hospital Doctor: Dex Gomez MD Primary Care Provider: Albina Aponte APRN.MUSIC ORCHESTRATOR My Medical Team Members: Treatment Team: Attending Provider: Dex Gomez MD MY CONDITION AT DISCHARGE: Stable REASON I WAS IN THE HOSPITAL: You came in for an elective heart cath. SUMMARY OF WHAT HAPPENED WHILE I WAS IN THE HOSPITAL: You had a drug-eluting stent placed to your right coronary artery. You should continue Plavix to prevent a blood clot from forming on your new stent. This medication should not be stopped unless directed by your cardiology office. Continue pravastatin due to statin intolerance. No beta-yandy secondary to bradycardia. You should be planned for a staged stent of your LAD in about 4 weeks. You wish to have follow-up care in [place]. You are recommended to attend cardiac rehab after stenting is complete. OTHER PROBLEMS/DIAGNOSIS: Principal Problem: Coronary artery disease of [place] artery of [place] heart with stable angina pectoris ([facility]) Active Problems: NSTEMI (non-ST elevated myocardial infarction) ([facility]) Resolved Problems: * No resolved hospital problems. * OPERATIONS PERFORMED WHILE IN THE HOSPITAL: None IMPORTANT TEST/PROCEDURES: Heart Catheterization: Intervention: CASANDRA to RCA TEST RESULTS NOT AVAILABLE AT THIS TIME: No pending results Discharge Disposition Discharge Disposition: Home With Self Care Activity When You Leave the Hospital No driving for 1 week No lifting greater than 10 pounds for 1 week or greater than 30 pounds for 2 weeks. No sexual activity for 1 week Take showers, not baths, for 1 week. Walk 10 minutes three times per day. Advance as tolerated per cardiac rehab program. Diet Instructions Heart Healthy Wound/Surgical Site Care Any bruising and bumps should disappear within 3-4 days Avoid lotions or powders Check your wound every day If the bruising expands or the bump enlarges please call your doctor Some bruising, soreness or a small bump under the skin at the inserion site is normal Wash your wound area with mild soap and water daily and gently pat dry with a towel Call Your Doctor If You have lightheadedness, fainting, or confusion You have redness, swelling, pus or drainage from the wound Your temperature is greater than 101F Additional Provider to Provider Information: No notes on file Treatment Team: Attending Provider: Dex Gomez MD Transitions of Care Critical Issues: LABS AND PROCEDURES PENDING AT DISCHARGE: No pending results. FOLLOW-UP APPOINTMENTS ALREADY SCHEDULED WITH A [facility] PROVIDER: No future appointments. ALLERGIES Allergen Reactions Esomeprazole Magnes* Rash Penicillins Rash DISCHARGE MEDICATION: Medication List START taking these medications clopidogrel 75 mg tablet Commonly known as: PLAVIX Take 1 tablet by mouth once daily. furosemide 20 mg tablet Commonly known as: LASIX Take 1 tablet by mouth once daily. pravastatin 40 mg tablet Commonly known as: PRAVACHOL Take 1 tablet by mouth daily at bedtime. valsartan 80 mg tablet Commonly known as: DIOVAN Take 1 tablet by mouth once daily. CONTINUE taking these medications acetaminophen 500 mg tablet Commonly known as: TYLENOL Take 2 tablets by mouth every 6 hours as needed. aspirin, enteric coated 81 mg EC tablet Commonly known as: ASPIRIN, ENTERIC COATED Cholecalciferol (Vitamin D3) 50 mcg (2,000 unit) Cap levothyroxine 100 mcg Cap Multivitamin capsule nitroglycerin sublingual 0.4 mg SL tablet Commonly known as: NITROQUICK NORVASC 5 mg tablet Generic drug: amLODIPine polyethylene glycol 3350 17 gram packet Take 1 Packet by mouth once daily. SPIRIVA WITH HANDIHALER 18 mcg inhalation capsule Generic drug: tiotropium VITAMIN C 1,000 mg tablet Generic drug: Ascorbic Acid STOP taking these medications atorvastatin 20 mg tablet Commonly known as: LIPITOR metoprolol succinate ER 25 mg 24 hr tablet Commonly known as: TOPROL XL Where to Get Your Medications These medications were sent to [facility] [id number] [place] [address] - [address] [place] [address] (more content not included)... [facility] PT EDon 06-08-2023 PT ED HNO ID: [id number] Author: Gloria Yu DTR Service: Nutrition Therapy Author Type: Supervisor Coffee Type: Patient Education Filed: 06/08/2023 2:00 PM Note Text: NUTRITION THERAPY PATIENT EDUCATION SERVICE DATE: 06/08/2023 SERVICE TIME: 1025 TOPIC: Diet: heart healthy Exemption from nutrition education: Patient not ready to learn at this time due to patient was discharged prior to education Material(s) Provided to Patient: Mediterranean Diet Guidelines was sent via mail MNT Billing: $ Routine Care : 1-15 minutes SIGNATURE: Gloria Yu DTR PATIENT NAME: Parveen Caruso DATE: June 08, 2023 TIME: 1:59 PM PAGER: [facility] ALLIED HEALTHon 06-07-2023 ALLIED HEALTH HNO ID: [id number] Author: Skip Alexander Rehab Services Aide Service: Cardiac Rehab Author Type: Rehab Services Aide Type: Allied Health Filed: 06/07/2023 4:12 PM Note Text: CARDIAC REHABILITATION PATIENT EDUCATION PROGRESS NOTE Name: Parveen Caruso Date of Service: 06/07/23 Time of Service: 1600 ASSESSMENT: Risk Factors Identified: Age Gender Hyperlipidemia Hypertension Obesity Sedentary Lifestyle RECOMMENDATIONS: Patient interested in Phase II Outpatient Cardiac Rehab: Patient was interested but does not have transportation that will take her outside of the [facility]. DIAGNOSIS: Percutaneous Cardiac Intervention: CASANDRA PCI Teaching Points: -Personal Modifiable Risk Factor Identification -Activity/Physical Exercise Recommendations -Outpatient Cardiac Rehabilitation READINESS TO LEARN: Cognitive Ability: Alert and Oriented Motivation to Learn: Interested Reluctant Family Support: Unable to assess - Family not present Instruction Provided To: Patient Patient Learns Best By: Written Instruction - Hand-outs and Verbal Instruction Factors Affecting Learning: None Physical Limitations Affecting Learning: None LEARNING RESPONSE: Method Of Instruction: Written instruction - handouts Verbal instruction Patient/Family Response: Verbalizes understanding of: Cardiac Rehab Follow-up Plan: No further educational needs identified at this time. Instructional Aids Used: Cardiac Rehabilitation Brochure Discussed, encouraged, and provided handout on Cardiopulmonary rehab program. Discussed and gave handout on locations/phone numbers closest to patient home for enrollment of the program. Patient and/or family verbalizes understanding. Signature: [facility] Aide Pager: [phone] Date: June 07, 2023 Time: 4:10 PM Normal [facility] BRIEF OP NOTon 06-07-2023 BRIEF OP NOT HNO ID: [id number] Author: Dex Gomez MD Service: Interventional Cardiology Author Type: Physician Type: Brief Op Note Filed: 06/07/2023 10:49 AM Note Text: CARDIAC CATHETERIZATION REPORT PATIENT NAME: Parveen Caruso SERVICE DATE: 06/07/2023 SERVICE TIME: 10:37 AM Pot Operator: Nabor Bhatia MD Attending: Dex Gomez MD RECOMMENDATIONS: Continue Plavix and aspirin for the course of 1 year Continue risk factor modification Consider increasing pravastatin to 40 mg daily due to history of intolerance to Lipitor and Crestor Referral to cardiac rehab. The latter can be arranged by the [facility] Pre-Procedure Diagnosis: 82-year-old woman with a history of worsening shortness of breath on exertion and subsequent hospital admission in early May with NSTEMI. She underwent cardiac catheterization demonstrating severe calcified disease of the right coronary artery and a focal disease in the mid LAD. She is referred for high risk PCI of the RCA Post- Procedure Diagnosis: Percutaneous coronary intervention of the proximal to mid distal RCA with placement of a 4.0 x 48 mm Synergy stent postdilated to 4.6 mm with a good angiographic result. Intravascular ultrasound was employed pre and post procedurally. Procedure: Percutaneous coronary invention Access: Right Femoral Artery Under Local anesthesia the Right Femoral Artery was entered by Modified Seldinger's technique using a micro puncture needle. A 7F sheath was introduced into the Right Femoral Artery . Due to severe tortuosity and calcification of the distal aorta in the 48 cm 7 Prydeinig sheath was placed. Using ultrasound imaging, access is obtained in the left femoral vein. A 4 Prydeinig sheath was placed. An AR-2 guiding catheter was seated into the right coronary artery. A run-through wire was passed in the distal vessel. Intravascular ultrasound images were obtained. Predilation of the lesion was completed with a 3.0 x 15 mm Emerge balloon. Further predilatation was performed using a 4.0 x 15 mm NC Emerge balloon followed by a 4.5 x 15 mm NC Emerge balloon. Repeat intravascular ultrasound images were obtained. Decision was made to stent with a 4.0 x 48 mm Synergy stent. Stent was postdilated using a 4.5 x 20 mm NC Emerge balloon followed by a 4.5 x 12 mm NC Emerge balloon followed by 4.5 x 12 mm Euphora balloon. Final inflations were completed to 22 anthony. Repeat intravascular ultrasound images were obtained. All catheters and wires were removed from the patient intact. Hemostasis obtained using a 8 Prydeinig Angio-Seal device. The pt was returned to the recovery room in a stable condition. Medications Plavix 300 mg p.o. Heparin 17,000 units IV Versed: 4 mg IV 1 Fentanyl: 125 mcg IV FINDINGS: Right Coronary Artery: Large dominant vessel with moderate to severe calcification from the proximal to distal vessel. There is a large PDA and posterior ventricular branch. There is an eccentric 70 to 80% stenosis that starts from the proximal to the mid distal vessel with an area in the mid to distal vessel with eccentric calcification and a severe 80% stenosis on IVUS evaluation. Initial intravascular ultrasound images were obtained. The lesions were able to be predilated with placement of a 4.0 x 48 mm Synergy stent. The stent was able to be successfully postdilated to 4.6 mm with a good angiographic and intravascular ultrasound result. Complications: None SIGNATURE: Dex Gomez MD DATE: June 07, 2023 TIME: 10:36 AM Normal [facility] Basic metabolic 2000 panelon 06-07-2023 Anion gap [Moles/Vol] 9 mmol/L Normal 9-18 [facility] Comment on above: Order Comment: Val estrada Type: BLOOD SPECIMENOrdering Facility: [facility] Address: [address] [place] [address] Performed By: #### 2 4321-2 ####[facility] [id number] [place] [address] [place] Calcium [Mass/Vol] 9.1 mg/dL Normal 8.5-10.2 [facility] Comment on above: Order Comment: Val etsrada Type: BLOOD SPECIMENOrdering Facility: [facility] Address: [address] [place] [address] Performed By: #### 2 4321-2 ####[facility] [id number] [place] [address] [place] Chloride [Moles/Vol] 105 mmol/L Normal 97-105 [facility] Comment on above: Order Comment: Val estrada Type: BLOOD SPECIMENOrdering Facility: [facility] Address: [address] [place] [address] Performed By: #### 2 4321-2 ####[facility]ORY[facility] [id number] [place] [address] [place] CO2 [Moles/Vol] 24 mmol/L Normal 22-30 [facility] Comment on above: Order Comment: Val estrada Type: BLOOD SPECIMENOrdering Facility: [facility] Address: [address] [place] [address] Performed By: #### 2 4321-2 ####[facility] [id number] [address] [place] [facility] Creatinine [Mass/Vol] 0.88 mg/dL Normal 0.58-0.96 [facility] Comment on above: Order Comment: Val estrada Type: BLOOD SPECIMENOrdering Facility: [facility] Address: [address] [place] [address] Performed By: #### 2 4321-2 ####[facility] [id number] [address] Creatinine and Glomerular filtration rate.predicted panel (S/P/Bld) 66 mL/min/1.73m??? Normal >=60 [facility] Comment on above: Order Comment: Val estrada Type: BLOOD SPECIMENOrdering Facility: [facility] Address: [address] [place] [address] Result Comment: Loreta mated Glomerular Filtration Rate (eGFR) is calculated using the 2020 CKD-EPI creatinine equation. This equation utilizes serum creatinine, sex, and age as parameters. The creatinine assay has traceable calibration to isotope dilution-mass spectrometry. Refer to KDIGO guidelines for clinical interpretation. In patients with unstable renal function, e.g. those with acute kidney injury, the eGFR may not accurately reflect actual GFR. Performed By: #### 2 4321-2 ####[facility] [id number] [address] [place] [facility] Glucose [Mass/Vol] 114 mg/dL High 74-99 [facility] Comment on above: Order Comment: Val estrada Type: BLOOD SPECIMENOrdering Facility: [facility] Address: [address] [place] [address] Result Comment: The [place] Diabetes Association (ADA) provides guidance for cutoff values for fasting glucose and random glucose. The ADA defines fasting as no caloric intake for at least 8 hours. Fasting plasma glucose results between 100 to 125 mg/dL indicate increased risk for diabetes (prediabetes). Fasting plasma glucose results greater than or equal to 126 mg/dL meet the criteria for diagnosis of diabetes. In the absence of unequivocal hyperglycemia, results should be confirmed by repeat testing. In a patient with classic symptoms of hyperglycemia or hyperglycemic crisis, random plasma glucose results greater than or equal to 200 mg/dL meet the criteria for diagnosis of diabetes. Reference: Standards of Medical Care in Diabetes 2016, [place] Diabetes Association. Diabetes Care. 2016.39(Suppl 1). Performed By: #### 2 4321-2 ####[facility]ORYCLIA [id number] [address] OF [facility] Potassium [Moles/Vol] 5.0 mmol/L Normal 3.7-5.1 [facility] Comment on above: Order Comment: Speci sean Type: BLOOD SPECIMENOrdering Facility: [facility] Address: [address] [place] [address] Performed By: #### 2 4321-2 ####[facility]ORYCLIA [id number] [address] Sodium [Moles/Vol] 138 mmol/L Normal 136-144 [facility] Comment on above: Order Comment: Dreadi sean Type: BLOOD SPECIMENOrdering Facility: [facility] Address: [address] [place] [address] Performed By: #### 2 4321-2 ####[facility]ATORYCLIA [id number] [address] [place] [facility] Urea nitrogen [Mass/Vol] 20 mg/dL Normal 7-21 [facility] Comment on above: Order Comment: Dreadi sean Type: BLOOD SPECIMENOrdering Facility: [facility] Address: [address] [place] [address] Performed By: #### 2 4321-2 ####[facility] LABORATORYCLIA [id number] [place] [id number] CARD CATH INTERVENTon 2022 CARD CATH INTERVENT Site Id: [facility] Lab #: Study Date: 06/07/2023 Start Time: End Time: Name Duty Dex Gomez MD, MD 1 Joni Alatorre RN PROC SCRUB 1 Theresa Mensah RN PROC CIRC 1 Shawna Cruz RN PROC RECORD 1 + + PATIENT INFORMATION + + Name: [facility]. [facility] : 1940 Age: 82 years Gender: F Height: 70 in / 178 cm Weight: 224.87 lb / 102.00 kg BMI: 32.19 kg/m BSA: 2.20 m + -------+ CLINICAL HISTORY/INDICATIONS + -------+ Dyspnea. Appropriate Use Criteria (Diag): Non-STEMI elevation myocardial infarction with high risk score; AUC score = 9. Procedural Status: Elective CAD Presentation: Non-STEMI Angina Classification (within 2 weeks): CCS IV No Heart Failure Clinical History: 82-year-old woman with a history of worsening shortness of breath on exertion and subsequent hospital admission in early May with NSTEMI. She underwent cardiac catheterization demonstrating severe calcified disease of the right coronary artery and a focal disease in the mid LAD. She is referred for high risk PCI of the RCA + + DIAGNOSTIC FINDINGS + + Coronary Anatomy: Right Dominant Injection Site(s): Right Coronary Artery LMT: _ LMT Status: Not Applicable. LAD: _ LAD Status: Not Applicable. LCX: _ LCX Status: Not Applicable. RAMUS: _ Ramus Status: Not Applicable. RCA: _ The proximal RCA is narrowed 80 % - severe diffuse disease and Moderately Calcified. Additional Comment: Large dominant vessel with moderate to severe calcification from the proximal to distal vessel. There is a large PDA and posterior ventricular branch. There is an eccentric 70 to 80% stenosis that starts from the proximal to the mid distal vessel with an area in the mid to distal vessel with eccentric calcification and a severe 80% stenosis on IVUS evaluation. + + IMPRESSION/PLAN + + Impression:Severe disease of RCA Recommended Treatment: PCI and Medical Therapy. Plan: PCI + + PCI SUMMARY + + Procedures Performed: Large dominant vessel with moderate to severe calcification from the proximal to distal vessel. There is a large PDA and posterior ventricular branch. There is an eccentric 70 to 80% stenosis that starts from the proximal to the mid distal vessel with an area in the mid to distal vessel with eccentric calcification and a severe 80% stenosis on IVUS evaluation. Initial intravascular ultrasound images were obtained. The lesions were able to be predilated with placement of a 4.0 x 48 mm Synergy stent. The stent was able to be successfully postdilated to 4.6 mm with a good angiographic and intravascular ultrasound result. Procedural Details: Anticoagulation: Aspirin, Heparin and Clopidogrel Procedure Summary: Percutaneous coronary intervention of the proximal to mid distal RCA with placement of a 4.0 x 48 mm Synergy stent postdilated to 4.6 mm with a good angiographic result. Intravascular ultrasound was employed pre and post procedurally. Procedure Narrative: Lesion 1: RCA Proximal Guide 1: 7FR AR 2. + +---- ---------+--------+--- ---+--------+ Type of Name of Device Diameter Length Press ure Treatment + +---- ---------+--------+--- ---+--------+ Pre-Dilation Emerge PTCA Dilatation Catheter 3.00 15 Monorail + +---- ---------+--------+--- ---+--------+ Pre-Dilation NC Emerge RX 4.00 15 22 + +---- ---------+--------+--- ---+--------+ Pre-Dilation NC Emerge RX 4.50 15 18 + +---- ---------+--------+--- ---+--------+ Stent SYNERGY Stent RX 4.00 48 + +---- ---------+--------+--- ---+--------+ Post-Dilation NC Emerge RX 4.50 12 22 + +---- ---------+--------+--- ---+--------+ +----+ PLAN +----+ Disposition: Overnight Observation + + HEMODYNAMICS - XPER + + + +---- --+-----+-------+----- -+------+------+ Measurement Name Sys Sonali End Sonali Mean A Wave V Wave + +---- --+-----+-------+----- -+------+------+ AO 120.00 51.00 80.00 + +---- --+-----+-------+----- -+------+------+ AO 111.00 49.00 73.00 + +---- --+-----+-------+----- -+------+------+ AO 119.00 49.00 73.00 + +---- --+-----+-------+----- -+------+------+ AO 139.00 65.00 96.00 + +---- --+-----+-------+----- -+------+------+ AO 114.00 44.00 66.00 + +---- --+-----+-------+----- -+------+------+ AO 126.00 56.0 (more content not included)... Normal [facility] CBC panel Auto (Bld)on 06-07 Erythrocyte distribution width (RBC) [Ratio] 13.1 % Normal 11.5-15.0 [facility] Comment on above: Order Comment: Val estrada Type: BLOOD SPECIMEN [facility] Address: [address] [place] [address] Performed By: #### 5 8410-2 #### [facility] CLIA [id number] [address] Hematocrit (Bld) [Volume fraction] 40.3 % Normal 36.0-46.0 [facility] Comment on above: Order Comment: Speci men Type: BLOOD SPECIMEN [facility] Address: [address] [place] [address] Performed By: #### 5 8410-2 #### [facility] CLIA [id number] [address] Hemoglobin (Bld) [Mass/Vol] 13.6 g/dL Normal 11.5-15.5 [facility] Comment on above: Order Comment: Speci men Type: BLOOD SPECIMEN [facility] Address: [address] [place] [address] Performed By: #### 5 8410-2 #### [facility] CLIA [id number] [address] MCH (RBC) [Entitic mass] 30.0 pg Normal 26.0-34.0 [facility] Comment on above: Order Comment: Speci men Type: BLOOD SPECIMEN [facility] Address: [address] [place] [address] Performed By: #### 5 8410-2 #### [facility] CLIA [id number] [address] MCHC (RBC) [Mass/Vol] 33.7 g/dL Normal 30.5-36.0 [facility] Comment on above: Order Comment: Speci men Type: BLOOD SPECIMEN [facility] Address: [address] [place] [address] Performed By: #### 5 8410-2 #### [facility] CLIA [id number] [address] MCV (RBC) [Entitic vol] 89.0 fL Normal 80.0-100.0 [facility] Comment on above: Order Comment: Speci men Type: BLOOD SPECIMEN [facility] Address: [address] [place] [address] Performed By: #### 5 8410-2 #### [facility] CLIA [id number] [address] [place] Nucleated RBC (Bld) [#/Vol] 10*3/uL Normal <0.01 [facility] Comment on above: Order Comment: Speci men Type: BLOOD SPECIMEN [facility] Address: [address] [place] [address] Performed By: #### 5 8410-2 #### [facility] CLIA [id number] [address] [place] Platelet mean volume (Bld) [Entitic vol] 10.5 fL Normal 9.0-12.7 [facility] Comment on above: Order Comment: Speci men Type: BLOOD SPECIMEN [facility] Address: [address] [place] [address] Performed By: #### 5 8410-2 #### [facility] CLIA [id number] [address] [place] Platelets (Bld) [#/Vol] 241 10*3/uL Normal 150-400 [facility] Comment on above: Order Comment: Speci men Type: BLOOD SPECIMEN [facility] Address: [address] [place] [address] Performed By: #### 5 8410-2 #### [facility] CLIA [id number] [address] [place] RBC (Bld) [#/Vol] 4.53 10*6/uL Normal 3.90-5.20 [facility] Comment on above: Order Comment: Speci men Type: BLOOD SPECIMEN [facility] Address: [address] [place] [address] Performed By: #### 5 8410-2 #### [facility] CLIA [id number] [address] [place] WBC (Bld) [#/Vol] 8.22 10*3/uL Normal 3.70-11.00 [facility] Comment on above: Order Comment: Speci men Type: BLOOD SPECIMEN [facility] Address: [address], [place] [address] Performed By: #### 5 8410-2 #### [facility] CLIA [id number] [address] [place] [address] [place] HISTORY PHYSICALon HISTORY PHYSICAL HNO ID: [id number] Author: Dex Gomez MD Service: Interventional Cardiology Author Type: Physician Type: HANDP Filed: 06/07/2023 8:09 AM Note Text: HISTORY AND PHYSICAL EXAMINATION SERVICE DATE: 06/07/2023 SERVICE TIME: 7:59 AM PRIMARY CARE PHYSICIAN: Albina Aponte APRN.CNP Subjective CHIEF COMPLAINT: Chest pain dyspnea on exertion HPI: This is a 82 year old woman with extensive cardiac history who underwent recent cardiac catheterization due to complaints of dyspnea on exertion and chest pain. She was found to have severe disease in the proximal to mid LAD as well as the mid to distal right coronary artery. The right coronary artery had a severe calcified lesion. She was referred for high risk percutaneous coronary invention. Patient has been doing well from a functional standpoint. She is limited by claudication symptoms in her lower extremities and shortness of breath on minimal exertion consistent with class III angina. She has not had symptoms concerning for congestive heart failure including PND, orthopnea, or lower extremity edema. FUNCTIONAL STATUS: Independent PAST MEDICAL HISTORY Diagnosis Date Chronic obstructive pulmonary disease (COPD) (HCC) Coronary artery disease Hypertension Hypertension Late onset Alzheimer dementia (HCC) Mixed hyperlipidemia Mixed hyperlipidemia Thyroid disease PAST SURGICAL HISTORY Procedure Laterality Date APPENDECTOMY COLONOSCOPY ENLARGE BREAST WITH IMPLANT HERNIA REPAIR HX LIGATE FALLOPIAN TUBE PICC LINE INSERT/CONSULT 07/29/2020 THYROID SURGERY HX FAMILY HISTORY Problem Relation Age of Onset Breast Cancer Mother Heart disease Father Kidney Disease Father Social History Tobacco Use Smoking status: Never Smokeless tobacco: Never Vaping Use Vaping Use: Never used Substance Use Topics Alcohol use: Never Drug use: Never levothyroxine 100 mcg cap, Take 100 mcg by mouth daily before breakfast., Disp: , Rfl: , 06/06/2023 amLODIPine (NORVASC) 5 mg tablet, Take 5 mg by mouth once daily., Disp: , Rfl: , 06/07/2023 Multivitamin capsule, Take 1 capsule by mouth once daily., Disp: , Rfl: , 06/06/2023 Ascorbic Acid (VITAMIN C) 1,000 mg tablet, Take 1,000 mg by mouth once daily., Disp: , Rfl: , 06/06/2023 aspirin, enteric coated (ASPIRIN, ENTERIC COATED) 81 mg EC tablet, Take 81 mg by mouth once daily., Disp: , Rfl: , 06/06/2023 atorvastatin (LIPITOR) 20 mg tablet, Take 20 mg by mouth once daily., Disp: , Rfl: , 06/06/2023 Cholecalciferol, Vitamin D3, 50 mcg (2,000 unit) cap, Take 2,000 Units by mouth once daily., Disp: , Rfl: , 06/06/2023 acetaminophen (TYLENOL) 500 mg tablet, Take 2 tablets by mouth every 6 hours as needed., Disp: , Rfl: polyethylene glycol 3350 (MIRALAX, GLYCOLAX) 17 gram packet, Take 1 Packet by mouth once daily. (Patient taking differently: Take 17 g by mouth once daily as needed. ), Disp: , Rfl: metoprolol succinate ER (TOPROL XL) 25 mg 24 hr tablet, Take 0.5 tablets by mouth once daily., Disp: , Rfl: nitroglycerin sublingual (NITROQUICK) 0.4 mg SL tablet, Dissolve 0.4 mg under the tongue every 5 minutes as needed. , Disp: , Rfl: tiotropium (SPIRIVA WITH HANDIHALER) 18 mcg inhalation capsule, Inhale 1 capsule as instructed once daily., Disp: , Rfl: Current medications aspirin 81 mg chewable tablet 81 mg PO DAILY 12/01/19 [History Confirmed 03/16/23] cholecalciferol (vitamin D3) 50 mcg (2,000 unit) capsule 2,000 unit PO DAILY 12/01/19 [History Confirmed 03/16/23] calcium carbonate 600 mg calcium (1,500 mg) tablet (Calcium) 600 mg PO DAILY 09/16/21 [History Confirmed 03/16/23] multivitamin 1 tab PO DAILY 08/10/22 [History Confirmed 03/16/23] furosemide 20 mg tablet (Lasix) 20 mg PO DAILY #90 tabs 08/22/22 [Rx Confirmed 03/16/23] potassium chloride 10 mEq capsule,extended release 10 meq PO DAILY #90 caps 08/22/22 [Rx Confirmed 03/16/23] cider trim PO 11/10/22 [History Confirmed 11/15/22] coenzyme I06-uwyftsk E 100 mg-100 unit capsule 1 cap PO DAILY 11/10/22 [History Confirmed 03/16/23] omega-3 fatty acids-fish oil 300 mg-500 mg capsule (Fish Oil) 1 cap PO DAILY 11/10/22 [History Confirmed 03/16/23] amlodipine 5 mg tablet 5 mg PO DAILY #90 tabs 11/11/22 [Rx Confirmed 03/16/23] levothyroxine 112 mcg tablet 112 mcg PO DAILY #90 tabs 11/11/22 [Rx Confirmed 03/16/23] ascorbic acid (vitamin C) 500 mg tablet 500 mg PO DAILY 11/15/22 [History Confirmed 03/16/23] clopidogrel 75 mg tablet (Plavix) 75 mg PO DAILY #30 tabs 12/02/22 [Rx Confirmed 03/16/23] pravastatin 20 mg tablet 20 mg PO QHS #90 tabs 12/12/22 [Rx Confirmed 03/16/23] valsartan 80 mg tablet 80 mg PO DAILY #90 tabs 12/12/22 [Rx Confirmed 03/16/23] ALLERGIES Allergen Reactions Esomeprazole Magnes* Rash Penicillins Rash COMPLETE REVIEW OF SYSTEMS: General: No recent fevers, chills, nausea, or vomiting Pulmonary: No acute pulmonary issues. Denies wheezing (more content not included)... Normal [facility] Basic metabolic 2000 panelon 05-25-2023 Anion gap [Moles/Vol] 11 mmol/L Normal -18 [facility] Comment on above: Order Comment: Val estrada Type: BLOOD SPECIMEN [facility] Address: [address] [place] [address] Performed By: #### 2 4321-2 #### [facility] CLIA [id number] [address] [place] [address] [place] Calcium [Mass/Vol] 9.6 mg/dL Normal 8.5-10.2 [facility] Comment on above: Order Comment: Val estrada Type: BLOOD SPECIMEN [facility] Address: [address] [place] [address] Performed By: #### 2 4321-2 #### [facility] CLIA [id number] [address] [place] [facility] Chloride [Moles/Vol] 106 mmol/L High 97-105 [facility] Comment on above: Order Comment: Val estrada Type: BLOOD SPECIMEN [facility] Address: [address] [place] [address] Performed By: #### 2 4321-2 #### [facility] CLIA [id number] [address] CO2 [Moles/Vol] 24 mmol/L Normal 22-30 [facility] Comment on above: Order Comment: Val estrada Type: BLOOD SPECIMEN [facility] Address: [address] [place] [address] Performed By: #### 2 4321-2 #### [facility] CLIA [id number] [address] Creatinine [Mass/Vol] 0.95 mg/dL Normal 0.58-0.96 [facility] Comment on above: Order Comment: Val estrada Type: BLOOD SPECIMEN Ordering Facility: [facility] Address: [address] [place] [address] Performed By: #### 2 4321-2 #### [facility] CLIA [id number] [address] Creatinine and Glomerular filtration rate.predicted panel (S/P/Bld) 60 mL/min/1.73m??? Normal >=60 [facility] Comment on above: Order Comment: Val [facility] Type: BLOOD SPECIMEN Ordering Facility: [facility] Address: [address] [place] [address] Result Comment: Loreta mated Glomerular Filtration Rate (eGFR) is calculated using the 2020 CKD-EPI creatinine equation. This equation utilizes serum creatinine, sex, and age as parameters. The creatinine assay has traceable calibration to isotope dilution-mass spectrometry. Refer to KDIGO guidelines for clinical interpretation. In patients with unstable renal function, e.g. those with acute kidney injury, the eGFR may not accurately reflect actual GFR. Performed By: #### 2 4321-2 #### [facility] CLIA [id number] [address] [place] [address] [place] Glucose [Mass/Vol] 133 mg/dL High 74-99 [facility] Comment on above: Order Comment: Val estrada Type: BLOOD SPECIMEN Ordering Facility: [facility] Address: [address] [place] [address] Result Comment: The [place] Diabetes Association (ADA) provides guidance for cutoff values for fasting glucose and random glucose. The ADA defines fasting as no caloric intake for at least 8 hours. Fasting plasma glucose results between 100 to 125 mg/dL indicate increased risk for diabetes (prediabetes). Fasting plasma glucose results greater than or equal to 126 mg/dL meet the criteria for diagnosis of diabetes. In the absence of unequivocal hyperglycemia, results should be confirmed by repeat testing. In a patient with classic symptoms of hyperglycemia or hyperglycemic crisis, random plasma glucose results greater than or equal to 200 mg/dL meet the criteria for diagnosis of diabetes. Reference: Standards of Medical Care in Diabetes 2016, [place] Diabetes Association. Diabetes Care. 2016.39(Suppl 1). Performed By: #### 2 4321-2 #### [facility] CLIA [id number] [address] [place] [address] [place] Potassium [Moles/Vol] 4.8 mmol/L Normal 3.7-5.1 [facility] Comment on above: Order Comment: Val estrada Type: BLOOD SPECIMEN Ordering Facility: [facility] Address: [address] [place] [address] Performed By: #### 2 4321-2 #### [facility] CLIA [id number] [address] [place] [address] [place] Sodium [Moles/Vol] 141 mmol/L Normal 136-144 [facility] Comment on above: Order Comment: Val estrada Type: BLOOD SPECIMEN Ordering Facility: [facility] Address: [address] [place] [address] Performed By: #### 2 4321-2 #### [facility] CLIA [id number] [address] [place] [address] [place] Urea nitrogen [Mass/Vol] 23 mg/dL High 7-21 [facility] Comment on above: Order Comment: Val estrada Type: BLOOD SPECIMEN Ordering Facility: [facility] Address: [address] [place] [address] Performed By: #### 2 4321-2 #### [facility] CLIA [id number] [address] CBC panel Auto (Bld)on 05-25 Erythrocyte distribution width (RBC) [Ratio] 13.2 % Normal 11.5-15.0 [facility] Comment on above: Order Comment: Speci men Type: BLOOD SPECIMEN Ordering Facility: [facility] Address: [address] [place] [address] Performed By: #### 5 8410-2 #### [facility] CLIA [id number] [address] Hematocrit (Bld) [Volume fraction] 42.0 % Normal 36.0-46.0 [facility] Comment on above: Order Comment: Speci men Type: BLOOD SPECIMEN Ordering Facility: [facility] Address: [address] [place] [address] Performed By: #### 5 8410-2 #### [facility] CLIA [id number] [address] Hemoglobin (Bld) [Mass/Vol] 13.6 g/dL Normal 11.5-15.5 [facility] Comment on above: Order Comment: Speci men Type: BLOOD SPECIMEN Ordering Facility: [facility] Address: [address] [place] [address] Performed By: #### 5 8410-2 #### [facility] CLIA [id number] [address] MCH (RBC) [Entitic mass] 29.6 pg Normal 26.0-34.0 [facility] Comment on above: Order Comment: Speci men Type: BLOOD SPECIMEN Ordering Facility: [facility] Address: [address] [place] [address] Performed By: #### 5 8410-2 #### [facility] CLIA [id number] [address] MCHC (RBC) [Mass/Vol] 32.4 g/dL Normal 30.5-36.0 [facility] Comment on above: Order Comment: Speci men Type: BLOOD SPECIMEN Ordering Facility: [facility] Address: [address] [place] [address] Performed By: #### 5 8410-2 #### [facility] CLIA [id number] [address] [place] [address] [place] MCV (RBC) [Entitic vol] 91.3 fL Normal 80.0-100.0 [facility] Comment on above: Order Comment: Speci men Type: BLOOD SPECIMEN Ordering Facility: [facility] Address: [address] [place] [address] Performed By: #### 5 8410-2 #### [facility] CLIA [id number] [address] [place] Nucleated RBC (Bld) [#/Vol] 10*3/uL Normal <0.01 [facility] Comment on above: Order Comment: Speci men Type: BLOOD SPECIMEN Ordering Facility: [facility] Address: [address] [place] [address] Performed By: #### 5 8410-2 #### [facility] CLIA [id number] [address] [place] [address] [place] Platelet mean volume (Bld) [Entitic vol] 10.6 fL Normal 9.0-12.7 [facility] Comment on above: Order Comment: Speci men Type: BLOOD SPECIMEN Ordering Facility: [facility] Address: [address] [place] [address] Performed By: #### 5 8410-2 #### [facility] CLIA [id number] [address] [place] Platelets (Bld) [#/Vol] 289 10*3/uL Normal 150-400 [facility] Comment on above: Order Comment: Speci men Type: BLOOD SPECIMEN Ordering Facility: [facility] Address: [address] [place] [address] Performed By: #### 5 8410-2 #### [facility] CLIA [id number] [address] [place] [address] [place] RBC (Bld) [#/Vol] 4.60 10*6/uL Normal 3.90-5.20 [facility] Comment on above: Order Comment: Speci men Type: BLOOD SPECIMEN Ordering Facility: [facility] Address: [address] [place] [address] Performed By: #### 5 8410-2 #### [facility] CLIA [id number] [address] WBC (Bld) [#/Vol] 8.96 10*3/uL Normal 3.70-11.00 [facility] Comment on above: Order Comment: Speci men Type: BLOOD SPECIMEN Ordering Facility: [facility] Address: [address] [place] [address] Performed By: #### 5 8410-2 #### [facility] CLIA [id number] [address] CNPNon 05-19-2023 CNPN Telephone [facility] PARVEEN CARUSO ([id number]) 1940 F Date Time Provider Department 05/19/23 DEX GOMEZ During your visit today, we recorded the following information about you: Aurelia Rehman 05/19/2023 2:19 PM Signed Schedule Direct PCI on 06/07/2023 with Tita Wilkins LPN 05/19/2023 2:33 PM Signed Patient scheduled for PCI, with Dr Gomez on 06/07/2023. Instructions reviewed. Questions answered. Patient verbalized understanding. Instructions were as follows: -Arrive to [facility] Entrance 06/07/2023 at time assigned by [facility] staff in phone call 06/06/2023 PM.. -Pt to increase po water intake day prior to heart cath. Pt may eat a light meal and drink clear liquids until 3 hours prior to procedure. -With a sip of water on 06/07/2023 morning take: Aspirin 325mg along with usual BP meds- Norvasc and Metoprolol -Labs to be done 48 hours prior to procedure (Orders pending for approval) - You must have someone drive you home from your procedure. -[facility] policy is pt not be alone first evening Left message for to call [facility] for procedure date and instructions.[facility] phone number provided. BETTY Mccurdy Tera, LPN 05/19/2023 3:28 PM Signed Call placed to pt. Spoke with Ms Caruso. Recommendations reviewed with pt per Dr Gomez. Pt verbalized understanding of pre procedure instructions. Pt has no questions at this time. Luis Elder LPN Allergies As of Date: 05/19/2023 Noted Allergy Reaction ESOMEPRAZOLE MAGNESIUM 01/08/2015 2 - Rash PENICILLINS 01/08/2015 2 - Rash Date Reviewed: 11/14/2022 Reviewed by: Adrienne Fox RN - Fully Assessed Reason for Visit: Preparations For Procedures [899] Primary Visit Diagnosis:Chronic obstructive pulmonary disease, unspecified COPD type (HCC) [J44.9] Other Visit Diagnosis:Coronary artery disease involving nightm[place] heart without angina pectoris, unspecified vessel or lesion type [I25.10] Order(s):BASIC METABOLIC PNL [SQBMP] Order #: [id number] FUTURE CBC [SQCBC] Order #: [id number] FUTURE Prescriptions as of 05/19/2023 - levothyroxine 100 mcg cap Take 100 mcg by mouth daily before breakfast. - amLODIPine (NORVASC) 5 mg tablet Take 5 mg by mouth once daily. - Multivitamin capsule Take 1 capsule by mouth once daily. - Ascorbic Acid (VITAMIN C) 1,000 mg tablet Take 1,000 mg by mouth once daily. - acetaminophen (TYLENOL) 500 mg tablet Take 2 tablets by mouth every 6 hours as needed. - polyethylene glycol 3350 (MIRALAX, GLYCOLAX) 17 gram packet Take 1 Packet by mouth once daily. - aspirin, enteric coated (ASPIRIN, ENTERIC COATED) 81 mg EC tablet Take 81 mg by mouth once daily. - atorvastatin (LIPITOR) 20 mg tablet Take 20 mg by mouth once daily. - Cholecalciferol, Vitamin D3, 50 mcg (2,000 unit) cap Take 2,000 Units by mouth once daily. - metoprolol succinate ER (TOPROL XL) 25 mg 24 hr tablet Take 0.5 tablets by mouth once daily. - nitroglycerin sublingual (NITROQUICK) 0.4 mg SL tablet Dissolve 0.4 mg under the tongue every 5 minutes as needed. - tiotropium (SPIRIVA WITH HANDIHALER) 18 mcg inhalation capsule Inhale 1 capsule as instructed once daily. 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 Hyponatremia [E87.1] 08/04/2020 Urinary tract infection [N39.0] 09/09/2021 Hypothyroidism, acquired [E03.9] Constipation [K59.00] Encounter Status:Closed by YANNICK CARROLL on 05/19/23 [facility] No Panel InformationOrdered By: Sriram Tomlin on 05-18-2023 Activated Clotting Time 217 sec 74-137 [facility] Basophil percentageOrdered B y: Sriram Tomlin on 04-28-2023 Chloride [Moles/Vol] 108 mmol/L 98-107 [facility] Glucose [Mass/Vol] 101 mg/dL 74-106 [facility] Comment on above: Fasting Glucose resu lt from 100 to 125 mg/dL suggests IMPAIRED HOMEOSTASIS per A.D.A. criteria. Potassium [Moles/Vol] 4.4 mmol/L 3.5-5.1 [facility] Sodium [Moles/Vol] 141 mmol/L 136-145 [facility] WBC (Bld) [#/Vol] 9.9 10*3/uL 4.4-11.0 [facility] Blood erythrocytes count (nu mber/volume)Ordered By: Sriram Tomlin on 04-28-2023 RBC (Bld) [#/Vol] 4.48 10*6/uL 4.2-5.4 [facility] Blood hemoglobin measurement (mass/volume)Ordered By: Sriram Tomlin on 04-28-2023 Hemoglobin (Bld) [Mass/Vol] 13.0 g/dL 12.0-15.0 [facility] Blood platelet mean volumeOr dered By: Sriram Tomlin on 04-28-2023 Platelet mean volume (Bld) [Entitic vol] 10.3 fL 6.2-12.0 [facility] Determination of erythrocyte mean corpuscular volume (MCV)Ordered By: Sriram Tomlin on 04-28-2023 MCV (RBC) [Entitic vol] 90.8 fL 81-99 [facility] Hematocrit Auto (Bld) [Volum e fraction]Ordered By: Sriram Tomlin on 04-28-2023 Hematocrit (Bld) [Volume fraction] 40.7 % 37-47 [facility] - Chemistry and C hemistry - challengeOrdered By: Sriram Tomlin on 04-28-2023 CO2 [Moles/Vol] 27.0 mmol/L 21.0-32.0 [facility] Urea nitrogen/Creatinine [Mass ratio] 22.5 mg/mg 10-20 [facility] - Hematology and Cell countsOrdered By: Sriram Tomlin on 04-28-2023 Erythrocyte distribution width (RBC) [Entitic vol] 44.8 fL 35.1-43.9 [facility] Erythrocyte distribution width (RBC) [Ratio] 13.4 % 11.6-14.6 [facility] MCH (RBC) [Entitic mass] 29.0 pg 27.0-32.0 [facility] MCHC Auto (RBC) [Mass/Vol]Or dered By: Sriram Tomlin on 04-28-2023 MCHC (RBC) [Mass/Vol] 31.9 g/dL 32-36 [facility] No Panel InformationOrdered By: Sriram Tomlin on 04-28-2023 Estimated Creatinine Clearance Calc 48.69 ml/min [facility] Estimated GFR (MDRD) Amer 70 mL/min >60 [facility] Comment on above: GFR Calc Estimated GFR (MDRD) Non-Af Amer 58 mL/min >60 [facility] Comment on above: Non- GFR Calc Platelets bldOrdered By: Sylvia Tomlin on 04-28-2023 Platelets (Bld) [#/Vol] 289 10*3/uL 150-450 [facility] Serum or plasma calcium christianne urement (mass/volume)Ordered By: Sriram Tomlin on 04-28-2023 Calcium [Mass/Vol] 9.2 mg/dL 8.5-10.1 [facility] Serum or plasma creatinine m easurement (mass/volume)Ordered By: Sriram Tomlin on 04-28-2023 Creatinine [Mass/Vol] 0.98 mg/dL 0.55-1.02 [facility] Comment on above: The validity of the calculated GFR & GFRAA in patients over 70 years has not been determined. Clinical correlation is essential. Serum or plasma urea nitroge n measurement (mass/volume)Ordered By: Sriram Tomlin on 04-28-2023 Urea nitrogen [Mass/Vol] 22 mg/dL 7-18 [facility] Thin prep Papanicolaou smear with manual screeningOrdered By: Sriram Tomlin on 04-28-2023 Thin prep Papanicolaou smear with manual screening 6 5-15 [facility] Basophil percentageOrdered B y: Sriram Tomlin on 03-16-2023 Chloride [Moles/Vol] 110 mmol/L 98-107 [facility] Glucose [Mass/Vol] 115 mg/dL 74-106 [facility] Comment on above: Fasting Glucose resu lt from 100 to 125 mg/dL suggests IMPAIRED HOMEOSTASIS per A.D.A. criteria. Potassium [Moles/Vol] 4.8 mmol/L 3.5-5.1 [facility] Sodium [Moles/Vol] 140 mmol/L 136-145 [facility] WBC (Bld) [#/Vol] 11.6 10*3/uL 4.4-11.0 [facility] Blood erythrocytes count (nu mber/volume)Ordered By: Sriram Tomlin on 03-16-2023 RBC (Bld) [#/Vol] 4.69 10*6/uL 4.2-5.4 [facility] Blood hemoglobin measurement (mass/volume)Ordered By: Sriram Tomlin on 03-16-2023 Hemoglobin (Bld) [Mass/Vol] 13.7 g/dL 12.0-15.0 [facility] Blood platelet mean volumeOr dered By: Sriram Tomlin on 03-16-2023 Platelet mean volume (Bld) [Entitic vol] 10.4 fL 6.2-12.0 [facility] Determination of erythrocyte mean corpuscular volume (MCV)Ordered By: Sriram Tomlin on 03-16-2023 MCV (RBC) [Entitic vol] 92.5 fL 81-99 [facility] Hematocrit Auto (Bld) [Volum e fraction]Ordered By: Sriram Tomlin on 03-16-2023 Hematocrit (Bld) [Volume fraction] 43.4 % 37-47 [facility] - Chemistry and C hemistry - challengeOrdered By: Sriram Tomlin on 03-16-2023 CO2 [Moles/Vol] 26.0 mmol/L 21.0-32.0 [facility] Urea nitrogen/Creatinine [Mass ratio] 26.3 mg/mg 10-20 [facility] - Chemistry and C hemistry - challengeOrdered By: Albina Aponte on 03-16-2023 Natriuretic peptide B (Bld) [Mass/Vol] 93.9 pg/mL 0-100 [facility] - Hematology and Cell countsOrdered By: Sriram Tomlin on 03-16-2023 Erythrocyte distribution width (RBC) [Entitic vol] 45.1 fL 35.1-43.9 [facility] Erythrocyte distribution width (RBC) [Ratio] 13.4 % 11.6-14.6 [facility] MCH (RBC) [Entitic mass] 29.2 pg 27.0-32.0 [facility] MCHC Auto (RBC) [Mass/Vol]Or dered By: Sriram Tomlin on 03-16-2023 MCHC (RBC) [Mass/Vol] 31.6 g/dL 32-36 [facility] No Panel InformationOrdered By: Sriram Tomlin on 03-16-2023 Estimated GFR (MDRD) Amer 49 mL/min >60 [facility] Comment on above: GFR Calc Estimated GFR (MDRD) Non-Af Amer 41 mL/min >60 [facility] Comment on above: Non- GFR Calc Platelets bldOrdered By: Sylvia Tomlin on 03-16-2023 Platelets (Bld) [#/Vol] 300 10*3/uL 150-450 [facility] Serum or plasma calcium christianne urement (mass/volume)Ordered By: Sriram Tomlin on 03-16-2023 Calcium [Mass/Vol] 9.5 mg/dL 8.5-10.1 [facility] Serum or plasma creatinine m easurement (mass/volume)Ordered By: Sriram Tomlin on 03-16-2023 Creatinine [Mass/Vol] 1.33 mg/dL 0.55-1.02 [facility] Comment on above: The validity of the calculated GFR & GFRAA in patients over 70 years has not been determined. Clinical correlation is essential. Serum or plasma urea nitroge n measurement (mass/volume)Ordered By: Sriram Tomlin on 03-16-2023 Urea nitrogen [Mass/Vol] 35 mg/dL 7-18 [facility] Thin prep Papanicolaou smear with manual screeningOrdered By: Sriram Tomlin on 03-16-2023 Thin prep Papanicolaou smear with manual screening 4 5-15 [facility] Basophil percentageOrdered B y: Dr. Tomlin on 12-03-2022 Chloride [Moles/Vol] 110 mmol/L 98-107 [facility] Glucose [Mass/Vol] 99 mg/dL 74-106 [facility] Potassium [Moles/Vol] 4.2 mmol/L 3.5-5.1 [facility] Sodium [Moles/Vol] 139 mmol/L 136-145 [facility] WBC (Bld) [#/Vol] 9.1 10*3/uL 4.4-11.0 [facility] Blood erythrocytes count (nu mber/volume)Ordered By: Dr. Tomlin on 12-03-2022 RBC (Bld) [#/Vol] 4.59 10*6/uL 4.2-5.4 [facility] Blood hemoglobin measurement (mass/volume)Ordered By: Dr. Tomlin on 12-03-2022 Hemoglobin (Bld) [Mass/Vol] 13.4 g/dL 12.0-15.0 [facility] Blood platelet mean volumeOr dered By: Dr. Tomlin on 12-03-2022 Platelet mean volume (Bld) [Entitic vol] 10.3 fL 6.2-12.0 [facility] Determination of erythrocyte mean corpuscular volume (MCV)Ordered By: Dr. Tomlin on 12-03-2022 MCV (RBC) [Entitic vol] 89.8 fL 81-99 [facility] Hematocrit Auto (Bld) [Volum e fraction]Ordered By: Dr. Tomlin on 12-03-2022 Hematocrit (Bld) [Volume fraction] 41.2 % 37-47 [facility] - Chemistry and C hemistry - challengeOrdered By: Dr. Tomlin on 12-03-2022 CO2 [Moles/Vol] 24.0 mmol/L 21.0-32.0 [facility] Urea nitrogen/Creatinine [Mass ratio] 23.5 mg/mg 10-20 [facility] - Hematology and Cell countsOrdered By: Dr. Tomlin on 12-03-2022 Erythrocyte distribution width (RBC) [Entitic vol] 44.8 fL 35.1-43.9 [facility] Erythrocyte distribution width (RBC) [Ratio] 13.7 % 11.6-14.6 [facility] MCH (RBC) [Entitic mass] 29.2 pg 27.0-32.0 [facility] MCHC Auto (RBC) [Mass/Vol]Or dered By: Dr. Tomlin on 12-03-2022 MCHC (RBC) [Mass/Vol] 32.5 g/dL 32-36 [facility] No Panel InformationOrdered By: Dr. Tomlin on 12-03-2022 Estimated Creatinine Clearance Calc 56.13 ml/min [facility] Estimated GFR (MDRD) Amer 83 mL/min >60 [facility] Comment on above: GFR Calc Estimated GFR (MDRD) Non-Af Amer 68 mL/min >60 [facility] Comment on above: Non- GFR Calc Platelets bldOrdered By: Dr. Tomlin on 12-03-2022 Platelets (Bld) [#/Vol] 267 10*3/uL 150-450 [facility] Serum or plasma calcium christianne urement (mass/volume)Ordered By: Dr. Tomlin on 12-03-2022 Calcium [Mass/Vol] 9.0 mg/dL 8.5-10.1 [facility] Serum or plasma creatinine m easurement (mass/volume)Ordered By: Dr. Tomlin on 12-03-2022 Creatinine [Mass/Vol] 0.85 mg/dL 0.55-1.02 [facility] Comment on above: The validity of the calculated GFR & GFRAA in patients over 70 years has not been determined. Clinical correlation is essential. Serum or plasma urea nitroge n measurement (mass/volume)Ordered By: Dr. Tomlin on 12-03-2022 Urea nitrogen [Mass/Vol] 20 mg/dL 7-18 [facility] Thin prep Papanicolaou smear with manual screeningOrdered By: Dr. Tomlin on 12-03-2022 Thin prep Papanicolaou smear with manual screening 5 5-15 [facility] No Panel InformationOrdered By: Dr. Tomlin on 12-02-2022 Activated Clotting Time 203 sec 74-137 [facility] Basophil percentageOrdered B y: Dr. Tomlin on 11-22-2022 Chloride [Moles/Vol] 107 mmol/L 98-107 [facility] Glucose [Mass/Vol] 105 mg/dL 74-106 [facility] Comment on above: Fasting Glucose resu lt from 100 to 125 mg/dL suggests IMPAIRED HOMEOSTASIS per A.D.A. criteria. Potassium [Moles/Vol] 4.9 mmol/L 3.5-5.1 [facility] Comment on above: Slight Hemolysis, Re sult may be falsely increased. Sodium [Moles/Vol] 138 mmol/L 136-145 [facility] Laboratory - Chemistry and C hemistry - challengeOrdered By: Dr. Tomlin on 11-22-2022 CO2 [Moles/Vol] 26.0 mmol/L 21.0-32.0 [facility] Urea nitrogen/Creatinine [Mass ratio] 21.0 mg/mg 10-20 [facility] No Panel InformationOrdered By: Dr. Tomlin on 11-22-2022 Estimated GFR (MDRD) Amer 68 mL/min >60 [facility] Comment on above: GFR Calc Estimated GFR (MDRD) Non-Af Amer 57 mL/min >60 [facility] Comment on above: Non- GFR Calc Serum or plasma calcium christianne urement (mass/volume)Ordered By: Dr. Tomlin on 11-22-2022 Calcium [Mass/Vol] 9.3 mg/dL 8.5-10.1 [facility] Serum or plasma creatinine m easurement (mass/volume)Ordered By: Dr. Tomlin on 11-22-2022 Creatinine [Mass/Vol] 1.00 mg/dL 0.55-1.02 [facility] Comment on above: The validity of the calculated GFR & GFRAA in patients over 70 years has not been determined. Clinical correlation is essential. Serum or plasma urea nitroge n measurement (mass/volume)Ordered By: Dr. Tomlin on 11-22-2022 Urea nitrogen [Mass/Vol] 21 mg/dL 7-18 [facility] Thin prep Papanicolaou smear with manual screeningOrdered By: Dr. Tomlin on 11-22-2022 Thin prep Papanicolaou smear with manual screening 5 5-15 [facility] CBC W Auto Differential pane l (Bld)on 11-15-2022 Basophils (Bld) [#/Vol] 0.08 10*3/uL Normal <0.11 [facility] Comment on above: Order Comment: Specjesse men Type: BLOOD SPECIMEN Ordering Facility: [facility] Address: [address] [place] [address] Performed By: #### 5 7021-8 #### [facility] CLIA [id number] [address] [place] [address] [place] Basophils/100 WBC (Bld) 0.7 % Normal [facility] Comment on above: Order Comment: Speci men Type: BLOOD SPECIMEN Ordering Facility: [facility] Address: [address] [address] Performed By: #### 5 7021-8 #### [facility] CLIA [id number] [address] [place] [address] [place] Differential cell count method Nom (Bld) Auto Normal [facility] Comment on above: Order Comment: Speci men Type: BLOOD SPECIMEN Ordering Facility: [facility] Address: [address] [place] [address] Performed By: #### 5 7021-8 #### [facility] CLIA [id number] [address] [place] Eosinophils (Bld) [#/Vol] 0.23 10*3/uL Normal <0.46 [facility] Comment on above: Order Comment: Speci men Type: BLOOD SPECIMEN Ordering Facility: [facility] Address: [address] [place] [address] Performed By: #### 5 7021-8 #### [facility] CLIA [id number] [address] Eosinophils/100 WBC (Bld) 2.1 % Normal [facility] Comment on above: Order Comment: Speci men Type: BLOOD SPECIMEN Ordering Facility: [facility] Address: [address] [place] [address] Performed By: #### 5 7021-8 #### [facility] CLIA [id number] [address] Erythrocyte distribution width (RBC) [Ratio] 13.9 % Normal 11.5-15.0 [facility] Comment on above: Order Comment: Speci men Type: BLOOD SPECIMEN Ordering Facility: [facility] Address: [address] [place] [address] Performed By: #### 5 7021-8 #### [facility] CLIA [id number] [address] [place] Hematocrit (Bld) [Volume fraction] 43.7 % Normal 36.0-46.0 [facility] Comment on above: Order Comment: Speci men Type: BLOOD SPECIMEN Ordering Facility: [facility] Address: [address] [place] [address] Performed By: #### 5 7021-8 #### [facility] CLIA [id number] [address] [place] Hemoglobin (Bld) [Mass/Vol] 14.6 g/dL Normal 11.5-15.5 [facility] Comment on above: Order Comment: Speci men Type: BLOOD SPECIMEN Ordering Facility: [facility] Address: [address] [address] Performed By: #### 5 7021-8 #### [facility] CLIA [id number] [address] [place] Immature granulocytes (Bld) [#/Vol] 0.06 10*3/uL Normal <0.10 [facility] Comment on above: Order Comment: Speci men Type: BLOOD SPECIMEN Ordering Facility: [facility] Address: [address] [address] Performed By: #### 5 7021-8 #### [facility] CLIA [id number] [address] Immature granulocytes/100 WBC (Bld) 0.5 % Normal [facility] Comment on above: Order Comment: Speci men Type: BLOOD SPECIMEN Ordering Facility: [facility] Address: [address] [address] Performed By: #### 5 7021-8 #### [facility] CLIA [id number] [address] [place] Lymphocytes (Bld) [#/Vol] 3.54 10*3/uL Normal 1.00-4.00 [facility] Comment on above: Order Comment: Speci men Type: BLOOD SPECIMEN Ordering Facility: [facility] Address: [address] [address] Performed By: #### 5 7021-8 #### [facility] CLIA [id number] [address] Lymphocytes/100 WBC (Bld) 32.1 % Normal [facility] Comment on above: Order Comment: Speci men Type: BLOOD SPECIMEN Ordering Facility: [facility] Address: [address] [place] [address] Performed By: #### 5 7021-8 #### [facility] CLIA [id number] 1000 [place] [address] [place] MCH (RBC) [Entitic mass] 29.5 pg Normal 26.0-34.0 [facility] Comment on above: Order Comment: Speci men Type: BLOOD SPECIMEN Ordering Facility: [facility] Address: [address] [place] [address] Performed By: #### 5 7021-8 #### [facility] CLIA [id number] [address] MCHC (RBC) [Mass/Vol] 33.4 g/dL Normal 30.5-36.0 [facility] Comment on above: Order Comment: Speci men Type: BLOOD SPECIMEN Ordering Facility: [facility] Address: [address] [address] Performed By: #### 5 7021-8 #### [facility] CLIA [id number] [address] MCV (RBC) [Entitic vol] 88.3 fL Normal 80.0-100.0 [facility] Comment on above: Order Comment: Speci men Type: BLOOD SPECIMEN Ordering Facility: [facility] Address: [address] [place] [address] Performed By: #### 5 7021-8 #### [facility] CLIA [id number] [address] Monocytes (Bld) [#/Vol] 0.80 10*3/uL Normal <0.87 [facility] Comment on above: Order Comment: Speci men Type: BLOOD SPECIMEN Ordering Facility: [facility] Address: [address] [address] Performed By: #### 5 7021-8 #### [facility] CLIA [id number] [address] Monocytes/100 WBC (Bld) 7.3 % Normal [facility] Comment on above: Order Comment: Speci men Type: BLOOD SPECIMEN Ordering Facility: [facility] Address: [address] [address] Performed By: #### 5 7021-8 #### [facility] CLIA [id number] [address] Neutrophils (Bld) [#/Vol] 6.31 10*3/uL Normal 1.45-7.50 [facility] Comment on above: Order Comment: Speci men Type: BLOOD SPECIMEN Ordering Facility: [facility] Address: [address] [place] [address] Performed By: #### 5 7021-8 #### [facility] CLIA [id number] [address] Neutrophils/100 WBC (Bld) 57.3 % Normal [facility] Comment on above: Order Comment: Speci men Type: BLOOD SPECIMEN Ordering Facility: [facility] Address: [address] [place] [address] Performed By: #### 5 7021-8 #### [facility] CLIA [id number] [address] Nucleated RBC (Bld) [#/Vol] 10*3/uL Normal <0.01 [facility] Comment on above: Order Comment: Speci men Type: BLOOD SPECIMEN Ordering Facility: [facility] Address: [address] [place] [address] Performed By: #### 5 7021-8 #### [facility] CLIA [id number] [address] Nucleated RBC/100 WBC (Bld) [Ratio] 0.0 /100 WBC Normal [facility] Comment on above: Order Comment: Speci men Type: BLOOD SPECIMEN Ordering Facility: [facility] Address: [address] [address] Performed By: #### 5 7021-8 #### [facility] CLIA [id number] [address] [place] Platelet mean volume (Bld) [Entitic vol] 10.1 fL Normal 9.0-12.7 [facility] Comment on above: Order Comment: Speci men Type: BLOOD SPECIMEN Ordering Facility: [facility] Address: [address] [address] Performed By: #### 5 7021-8 #### [facility] CLIA [id number] [address] [place] Platelets (Bld) [#/Vol] 314 10*3/uL Normal 150-400 [facility] Comment on above: Order Comment: Speci men Type: BLOOD SPECIMEN Ordering Facility: [facility] Address: [address] [place] [address] Performed By: #### 5 7021-8 #### [facility] CLIA [id number] 1000 [place] [address] [place] RBC (Bld) [#/Vol] 4.95 10*6/uL Normal 3.90-5.20 [facility] Comment on above: Order Comment: Speci men Type: BLOOD SPECIMEN Ordering Facility: [facility] Address: [address] [place] [address] Performed By: #### 5 7021-8 #### [facility] CLIA [id number] [address] STATES OF [facility] WBC (Bld) [#/Vol] 11.02 10*3/uL High 3.70-11.00 [facility] Comment on above: Order Comment: Speci men Type: BLOOD SPECIMEN Ordering Facility: [facility] Address: [address] [place] [address] Performed By: #### 5 7021-8 #### [facility] CLIA [id number] [address] OF [facility] Comprehensive metabolic 2000 panelon 11-15-2022 Albumin [Mass/Vol] 4.3 g/dL Normal 3.9-4.9 [facility] Comment on above: Order Comment: Speci men Type: BLOOD SPECIMEN Ordering Facility: [facility] Address: [address] [place] [address] Performed By: #### 2 4323-8, [id number], 52688-1 #### [facility] CLIA [id number] [address] ALP [Catalytic activity/Vol] 101 U/L Normal 34-123 [facility] Comment on above: Order Comment: Speci men Type: BLOOD SPECIMEN Ordering Facility: [facility] Address: [address] [place] [address] Performed By: #### 2 4323-8, [id number], #### [facility] CLIA [id number] 1000 [place] [address] [place] ALT [Catalytic activity/Vol] 19 U/L Normal 7-38 [facility] Comment on above: Order Comment: Speci men Type: BLOOD SPECIMEN Ordering Facility: [facility] Address: [address] [place] [address] Performed By: #### 2 4323-8, [id number], #### [facility] CLIA [id number] 1000 [place] [address] [place] Anion gap [Moles/Vol] 12 mmol/L Normal 9-18 [facility] Comment on above: Order Comment: Speci men Type: BLOOD SPECIMEN Ordering Facility: [facility] Address: [address] [place] [address] Performed By: #### 2 4323-8, [id number], #### [facility] CLIA [id number] 1000 [place] [address] [place] AST [Catalytic activity/Vol] 21 U/L Normal 13-35 [facility] Comment on above: Order Comment: Speci men Type: BLOOD SPECIMEN Ordering Facility: [facility] Address: [address] [address] Performed By: #### 2 4323-8, [id number], #### [facility] CLIA [id number] 1000 [place] [address] [place] Bilirubin [Mass/Vol] 0.4 mg/dL Normal 0.2-1.3 [facility] Comment on above: Order Comment: Speci men Type: BLOOD SPECIMEN Ordering Facility: [facility] Address: [address] [place] [address] Performed By: #### 2 4323-8, [id number], #### [facility] CLIA [id number] [address] [place] [address] [place] Calcium [Mass/Vol] 10.0 mg/dL Normal 8.5-10.2 [facility] Comment on above: Order Comment: Speci men Type: BLOOD SPECIMEN Ordering Facility: [facility] Address: [address] [address] Performed By: #### 2 4323-8, [id number], #### [facility] CLIA [id number] [address] [place] [address] [place] Chloride [Moles/Vol] 102 mmol/L Normal 97-105 [facility] Comment on above: Order Comment: Speci men Type: BLOOD SPECIMEN Ordering Facility: [facility] Address: [address] [address] Performed By: #### 2 4323-8, [id number], #### [facility] CLIA [id number] [address] [place] [address] [place] CO2 [Moles/Vol] 24 mmol/L Normal 22-30 [facility] Comment on above: Order Comment: Speci men Type: BLOOD SPECIMEN Ordering Facility: [facility] Address: [address] [place] [address] Performed By: #### 2 4323-8, [id number], #### [facility] CLIA [id number] 1000 [place] [address] [place] Creatinine [Mass/Vol] 0.77 mg/dL Normal 0.58-0.96 [facility] Comment on above: Order Comment: Speci men Type: BLOOD SPECIMEN Ordering Facility: [facility] Address: [address] [place] [address] Performed By: #### 2 4323-8, [id number], #### [facility] CLIA [id number] 1000 [place] [address] [facility] [place] ESTIMATED GLOMERULAR FILTRATION RATE 78 mL/min/1.73m??? Normal >=60 [facility] Comment on above: Order Comment: Speci men Type: BLOOD SPECIMEN Ordering Facility: [facility] Address: [address] [place] [address] Result Comment: Loreta mated Glomerular Filtration Rate (eGFR) is calculated using the 2020 CKD-EPI creatinine equation. This equation utilizes serum creatinine, sex, and age as parameters. The creatinine assay has traceable calibration to isotope dilution-mass spectrometry. Refer to KDIGO guidelines for clinical interpretation. In patients with unstable renal function, e.g. those with acute kidney injury, the eGFR may not accurately reflect actual GFR. Performed By: #### 2 4323-8, [id number], #### [facility] CLIA [id number] 1000 [place] [address] [place] Glucose [Mass/Vol] 104 mg/dL High 74-99 [facility] Comment on above: Order Comment: Val estrada Type: BLOOD SPECIMEN Ordering Facility: [facility] Address: [address] [place] [id number] Result Comment: The [place] Diabetes Association (ADA) provides guidance for cutoff values for fasting glucose and random glucose. The ADA defines fasting as no caloric intake for at least 8 hours. Fasting plasma glucose results between 100 to 125 mg/dL indicate increased risk for diabetes (prediabetes). Fasting plasma glucose results greater than or equal to 126 mg/dL meet the criteria for diagnosis of diabetes. In the absence of unequivocal hyperglycemia, results should be confirmed by repeat testing. In a patient with classic symptoms of hyperglycemia or hyperglycemic crisis, random plasma glucose results greater than or equal to 200 mg/dL meet the criteria for diagnosis of diabetes. Reference: Standards of Medical Care in Diabetes 2016, [place] Diabetes Association. Diabetes Care. 2016.39(Suppl 1). Performed By: #### 2 4323-8, [id number], #### [facility] CLIA [id number] [address] [place] [address] [place] Potassium [Moles/Vol] 4.1 mmol/L Normal 3.7-5.1 [facility] Comment on above: Order Comment: Val estrada Type: BLOOD SPECIMEN Ordering Facility: [facility] Address: [address] [place] [address] Performed By: #### 2 4323-8, [id number], #### [facility] CLIA [id number] [address] [place] [address] [place] Protein [Mass/Vol] 7.5 g/dL Normal 6.3-8.0 [facility] Comment on above: Order Comment: Speci men Type: BLOOD SPECIMEN Ordering Facility: [facility] Address: [address] [address] Performed By: #### 2 4323-8, [id number], 38718-2 #### [facility] CLIA [id number] [address] Sodium [Moles/Vol] 138 mmol/L Normal 136-144 [facility] Comment on above: Order Comment: Speci men Type: BLOOD SPECIMEN Ordering Facility: [facility] Address: [address] [address] Performed By: #### 2 4323-8, [id number], #### [facility] CLIA [id number] [address] Urea nitrogen [Mass/Vol] 24 mg/dL High 7-21 [facility] Comment on above: Order Comment: Speci men Type: BLOOD SPECIMEN Ordering Facility: [facility] Address: [address] [address] Performed By: #### 2 4323-8, [id number], 79111-7 #### [facility] CLIA [id number] [address] OF [facility] ECG COMPLETEon 11-15-2022 ECG COMPLETE Ventricular Rate : 7 2 BPM Atrial Rate : 72 BPM P-R Interval : 188 ms QRS Duration : 136 ms Q-T Interval : 436 ms QTC Calculation(Bazett) : 477 ms Calculated P [place] : 45 degrees Calculated R [place] : 3 degrees Calculated T [place] : 9 degrees SINUS RHYTHM WITH PREMATURE ATRIAL COMPLEXES POSSIBLE LEFT ATRIAL ENLARGEMENT NON-SPECIFIC INTRA-VENTRICULAR CONDUCTION BLOCK ABNORMAL ECG 2250 Confirmed by MD GARY, EDEN ([id number]), desk editor MEGHAN TIDWELL ([id number]) on 11/15/2022 5:44:58 AM NAME : PARVEEN CARUSO PID : [id number] : 1940 Gender : Female Race : ORD : [id number] Procedure Date : Nov 14 2022 22:47:14 Edit Date : Nov 15 2022 05:45:05 Diagnosis: SINUS RHYTHM WITH PREMATURE ATRIAL COMPLEXES POSSIBLE LEFT ATRIAL ENLARGEMENT NON-SPECIFIC INTRA-VENTRICULAR CONDUCTION BLOCK ABNORMAL ECG 2250 Confirmed by MD SARAVIA MICHAEL ([id number]), desk editor MEGHAN TIDWELL ([id number]) on 11/15/2022 5:44:58 AM Test Reason : Chest Pain Location : 1 : ER ED Overread By : MD SARAVIA MICHAEL Edited By : MEGHAN TIDWELL Referred By : , Acquired by : BP, Normal [facility] ED NOTEon 11-15-2022 ED NOTE HNO ID: [id number] Author: Adrienne Fox RN Service: ? Author Type: Registered Nurse Type: ED Notes Filed: 11/15/2022 3:10 AM Note Text: Discharge instructions d/w pt and family at bedside. Stated understanding with no further questions for this nurse. Encouraged f/u with PCP and referring doctors given. Stated understanding. [facility] ED PROV NOTEon 11-15-2022 ED PROV NOTE HNO ID: [id number] Author: Chris Jackson MD Service: Emergency Medicine Author Type: Physician Type: ED Provider Notes Filed: 11/15/2022 2:57 AM Note Text: ED CONTINUATION OF CARE NOTE Code Status: Prior Assumed care from: Dr Saravia Presentation / Findings / Interventions / Plan / Items to Follow Up: Patient presents with elevated blood pressure. The patient's cardiac enzymes went from 17-23. I discussed this with her training technician Dr. Granda felt the patient's not having any chest pain and no EKG changes could be discharged home to follow-up with her training technician tomorrow. Her repeat BP is 162/70. ED Course as of 11/15/22 0257 Chris Jackson's Documentation MonNov 15, 2022 0255 I discussed the case with cardiology, Dr. Ivey. I discussed the EKG results and the enzyme results. The patient's had elevated enzymes in the past. Dr. Ivey felt the patient could be discharged. The patient has appointment with her training technician at 1:00 tomorrow. The patient's BP is 162/70. Others' Documentation MonNov 14, 2022 0019 EKG: Sinus rhythm at 72 with PACs. In new onset of a atypical right bundle branch block is noted that is changed from an EKG 2 years ago, no signs of ST segment changes or abnormal T changes. [MR] ED Course User Index [MR] Eden Saravia MD Clinical Impressions as of 11/15/22256 Poorly-controlled hypertension Chronic obstructive pulmonary disease, unspecified COPD type (HCC) Elevated troponin Medical Decision Making SIGNATURE: Chris Jackson MD PATIENT NAME: Parveen Caruso DATE: November 15, 2022 TIME: 2:57 AM PAGER/CONTACT #: DEJAN CHRIS Grubbs 11/15/22256 [facility] ED PROV NOTE HNO ID: [id number] Author: Eden Saravia MD Service: ? Author Type: Physician Type: ED Provider Notes Filed: 11/15/2022 12:09 AM Note Text: ED Provider Note Patient Name: Parveen Caruso : 1940 SERVICE DATE: 11/14/22 History Patient presents with: Hypertension: Pt amlodipine was increased from 2.5mg to 5mg on Monday, pt reports her BP was 200/100 today and she was concerned about the numbers. Pt denies any chest pain or headache. Pt AANDOX3. She has an appt to follow up with her training technician at [facility] at 1 pm. Patient presenting for evaluation secondary to hypertension. Patient does have an underlying history of hypertension, recently has been having difficulty with controlling her blood pressures. She was seen at the primary care office was noted to have elevated blood pressures and had her amlodipine upward titrated from 2-1/2 mg up to 5 mg. Patient tells me that she has been feeling right, and took her blood pressure tonight and noted that it was 200/100. She called the [facility] line they recommended that she take an additional dose of her amlodipine and wait a half an hour. After half an hour she retook her blood pressure was still elevated so she called EMS. Patient denies symptoms from this other than feeling weird. She denies any chest pain shortness of breath lightheadedness headache vision changes numbness weakness or speech changes. Patient admittedly does state that she did not take her water pill today as she was out and about, typically takes 20 mg of Lasix. PAST MEDICAL HISTORY Diagnosis Date Chronic obstructive pulmonary disease (COPD) (HCC) Coronary artery disease Hypertension Hypertension Late onset Alzheimer dementia (HCC) Mixed hyperlipidemia Mixed hyperlipidemia Thyroid disease PAST SURGICAL HISTORY Procedure Laterality Date APPENDECTOMY COLONOSCOPY ENLARGE BREAST WITH IMPLANT HERNIA REPAIR HX LIGATE FALLOPIAN TUBE PICC LINE INSERT/CONSULT 07/29/2020 THYROID SURGERY HX FAMILY HISTORY Problem Relation Age of Onset Breast Cancer Mother Heart disease Father Kidney Disease Father Social History Tobacco Use Smoking status: Never Smokeless tobacco: Never Vaping Use Vaping Use: Never used Substance and Sexual Activity Alcohol use: Never Drug use: Never Sexual activity: Not on file ALLERGIES Allergen Reactions Esomeprazole Magnes* Rash Penicillins Rash Review of Systems Constitutional: Negative for activity change and fever. HENT: Negative for rhinorrhea and sore throat. Respiratory: Negative for cough and shortness of breath. Cardiovascular: Negative for chest pain. Gastrointestinal: Negative for abdominal pain, diarrhea, nausea and vomiting. Genitourinary: Negative for dysuria. Musculoskeletal: Negative for myalgias. Skin: Negative for rash. Neurological: Negative for weakness and numbness. Psychiatric/Behavioral : Negative for self-injury. Physical Exam Vitals [11/14/22 2223] BP Pulse Temp Temp src Resp SpO2 Weight Height (!) 218/85 80 37.1 ?C (98.7 ?F) Temporal 20 98 % 102.1 kg (225 lb) -- Physical Exam Vitals and nursing note reviewed. Constitutional: General: She is not in acute distress. Appearance: Normal appearance. She is well-developed. HENT: Head: Normocephalic and atraumatic. Nose: Nose normal. Mouth/Throat: Mouth: Mucous membranes are moist. Eyes: Conjunctiva/sclera: Conjunctivae normal. Pupils: Pupils are equal, round, and reactive to light. Cardiovascular: Rate and Rhythm: Normal rate and regular rhythm. Heart sounds: Murmur (2/6 systolic) heard. Comments: Radial pulses 2+ bilaterally Pulmonary: Effort: Pulmonary effort is normal. No respiratory distress. Breath sounds: Normal breath sounds. Abdominal: General: Bowel sounds are normal. There is no distension. Palpations: Abdomen is soft. Tenderness: There is no abdominal tenderness. Musculoskeletal: General: No tenderness. Normal range of motion. Cervical back: Normal range of motion and neck supple. Lymphadenopathy: Cervical: No cervical adenopathy. Skin: General: Skin is warm and dry. Capillary Refill: Capillary refill takes less than 2 seconds. Findings: No rash. Neurological: Mental Status: She is alert and oriented to person, place, and time. GCS: GCS eye subscore is 4. GCS verbal subscore is 5. GCS motor subscore is 6. Sensory: No sensory deficit. Motor: No weakness. Psychiatric: Mood and Affect: Mood normal. Diagnostic Testing ED Labs Ordered and Reviewed HIGH SENSITIVITY TROPONIN T (INITIAL) - Abnormal; Notable for the following components: Result Value Ref Range LEVON High Sensitivity 17 (*) <12 ng/L All other components within normal limits COMP METABOLIC PANEL - Abnormal; Notable for the following components: Glucose 104 (*) 74 - 99 mg/dL BUN 24 (*) 7 - 21 mg/dL All other components within normal limits CBC + DIFF - Abn (more content not included)... Normal [facility] HIGH SENSITIVITY TROPONIN T (INITIAL)on 11-15-2022 HIGH SENSITIVITY LEVON 17 ng/L High <12 [facility] Comment on above: Order Comment: Val estrada Type: BLOOD SPECIMEN Ordering Facility: [facility] Address: [address] [place], [place] [id number] Result Comment: When assessing risk for acute coronary syndromes: In patients undergoing blood draw greater than or equal to 2 hours from symptom onset, with history of very low to moderate risk and non-ischemic ECG, an initial hs-Troponin T less than 12 ng/L AND a 1 hour delta hs-Troponin T less than 3 ng/L should be considered very low risk for 30 day MACE. Performed By: #### 2 4323-8, [id number], 44922-1 #### [facility] CLIA [id number] [address] HIGH SENSITIVITY TROPONIN T (SECOND)on 11-15-2022 HIGH SENSITIVITY LEVON 21 ng/L High <12 [facility] Comment on above: Order Comment: Val estrada Type: BLOOD SPECIMEN Ordering Facility: [facility] Address: [address] [place], [place] [id number] Result Comment: When assessing risk for acute coronary syndromes: In patients undergoing blood draw greater than or equal to 2 hours from symptom onset, with history of very low to moderate risk and non-ischemic ECG, an initial hs-Troponin T less than 12 ng/L AND a 1 hour delta hs-Troponin T less than 3 ng/L should be considered very low risk for 30 day MACE. Performed By: #### L [id number] #### [facility] CLIA [id number] [address] [place] [address] [place] HIGH SENSITIVITY TROPONIN T (THIRD) 3 HRS AFTER INITIALon 11-15-2022 HIGH SENSITIVITY LEVON 23 ng/L High <12 [facility] Comment on above: Order Comment: Val estrada Type: BLOOD SPECIMEN Ordering Facility: [facility] Address: [address] [place] [address] Result Comment: When assessing risk for acute coronary syndromes: In patients undergoing blood draw greater than or equal to 2 hours from symptom onset, with history of very low to moderate risk and non-ischemic ECG, an initial hs-Troponin T less than 12 ng/L AND a 1 hour delta hs-Troponin T less than 3 ng/L should be considered very low risk for 30 day MACE. Performed By: #### L [id number] #### [facility] CLIA [id number] [address] [place] [address] [place] Magnesium SerPl-mCncon 11-15 Magnesium [Mass/Vol] 2.2 mg/dL Normal 1.7-2.3 [facility] Comment on above: Order Comment: Val estrada Type: BLOOD SPECIMEN Ordering Facility: [facility] Address: [address] [place] [address] Performed By: #### 2 4323-8, [id number], 27944-2 #### [facility] CLIA [id number] [address] [place] [address] [place] Absolute lymphocyte countOrd ered By: Albina Aponte on 11-10-2022 Lymphocytes Auto (Unsp spec) [#/Vol] 3.10 10*3/uL 0.83-4.51 [facility] Basophil percentageOrdered B y: Albina Aponte on 11-10-2022 Basophils/100 WBC (Bld) 0.8 % 0-1 [facility] Bilirubin [Mass/Vol] 0.40 mg/dL 0.20-1.00 [facility] Comment on above: For patients on eltr ombopag therapy, use of Dimension [place] TBIL is not recommended. Chloride [Moles/Vol] 104 mmol/L 98-107 [facility] Cholesterol [Mass/Vol] 170 mg/dL <200 [facility] Comment on above: <200 mg/dL Desirable 200-240 mg/dL Borderline >240 mg/dL High Risk Eosinophils/100 WBC (Bld) 2.3 % 0-5 [facility] Glucose [Mass/Vol] 112 mg/dL 74-106 [facility] Comment on above: Fasting Glucose resu lt from 100 to 125 mg/dL suggests IMPAIRED HOMEOSTASIS per A.D.A. criteria. Neutrophils (Bld) [#/Vol] 6.4 10*3/uL 2.0-7.7 [facility] Neutrophils/100 WBC (Bld) 60.4 % 47-70 [facility] Potassium [Moles/Vol] 4.0 mmol/L 3.5-5.1 [facility] Protein [Mass/Vol] 7.7 g/dL 6.4-8.2 [facility] Sodium [Moles/Vol] 138 mmol/L 136-145 [facility] Triglyceride [Mass/Vol] 121 mg/dL <199 [facility] Comment on above: The drugs N-Acetylcy steine and Metamizole may falsely depress this assay.Serum Triglycerides Reference Interval Normal <150 mg/dL Borderline high 150 - 199 mg/dL High 200 - 499 mg/dL Very High > or = 500 mg/dL WBC (Bld) [#/Vol] 10.6 10*3/uL 4.4-11.0 [facility] Blood erythrocytes count (nu mber/volume)Ordered By: Albina Aponte on 11-10-2022 RBC (Bld) [#/Vol] 5.15 10*6/uL 4.2-5.4 [facility] Blood hemoglobin measurement (mass/volume)Ordered By: Albina Aponte on 11-10-2022 Hemoglobin (Bld) [Mass/Vol] 14.8 g/dL 12.0-15.0 [facility] Blood lymphocytes/100 leukoc ytesOrdered By: Albina Aponte on 11-10-2022 Lymphocytes/100 WBC (Bld) 29.2 % 19-41 [facility] Blood monocytes/100 leukocyt esOrdered By: Albina Aponte on 11-10-2022 Monocytes/100 WBC (Bld) 6.9 % 0-10 [facility] Blood platelet mean volumeOr dered By: Albina Aponte on 11-10-2022 Platelet mean volume (Bld) [Entitic vol] 10.2 fL 6.2-12.0 [facility] Determination of erythrocyte mean corpuscular volume (MCV)Ordered By: Albina Aponte on 11-10-2022 MCV (RBC) [Entitic vol] 88.3 fL 81-99 [facility] Hematocrit Auto (Bld) [Volum e fraction]Ordered By: Albina Aponte on 11-10-2022 Hematocrit (Bld) [Volume fraction] 45.5 % 37-47 [facility] Laboratory - Chemistry and C hemistry - challengeOrdered By: Albina Aponte on 11-10-2022 ALP [Catalytic activity/Vol] 97 U/L 45-117 [facility] ALT [Catalytic activity/Vol] 29 U/L 13-56 [facility] CO2 [Moles/Vol] 26.0 mmol/L 21.0-32.0 [facility] Globulin (S) [Mass/Vol] 4.0 g/dL 2.2-4.2 [facility] Natriuretic peptide B (Bld) [Mass/Vol] 66.9 pg/mL 0-100 [facility] Urea nitrogen/Creatinine [Mass ratio] 25.7 mg/mg 10-20 [facility] Laboratory - Hematology and Cell countsOrdered By: Albina Aponte on 11-10-2022 Erythrocyte distribution width (RBC) [Entitic vol] 45.3 fL 35.1-43.9 [facility] Erythrocyte distribution width (RBC) [Ratio] 14.0 % 11.6-14.6 [facility] Immature granulocytes/100 WBC (Bld) 0.400 % 0.0-0.9 [facility] Comment on above: IG% - Immature Granu locytes (promyelocytes, myelocytes and metamyelocytes) > 1% indicates that a LEFT SHIFT is Present. MCH (RBC) [Entitic mass] 28.7 pg 27.0-32.0 [facility] Nucleated RBC/100 WBC (Bld) [Ratio] 0 % 0-5 [facility] MCHC Auto (RBC) [Mass/Vol]Or dered By: Albina Aponte on 11-10-2022 MCHC (RBC) [Mass/Vol] 32.5 g/dL 32-36 [facility] No Panel InformationOrdered By: Albina Aponte on 11-10-2022 Estimated GFR (MDRD) Amer 71 mL/min >60 [facility] Comment on above: GFR Calc Estimated GFR (MDRD) Non-Af Amer 58 mL/min >60 [facility] Comment on above: Non- GFR Calc Thyroid Stimulating Hormone (TSH) 0.49 uIU/mL 0.358-3.74 [facility] Platelets bldOrdered By: Jacob Aponte on 11-10-2022 Platelets (Bld) [#/Vol] 327 10*3/uL 150-450 [facility] Serum or plasma albumin christianne urement (mass/volume)Ordered By: Albina Aponte on 11-10-2022 Albumin [Mass/Vol] 3.7 g/dL 3.2-5.0 [facility] Serum or plasma albumin/glob ulin mass ratioOrdered By: Albina Aponte on 11-10-2022 Albumin/Globulin [Mass ratio] 0.9 {ratio} 0.9-2.4 [facility] Serum or plasma calcium christianne urement (mass/volume)Ordered By: Albina Aponte on 11-10-2022 Calcium [Mass/Vol] 9.4 mg/dL 8.5-10.1 [facility] Serum or plasma cholesterol in HDL measurement (mass/volume)Ordered By: Albina Aponte on 11-10-2022 Cholesterol in HDL [Mass/Vol] 58 mg/dL >40 [facility] Comment on above: The drugs N-Acetylcy steine and Metamizole may falsely depress this assay. Reference Range HDL <40 mg/dL Low HDL Cholesterol HDL >or= 60 mg/dL High HDL Cholesterol Serum or plasma cholesterol in VLDL measurement (mass/volume)Ordered By: Albina Aponte on 11-10-2022 Cholesterol in VLDL [Mass/Vol] 24 mg/dL 5-40 [facility] Serum or plasma creatinine m easurement (mass/volume)Ordered By: Albina Aponte on 11-10-2022 Creatinine [Mass/Vol] 0.97 mg/dL 0.55-1.02 [facility] Comment on above: The validity of the calculated GFR & GFRAA in patients over 70 years has not been determined. Clinical correlation is essential. Serum or plasma low density lipoprotein (LDL) cholesterol measurement (mass/volume)Ordered By: Albina Aponte on 11-10-2022 Cholesterol in LDL [Mass/Vol] 88 mg/dL 0-130 [facility] Serum or plasma urea nitroge n measurement (mass/volume)Ordered By: Albina Aponte on 11-10-2022 Urea nitrogen [Mass/Vol] 25 mg/dL 7-18 [facility] Thin prep Papanicolaou smear with manual screeningOrdered By: Albina Aponte on 11-10-2022 Thin prep Papanicolaou smear with manual screening 22 U/L 15-37 [facility] Thin prep Papanicolaou smear with manual screening 8 5-15 [facility] Basophil percentageOrdered B y: Dr. Tomlin on 08-20-2022 Chloride [Moles/Vol] 103 mmol/L 98-107 [facility] Glucose [Mass/Vol] 123 mg/dL 74-106 [facility] Comment on above: Fasting Glucose resu lt from 100 to 125 mg/dL suggests IMPAIRED HOMEOSTASIS per A.D.A. criteria. Potassium [Moles/Vol] 4.5 mmol/L 3.5-5.1 [facility] Sodium [Moles/Vol] 136 mmol/L 136-145 [facility] Laboratory - Chemistry and C hemistry - challengeOrdered By: Dr. Tomlin on 08-20-2022 CO2 [Moles/Vol] 25.0 mmol/L 21.0-32.0 [facility] Natriuretic peptide B (Bld) [Mass/Vol] 46.9 pg/mL 0-100 [facility] Urea nitrogen/Creatinine [Mass ratio] 22.3 mg/mg 10-20 [facility] No Panel InformationOrdered By: Dr. Tomlin on 08-20-2022 Estimated GFR (MDRD) Amer 73 mL/min >60 [facility] Comment on above: GFR Calc Estimated GFR (MDRD) Non-Af Amer 61 mL/min >60 [facility] Comment on above: Non- GFR Calc Serum or plasma calcium christianne urement (mass/volume)Ordered By: Dr. Tomlin on 08-20-2022 Calcium [Mass/Vol] 9.7 mg/dL 8.5-10.1 [facility] Serum or plasma creatinine m easurement (mass/volume)Ordered By: Dr. Tomlin on 08-20-2022 Creatinine [Mass/Vol] 0.94 mg/dL 0.55-1.02 [facility] Comment on above: The validity of the calculated GFR & GFRAA in patients over 70 years has not been determined. Clinical correlation is essential. Serum or plasma urea nitroge n measurement (mass/volume)Ordered By: Dr. Tomlin on 08-20-2022 Urea nitrogen [Mass/Vol] 21 mg/dL 7-18 [facility] Thin prep Papanicolaou smear with manual screeningOrdered By: Dr. Tomlin on 08-20-2022 Thin prep Papanicolaou smear with manual screening 8 5-15 [facility] Basophil percentageOrdered B y: Dr. Tomlin on 08-11-2022 Chloride [Moles/Vol] 105 mmol/L 98-107 [facility] Glucose [Mass/Vol] 117 mg/dL 74-106 [facility] Comment on above: Fasting Glucose resu lt from 100 to 125 mg/dL suggests IMPAIRED HOMEOSTASIS per A.D.A. criteria. Potassium [Moles/Vol] 4.4 mmol/L 3.5-5.1 [facility] Sodium [Moles/Vol] 141 mmol/L 136-145 [facility] Laboratory - Chemistry and C hemistry - challengeOrdered By: Dr. Tomlin on 08-11-2022 CO2 [Moles/Vol] 30.0 mmol/L 21.0-32.0 [facility] Natriuretic peptide B (Bld) [Mass/Vol] 93.3 pg/mL 0-100 [facility] Urea nitrogen/Creatinine [Mass ratio] 22.7 mg/mg 10-20 [facility] No Panel InformationOrdered By: Dr. Tomlin on 08-11-2022 Estimated GFR (MDRD) Amer 61 mL/min >60 [facility] Comment on above: GFR Calc Estimated GFR (MDRD) Non-Af Amer 51 mL/min >60 [facility] Comment on above: Non- GFR Calc Serum or plasma calcium christianne urement (mass/volume)Ordered By: Dr. Tomlin on 08-11-2022 Calcium [Mass/Vol] 9.7 mg/dL 8.5-10.1 [facility] Serum or plasma creatinine m easurement (mass/volume)Ordered By: Dr. Tomlin on 08-11-2022 Creatinine [Mass/Vol] 1.10 mg/dL 0.55-1.02 [facility] Comment on above: The validity of the calculated GFR & GFRAA in patients over 70 years has not been determined. Clinical correlation is essential. Serum or plasma urea nitroge n measurement (mass/volume)Ordered By: Dr. Tomlin on 08-11-2022 Urea nitrogen [Mass/Vol] 25 mg/dL 7-18 [facility] Thin prep Papanicolaou smear with manual screeningOrdered By: Dr. Tomlin on 08-11-2022 Thin prep Papanicolaou smear with manual screening 6 5-15 [facility] Basophil percentageOrdered B y: Dr. Ramos on 08-03-2022 Basophil percentage < 0.9 mg/dL 0.55-1.02 [facility] No Panel InformationOrdered By: Dr. Ramos on 08-03-2022 Bedside Estimated GFR (eGFR) > 60.0000 mL/min >60 [facility] VL Venous Duplex US Lower Ex t Bilateralon 03-18-2022 VL Venous Duplex US Lower Ext Bilateral Patient Name: PARVEEN CARUSO Ultrasound ACCESSION EXAM DATE/TIME PROCEDURE ORDERING PROVIDER [id number] 03/18/2022 11:30 EDT VL Venous Duplex [place] [id number] RILEY MEDINA Lower Ext Bilateral CPT code 05986 Reason For Exam (VL Venous Duplex US Lower Ext Bilateral) L > R edema Report CLINICAL INFORMATION: Bilateral lower extremity pain and swelling. Duplex Doppler ultrasound right and left lower extremity: Duplex Doppler sonographic evaluation of the bilateral common femoral veins and the deep veins of the both lower extremities demonstrate normal color blood flow and coaptation of the bilateral common femoral veins and the bilateral deep and superficial femoral, popliteal, gastrocnemius, posterior tibial, peroneal and greater saphenous veins. IMPRESSION: No evidence of deep venous thrombosis in the right or left lower extremities. Report Dictated on Final Dictating Physician: MD DAWN HARLAN Signed Date and Time: 03/18/2022 4:35 pm Signed by: MD DAWN HARLAN Transcribed Date and Time: 03/18/2022 4:36 Cardiovascular ACCESSION EXAM DATE/TIME PROCEDURE [id number] 03/18/2022 11:30 EDT VL Venous Duplex US Lower Ext Bilateral CPT code 83714 Reason For Exam (VL Venous Duplex US Lower Ext Bilateral) L > R edema Report CLINICAL INFORMATION: Bilateral lower extremity pain and swelling. Duplex Doppler ultrasound right and left lower extremity: Cardiovascular Report Duplex Doppler sonographic evaluation of the bilateral common femoral veins and the deep veins of the both lower extremities demonstrate normal color blood flow and coaptation of the bilateral common femoral veins and the bilateral deep and superficial femoral, popliteal, gastrocnemius, posterior tibial, peroneal and greater saphenous veins. IMPRESSION: No evidence of deep venous thrombosis in the right or left lower extremities. Report Dictated on Final Dictating Physician: MD DAWN HARLAN Signed Date and Time: 03/18/2022 4:35 pm Signed by: MD DAWN HARLAN Transcribed Date and Time: 03/18/2022 4:36 Normal [facility] Absolute lymphocyte counton 12-01-2021 Lymphocytes Auto (Unsp spec) [#/Vol] 2.78 10*3/uL 0.83-4.51 [facility] Work Phone: Basophil percentageon 2021 Basophils/100 WBC (Bld) 0.6 % 0-1 [facility] Work Phone: Chloride [Moles/Vol] 106 mmol/L 98-[address] [facility] Work Phone: Eosinophils/100 WBC (Bld) 1.9 % 0-5 [facility] Work Phone: Glucose [Mass/Vol] 103 mg/dL 74-106 [facility] Work [facility]: Comment on above: Fasting Glucose resu lt from 100 to 125 mg/dL suggests IMPAIRED HOMEOSTASIS per A.D.A. criteria. Neutrophils (Bld) [#/Vol] 7.4 10*3/uL 2.0-7.7 [facility] Work Phone: [phone] Neutrophils/100 WBC (Bld) 64.1 % 47-70 [facility] Work Phone: [phone] Potassium [Moles/Vol] 4.1 mmol/L 3.5-5.1 [facility] Work Phone: [phone] Sodium [Moles/Vol] 139 mmol/L 136-145 [facility] Work Phone: [phone] WBC (Bld) [#/Vol] 11.5 10*3/uL 4.4-11.0 [facility] Work Phone: Blood erythrocytes count (nu mber/volume)on 12-01-2021 RBC (Bld) [#/Vol] 4.64 10*6/uL 4.2-5.4 [facility] Work Phone: Blood hemoglobin measurement (mass/volume)on 12-01-2021 Hemoglobin (Bld) [Mass/Vol] 13.5 g/dL 12.0-15.0 [facility] Work Phone: Blood lymphocytes/100 leukoc yteson 12-01-2021 Lymphocytes/100 WBC (Bld) 24.2 % 19-41 [facility] Work Phone: [phone] Blood monocytes/100 leukocyt eson 12-01-2021 Monocytes/100 WBC (Bld) 8.7 % 0-10 [facility] Work Phone: [phone] Blood platelet mean volumeon 12-01-2021 Platelet mean volume (Bld) [Entitic vol] 10.2 fL 6.2-12.0 [facility] Work Phone: [phone] Determination of erythrocyte mean corpuscular volume (MCV)on 12-01-2021 MCV (RBC) [Entitic vol] 89.0 fL 81-99 [facility] Work Phone: Hematocrit Auto (Bld) [Volum e fraction]on 12-01-2021 Hematocrit (Bld) [Volume fraction] 41.3 % 37-47 [facility] Work Phone: Laboratory - Chemistry and C hemistry - challengeon 12-01-2021 CO2 [Moles/Vol] 27.0 mmol/L 21.0-32.0 [facility] Work Phone: Natriuretic peptide B (Bld) [Mass/Vol] 40.1 pg/mL 0-100 [facility] Work Phone: Urea nitrogen/Creatinine [Mass ratio] 26.1 mg/mg 10-20 [facility] Work Phone: Laboratory - Hematology and Cell countson 12-01-2021 Erythrocyte distribution width (RBC) [Entitic vol] 43.3 fL 35.1-43.9 [facility] Work Phone: Erythrocyte distribution width (RBC) [Ratio] 13.3 % 11.6-14.6 [facility] Work Phone: Immature granulocytes/100 WBC (Bld) 0.500 % 0.0-0.9 [facility] Work Phone: Comment on above: IG% - Immature Granu locytes (promyelocytes, myelocytes and metamyelocytes) > 1% indicates that a LEFT SHIFT is Present. MCH (RBC) [Entitic mass] 29.1 pg 27.0-32.0 [facility] Work Phone: Nucleated RBC/100 WBC (Bld) [Ratio] 0 % 0-5 [facility] Work Phone: MCHC Auto (RBC) [Mass/Vol]on 12-01-2021 MCHC (RBC) [Mass/Vol] 32.7 g/dL 32-36 [facility] Work Phone: No Panel Informationon 12-01 Estimated Creatinine Clearance Calc 43.71 ml/min [facility] Work Phone: Estimated GFR (MDRD) Amer 61 mL/min >60 [facility] Work Phone: Comment on above: GFR Calc Estimated GFR (MDRD) Non-Af Amer 50 mL/min >60 [facility] Work Phone: Comment on above: Non- GFR Calc Troponin I High Sensitivity 7 pg/mL 3.0-54.0 [facility] Work Phone: Comment on above: Please Note: New Tete t Units and Gender Specific Reference Ranges. For more information see Policy Stat Procedure [place] High Sensitivity Troponin (TNIH) and attachments. Platelets bldon 12-01-2021 Platelets (Bld) [#/Vol] 281 10*3/uL 150-450 [facility] Work Phone: Serum or plasma calcium christianne urement (mass/volume)on 12-01-2021 Calcium [Mass/Vol] 9.3 mg/dL 8.5-10.1 [facility] Work Phone: Serum or plasma creatinine m easurement (mass/volume)on 12-01-2021 Creatinine [Mass/Vol] 1.11 mg/dL 0.55-1.02 [facility] Work Phone: Comment on above: The validity of the calculated GFR & GFRAA in patients over 70 years has not been determined. Clinical correlation is essential. Serum or plasma urea nitroge n measurement (mass/volume)on 12-01-2021 Urea nitrogen [Mass/Vol] 29 mg/dL 7-18 [facility] Work Phone: Thin prep Papanicolaou smear with manual screeningon 12-01-2021 Thin prep Papanicolaou smear with manual screening 6 5-15 [facility] Work Phone: Absolute lymphocyte counton 11-30-2021 Lymphocytes Auto (Unsp spec) [#/Vol] 2.92 10*3/uL 0.83-4.51 [facility] Work Phone: Basophil percentageon 2021 Basophils/100 WBC (Bld) 0.4 % 0-1 [facility] Work Phone: Bilirubin [Mass/Vol] 0.40 mg/dL 0.20-1.00 [facility] Work Phone: Comment on above: For patients on eltr ombopag therapy, use of Dimension [place] TBIL is not recommended. Chloride [Moles/Vol] 103 mmol/L 98-107 [facility] Work Phone: Cholesterol [Mass/Vol] 111 mg/dL <200 [facility] Work Phone: Comment on above: <200 mg/dL Desirable 200-240 mg/dL Borderline >240 mg/dL High Risk Eosinophils/100 WBC (Bld) 2.0 % 0-5 [facility] Work Phone: Glucose [Mass/Vol] 120 mg/dL 74-106 [facility] Work Phone: Comment on above: Fasting Glucose resu lt from 100 to 125 mg/dL suggests IMPAIRED HOMEOSTASIS per A.D.A. criteria. Neutrophils (Bld) [#/Vol] 7.0 10*3/uL 2.0-7.7 [facility] Work Phone: Neutrophils/100 WBC (Bld) 62.4 % 47-70 [facility] Work Phone: Potassium [Moles/Vol] 4.9 mmol/L 3.5-5.1 [facility] Work Phone: Protein [Mass/Vol] 7.7 g/dL 6.4-8.2 [facility] Work Phone: Sodium [Moles/Vol] 137 mmol/L 136-145 [facility] Work Phone: Triglyceride [Mass/Vol] 113 mg/dL <199 [facility] Work Phone: Comment on above: The drugs N-Acetylcy steine and Metamizole may falsely depress this assay.Serum Triglycerides Reference Interval Normal <150 mg/dL Borderline high 150 - 199 mg/dL High 200 - 499 mg/dL Very High > or = 500 mg/dL WBC (Bld) [#/Vol] 11.2 10*3/uL 4.4-11.0 [facility] Work Phone: Blood erythrocytes count (nu mber/volume)on 11-30-2021 RBC (Bld) [#/Vol] 4.77 10*6/uL 4.2-5.4 [facility] Work Phone: Blood hemoglobin measurement (mass/volume)on 11-30-2021 Hemoglobin (Bld) [Mass/Vol] 14.0 g/dL 12.0-15.0 [facility] Work Phone: Blood lymphocytes/100 leukoc yteson 11-30-2021 Lymphocytes/100 WBC (Bld) 26.1 % 19-41 [facility] Work Phone: Blood monocytes/100 leukocyt eson 11-30-2021 Monocytes/100 WBC (Bld) 8.6 % 0-10 [facility] Work Phone: Blood platelet mean volumeon 11-30-2021 Platelet mean volume (Bld) [Entitic vol] 10.8 fL 6.2-12.0 [facility] Work Phone: Determination of erythrocyte mean corpuscular volume (MCV)on 11-30-2021 MCV (RBC) [Entitic vol] 88.5 fL 81-99 [facility] Work Phone: Hematocrit Auto (Bld) [Volum e fraction]on 11-30-2021 Hematocrit (Bld) [Volume fraction] 42.2 % 37-47 [facility] Work Phone: Laboratory - Chemistry and C hemistry - challengeon 11-30-2021 ALP [Catalytic activity/Vol] 90 U/L 45-117 [facility] Work Phone: ALT [Catalytic activity/Vol] 28 U/L 13-56 [facility] Work Phone: CO2 [Moles/Vol] 27.0 mmol/L 21.0-32.0 [facility] Work Phone: Globulin (S) [Mass/Vol] 3.9 g/dL 2.2-4.2 [facility] Work Phone: Urea nitrogen/Creatinine [Mass ratio] 25.7 mg/mg 10-20 [facility] Work Phone: Laboratory - Hematology and Cell countson 11-30-2021 Erythrocyte distribution width (RBC) [Entitic vol] 43.7 fL 35.1-43.9 [facility] Work Phone: Erythrocyte distribution width (RBC) [Ratio] 13.4 % 11.6-14.6 [facility] Work Phone: Immature granulocytes/100 WBC (Bld) 0.500 % 0.0-0.9 [facility] Work Phone: Comment on above: IG% - Immature Granu locytes (promyelocytes, myelocytes and metamyelocytes) > 1% indicates that a LEFT SHIFT is Present. MCH (RBC) [Entitic mass] 29.4 pg 27.0-32.0 [facility] Work Phone: Nucleated RBC/100 WBC (Bld) [Ratio] 0 % 0-5 [facility] Work Phone: MCHC Auto (RBC) [Mass/Vol]on 11-30-2021 MCHC (RBC) [Mass/Vol] 33.2 g/dL 32-36 [facility] Work [facility]: No Panel Informationon 11-30 C-Reactive Protein High Sensitivity 1.41 mg/L <3.00 [facility] Work Phone: Comment on above: Low Relative Risk of CVD <1.0 mg/L Average Relative Risk of CVD 1.0 - 3.0 mg/L High Relative Risk of CVD >3.0 mg/L D-Dimer Quantitative (PE/DVT) 0.72 FEU/ug/m 0.27-0.49 [facility] Work Phone: Comment on above: D-Dimer ELEVATED (>0 .49): Additional studies and clinicalassessments are indicated to conclude diagnosis of:Deep Vein Thrombosis (DVT) or Pulmonary Embolism (PE)CRITICAL VALUE VERIFIED. CALLED TO ALBINA [id number] Ariella Amezcua.RESULTS READ BACK BY SAME . Estimated GFR (MDRD) Amer 62 mL/min >60 [facility] Work Phone: Comment on above: GFR Calc Estimated GFR (MDRD) Non-Af Amer 51 mL/min >60 [facility] Work Phone: Comment on above: Non- GFR Calc Thyroid Stimulating Hormone (TSH) 0.41 uIU/mL 0.358-3.74 [facility] Work Phone: Platelets bldon 11-30-2021 Platelets (Bld) [#/Vol] 307 10*3/uL 150-450 [facility] Work Phone: Serum or plasma albumin christianne urement (mass/volume)on 11-30-2021 Albumin [Mass/Vol] 3.8 g/dL 3.2-5.0 [facility] Work Phone: Serum or plasma albumin/glob ulin mass ratioon 11-30-2021 Albumin/Globulin [Mass ratio] 1.0 {ratio} 0.9-2.4 [facility] Work Phone: Serum or plasma calcium christianne urement (mass/volume)on 11-30-2021 Calcium [Mass/Vol] 9.5 mg/dL 8.5-10.1 [facility] Work Phone: Serum or plasma cholesterol in HDL measurement (mass/volume)on 11-30-2021 Cholesterol in HDL [Mass/Vol] 48 mg/dL >40 [facility] Work Phone: Comment on above: The drugs N-Acetylcy steine and Metamizole may falsely depress this assay. Reference Range HDL <40 mg/dL Low HDL Cholesterol HDL >or= 60 mg/dL High HDL Cholesterol Serum or plasma cholesterol in VLDL measurement (mass/volume)on 11-30-2021 Cholesterol in VLDL [Mass/Vol] 23 mg/dL 5-40 [facility] Work Phone: Serum or plasma creatinine m easurement (mass/volume)on 11-30-2021 Creatinine [Mass/Vol] 1.09 mg/dL 0.55-1.02 [facility] Work Phone: Comment on above: The validity of the calculated GFR & GFRAA in patients over 70 years has not been determined. Clinical correlation is essential. Serum or plasma low density lipoprotein (LDL) cholesterol measurement (mass/volume)on 11-30-2021 Cholesterol in LDL [Mass/Vol] 40 mg/dL 0-130 [facility] Work Phone: Serum or plasma urea nitroge n measurement (mass/volume)on 11-30-2021 Urea nitrogen [Mass/Vol] 28 mg/dL 7-18 [facility] Work Phone: Thin prep Papanicolaou smear with manual screeningon 11-30-2021 Thin prep Papanicolaou smear with manual screening 22 U/L 15-37 [facility] Work Phone: Thin prep Papanicolaou smear with manual screening 7 5-15 [facility] Work Phone: Absolute lymphocyte counton 09-14-2021 Lymphocytes Auto (Unsp spec) [#/Vol] 2.68 10*3/uL 0.83-4.51 [facility] Work Phone: Basophil percentageon 2021 Basophils/100 WBC (Bld) 0.7 % 0-1 [facility] Work Phone: Bilirubin [Mass/Vol] 0.50 mg/dL 0.20-1.00 [facility] Work Phone: Comment on above: For patients on eltr ombopag therapy, use of Dimension [place] TBIL is not recommended. Chloride [Moles/Vol] 103 mmol/L 98-107 [facility] Work Phone: Eosinophils/100 WBC (Bld) 2.7 % 0-5 [facility] Work Phone: Glucose [Mass/Vol] 120 mg/dL 74-106 [facility] Work Phone: [phone] Comment on above: Fasting Glucose resu lt from 100 to 125 mg/dL suggests IMPAIRED HOMEOSTASIS per A.D.A. criteria. Neutrophils (Bld) [#/Vol] 6.4 10*3/uL 2.0-7.7 [facility] Work Phone: Neutrophils/100 WBC (Bld) 62.6 % 47-70 [facility] Work Phone: Potassium [Moles/Vol] 4.4 mmol/L 3.5-5.1 [facility] Work Phone: Protein [Mass/Vol] 7.6 g/dL 6.4-8.2 [facility] Work Phone: Sodium [Moles/Vol] 136 mmol/L 136-145 [facility] Work Phone: WBC (Bld) [#/Vol] 10.2 10*3/uL 4.4-11.0 [facility] Work Phone: Blood erythrocytes count (nu mber/volume)on 09-14-2021 RBC (Bld) [#/Vol] 4.74 10*6/uL 4.2-5.4 [facility] Work Phone: Blood hemoglobin measurement (mass/volume)on 09-14-2021 Hemoglobin (Bld) [Mass/Vol] 14.1 g/dL 12.0-15.0 [facility] Work Phone: Blood lymphocytes/100 leukoc yteson 09-14-2021 Lymphocytes/100 WBC (Bld) 26.2 % 19-41 [facility] Work Phone: Blood monocytes/100 leukocyt eson 09-14-2021 Monocytes/100 WBC (Bld) 7.2 % 0-10 [facility] Work Phone: Blood platelet mean volumeon 09-14-2021 Platelet mean volume (Bld) [Entitic vol] 10.9 fL 6.2-12.0 [facility] Work Phone: Determination of erythrocyte mean corpuscular volume (MCV)on 09-14-2021 MCV (RBC) [Entitic vol] 89.7 fL 81-99 [facility] Work Phone: Hematocrit Auto (Bld) [Volum e fraction]on 09-14-2021 Hematocrit (Bld) [Volume fraction] 42.5 % 37-47 [facility] Work Phone: Laboratory - Chemistry and C hemistry - challengeon 09-14-2021 ALP [Catalytic activity/Vol] 79 U/L 45-117 [facility] Work Phone: ALT [Catalytic activity/Vol] 24 U/L 13-56 [facility] Work Phone: CO2 [Moles/Vol] 28.0 mmol/L 21.0-32.0 [facility] Work Phone: Globulin (S) [Mass/Vol] 3.7 g/dL 2.2-4.2 [facility] Work Phone: Urea nitrogen/Creatinine [Mass ratio] 22.5 mg/mg 10-20 [facility] Work Phone: Laboratory - Hematology and Cell countson 09-14-2021 Erythrocyte distribution width (RBC) [Entitic vol] 43.8 fL 35.1-43.9 [facility] Work Phone: Erythrocyte distribution width (RBC) [Ratio] 13.4 % 11.6-14.6 [facility] Work Phone: Immature granulocytes/100 WBC (Bld) 0.600 % 0.0-0.9 [facility] Work Phone: Comment on above: IG% - Immature Granu locytes (promyelocytes, myelocytes and metamyelocytes) > 1% indicates that a LEFT SHIFT is Present. MCH (RBC) [Entitic mass] 29.7 pg 27.0-32.0 [facility] Work Phone: Nucleated RBC/100 WBC (Bld) [Ratio] 0 % 0-5 [facility] Work Phone: MCHC Auto (RBC) [Mass/Vol]on 09-14-2021 MCHC (RBC) [Mass/Vol] 33.2 g/dL 32-36 [facility] Work Phone: No Panel Informationon 09-14 Estimated GFR (MDRD) Amer 67 mL/min >60 [facility] Work Phone: Comment on above: GFR Calc Estimated GFR (MDRD) Non-Af Amer 55 mL/min >60 [facility] Work Phone: Comment on above: Non- GFR Calc Thyroid Stimulating Hormone (TSH) 6.43 uIU/mL 0.358-3.74 [facility] Work Phone: Platelets bldon 09-14-2021 Platelets (Bld) [#/Vol] 282 10*3/uL 150-450 [facility] Work Phone: Serum or plasma albumin christianne urement (mass/volume)on 09-14-2021 Albumin [Mass/Vol] 3.9 g/dL 3.2-5.0 [facility] Work Phone: Serum or plasma albumin/glob ulin mass ratioon 09-14-2021 Albumin/Globulin [Mass ratio] 1.1 {ratio} 0.9-2.4 [facility] Work Phone: Serum or plasma calcium christianne urement (mass/volume)on 09-14-2021 Calcium [Mass/Vol] 9.3 mg/dL 8.5-10.1 [facility] Work Phone: Serum or plasma creatinine m easurement (mass/volume)on 09-14-2021 Creatinine [Mass/Vol] 1.02 mg/dL 0.55-1.02 [facility] Work Phone: Comment on above: The validity of the calculated GFR & GFRAA in patients over 70 years has not been determined. Clinical correlation is essential. Serum or plasma urea nitroge n measurement (mass/volume)on 09-14-2021 Urea nitrogen [Mass/Vol] 23 mg/dL 7-18 [facility] Work Phone: Thin prep Papanicolaou smear with manual screeningon 09-14-2021 Thin prep Papanicolaou smear with manual screening 22 U/L 15-37 [facility] Work Phone: Thin prep Papanicolaou smear with manual screening 5 5-15 [facility] Work Phone: Free T4on 09-02-2021 Free T4 [Mass/Vol] 0.98 ng/dL Normal 0.78-2.19 [facility] Comment on above: Performed By: #### F T4M, TSH5 #### [facility] [address] [place] [address] T4, Freeon 09-02-2021 Free T4 [Mass/Vol] 0.98 ng/dL 0.78 - 2. 19 ng/dL [facility] Test Performed by [facility], [facility] [address] LAB [facility] TSHon 09-02-2021 Interpretation and review of laboratory results Abnormal [facility] TSH Qn 5.749 u[IU]/mL High 0.465 - 4.680 u[IU]/mL [facility] Test Performed by [facility], [facility] [address] LAB [facility] Thyroid Stim. Hormoneon 08-11 Thyroid Stim. Hormone 5.749 u[IU]/mL High 0.465-4.68 0 [facility] Comment on above: Performed By: #### F T4M, TSH5 #### [facility] [address] [place] [address] Comp Metabolic Panelon 06-08 ALP [Catalytic activity/Vol] 72 U/L Normal 38-126 [facility] Comment on above: Performed By: #### L IPD2, FT4M, CMP3, HEMOG, TSH5 #### [facility] [address] [place] [address] ALT [Catalytic activity/Vol] 18 U/L Normal 0-34 [facility] Comment on above: Result Comment: The ALT test is performed by an updated assay method. Please note that the reference intervals have been changed and are now sex specific. Performed By: #### L IPD2, FT4M, CMP3, HEMOG, TSH5 #### [facility] [address] [place] [address] AST [Catalytic activity/Vol] 32 U/L Normal 15-46 [facility] Comment on above: Performed By: #### L IPD2, FT4M, CMP3, HEMOG, TSH5 #### [facility] [address] [place] [address] Calcium [Mass/Vol] 10.2 mg/dL Normal 8.4-10.4 [facility] Comment on above: Performed By: #### L IPD2, FT4M, CMP3, HEMOG, TSH5 #### [facility] [address] [place] [address] Glucose [Mass/Vol] 101 mg/dL High 70-100 [facility] Comment on above: Performed By: #### L IPD2, FT4M, CMP3, HEMOG, TSH5 #### [facility] [address] [place] [address] Protein [Mass/Vol] 7.5 g/dL Normal 6.3-8.2 [facility] Comment on above: Performed By: #### L IPD2, FT4M, CMP3, HEMOG, TSH5 #### [facility] [address] [place] [address] Urea nitrogen [Mass/Vol] 27 mg/dL High 9-20 [facility] Comment on above: Performed By: #### L IPD2, FT4M, CMP3, HEMOG, TSH5 #### [facility] [address] [place] [address] Anion gap [Moles/Vol] 3 mmol/L Normal 3-13 [facility] Comment on above: Performed By: #### L IPD2, FT4M, CMP3, HEMOG, TSH5 #### [facility] [address] [place] [address] Bilirubin [Mass/Vol] 0.6 mg/dL Normal 0.2-1.3 [facility] Comment on above: Performed By: #### L IPD2, FT4M, CMP3, HEMOG, TSH5 #### [facility] [address] [place] [address] CO2 [Moles/Vol] 28 mmol/L Normal 22-30 [facility] Comment on above: Performed By: #### L IPD2, FT4M, CMP3, HEMOG, TSH5 #### [facility] [address] [place] [address] Creatinine [Mass/Vol] 0.96 mg/dL Normal 0.52-1.25 [facility] Comment on above: Performed By: #### L IPD2, FT4M, CMP3, HEMOG, TSH5 #### [facility] [address] [place] [address] GFR/1.73 sq M.predicted among blacks MDRD (S/P/Bld) [Vol rate/Area] 65.0 mL/min/{1.73_m2} Normal >60 [facility] Comment on above: Performed By: #### L IPD2, FT4M, CMP3, HEMOG, TSH5 #### [facility] [address] [place] [address] GFR/1.73 sq M.predicted among non-blacks MDRD (S/P/Bld) [Vol rate/Area] 56.0 mL/min/{1.73_m2} Abnormal >60 [facility] Comment on above: Result Comment: KDIG O guidelines provide the following GFR categories: Stage GFR(ml/min/1.73 m2) Terms G1 >=90 Normal or high G2 60-89 Mildly decreased* G3a 45-59 Mildly to moderately decreased G3b 30-44 Moderately to severely decreased G4 15-29 Severely decreased G5 <15 Kidney failure *Relative to young adult level. In the absence of evidence of kidney damage, neither GFR category G1 nor G2 fulfill the criteria for CKD. The CKD-EPI equation is validated in individuals 18 years of age and older. Currently the best equation for estimating glomerular filtration rate (GFR) from serum creatinine in children is the Bedside Cash equation. It is less accurate in patients with extremes of muscle mass, restriction of dietary protein, ingestion of creatine, extra-renal metabolism of creatinine, or treatment with medications that affect renal tubular creatinine secretion. Performed By: #### L IPD2, FT4M, CMP3, HEMOG, TSH5 #### [facility] [address] [place] [address] Chloride [Moles/Vol] 106 mmol/L Normal 98-107 [facility] Comment on above: Performed By: #### L IPD2, FT4M, CMP3, HEMOG, TSH5 #### [facility] [address] [place] [address] Potassium [Moles/Vol] 4.5 mmol/L Normal 3.5-5.1 [facility] Comment on above: Performed By: #### L IPD2, FT4M, CMP3, HEMOG, TSH5 #### [facility] [address] [place] [address] Sodium [Moles/Vol] 137 mmol/L Normal 135-145 [facility] Comment on above: Performed By: #### L IPD2, FT4M, CMP3, HEMOG, TSH5 #### [facility] [address] [place] [address] Albumin [Mass/Vol] 4.2 g/dL Normal 3.5-5.0 [facility] Comment on above: Performed By: #### L IPD2, FT4M, CMP3, HEMOG, TSH5 #### [facility] [address] [place] [address] Free T4on 06-08-2021 Free T4 [Mass/Vol] 1.10 ng/dL Normal 0.78-2.19 [facility] Comment on above: Performed By: #### L IPD2, FT4M, CMP3, HEMOG, TSH5 #### [facility] [address] [place] [address] Hemogramon 06-08-2021 Erythrocyte distribution width (RBC) [Ratio] 13.4 % Normal 11.5-14.5 [facility] Comment on above: Performed By: #### L IPD2, FT4M, CMP3, HEMOG, TSH5 #### [facility] [address] [place] [address] Hematocrit (Bld) [Volume fraction] 42.3 % Normal 35.0-47.0 [facility] Comment on above: Performed By: #### L IPD2, FT4M, CMP3, HEMOG, TSH5 #### [facility] [address] [place] [address] Hemoglobin (Bld) [Mass/Vol] 14.0 g/dL Normal 11.7-16.0 [facility] Comment on above: Performed By: #### L IPD2, FT4M, CMP3, HEMOG, TSH5 #### [facility] [address] [place] [address] MCH (RBC) [Entitic mass] 29.1 pg Normal 26.0-34.0 [facility] Comment on above: Performed By: #### L IPD2, FT4M, CMP3, HEMOG, TSH5 #### [facility] [address] [place] [address] MCHC 33.2 % Normal 32.0-36.0 [facility] Comment on above: Performed By: #### L IPD2, FT4M, CMP3, HEMOG, TSH5 #### [facility] [address] [place] [address] MCV (RBC) [Entitic vol] 87.6 fL Normal 79.0-98.0 [facility] Comment on above: Performed By: #### L IPD2, FT4M, CMP3, HEMOG, TSH5 #### [facility] [address] [place] [address] Platelet mean volume (Bld) [Entitic vol] 8.2 fL Normal 7.4-10.4 [facility] Comment on above: Performed By: #### L IPD2, FT4M, CMP3, HEMOG, TSH5 #### [facility] [address] [place] [address] Platelets (Bld) [#/Vol] 278 10*3/uL Normal 140-440 [facility] Comment on above: Performed By: #### L IPD2, FT4M, CMP3, HEMOG, TSH5 #### [facility] [address] [place] [address] RBC (Bld) [#/Vol] 4.83 10*6/uL Normal 3.80-5.20 [facility] Comment on above: Performed By: #### L IPD2, FT4M, CMP3, HEMOG, TSH5 #### [facility] [address] [place] [address] WBC (Bld) [#/Vol] 10.3 10*3/uL Normal 3.6-10.7 [facility] Comment on above: Performed By: #### L IPD2, FT4M, CMP3, HEMOG, TSH5 #### [facility] [address] [place] [address] Lipid Panelon 06-08-2021 Chol/HDL 3 Normal [facility] Comment on above: Result Comment: Ref Range: < 3 Low Risk for CHD 3-6 Mod Risk for CHD > 6 High Risk for CHD Performed By: #### L IPD2, FT4M, CMP3, HEMOG, TSH5 #### [facility] [address] [place] [address] Cholesterol in HDL [Mass/Vol] 46 mg/dL Normal 40-60 [facility] Comment on above: Performed By: #### L IPD2, FT4M, CMP3, HEMOG, TSH5 #### [facility] [address] [place] [address] Low Density Lipoprotein 53 mg/dL Normal <100 [facility] Comment on above: Performed By: #### L IPD2, FT4M, CMP3, HEMOG, TSH5 #### [facility] [address] [place] [address] Triglyceride [Mass/Vol] 100 mg/dL Normal <150 [facility] Comment on above: Performed By: #### L IPD2, FT4M, CMP3, HEMOG, TSH5 #### [facility] [address] [place] [address] Cholesterol [Mass/Vol] 119 mg/dL Normal < 200 [facility] Comment on above: Performed By: #### L IPD2, FT4M, CMP3, HEMOG, TSH5 #### [facility] [address] [place] [address] Thyroid Stim. Hormoneon 12-2 Thyroid Stim. Hormone 5.361 u[IU]/mL High 0.465-4.68 0 [facility] Comment on above: Performed By: #### L IPD2, FT4M, CMP3, HEMOG, TSH5 #### [facility] [address] [place] [address] XR HIP RIGHT (2-3 VIEWS)Orde red By: Kush Huynh on 01-20-2021 Patient Name: PARVEEN CARUSO Diagnostic Radiology ACCESSION EXAM DATE/TIME PROCEDURE ORDERING PROVIDER [id number] 01/20/2021 16:11 EDT CR Hip w/ Pelvis 2 or 3 MALA HUYNH,KUSH Views Right n CPT code 20839 Reason For Exam (CR Hip w/ Pelvis 2 or 3 Views Right n) right hip pain Report RIGHT HIP & PELVIS: INDICATION: Right hip pain COMPARISON: No prior studies are available for comparison. A frontal view of the pelvis and frontal and frog leg views of the right hip were obtained. The bone density appears normal. There are no fractures or dislocations. Arthritic changes are present with joint space narrowing and marginal spurring as well as marginal spurring of the right femoral head. There are no significant soft tissue abnormalities. IMPRESSION: Negative examination of the hip. Report Dictated on --- Final --- Dictating Physician: DO AMES ALFRED Signed Date and Time: 01/20/2021 5:39 pm Signed by: DO AMES ALFRED Transcribed Date and Time: 01/20/2021 5:41 [facility] Work Phone: [facility] - 01/20/2021 5:41 PM EDT [facility]: [id number] Radiology ACCESSION EXAM DATE/TIME PROCEDURE ORDERING PROVIDER [id number] 01/20/2021 16:11 EDT CR Hip w/ Pelvis 2 or 3 MALA HUYNH CAROLINE Views Right n CPT code 14875 Reason For Exam (CR Hip w/ Pelvis 2 or 3 Views Right n) right hip pain Report RIGHT HIP & PELVIS: INDICATION: Right hip pain COMPARISON: No prior studies are available for comparison. A frontal view of the pelvis and frontal and frog leg views of the right hip were obtained. The bone density appears normal. There are no fractures or dislocations. Arthritic changes are present with joint space narrowing and marginal spurring as well as marginal spurring of the right femoral head. There are no significant soft tissue abnormalities. IMPRESSION: Negative examination of the hip. Report Dictated on --- Final --- Dictating Physician: DO AMES ALFRED Signed Date and Time: 01/20/2021 5:39 pm Signed by: DO AMES ALFRED Transcribed Date and Time: 01/20/2021 5:41 [facility] Work Phone: [facility] Work Phone: T4, FreeOrdered By: Emily Corbett on 10-16-2020 Free T4 [Mass/Vol] 1.12 ng/dL 0.78 - 2. 19 ng/dL [facility] Work Phone: Test Performed by [facility], [address] [place] [address] , [place], [place] [id number] [place] [address] Work Phone: TSH without ReflexOrdered By : Melva Corbett on 10-16-2020 TSH Qn 2.168 u[IU]/mL 0.465 - 4.680 u[IU]/mL [facility] Work Phone: Test Performed by [facility], [address] , [place], [place] [address] [facility] Work Phone: Hepatitis C Antibodyon 09-10 Hepatitis C Ab NOT DETECTED Not-Detected NA [facility] Work Phone: Comment on above: Patients with DETECT ED Hepatitis C Ab results should have a new specimen submitted for supplemental testing with a Hepatitis C Quantitative RNA assay (viral load), if clinically indicated. Test Performed by [facility], [address] [place] [id number] [employer] Work Phone: T4, Freeon 09-10-2020 Free T4 [Mass/Vol] 1.68 ng/dL 0.78 - 2. 19 ng/dL [facility] Work Phone: Test Performed by [facility], [address] [place], [place] [address] [employer] Work Phone: TSH without Reflexon 021 Interpretation and review of laboratory results Abnormal [employer] Work Phone: TSH Qn 0.389 u[IU]/mL Low 0.465 - 4.680 u[IU]/mL [employer] Work Phone: Test Performed by [facility], [address] [place], [place] [address] [employer] Work Phone: XR Ankle - right AP and Late ral and obliqueon 06-19-2020 IMPRESSION: Question of a small area of lucency in a spur along the dorsal surface of the talus. This could be posttraumatic age uncertain. 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 Transcribe Date/Time: Jun 19 2020 5:43P Dictated by : CROW BARCENAS DO This examination was interpreted and the report reviewed and electronically signed by: CROW BARCENAS DO on Jun 19 2020 5:45PM [facility] DIVISION OF RADIOLOGY * * *Final Report* * * DATE OF EXAM: Jun 19 2020 5:35PM WOX 5297 - XR ANKLE 3V AP/LAT/OBL RT / PROCEDURE REASON: Ankle injuries, right, initial encounter * * * * Physician Interpretation * * * * RIGHT ankle EXAM DATE/TIME: 06/19/2020 5:35 PM HISTORY: 79 years old Clinical information: Ankle injuries, right, initial encounter Right lateral ankle pain following a fall x 1 week ago. TECHNIQUE: Images: XR ANKLE 3V AP/LAT/OBL RT Comparison: None. RESULT: Findings: There is moderate soft tissue swelling over the ankle. Bone density appears well-preserved. There is spurring along the dorsal surface of the talus. This is seen in the lateral view. A small area of lucency in the base of the spur. This could relate to trauma age uncertain. DIVISION OF RADIOLOGY Provider, [facility] - 06/19/2020 * * *Final Report* * * DATE OF EXAM: Jun 19 2020 5:35PM WOX 5297 - XR ANKLE 3V AP/LAT/OBL RT / PROCEDURE REASON: Ankle injuries, right, initial encounter * * * * Physician Interpretation * * * * RIGHT ankle EXAM DATE/TIME: 06/19/2020 5:35 PM HISTORY: 79 years old Clinical information: Ankle injuries, right, initial encounter Right lateral ankle pain following a fall x 1 week ago. TECHNIQUE: Images: XR ANKLE 3V AP/LAT/OBL RT Comparison: None. RESULT: Findings: There is moderate soft tissue swelling over the ankle. Bone density appears well-preserved. There is spurring along the dorsal surface of the talus. This is seen in the lateral view. A small area of lucency in the base of the spur. This could relate to trauma age uncertain. IMPRESSION IMPRESSION: Question of a small area of lucency in a spur along the dorsal surface of the talus. This could be posttraumatic age uncertain. 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 Transcribe Date/Time: Jun 19 2020 5:43P Dictated by : CROW BARCENAS DO This examination was interpreted and the report reviewed and electronically signed by: CROW BARCENAS DO on Jun 19 2020 5:45PM EST [facility] Radiology Study observation (narrative) Ward grubbs [facility] XR Ankle - right AP and Late ral and obliqueOrdered By: Ccf Provider on 06-19-2020 [facility] Comprehensive Metabolic Pane ratna 06-02-2020 Albumin [Mass/Vol] 4.5 g/dL 3.5 - 5 g/dL [place], [place] ALP [Catalytic activity/Vol] 68 U/L 38 - 126 U/L [place], [place] ALT [Catalytic activity/Vol] 17 U/L 0 - 34 U/L [place] Comment on above: The ALT test is perf ormed by an updated assay method. Please note that the reference intervals have been changed and are now sex specific. Anion gap [Moles/Vol] 7 mmol/L [place], [place] AST [Catalytic activity/Vol] 40 U/L 15 - 46 U/L [place] Bilirubin Ql (U) 0.7 mg/dL 0.2 - 1.3 mg/dL [place] Calcium [Mass/Vol] 9.7 mg/dL 8.4 - 10. 4 mg/dL [place] Chloride [Moles/Vol] 105 mmol/L 98 - 10 7 mmol/L [place] CO2 [Moles/Vol] 27 mmol/L 22 - 30 mmol/L [place] Creatinine [Mass/Vol] 1.02 mg/dL 0.52 - 1.25 mg/dL [place] EGFR IF NonAfrican Finnish 52.5 mL/min Abnormal >60 [place] Comment on above: KDIGO guidelines pro vide the following GFR categories: Stage GFR(ml/min/1.73 m2) Terms G1 >=90 Normal or high G2 60-89 Mildly decreased* G3a 45-59 Mildly to moderately decreased G3b 30-44 Moderately to severely decreased G4 15-29 Severely decreased G5 <15 Kidney failure *Relative to young adult level. In the absence of evidence of kidney damage, neither GFR category G1 nor G2 fulfill the criteria for CKD. The CKD-EPI equation is validated in individuals 18 years of age and older. Currently the best equation for estimating glomerular filtration rate (GFR) from serum creatinine in children is the Bedside Cash equation. It is less accurate in patients with extremes of muscle mass, restriction of dietary protein, ingestion of creatine, extra-renal metabolism of creatinine, or treatment with medications that affect renal tubular creatinine secretion. GFR/1.73 sq M predicted among blacks MDRD (S/P/Bld) [Vol rate/Area] 60.8 mL/min/{1.73_m2} >60 [facility], [place] Glucose [Mass/Vol] 107 mg/dL High 70 - 100 mg/dL [facility], [place] Interpretation and review of laboratory results Abnormal [place], [place] Potassium [Moles/Vol] 4.8 mmol/L 3.5 - 5.1 mmol/L [facility], [place] Protein [Mass/Vol] 7.5 g/dL 6.3 - 8.2 g/dL [place], [place] Sodium [Moles/Vol] 138 mmol/L 135 - 145 mmol/L [facility], [place] Urea nitrogen [Mass/Vol] 26 mg/dL High 7 - 20 mg/dL [facility], [place] DEXA BONE DENSITY AXIAL SKEL ETONon 06-02-2020 [facility] Incoming Radiology Results From [facility] 06/02/2020 10:18 AM EST Patient Name: PARVEEN CARUSO Bone Density ACCESSION EXAM DATE/TIME PROCEDURE ORDERING PROVIDER [id number] 06/02/2020 10:04 EST OT Bone Density DEXA MELVA CORBETT D.O. Axial Skeleton CPT code [id number] Reason For Exam (OT Bone Density DEXA Axial Skeleton) screening for osteoporosis, postmenopausal Report EXAMINATION: DEXA Bone Densitometry. COMPARISON: None REASON FOR STUDY: Asymptomatic postmenopausal state TECHNIQUE: Dual energy x-ray absorptiometry of the lumbar spine and left hip was performed. Evaluation of the lumbar spine was based on assessment of L1 through L4. DEXA SCANNER: [employer]. FINDINGS LUMBAR SPINE: BMD (gm/cm2): 0.941 T-Score: -1.0 Z-Score: 1.6 Change Since Previous: N/A LEFT HIP: Neck: BMD (gm/cm2): 0.591 T-Score: -2.3 Z-Score: -0.1 Total: BMD (gm/cm2): 0.667 T-Score: -2.3 Z-Score: -0.3 Change Since Previous: N/A WHO CLASSIFICATION: LUMBAR SPINE: Normal LEFT HIP NECK: Osteopenia LEFT HIP TOTAL: Osteopenia 10-YEAR FRACTURE RISK: Major Osteoporotic: 16.0 percent Bone Density Report Hip: 5.0 percent RECOMMENDATIONS (from the National Osteoporosis Foundation *) : GENERAL RECOMMENDATIONS FOR PREVENTION OF BONE LOSS INCLUDE: 5309-9931 mg calcium intake per day for adults >50yrs, and no history of renal calculi. 800-1000 IU of vitamin D3 per day for adults >50yrs, and no history of renal calculi. Weight bearing exercise. Discontinue smoking. Avoid excessive use of caffeine, soft drinks, and alcoholic beverages. In addition, balance training and fall prevention programs can help reduce the risk of fractures. PHARMACOLOGIC TREATMENT RECOMMENDATIONS: Initiate pharmacologic treatment in patients with hip or vertebral fracture. In those with T scores <-2.5 at the femoral neck, total hip or lumbar spine by DEXA. In postmenopausal women and men age 50 or older with low bone mass (T score between -1.0 and -2.5 [osteopenia]) at the femoral neck, total hip, or lumbar spine by DEXA and a 10 year hip fracture probability >3% or a 10 year major osteoporosis-related fracture probability >20% based on the [place]-adapted WHO fracture risk model (FRAX). Current FDA-approved pharmacologic options for osteoporosis treatment include bisphosphonates (Fosamax), ibandronate (Boniva), risedronate (Actonel), zoledronic acid (Reclast), estrogens and other hormonal therapies (Evista), parathyroid hormone (Forteo), and denosumab (Prolia). Initiation of pharmacologic therapy should happen only after thorough medical evaluation, discussion of risks and benefits, and with regular monitoring of the therapeutic regimen. FOLLOW-UP RECOMMENDATIONS: Patients with osteoporosis or or at high risk for fracture should have follow-up bone density tests. For Medicare patients, routine testing is allowed every 2 years. Patients who have low bone mass (T score -2.0 to -2.49), who are currently on treatment for low bone mass, or having risk factors for accelerated bone loss (glucocorticoids, aromatase inhibitors, etc.), consider repeat DXA in 1-2 years. Patients with osteopenia and no risk factors may consider follow-up every 3-5 years. REFERENCES: * National Osteoporosis Foundation. Clinician's Guide to Prevention and Treatment of Osteoporosis. Osteoporosis International. Boyd, 2014. DXA Scan Screening, Reporting (FRAX Score) and Follow-up. Thu of Knowledge Evidence-based Summaries. [facility] [employer] and Research, 2017 Report Dictated on --- Final --- Dictating Physician: MD KRISTA, DUDLEY MARIA Signed Date and Time: 06/02/2020 10:16 am Signed by: MD VELASCO YUN ROBERT Transcribed Date and Time: 06/02/2020 10:18 [place], [place] Patient Name: PARVEEN CARUSO Bone Density ACCESSION EXAM DATE/TIME PROCEDURE ORDERING PROVIDER [id number] 06/02/2020 10:04 EST OT Bone Density DEXA MELVA CORBETT D.O. Axial Skeleton CPT code 98120 Reason For Exam (OT Bone Density DEXA Axial Skeleton) screening for osteoporosis, postmenopausal Report EXAMINATION: DEXA Bone Densitometry. COMPARISON: None REASON FOR STUDY: Asymptomatic postmenopausal state TECHNIQUE: Dual energy x-ray absorptiometry of the lumbar spine and left hip was performed. Evaluation of the lumbar spine was based on assessment of L1 through L4. DEXA SCANNER: [employer] W. FINDINGS LUMBAR SPINE: BMD (gm/cm2): 0.941 T-Score: -1.0 Z-Score: 1.6 Change Since Previous: N/A LEFT HIP: Neck: BMD (gm/cm2): 0.591 T-Score: -2.3 Z-Score: -0.1 Total: BMD (gm/cm2): 0.667 T-Score: -2.3 Z-Score: -0.3 Change Since Previous: N/A WHO CLASSIFICATION: LUMBAR SPINE: Normal LEFT HIP NECK: Osteopenia LEFT HIP TOTAL: Osteopenia 10-YEAR FRACTURE RISK: Major Osteoporotic: 16.0 percent Bone Density Report Hip: 5.0 percent RECOMMENDATIONS (from the National Osteoporosis Foundation *) : GENERAL RECOMMENDATIONS FOR PREVENTION OF BONE LOSS INCLUDE: 0564-9870 mg calcium intake per day for adults >50yrs, and no history of renal calculi. 800-1000 IU of vitamin D3 per day for adults >50yrs, and no history of renal calculi. Weight bearing exercise. Discontinue smoking. Avoid excessive use of caffeine, soft drinks, and alcoholic beverages. In addition, balance training and fall prevention programs can help reduce the risk of fractures. PHARMACOLOGIC TREATMENT RECOMMENDATIONS: Initiate pharmacologic treatment in patients with hip or vertebral fracture. In those with T scores <-2.5 at the femoral neck, total hip or lumbar spine by DEXA. In postmenopausal women and men age 50 or older with low bone mass (T score between -1.0 and -2.5 [osteopenia]) at the femoral neck, total hip, or lumbar spine by DEXA and a 10 year hip fracture probability >3% or a 10 year major osteoporosis-related fracture probability >20% based on the [place]-adapted WHO fracture risk model (FRAX). Current FDA-approved pharmacologic options for osteoporosis treatment include bisphosphonates (Fosamax), ibandronate (Boniva), risedronate (Actonel), zoledronic acid (Reclast), estrogens and other hormonal therapies (Evista), parathyroid hormone (Forteo), and denosumab (Prolia). Initiation of pharmacologic therapy should happen only after thorough medical evaluation, discussion of risks and benefits, and with regular monitoring of the therapeutic regimen. FOLLOW-UP RECOMMENDATIONS: Patients with osteoporosis or or at high risk for fracture should have follow-up bone density tests. For Medicare patients, routine testing is allowed every 2 years. Patients who have low bone mass (T score -2.0 to -2.49), who are currently on treatment for low bone mass, or having risk factors for accelerated bone loss (glucocorticoids, aromatase inhibitors, etc.), consider repeat DXA in 1-2 years. Patients with osteopenia and no risk factors may consider follow-up every 3-5 years. REFERENCES: * National Osteoporosis Foundation. Clinician's Guide to Prevention and Treatment of Osteoporosis. Osteoporosis International. Boyd, 2014. DXA Scan Screening, Reporting (FRAX Score) and Follow-up. Thu of Knowledge Evidence-based Summaries. [facility] [employer] and Research, 2017 Report Dictated on --- Final --- Dictating Physician: MD VELASCO YUN ROBERT Signed Date and Time: 06/02/2020 10:16 am Signed by: MD VELASCO YUN ROBERT Transcribed Date and Time: 06/02/2020 10:18 [facility] [place] Lipid Panelon 06-02-2020 Cholesterol [Mass/Vol] 122 mg/dL <200 [facility] [place] Cholesterol in HDL [Mass/Vol] 47 mg/dL 40 - 60 mg/dL [place], [place] Cholesterol in LDL [Mass/Vol] 54 mg/dL <100 [place], [place] Cholesterol.total/Miladys sterol in HDL [Mass ratio] 3 {ratio} [place], [place] Comment on above: Ref Range: < 3 Low Risk for CHD 3-6 Mod Risk for CHD > 6 High Risk for CHD Triglyceride [Mass/Vol] 104 mg/dL <150 M [place], [place] Otheron 06-02-2020 Test Performed by [email or web address], [address] , [address] Potassiumon 03-12-2020 Potassium [Moles/Vol] 4.6 mmol/L 3.5 - 5.1 mmol/L [place], [place] Test Performed by [facility], [address] , [address] XR ELBOW LEFT (MIN 3 VIEWS)o n 02-02-2020 Patient Name: PARVEEN CARUSO ---Diagnostic Radiology--- Exam Date/Time 02/02/2020 14:52:32 EDT Exam CR Elbow 3+ Views Left Ordering Physician MD ESPARZA JESSE Accession Number [id number] CPT4 Codes 05976 () Reason For Exam Injury Report LEFT ELBOW, 3 VIEWS: INDICATION: Posterior elbow pain after fall COMPARISON: No previous studies are available for comparison. Frontal, lateral and oblique views of the left elbow were obtained. The bone density appears normal. No definite fractures are seen. The joint spaces are within normal limits. There are no significant soft tissue abnormalities. There is a suggestion of an anterior fat pad on the lateral view signifying effusion. IMPRESSION: Suspect joint effusion but no definite fractures are seen. Should the patient remain clinically symptomatically repeat study in approximately seven days time may be of benefit to rule out an occult fracture not yet radiographically visible. Report Dictated on --- Final --- Dictating Physician: DO AMES ALFRED Signed Date and Time: 02/02/2020 3:06 pm Signed by: DO AMES ALFRED Transcribed Date and Time: 02/02/2020 3:07 [place], [place] Incoming Radiology Results From [facility] - 02/02/2020 3:08 PM EDT Patient Name: PARVEEN CARUSO ---Diagnostic Radiology--- Exam Date/Time 02/02/2020 14:52:32 EDT Exam CR Elbow 3+ Views Left Ordering Physician MD ESPARZA JESSE Accession Number [id number] CPT4 Codes 50341 () Reason For Exam Injury Report LEFT ELBOW, 3 VIEWS: INDICATION: Posterior elbow pain after fall COMPARISON: No previous studies are available for comparison. Frontal, lateral and oblique views of the left elbow were obtained. The bone density appears normal. No definite fractures are seen. The joint spaces are within normal limits. There are no significant soft tissue abnormalities. There is a suggestion of an anterior fat pad on the lateral view signifying effusion. IMPRESSION: Suspect joint effusion but no definite fractures are seen. Should the patient remain clinically symptomatically repeat study in approximately seven days time may be of benefit to rule out an occult fracture not yet radiographically visible. Report Dictated on --- Final --- Dictating Physician: DO AMES ALFRED Signed Date and Time: 02/02/2020 3:06 pm Signed by: DO AMES ALFRED Transcribed Date and Time: 02/02/2020 3:07 [place], [place] Comprehensive Metabolic Pane ratna 01-30-2020 Albumin [Mass/Vol] 4.3 g/dL 3.5 - 5 g/dL [place], [place] ALP [Catalytic activity/Vol] 65 U/L 38 - 126 U/L [place] ALT [Catalytic activity/Vol] 16 U/L 0 - 34 U/L [place] Comment on above: The ALT test is perf ormed by an updated assay method. Please note that the reference intervals have been changed and are now sex specific. Anion gap [Moles/Vol] 12 mmol/L [place], [place] AST [Catalytic activity/Vol] 25 U/L 15 - 46 U/L [place] Bilirubin Ql (U) 0.5 mg/dL 0.2 - 1.3 mg/dL [place] Calcium [Mass/Vol] 9.9 mg/dL 8.4 - 10. 4 mg/dL [place] Chloride [Moles/Vol] 97 mmol/L Low 98 - 10 7 mmol/L [place] CO2 [Moles/Vol] 26 mmol/L 22 - 30 mmol/L [place] Creatinine [Mass/Vol] 1.07 mg/dL 0.52 - 1.25 mg/dL [place], [place] EGFR IF NonAfrican Finnish 49.6 mL/min Abnormal >60 [place], [place] Comment on above: KDIGO guidelines pro vide the following GFR categories: Stage GFR(ml/min/1.73 m2) Terms G1 >=90 Normal or high G2 60-89 Mildly decreased* G3a 45-59 Mildly to moderately decreased G3b 30-44 Moderately to severely decreased G4 15-29 Severely decreased G5 <15 Kidney failure *Relative to young adult level. In the absence of evidence of kidney damage, neither GFR category G1 nor G2 fulfill the criteria for CKD. The CKD-EPI equation is validated in individuals 18 years of age and older. Currently the best equation for estimating glomerular filtration rate (GFR) from serum creatinine in children is the Bedside Cash equation. It is less accurate in patients with extremes of muscle mass, restriction of dietary protein, ingestion of creatine, extra-renal metabolism of creatinine, or treatment with medications that affect renal tubular creatinine secretion. GFR/1.73 sq M predicted among blacks MDRD (S/P/Bld) [Vol rate/Area] 57.5 mL/min/{1.73_m2} Abnormal >60 [place], [place] Glucose [Mass/Vol] 94 mg/dL 70 - 100 mg/dL [place], [place] Interpretation and review of laboratory results Abnormal [place] Potassium [Moles/Vol] 5.4 mmol/L High 3.5 - 5.1 mmol/L [place] Protein [Mass/Vol] 7.2 g/dL 6.3 - 8.2 g/dL [place] Sodium [Moles/Vol] 135 mmol/L 135 - 145 mmol/L [place] Urea nitrogen [Mass/Vol] 21 mg/dL High 7 - 20 mg/dL [facility] [place], [place] Test Performed by [facility], [address] , [address], [place] ECHO (Dobutamine) Pharmacolo gical Stress Teston 09-05-2019 STRESS ECHOCARDIOGRA M Dobutamine PATIENT: Parveen Caruso STUDY DATE: 09/05/2019 : 1940 AGE: 78 HT/WT: 177.8 cm (70 72.6 kg in) (159.7 lb) GENDER: F BP: LOCATION: [facility] PATIENT Outpatient and [facility] STATUS: [facility] *ORDERING PHYSICIAN: * Evan *FELLOW: * Kevin Draper MD *SUPERVISING PHYSICIAN: Alirio Upton, *RN: * Riley Mattson Loretta MD Erin E., RN *READING PHYSICIAN: Alirio Upton, *REAL ESTATE TRANSACTION MANAGER: Alirio Lilly MD RDCS, AE ----- INDICATIONS: Stable angina pectoris (I20.8). Essential hypertension (I10). Angina pectoris (I20.9). ----- HISTORY: Dyslipidemia. Chronic obstructive pulmonary disease. Peripheral vascular disease. Family history of cardiovascular disease. Chest Pain/ discomfort without exertion. Tobacco use former Hypertension treated The last beta yandy was taken by the patient on 09/04/2019 08:00 AM. Medications: Aspirin. Lisinopril (Zestril). Metoprolol (Lopressor, Toprol). Allergies: PCN, Nexium allergy. Patient is NPO per policy. ----- CONCLUSIONS SUMMARY: 1. Normal study after pharmacologic stress. Intracavitary gradients noted with small LV cavit at peak HR 88 % MPHR and peak dobutamine infusion, no symptoms, and no drop in BP; rapid resolution with cessation of IV dobutamine infusion. 2. Stress echo: There is no evidence for stress-induced ischemia. 3. Stress ECG conclusions: The stress ECG is equivocal for ischemia. [address] depression inferiorly, thought likely a false positive tracing. 4. Left ventricle: The cavity size is small. Systolic function is normal by the biplane method of disks. The estimated ejection fraction is 66% at baseline with appropriate augmentation at peak stress. There are no regional wall motion abnormalities. Doppler parameters are consistent with abnormal left ventricular relaxation (grade 1 diastolic dysfunction). At peak dobutamine infusion, intracavitary gradients escalated up to 100 mm Hg at HR 121/min, without evidence for hemodynamic compromise (no drop in BP). Rapid resolution with cessation of dobutamine infusion. ----- STUDY DATA: Stress echocardiogram. Procedure: Initial setup. A baseline ECG was recorded. Surface ECG leads and blood pressure measurements were monitored. Total intravenous fluids received during the test were 100 ml. Image quality was adequate. The study was technically limited due to respiratory interference and small rib spaces. Dobutamine stress test. Dobutamine was administered by intravenous infusion at an initial rate of 10 mcg/kg/min; the rate was advanced to a final rate of 20 mcg/kg/min. Heart rate response was augmented by the addition of hand talking books library clerk. The infusion was terminated after achieving the target heart rate. Transthoracic stress echocardiography. Images were captured at baseline, low dose, peak dose, and recovery. Total time of infusion 4 min 29 sec Limited 2D, limited spectral Doppler, and color flow Doppler images were acquired and archived for permanent storage and are available for subsequent review. Study status: Routine. Patient status: Outpatient. Pre pain assessment is 0 out of 10. Post pain assessment is 0 out of 10. Location: Echo laboratory. Consent: The procedure was reviewed with the patient and the patient voices understanding. Study completion: The patient tolerated the procedure well. There were no complications. Discharge: Discharge instructions given The patient was discharged to homewhile ambulatory. ECG RHYTHM: NSR ----- FINDINGS LEFT VENTRICLE: The cavity size is small. Systolic function is normal by the biplane method of disks. The estimated ejection fraction is 66% at baseline with appropriate augmentation at peak stress. There are no regional wall motion abnormalities. Doppler parameters are consistent with abnormal left ventricular relaxation (grade 1 diastolic dysfunction). RIGHT VENTRICLE: Systolic function is normal. MITRAL VALVE: Doppler: There is trivial, less than 1+ regurgitation. AORTIC VALVE: Not well visualized. Probably trileaflet; mildly calcified leaflets. Doppler: There is trivial, less than 1+ regurgitation. TRICUSPID VALVE: Doppler: There is trivial, less than 1+ regurgitation. BASELINE ECG: Isolated atrial ectopy. Normal sinus rhythm. STRESS PROTOCOL: + + ---+ +----- -------+ ----+ +Stage +HR +BP +Symptoms +Comments + + + ---+ +----- -------+ ----+ +Baseline +67 +134/86 (102)+No symptoms.+Pulse 99% Room + + + + + +Air. + + + ---+ +----- -------+ ----+ +Dobutamine 10 +64 +131/66 (88) +No symptoms.+ ------+ +ug/kg/min + + + + + + + ---+ +----- -------+ ----+ +Peak stress +126+143/71 (95) +No symptoms.+ ------+ + + ---+ +----- -------+ ----+ +Recovery; 2 min +120+133/64 (87) +No symptoms.+ ------+ + + ---+ +----- -------+ ----+ +Late recovery +90 +122/74 (90) +No symptoms.+ ------+ + + ---+ +----- -------+ ----+ STRESS RESULTS: There is a normal resting blood pressure with an appropriate response to stress. Peak blood pressure achieved during test: 143/71 The rate-pressure product for the peak heart rate and blood pressure was 97742 mm Hg/min. Stress testing did not produce any symptoms suggestive of coronary artery disease. Peak heart rate during stress was 126 bpm (88% of maximal predicted heart rate). The maximal predicted heart rate was 143 bpm.The target heart rate was achieved. The heart rate recovery at one minute is abnormal. The heart rate at 1 minute into recovery was 126 bpm. The heart rate response to stress was normal. STRESS ECG: There was no ischemic ST depression. Frequent isolated atrial ectopy. The stress ECG is equivocal for ischemia. [address] depression inferiorly, thought likely a false positive tracing. Baseline: LV size is normal. LV global systolic function is normal. The estimated LV ejection fraction is 65%. Normal wall motion; no LV regional wall motion abnormalities. Wall motion score: 1.00. Low dose: LV size is reduced and appropriately decreased from the prior stage. LV global systolic function is at the upper limits of normal. No evidence for new LV regional wall motion abnormalities. Peak stress: LV size is reduced and appropriately decreased from the prior stage. LV global systolic function is hyperdynamic and appropriately augmented from baseline. The estimated LV ejection fraction is 75%. No evidence for new LV regional wall motion abnormalities. Recovery: LV size is mildly reduced and appropriately decreased from baseline. LV global systolic function is vigorous and appropriately augmented from baseline. Normal wall motion; no LV regional wall motion abnormalities. No evidence for new LV regional wall motion abnormalities. Wall motion score: 1.00. Baseline: LV size is normal. LV global systolic function is normal. Normal wall motion; no LV regional wall motion abnormalities. Wall motion score: 1.00. Low dose: LV size is normal and unchanged from the prior stage. LV global systolic function is normal. No evidence for new LV regional wall motion abnormalities. Peak stress: LV size is normal and unchanged from the prior stage. LV global systolic function is normal. No evidence for new LV regional wall motion abnormalities. Recovery: LV size is normal and unchanged from the prior stage. LV global systolic function is normal. Normal wall motion; no LV regional wall motion abnormalities. No evidence for new LV regional wall motion abnormalities. Wall motion score: 1.00. STRESS ECHO RESULTS: Left ventricular ejection fraction was normal at rest and with stress. There is no evidence for stress-induced ischemia. ----- Measurements Left ventricle Value Reference LV ID, ED 3.9 cm 3.8 - 5.2 LV ID, ES 2.4 cm 2.2 - 3.5 LV ID/bsa, ED (L) 2.1 cm/m^2 2.3 - 3.1 LV ID/bsa, ES 1.3 cm/m^2 1.3 - 2.1 LV PW thickness, ED 0.8 cm 0.6 - 0.9 LV PW/LV ID ratio, ED 0.2 --------- LV wall mass 86 g 66 - 150 LV wall mass/bsa 45 g/m^2 44 - 88 Stroke volume/bsa, 1-p A2C 18.2 ml/m^2 --------- LV end-diastolic volume, 1-p A4C 58 ml 48 - 140 LV end-systolic volume, 1-p A4C 22 ml 12 - 60 LV end-diastolic volume, 2-p 55 ml 46 - 106 LV end-systolic volume, 2-p 18 ml 14 - 42 LV ejection fraction, 2-p 66 % 54 - 74 Ventricular septum Value Reference IVS thickness, ED 0.7 cm 0.6 - 0.9 Tricuspid valve Value Reference Tricuspid regurg peak velocity 2.2 m/sec <=2.8 Tricuspid peak RV-RA gradient 20 mm Hg --------- Legend: (L) and (H) joaquín values outside specified reference range. Electronically signed by Vijaya Upton MD 09/05/2019 11:34 Prior Signatures: [facility] [place], [place] Larissa Omer Incoming Cardiology Results From [employer] [facility] - 09/05/2019 11:35 AM EDT STRESS ECHOCARDIOGRAM Dobutamine PATIENT: Parveen Caruso STUDY DATE: 09/05/2019 : 1940 AGE: 78 HT/WT: 177.8 cm (70 72.6 kg in) (159.7 lb) GENDER: F BP: LOCATION: [facility] PATIENT Outpatient and [facility] STATUS: [facility] *ORDERING PHYSICIAN: * Evan *FELLOW: * Kevin Draper MD *SUPERVISING PHYSICIAN: * Ryne, *RN: * Riley Mattson Loretta MD Erin E., RN *READING PHYSICIAN: * Ryne, *REAL ESTATE TRANSACTION MANAGER: * Esther Lilly MD RD, AE ----- INDICATIONS: Stable angina pectoris (I20.8). Essential hypertension (I10). Angina pectoris (I20.9). ----- HISTORY: Dyslipidemia. Chronic obstructive pulmonary disease. Peripheral vascular disease. Family history of cardiovascular disease. Chest Pain/ discomfort without exertion. Tobacco use former Hypertension treated The last beta yandy was taken by the patient on 09/04/2019 08:00 AM. Medications: Aspirin. Lisinopril (Zestril). Metoprolol (Lopressor, Toprol). Allergies: PCN, Nexium allergy. Patient is NPO per policy. ----- CONCLUSIONS SUMMARY: 1. Normal study after pharmacologic stress. Intracavitary gradients noted with small LV cavit at peak HR 88 % MPHR and peak dobutamine infusion, no symptoms, and no drop in BP; rapid resolution with cessation of IV dobutamine infusion. 2. Stress echo: There is no evidence for stress-induced ischemia. 3. Stress ECG conclusions: The stress ECG is equivocal for ischemia. [address] depression inferiorly, thought likely a false positive tracing. 4. Left ventricle: The cavity size is small. Systolic function is normal by the biplane method of disks. The estimated ejection fraction is 66% at baseline with appropriate augmentation at peak stress. There are no regional wall motion abnormalities. Doppler parameters are consistent with abnormal left ventricular relaxation (grade 1 diastolic dysfunction). At peak dobutamine infusion, intracavitary gradients escalated up to 100 mm Hg at HR 121/min, without evidence for hemodynamic compromise (no drop in BP). Rapid resolution with cessation of dobutamine infusion. ----- STUDY DATA: Stress echocardiogram. Procedure: Initial setup. A baseline ECG was recorded. Surface ECG leads and blood pressure measurements were monitored. Total intravenous fluids received during the test were 100 ml. Image quality was adequate. The study was technically limited due to respiratory interference and small rib spaces. Dobutamine stress test. Dobutamine was administered by intravenous infusion at an initial rate of 10 mcg/kg/min; the rate was advanced to a final rate of 20 mcg/kg/min. Heart rate response was augmented by the addition of hand talking books library clerk. The infusion was terminated after achieving the target heart rate. Transthoracic stress echocardiography. Images were captured at baseline, low dose, peak dose, and recovery. Total time of infusion 4 min 29 sec Limited 2D, limited spectral Doppler, and color flow Doppler images were acquired and archived for permanent storage and are available for subsequent review. Study status: Routine. Patient status: Outpatient. Pre pain assessment is 0 out of 10. Post pain assessment is 0 out of 10. Location: Echo laboratory. Consent: The procedure was reviewed with the patient and the patient voices understanding. Study completion: The patient tolerated the procedure well. There were no complications. Discharge: Discharge instructions given The patient was discharged to homewhile ambulatory. ECG RHYTHM: NSR ----- FINDINGS LEFT VENTRICLE: The cavity size is small. Systolic function is normal by the biplane method of disks. The estimated ejection fraction is 66% at baseline with appropriate augmentation at peak stress. There are no regional wall motion abnormalities. Doppler parameters are consistent with abnormal left ventricular relaxation (grade 1 diastolic dysfunction). RIGHT VENTRICLE: Systolic function is normal. MITRAL VALVE: Doppler: There is trivial, less than 1+ regurgitation. AORTIC VALVE: Not well visualized. Probably trileaflet; mildly calcified leaflets. Doppler: There is trivial, less than 1+ regurgitation. TRICUSPID VALVE: Doppler: There is trivial, less than 1+ regurgitation. BASELINE ECG: Isolated atrial ectopy. Normal sinus rhythm. STRESS PROTOCOL: + + ---+ +----- -------+ ----+ +Stage +HR +BP +Symptoms +Comments + + + ---+ +----- -------+ ----+ +Baseline +67 +134/86 (102)+No symptoms.+Pulse 99% Room + + + + + +Air. + + + ---+ +----- -------+ ----+ +Dobutamine 10 +64 +131/66 (88) +No symptoms.+ ------+ +ug/kg/min + + + + + + + ---+ +----- -------+ ----+ +Peak stress +126+143/71 (95) +No symptoms.+ ------+ + + ---+ +----- -------+ ----+ +Recovery; 2 min +120+133/64 (87) +No symptoms.+ ------+ + + ---+ +----- -------+ ----+ +Late recovery +90 +122/74 (90) +No symptoms.+ ------+ + + ---+ +----- -------+ ----+ STRESS RESULTS: There is a normal resting blood pressure with an appropriate response to stress. Peak blood pressure achieved during test: 143/71 The rate-pressure product for the peak heart rate and blood pressure was 61226 mm Hg/min. Stress testing did not produce any symptoms suggestive of coronary artery disease. Peak heart rate during stress was 126 bpm (88% of maximal predicted heart rate). The maximal predicted heart rate was 143 bpm.The target heart rate was achieved. The heart rate recovery at one minute is abnormal. The heart rate at 1 minute into recovery was 126 bpm. The heart rate response to stress was normal. STRESS ECG: There was no ischemic ST depression. Frequent isolated atrial ectopy. The stress ECG is equivocal for ischemia. [address] depression inferiorly, thought likely a false positive tracing. Baseline: LV size is normal. LV global systolic function is normal. The estimated LV ejection fraction is 65%. Normal wall motion; no LV regional wall motion abnormalities. Wall motion score: 1.00. Low dose: LV size is reduced and appropriately decreased from the prior stage. LV global systolic function is at the upper limits of normal. No evidence for new LV regional wall motion abnormalities. Peak stress: LV size is reduced and appropriately decreased from the prior stage. LV global systolic function is hyperdynamic and appropriately augmented from baseline. The estimated LV ejection fraction is 75%. No evidence for new LV regional wall motion abnormalities. Recovery: LV size is mildly reduced and appropriately decreased from baseline. LV global systolic function is vigorous and appropriately augmented from baseline. Normal wall motion; no LV regional wall motion abnormalities. No evidence for new LV regional wall motion abnormalities. Wall motion score: 1.00. Baseline: LV size is normal. LV global systolic function is normal. Normal wall motion; no LV regional wall motion abnormalities. Wall motion score: 1.00. Low dose: LV size is normal and unchanged from the prior stage. LV global systolic function is normal. No evidence for new LV regional wall motion abnormalities. Peak stress: LV size is normal and unchanged from the prior stage. LV global systolic function is normal. No evidence for new LV regional wall motion abnormalities. Recovery: LV size is normal and unchanged from the prior stage. LV global systolic function is normal. Normal wall motion; no LV regional wall motion abnormalities. No evidence for new LV regional wall motion abnormalities. Wall motion score: 1.00. STRESS ECHO RESULTS: Left ventricular ejection fraction was normal at rest and with stress. There is no evidence for stress-induced ischemia. ----- Measurements Left ventricle Value Reference LV ID, ED 3.9 cm 3.8 - 5.2 LV ID, ES 2.4 cm 2.2 - 3.5 LV ID/bsa, ED (L) 2.1 cm/m^2 2.3 - 3.1 LV ID/bsa, ES 1.3 cm/m^2 1.3 - 2.1 LV PW thickness, ED 0.8 cm 0.6 - 0.9 LV PW/LV ID ratio, ED 0.2 --------- LV wall mass 86 g 66 - 150 LV wall mass/bsa 45 g/m^2 44 - 88 Stroke volume/bsa, 1-p A2C 18.2 ml/m^2 --------- LV end-diastolic volume, 1-p A4C 58 ml 48 - 140 LV end-systolic volume, 1-p A4C 22 ml 12 - 60 LV end-diastolic volume, 2-p 55 ml 46 - 106 LV end-systolic volume, 2-p 18 ml 14 - 42 LV ejection fraction, 2-p 66 % 54 - 74 Ventricular septum Value Reference IVS thickness, ED 0.7 cm 0.6 - 0.9 Tricuspid valve Value Reference Tricuspid regurg peak velocity 2.2 m/sec <=2.8 Tricuspid peak RV-RA gradient 20 mm Hg --------- Legend: (L) and (H) joaquín values outside specified reference range. Electronically signed by Vijaya Upton MD 09/05/2019 11:34 Prior Signatures: [facility] [place] Echo Dobutamine Stress Echo w/wo Conton 09-05-2019 Echo Dobutamine Stress Echo w/wo Cont Patient Name: PARVEEN CARUSO Ultrasound Exam Date/Time 09/05/2019 10:50:34 EDT Exam Echo Dobutamine Stress Echo w/wo Cont Ordering Physician EVAN MCELROY Accession Number [id number] Reason For Exam chest pain and SOB Report STRESS ECHOCARDIOGRAM Dobutamine PATIENT: Parveen Caruso STUDY DATE: 09/05/2019 [facility] [id number] : 1940 AGE: 78 HT/WT: 177.8 cm (70 72.6 kg in) (159.7 lb) GENDER: F BP: LOCATION: [facility] PATIENT Outpatient and Brenda Ahumada STATUS: [facility] *ORDERING PHYSICIAN: Alirio Gordon *FELLOW: Kevin Rodriguez MD *SUPERVISING PHYSICIAN: Alirio Upton, *RN: * Riley Mattson Loretta MD Erin E., RN *READING PHYSICIAN: Alirio Upton, *REAL ESTATE TRANSACTION MANAGER: Alirio Lilly MD RUST, AE ----- INDICATIONS: Stable angina pectoris (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 Essential hypertension (I10). Angina pectoris (I20.9). ----- HISTORY: Dyslipidemia. Chronic obstructive pulmonary disease. Peripheral vascular disease. Family history of cardiovascular disease. Chest Pain/ discomfort without exertion. Tobacco use former Hypertension treated The last beta yandy was taken by the patient on 09/04/2019 08:00 AM. Medications: Aspirin. Lisinopril (Zestril). Metoprolol (Lopressor, Toprol). Allergies: PCN, Nexium allergy. Patient is NPO per policy. ----- CONCLUSIONS SUMMARY: 1. Normal study after pharmacologic stress. Intracavitary gradients noted with small LV cavit at peak HR 88 % MPHR and peak dobutamine infusion, no symptoms, and no drop in BP; rapid resolution with cessation of IV dobutamine infusion. 2. Stress echo: There is no evidence for stress-induced ischemia. 3. Stress ECG conclusions: The stress ECG is equivocal for ischemia. [address] depression inferiorly, thought likely a false positive tracing. 4. Left ventricle: The cavity size is small. Systolic function is normal by the biplane method of disks. The estimated ejection fraction is 66% at baseline with appropriate augmentation at peak stress. There are no regional wall motion abnormalities. Doppler parameters are consistent with abnormal left ventricular relaxation (grade 1 diastolic dysfunction). At peak dobutamine infusion, intracavitary gradients escalated up to 100 mm Hg at HR 121/min, without evidence for hemodynamic compromise (no drop in BP). Rapid resolution with cessation of dobutamine infusion. ----- STUDY DATA: Stress echocardiogram. Procedure: Initial setup. A baseline ECG was recorded. Surface ECG leads and blood pressure measurements were monitored. Total intravenous fluids received during the test were 100 ml. Image quality was adequate. The study was technically limited due to respiratory interference and small rib spaces. Dobutamine stress test. Dobutamine was administered by intravenous infusion at an initial rate of 10 mcg/kg/min; the rate was advanced to a final rate of 20 mcg/kg/min. Heart rate response was augmented by the addition of hand talking books library clerk. The infusion was terminated after achieving the target heart rate. Transthoracic stress echocardiography. Images were captured at baseline, low dose, peak dose, and recovery. Total time of infusion 4 min 29 sec Limited 2D, limited spectral Doppler, and color flow Doppler images were acquired and archived for permanent storage and are available for subsequent review. Study status: Routine. Patient status: Outpatient. Pre pain assessment is 0 out of 10. Post pain assessment is 0 out of 10. Location: Echo laboratory. Consent: The procedure was reviewed with the patient and the patient voices understanding. Study completion: The patient tolerated the procedure well. There were no complications. Discharge: Discharge instructions given The patient was discharged to homewhile ambulatory. ECG RHYTHM: NSR ----- FINDINGS LEFT VENTRICLE: The cavity size is small. Systolic function is normal by the biplane method of disks. The estimated ejection fraction is 66% at baseline with appropriate augmentation at peak stress. There are no regional wall motion abnormalities. Doppler parameters are consistent with abnormal left ventricular relaxation (grade 1 diastolic dysfunction). RIGHT VENTRICLE: Systolic function is normal. MITRAL VALVE: Doppler: There is trivial, less than 1+ regurgitation. AORTIC VALVE: Not well visualized. Probably trileaflet; mildly calcified leaflets. Doppler: There is trivial, less than 1+ regurgitation. TRICUSPID VALVE: Doppler: There is trivial, less than 1+ regurgitation. BASELINE ECG: Isolated atrial ectopy. Normal sinus rhythm. STRESS PROTOCOL: + + ---+ +----- -------+ ----+ +Stage +HR +BP +Symptoms +Comments + + + ---+ +----- -------+ ----+ +Baseline +67 +134/86 (102)+No symptoms.+Pulse 99% Room + + + + + +Air. + + + ---+ +----- -------+ ----+ +Dobutamine 10 +64 +131/66 (88) +No symptoms.+ ------+ +ug/kg/min + + + + + + + ---+ +----- -------+ ----+ +Peak stress +126+143/71 (95) +No symptoms.+ ------+ + + ---+ +----- -------+ ----+ +Recovery; 2 min +120+133/64 (87) +No symptoms.+ ------+ + + ---+ +----- -------+ ----+ +Late recovery +90 +122/74 (90) +No symptoms.+ ------+ + + ---+ +----- -------+ ----+ STRESS RESULTS: There is a normal resting blood pressure with an appropriate response to stress. Peak blood pressure achieved during test: 143/71 The rate-pressure product for the peak heart rate and blood pressure was 55830 mm Hg/min. Stress testing did not produce any symptoms suggestive of coronary artery disease. Peak heart rate during stress was 126 bpm (88% of maximal predicted heart rate). The maximal predicted heart rate was 143 bpm.The target heart rate was achieved. The heart rate recovery at one minute is abnormal. The heart rate at 1 minute into recovery was 126 bpm. The heart rate response to stress was normal. STRESS ECG: There was no ischemic ST depression. Frequent isolated atrial ectopy. The stress ECG is equivocal for ischemia. [address] depression inferiorly, thought likely a false positive tracing. Baseline: LV size is normal. LV global systolic function is normal. The estimated LV ejection fraction is 65%. Normal wall motion; no LV regional wall motion abnormalities. Wall motion score: 1.00. Low dose: LV size is reduced and appropriately decreased from the prior stage. LV global systolic function is at the upper limits of normal. No evidence for new LV regional wall motion abnormalities. Peak stress: LV size is reduced and appropriately decreased from the prior stage. LV global systolic function is hyperdynamic and appropriately augmented from baseline. The estimated LV ejection fraction is 75%. No evidence for new LV regional wall motion abnormalities. Recovery: LV size is mildly reduced and appropriately decreased from baseline. LV global systolic function is vigorous and appropriately augmented from baseline. Normal wall motion; no LV regional wall motion abnormalities. No evidence for new LV regional wall motion abnormalities. Wall motion score: 1.00. Baseline: LV size is normal. LV global systolic function is normal. Normal wall motion; no LV regional wall motion abnormalities. Wall motion score: 1.00. Low dose: LV size is normal and unchanged from the prior stage. LV global systolic function is normal. No evidence for new LV regional wall motion abnormalities. Peak stress: LV size is normal and unchanged from the prior stage. LV global systolic function is normal. No evidence for new LV regional wall motion abnormalities. Recovery: LV size is normal and unchanged from the prior stage. LV global systolic function is normal. Normal wall motion; no LV regional wall motion abnormalities. No evidence for new LV regional wall motion abnormalities. Wall motion score: 1.00. STRESS ECHO RESULTS: Left ventricular ejection fraction was normal at rest and with stress. There is no evidence for stress-induced ischemia. ----- Measurements Left ventricle Value Reference LV ID, ED 3.9 cm 3.8 - 5.2 LV ID, ES 2.4 cm 2.2 - 3.5 LV ID/bsa, ED (L) 2.1 cm/m^2 2.3 - 3.1 LV ID/bsa, ES 1.3 cm/m^2 1.3 - 2.1 LV PW thickness, ED 0.8 cm 0.6 - 0.9 LV PW/LV ID ratio, ED 0.2 --------- LV wall mass 86 g 66 - 150 LV wall mass/bsa 45 g/m^2 44 - 88 Stroke volume/bsa, 1-p A2C 18.2 ml/m^2 --------- LV end-diastolic volume, 1-p A4C 58 ml 48 - 140 LV end-systolic volume, 1-p A4C 22 ml 12 - 60 LV end-diastolic volume, 2-p 55 ml 46 - 106 LV end-systolic volume, 2-p 18 ml 14 - 42 LV ejection fraction, 2-p 66 % 54 - 74 Ventricular septum Value Reference IVS thickness, ED 0.7 cm 0.6 - 0.9 Tricuspid valve Value Reference Tricuspid regurg peak velocity 2.2 m/sec <=2.8 Tricuspid peak RV-RA gradient 20 mm Hg --------- Legend: (L) and (H) joaquín values outside specified reference range. Electronically signed by Vijaya Upton MD 09/05/2019 11:34 Prior Signatures: Final Dictated: 09/05/2019 11:35 am Dictating Physician: MD UPTON LORETTA Signed Date and Time: 09/05/2019 11:35 am Signed by: MD UPTON LORETTA [facility] 08-26-2019 Erythrocyte distribution width (RBC) [Ratio] 13.9 % 11.5 - 14.5 % Right90 [facility] TechnologiesRES[facility]US[facility] Hematocrit (Bld) [Volume fraction] 43.0 % 35 - 47 % [facility] Hemoglobin (Bld) [Mass/Vol] 13.8 g/dL 11.7 - 16 g/dL [place] MCH (RBC) [Entitic mass] 29.4 pg 26 - 34 pg [place] MCHC (RBC) [Mass/Vol] 32.2 % 32 - 36 % [place] MCV (RBC) [Entitic vol] 91.1 fL 79 - 98 fL [place] Platelet mean volume (Bld) [Entitic vol] 8.9 fL 7.4 - 10.4 fL [place] Platelets (Bld) [#/Vol] 247 10*3/uL 140 - 440 10*3/uL [place] RBC (Bld) [#/Vol] 4.72 10*6/uL 3.8 - 5.2 10*6/uL [place] WBC (Bld) [#/Vol] 7.3 10*3/uL 3.6 - 10.7 10*3/uL [place] Test Performed by [facility], [address] [place] [address] Rd. , [place], [place] [id number] [place] [address] Comprehensive Metabolic Pane ratna 08-26-2019 Albumin [Mass/Vol] 4.4 g/dL 3.5 - 5 g/dL [place], [place] ALP [Catalytic activity/Vol] 62 U/L 38 - 126 U/L [place] ALT [Catalytic activity/Vol] 22 U/L 0 - 34 U/L [place] Comment on above: The ALT test is perf ormed by an updated assay method. Please note that the reference intervals have been changed and are now sex specific. Anion gap [Moles/Vol] 10 mmol/L [place] AST [Catalytic activity/Vol] 32 U/L 15 - 46 U/L [place] Bilirubin Ql (U) 0.4 mg/dL 0.2 - 1.3 mg/dL [place] Calcium [Mass/Vol] 9.8 mg/dL 8.4 - 10. 4 mg/dL [place] Chloride [Moles/Vol] 101 mmol/L 98 - 10 7 mmol/L [place] CO2 [Moles/Vol] 28 mmol/L 22 - 30 mmol/L [place] Creatinine [Mass/Vol] 1.04 mg/dL 0.52 - 1.25 mg/dL [place] EGFR IF NonAfrican Finnish 51.3 mL/min >60 [place] Comment on above: Source- MDRD equatio n with creatinine calibration to IDMS(NKDEP) eGFR not recommended for drug dose adjustment GFR/1.73 sq M predicted among blacks MDRD (S/P/Bld) [Vol rate/Area] mL/min/{1.73_m2} >60 mL/min [place] Glucose [Mass/Vol] 89 mg/dL 70 - 100 mg/dL [place] Interpretation and review of laboratory results Abnormal [place] Potassium [Moles/Vol] 5.0 mmol/L 3.5 - 5.1 mmol/L [place] Protein [Mass/Vol] 7.2 g/dL 6.3 - 8.2 g/dL [place] Sodium [Moles/Vol] 139 mmol/L 135 - 145 mmol/L [place] Urea nitrogen [Mass/Vol] 25 mg/dL High 7 - 20 mg/dL [place] Test Performed by [facility], [address] [place] [address]. [address] XR CHEST STANDARD (2 VW)on 0 08-26-2019 [place], [facility] - 08/26/2019 12:32 PM EDT Patient Name: PARVEEN CARUSO ---Diagnostic Radiology--- Exam Date/Time 08/26/2019 12:14:18 EDT Exam CR Chest PA/LAT Ordering Physician MELVA CORBETT D.O. Accession Number [id number] CPT4 Codes 54579 () Reason For Exam wheezing Report CHEST X-RAY PA and lateral CLINICAL INDICATION: Wheezing PA and lateral radiographs of the chest were obtained. COMPARISON: 09/03/2015 FINDINGS: The cardiac silhouette is within normal limits. There is calcific atheromatous disease of the tortuous thoracic aorta. The lungs are hyperinflated. Coarsening of the interstitial lung markings is noted, likely chronic. No focal consolidation is seen within the lungs. No pleural effusion or pneumothorax is identified. There are degenerative changes of the thoracic spine. IMPRESSION: 1. No acute cardiopulmonary process. 2. Hyperinflation of the lungs with coarsening of the interstitial lung markings, suggestive of a component of obstructive lung disease. No focal consolidation is identified. Report Dictated on --- Final --- Dictating Physician: MD CHOU JASON Signed Date and Time: 08/26/2019 12:30 pm Signed by: MD CHOU JASON Transcribed Date and Time: 08/26/2019 12:31 [place], [place] Patient Name: PARVEEN CARUSO ---Diagnostic Radiology--- Exam Date/Time 08/26/2019 12:14:18 EDT Exam CR Chest PA/LAT Ordering Physician MELVA CORBETT D.O. Accession Number [id number] CPT4 Codes 37705 () Reason For Exam wheezing Report CHEST X-RAY PA and lateral CLINICAL INDICATION: Wheezing PA and lateral radiographs of the chest were obtained. COMPARISON: 09/03/2015 FINDINGS: The cardiac silhouette is within normal limits. There is calcific atheromatous disease of the tortuous thoracic aorta. The lungs are hyperinflated. Coarsening of the interstitial lung markings is noted, likely chronic. No focal consolidation is seen within the lungs. No pleural effusion or pneumothorax is identified. There are degenerative changes of the thoracic spine. IMPRESSION: 1. No acute cardiopulmonary process. 2. Hyperinflation of the lungs with coarsening of the interstitial lung markings, suggestive of a component of obstructive lung disease. No focal consolidation is identified. Report Dictated on --- Final --- Dictating Physician: MD CHOU JASON Signed Date and Time: 08/26/2019 12:30 pm Signed by: MD CHOU JASON Transcribed Date and Time: 08/26/2019 12:31 [place], [place] Vitamin D 25 Hydroxyon 08-06 Vit D, 25-Hydroxy 38 ng/mL 30 - 100 ng/mL [place] Comment on above: Therapy is based on measurement of Total 25-OHD with the following classification levels: Less than 20 ng/mL: Indicative of Vit D deficiency 20-30 ng/mL: Suggests Vit D insufficiency Optimal: Greater than or equal to 30 ng/mL Test performed by [employer] Competitive Immunoassay, measuring Total Vitamin D, not individual fractions. Test Performed by [facility], [address], [place], [place] [address] [place], [place] CBC Auto Differentialon 11-0 Absolute Baso # 0.1 10*3/uL 0 - 0.2 10*3/uL [place] Absolute Neut # 6.4 10*3/uL 1.8 - 7 10*3/uL [place] Basophils/100 WBC (Bld) 1.0 % 0 - 2 % [place] Eosinophils (Bld) [#/Vol] 0.2 10*3/uL 0 - 0.5 10*3/uL [place] Eosinophils/100 WBC (Bld) 1.6 % 1 - 6 % [place] Erythrocyte distribution width (RBC) [Ratio] 13.3 % 11.5 - 14.5 % [place] Granulocytes/100 WBC (Bld) 60.7 % 40 - 80 % [place] Hematocrit (Bld) [Volume fraction] 40.9 % 35 - 47 % [place] Hemoglobin (Bld) [Mass/Vol] 14.1 g/dL 11.7 - 16 g/dL [place] Lymphocytes (Bld) [#/Vol] 3.1 10*3/uL 1 - 4.3 10*3/uL [place] Lymphocytes/100 WBC (Bld) 29.9 % 20 - 40 % [place] MCH (RBC) [Entitic mass] 29.6 pg 26 - 34 pg [place] MCHC (RBC) [Mass/Vol] 34.4 % 32 - 36 % [place] MCV (RBC) [Entitic vol] 86.0 fL 79 - 98 fL [place] Monocytes (Bld) [#/Vol] 0.7 10*3/uL 0 - 0.8 10*3/uL [place] Monocytes/100 WBC (Bld) 6.8 % 2 - 10 % [place] Platelet mean volume (Bld) [Entitic vol] 9.0 fL 7.4 - 10.4 fL [place] Platelets (Bld) [#/Vol] 304 10*3/uL 140 - 440 10*3/uL [place] RBC (Bld) [#/Vol] 4.76 10*6/uL 3.8 - 5.2 10*6/uL [place] WBC (Bld) [#/Vol] 10.5 10*3/uL 3.6 - 10.7 10*3/uL [place] Test Performed by [facility], [address] [place], [place] [address] , [address] Comprehensive Metabolic Pane ratna 04-17-2019 Albumin [Mass/Vol] 4.2 g/dL 3.5 - 5 g/dL [place] ALP [Catalytic activity/Vol] 53 U/L 38 - 126 U/L [place] ALT [Catalytic activity/Vol] 32 U/L 13 - 69 U/L [place] Anion gap [Moles/Vol] 12 mmol/L [place] AST [Catalytic activity/Vol] 24 U/L 15 - 46 U/L [place] Bilirubin Ql (U) 0.4 mg/dL 0.2 - 1.3 mg/dL [place] Calcium [Mass/Vol] 9.7 mg/dL 8.4 - 10. 4 mg/dL [place] Chloride [Moles/Vol] 103 mmol/L 98 - 10 7 mmol/L [place] CO2 [Moles/Vol] 27 mmol/L 22 - 30 mmol/L [place] Creatinine [Mass/Vol] 1.01 mg/dL 0.52 - 1.25 mg/dL [place] EGFR IF NonAfrican [place] 53.1 mL/min >60 [place] Comment on above: Source- MDRD equatio n with creatinine calibration to IDMS(NKDEP) eGFR not recommended for drug dose adjustment GFR/1.73 sq M predicted among blacks MDRD (S/P/Bld) [Vol rate/Area] mL/min/{1.73_m2} >60 mL/min [place] Glucose [Mass/Vol] 79 mg/dL 70 - 100 mg/dL [place] Interpretation and review of laboratory results Abnormal [place] Potassium [Moles/Vol] 4.6 mmol/L 3.5 - 5.1 mmol/L [place] Protein [Mass/Vol] 6.6 g/dL 6.3 - 8.2 g/dL [place] Sodium [Moles/Vol] 142 mmol/L 135 - 145 mmol/L [place] Urea nitrogen [Mass/Vol] 29 mg/dL High 7 - 20 mg/dL [place] Test Performed by [facility] [employer] [facility], [facility] Kevin Mccarthy. , [address] TSH without Reflexon 019 TSH Qn 1.225 u[IU]/mL 0.465 - 4.68 u[IU]/mL [place] Test Performed by [facility], [facility] Keivn Mccarthy. [address] Vitamin B12on 04-17-2019 Cobalamin (Vitamin B12) [Mass/Vol] 240 pg/mL 239 - 931 pg/mL [place] Test Performed by [facility], [facility] Kevin Mccarthy. [address] Vital Signs Date Time Vital Sign Value Performing Clinician Facility 11-26-2024 07:59-0400 Body height 177.[address] Beba Leyva DO Work Phone: [facility] 11-26-2024 07:59-0400 Body mass index (BMI) [Ratio] 31.7 kg/m2 Dr. Beba Leyva DO Work Phone: [facility] 11-26-2024 07:59-0400 Body weight 100.[address] Beba Leyva DO Work Phone: [facility] 11-26-2024 07:59-0400 Diastolic blood pressure 85 mm[Hg] Dr. Beba Leyva DO Work Phone: [facility] 11-26-2024 07:59-0400 Heart rate 60 /min Dr. Beba Leyva DO Work Phone: [facility] 11-26-2024 07:59-0400 Respiratory rate 14 /min Dr. Beba Leyva DO Work Phone: [facility] 11-26-2024 07:59-0400 SaO2% (BldA) [Mass fraction] 93 % Dr. Beba Leyva DO Work Phone: [facility] 11-26-2024 07:59-0400 Systolic blood pressure 144 mm[Hg] Dr. Beba Leyva DO Work Phone: [facility] 07-11-2024 07:36-0500 Body height 177.8 cm Albina Aponte COMBINE DRIVER-C Work Phone: [facility] 07-11-2024 07:36-0500 Body mass index (BMI) [Ratio] 31.2 kg/m2 Albina Aponte COMBINE DRIVER-C Work Phone: [facility] 07-11-2024 07:36-0500 Body weight 98.88 kg Albina Aponte COMBINE DRIVER-C Work Phone: [facility] 07-11-2024 07:36-0500 Diastolic blood pressure 71 mm[Hg] Albina Aponte COMBINE DRIVER-C Work Phone: [facility] 07-11-2024 07:36-0500 Heart rate 59 /min Albina Aponte COMBINE DRIVER-C Work Phone: [facility] 07-11-2024 07:36-0500 Respiratory rate 18 /min Albina Aponte COMBINE DRIVER-C Work Phone: [facility] 07-11-2024 07:36-0500 Systolic blood pressure 114 mm[Hg] Albina Aponte COMBINE DRIVER-C Work Phone: [facility] 09-22-2023 09:02-0400 Body height 177.8 cm COMBINE DRIVER-C Albina Aponte COMBINE DRIVER Work Phone: 6(423)961-158171 [place] [address] 09-22-2023 09:02-0400 Body mass index (BMI) [Ratio] 32 kg/m2 COMBINE DRIVER-C Albina Aponte COMBINE DRIVER Work Phone: 4(969)[phone] [place] [address] 09-22-2023 09:02-0400 Body weight 101.15 kg COMBINE DRIVER-C Albina Aponte COMBINE DRIVER Work Phone: 0(853)026-786894 [address] 09-22-2023 09:02-0400 Diastolic blood pressure 76 mm[Hg] COMBINE DRIVER-C Albina Aponte COMBINE DRIVER Work Phone: 0(248)108-965671 [place] [address] 09-22-2023 09:02-0400 Heart rate 60 /min COMBINE DRIVER-C Albina Aponte COMBINE DRIVER Work Phone: [facility] 09-22-2023 09:02-0400 Respiratory rate 20 /min COMBINE DRIVER-C Albina Aponte COMBINE DRIVER Work Phone: [facility] 09-22-2023 09:02-0400 SaO2% (BldA) [Mass fraction] 93 % COMBINE DRIVER-C Albina Aponte COMBINE DRIVER Work Phone: [facility] 09-22-2023 09:02-0400 Systolic blood pressure 123 mm[Hg] COMBINE DRIVER-C Albina Aponte COMBINE DRIVER Work Phone: [facility] 08-24-2023 13:29-0400 Body height 177.8 cm COMBINE DRIVER-C Albina Aponte COMBINE DRIVER Work Phone: [facility] 08-24-2023 13:29-0400 Body mass index (BMI) [Ratio] 32.1 kg/m2 COMBINE DRIVER-C Albina Aponte COMBINE DRIVER Work Phone: [facility] 08-24-2023 13:29-0400 Body weight 101.6 kg COMBINE DRIVER-C Albina Aponte COMBINE DRIVER Work Phone: [facility] 08-24-2023 13:29-0400 Diastolic blood pressure 64 mm[Hg] COMBINE DRIVER-C Albina Aponte COMBINE DRIVER Work Phone: [facility] 08-24-2023 13:29-0400 Heart rate 60 /min COMBINE DRIVER-C Albina Aponte COMBINE DRIVER Work Phone: [facility] 08-24-2023 13:29-0400 Respiratory rate 18 /min COMBINE DRIVER-C Albina Aponte COMBINE DRIVER Work Phone: [facility] 08-24-2023 13:29-0400 Systolic blood pressure 97 mm[Hg] COMBINE DRIVER-C Albina Aponte COMBINE DRIVER Work Phone: [facility] 08-01-2023 11:47-0500 SaO2% (BldA) [Mass fraction] 92 % COMBINE DRIVER-C Albina Aponte COMBINE DRIVER Work Phone: [facility] 08-01-2023 08:43-0500 Body temperature 97.8 [degF] COMBINE DRIVER-C Albina Aponte COMBINE DRIVER Work Phone: [facility] 08-01-2023 08:43-0500 Diastolic blood pressure 67 mm[Hg] COMBINE DRIVER-C Albina Aponte COMBINE DRIVER Work Phone: [facility] 08-01-2023 08:43-0500 Heart rate 67 /min COMBINE DRIVER-C Albina Aponte COMBINE DRIVER Work Phone: [facility] 08-01-2023 08:43-0500 Respiratory rate 14 /min COMBINE DRIVER-C Albina Aponte COMBINE DRIVER Work Phone: [facility] 08-01-2023 08:43-0500 Systolic blood pressure 144 mm[Hg] COMBINE DRIVER-C Albina Aponte COMBINE DRIVER Work Phone: [facility] 07-31-2023 15:00-0500 Body height 177.8 cm COMBINE DRIVER-C Albina Aponte COMBINE DRIVER Work Phone: [facility] 07-31-2023 15:00-0500 Body mass index (BMI) [Ratio] 32.4 kg/m2 COMBINE DRIVER-C Albina Aponte COMBINE DRIVER Work Phone: [facility] 07-31-2023 15:00-0500 Body weight 102.51 kg COMBINE DRIVER-C Albina Aponte COMBINE DRIVER Work Phone: [facility] 07-22-2023 10:44-0500 Body temperature 97.9 [degF] COMBINE DRIVER-C Albina Aponte COMBINE DRIVER Work Phone: [facility] 07-22-2023 10:44-0500 Diastolic blood pressure 54 mm[Hg] COMBINE DRIVER-C Albina Bhatson COMBINE DRIVER Work Phone: [facility] 07-22-2023 10:44-0500 Heart rate 60 /min COMBINE DRIVER-C Albina Aponte COMBINE DRIVER Work Phone: [facility] 07-22-2023 10:44-0500 Respiratory rate 16 /min COMBINE DRIVER-C Albina Fadi COMBINE DRIVER Work Phone: [facility] 07-22-2023 10:44-0500 SaO2% (BldA) [Mass fraction] 92 % COMBINE DRIVER-C Albina Bhatson COMBINE DRIVER Work Phone: [facility] 07-22-2023 10:44-0500 Systolic blood pressure 148 mm[Hg] COMBINE DRIVER-C Albina Aponte COMBINE DRIVER Work Phone: [facility] 07-22-2023 07:32-0500 Body temperature 97.9 [degF] COMBINE DRIVER-C Albina Aponte COMBINE DRIVER Work Phone: [facility] 07-22-2023 07:32-0500 Diastolic blood pressure 54 mm[Hg] COMBINE DRIVER-C Albina Aponte COMBINE DRIVER Work Phone: [facility] 07-22-2023 07:32-0500 Heart rate 60 /min COMBINE DRIVER-C Albina Aponte COMBINE DRIVER Work Phone: [facility] 07-22-2023 07:32-0500 Inhaled oxygen flow rate 2 L/min COMBINE DRIVER-C Albina Aponte COMBINE DRIVER Work Phone: [facility] 07-22-2023 07:32-0500 Respiratory rate 16 /min COMBINE DRIVER-C Albina Aponte COMBINE DRIVER Work Phone: [facility] 07-22-2023 07:32-0500 SaO2% (BldA) [Mass fraction] 98 % COMBINE DRIVER-C Albina Aponte COMBINE DRIVER Work Phone: [facility] 07-22-2023 07:32-0500 Systolic blood pressure 148 mm[Hg] COMBINE DRIVER-C Albina Aponte COMBINE DRIVER Work Phone: [facility] 07-21-2023 07:35-0500 Body height 177.8 cm COMBINE DRIVER-C Albina Aponte COMBINE DRIVER Work Phone: [facility] 07-21-2023 07:35-0500 Body weight 102.51 kg COMBINE DRIVER-C Albina Aponte COMBINE DRIVER Work Phone: [facility] 07-21-2023 07:19-0500 Body mass index (BMI) [Ratio] 32.4 kg/m2 COMBINE DRIVER-C Albina Aponte COMBINE DRIVER Work Phone: [facility] 06-21-2023 11:06-0500 Body height 177.8 cm COMBINE DRIVER-C Albina Aponte COMBINE DRIVER Work Phone: [facility] 06-21-2023 11:06-0500 Body mass index (BMI) [Ratio] 33 kg/m2 COMBINE DRIVER-C Albina Aponte COMBINE DRIVER Work Phone: [facility] 06-21-2023 11:06-0500 Body weight 104.32 kg COMBINE DRIVER-C Albina Aponte COMBINE DRIVER Work Phone: [facility] 06-21-2023 11:06-0500 Diastolic blood pressure 63 mm[Hg] COMBINE DRIVER-C Albina Aponte COMBINE DRIVER Work Phone: [facility] 06-21-2023 11:06-0500 Heart rate 74 /min COMBINE DRIVER-C Albina Aponte COMBINE DRIVER Work Phone: [facility] 06-21-2023 11:06-0500 Respiratory rate 18 /min COMBINE DRIVER-C Albina Aponte COMBINE DRIVER Work Phone: [facility] 06-21-2023 11:06-0500 Systolic blood pressure 146 mm[Hg] COMBINE DRIVER-C Albina Aponte COMBINE DRIVER Work Phone: [facility] 05-18-2023 07:01-0500 Body weight 102.51 kg COMBINE DRIVER-C Albina Aponte COMBINE DRIVER Work Phone: [facility] 04-04-2023 15:18-0400 Body mass index (BMI) [Ratio] 32.4 kg/m2 COMBINE DRIVER-C Albina Aponte COMBINE DRIVER Work Phone: [facility] 03-31-2023 15:34-0400 Body mass index (BMI) [Ratio] 33.4 kg/m2 COMBINE DRIVER-C Albina Aponte COMBINE DRIVER Work Phone: [facility] 03-31-2023 15:34-0400 Body temperature 97.9 [degF] COMBINE DRIVER-C Albina Aponte COMBINE DRIVER Work Phone: [facility] 03-31-2023 15:34-0400 Body weight 105.68 kg COMBINE DRIVER-C Albina Bhatson COMBINE DRIVER Work Phone: [facility] 03-31-2023 15:34-0400 Diastolic blood pressure 70 mm[Hg] COMBINE DRIVER-C Albina Aponte COMBINE DRIVER Work Phone: [facility] 03-31-2023 15:34-0400 Heart rate 76 /min COMBINE DRIVER-C Albina Aponte COMBINE DRIVER Work Phone: [facility] 03-31-2023 15:34-0400 Respiratory rate 18 /min COMBINE DRIVER-C Albina Aponte COMBINE DRIVER Work Phone: [facility] 03-31-2023 15:34-0400 SaO2% (BldA) [Mass fraction] 97 % COMBINE DRIVER-C Albina Aponte COMBINE DRIVER Work Phone: [facility] 03-31-2023 15:34-0400 Systolic blood pressure 144 mm[Hg] COMBINE DRIVER-C Albina Aponte COMBINE DRIVER Work Phone: [facility] 03-16-2023 13:10-0400 Body mass index (BMI) [Ratio] 32.4 kg/m2 COMBINE DRIVER-C Albina Aponte COMBINE DRIVER Work Phone: 9(908)499-383771 [place] [address] 03-16-2023 13:10-0400 Body weight 102.51 kg COMBINE DRIVER-C Albina Aponte COMBINE DRIVER Work Phone: 1(452)547-279171 [place] [address] 03-16-2023 13:10-0400 Diastolic blood pressure 74 mm[Hg] COMBINE DRIVER-C Albina Aponte COMBINE DRIVER Work Phone: 5(289)953-266171 [place] [address] 03-16-2023 13:10-0400 Heart rate 54 /min COMBINE DRIVER-C Albina Bhatson COMBINE DRIVER Work Phone: 3(155)065-370071 [place] [address] 03-16-2023 13:10-0400 Respiratory rate 24 /min COMBINE DRIVER-C Albina Bhatson COMBINE DRIVER Work Phone: [facility] 03-16-2023 13:10-0400 Systolic blood pressure 117 mm[Hg] COMBINE DRIVER-C Albina Bhatson COMBINE DRIVER Work Phone: [facility] 12-03-2022 08:15-0400 Body temperature 97.7 [degF] COMBINE DRIVER-C Albina Bhatson COMBINE DRIVER Work Phone: [facility] 12-03-2022 08:15-0400 Diastolic blood pressure 53 mm[Hg] COMBINE DRIVER-C Albina Aponte COMBINE DRIVER Work Phone: [facility] 12-03-2022 08:15-0400 Heart rate 68 /min COMBINE DRIVER-C Albina Aponte COMBINE DRIVER Work Phone: 7(804)297-774671 [place] [address] 12-03-2022 08:15-0400 Respiratory rate 16 /min COMBINE DRIVER-C Albina Aponte COMBINE DRIVER Work Phone: [facility] 12-03-2022 08:15-0400 SaO2% (BldA) [Mass fraction] 94 % COMBINE DRIVER-C Albina Aponte COMBINE DRIVER Work Phone: [facility] 12-03-2022 08:15-0400 Systolic blood pressure 124 mm[Hg] COMBINE DRIVER-C Albina Aponte COMBINE DRIVER Work Phone: [facility] 12-02-2022 12:22-0400 Body height 177.8 cm COMBINE DRIVER-C Albina Aponte COMBINE DRIVER Work Phone: [facility] 12-02-2022 12:22-0400 Body mass index (BMI) [Ratio] 33.4 kg/m2 COMBINE DRIVER-C Albina Aponte COMBINE DRIVER Work Phone: [facility] 12-02-2022 12:22-0400 Body weight 105.68 kg COMBINE DRIVER-C Albina Aponte COMBINE DRIVER Work Phone: [facility] 11-15-2022 13:06-0400 Body height 177.8 cm COMBINE DRIVER-C Albina Aponte COMBINE DRIVER Work Phone: [facility] 11-15-2022 13:06-0400 Body mass index (BMI) [Ratio] 32 kg/m2 COMBINE DRIVER-C Albina Aponte COMBINE DRIVER Work Phone: [facility] 11-15-2022 13:06-0400 Body weight 101.32 kg COMBINE DRIVER-C Albina Aponte COMBINE DRIVER Work Phone: [facility] 11-15-2022 13:06-0400 Diastolic blood pressure 79 mm[Hg] COMBINE DRIVER-C Albina Aponte COMBINE DRIVER Work Phone: [facility] 11-15-2022 13:06-0400 Heart rate 59 /min COMBINE DRIVER-C Albina Aponte COMBINE DRIVER Work Phone: [facility] 11-15-2022 13:06-0400 Respiratory rate 16 /min COMBINE DRIVER-C Albina Aponte COMBINE DRIVER Work Phone: [facility] 11-15-2022 13:06-0400 Systolic blood pressure 147 mm[Hg] COMBINE DRIVER-C Albina Aponte COMBINE DRIVER Work Phone: [facility] 11-10-2022 16:17-0400 Body mass index (BMI) [Ratio] 30.7 kg/m2 COMBINE DRIVER-C Albina Aponte COMBINE DRIVER Work Phone: [facility] 11-10-2022 16:17-0400 Body temperature 97.7 [degF] COMBINE DRIVER-C Albina Bhatson COMBINE DRIVER Work Phone: [facility] 11-10-2022 16:17-0400 Body weight 97.06 kg COMBINE DRIVER-C Albina Aponte COMBINE DRIVER Work Phone: [facility] 11-10-2022 16:17-0400 Diastolic blood pressure 100 mm[Hg] COMBINE DRIVER-C Albina Bhatson COMBINE DRIVER Work Phone: [facility] 11-10-2022 16:17-0400 Heart rate 87 /min COMBINE DRIVER-C Albina Aponte COMBINE DRIVER Work Phone: [facility] 11-10-2022 16:17-0400 Respiratory rate 18 /min COMBINE DRIVER-C Albina Aponte COMBINE DRIVER Work Phone: [facility] 11-10-2022 16:17-0400 SaO2% (BldA) [Mass fraction] 93 % COMBINE DRIVER-C Albina Bhatson COMBINE DRIVER Work Phone: [facility] 11-10-2022 16:17-0400 Systolic blood pressure 190 mm[Hg] COMBINE DRIVER-C Albina Bhatson COMBINE DRIVER Work Phone: [facility] 09-15-2022 07:59-0400 Body mass index (BMI) [Ratio] 31.2 kg/m2 COMBINE DRIVER-C Albina Aponte COMBINE DRIVER Work Phone: [facility] 09-15-2022 07:59-0400 Body temperature 97.6 [degF] COMBINE DRIVER-C Albina Aponte COMBINE DRIVER Work Phone: 6(437)408-73[address] [place] [address] 09-15-2022 07:59-0400 Body weight 98.88 kg COMBINE DRIVER-C Albina Aponte COMBINE DRIVER Work Phone: 9(538)832-441071 [place] [address] 09-15-2022 07:59-0400 Diastolic blood pressure 78 mm[Hg] COMBINE DRIVER-C Albina Aponte COMBINE DRIVER Work Phone: 1(472)748-494571 [place] [address] 09-15-2022 07:59-0400 Heart rate 53 /min COMBINE DRIVER-C Albina Bhatson COMBINE DRIVER Work Phone: 7(326)323-762671 [place] [address] 09-15-2022 07:59-0400 Respiratory rate 18 /min COMBINE DRIVER-C Albina Aponte COMBINE DRIVER Work Phone: 4(305)298-714471 [place] [address] 09-15-2022 07:59-0400 SaO2% (BldA) [Mass fraction] 94 % COMBINE DRIVER-C Albina Aponte COMBINE DRIVER Work Phone: 3(387)775-499371 [place] [address] 09-15-2022 07:59-0400 Systolic blood pressure 158 mm[Hg] COMBINE DRIVER-C Albina Aponte COMBINE DRIVER Work Phone: 1(127)686-415971 [place] [address] 08-11-2022 08:45-0500 Body height 177.8 cm COMBINE DRIVER-C Albina Aponte COMBINE DRIVER Work Phone: 6(444)433-891251 [place] [address] 08-11-2022 08:45-0500 Body mass index (BMI) [Ratio] 31.7 kg/m2 COMBINE DRIVER-C Albina Aponte COMBINE DRIVER Work Phone: 3(136)693-472071 [place] [address] 08-11-2022 08:45-0500 Body weight 100.24 kg COMBINE DRIVER-C Albina Aponte COMBINE DRIVER Work Phone: 3(074)968-776071 [place] [address] 08-11-2022 08:45-0500 Diastolic blood pressure 66 mm[Hg] COMBINE DRIVER-C Albina Aponte COMBINE DRIVER Work Phone: 2(861)359-870671 [place] [address] 08-11-2022 08:45-0500 Heart rate 54 /min COMBINE DRIVER-C Albina Aponte COMBINE DRIVER Work Phone: 4(475)402-769871 [place] [address] 08-11-2022 08:45-0500 Respiratory rate 18 /min COMBINE DRIVER-C Albina Aponte COMBINE DRIVER Work Phone: [facility] 08-11-2022 08:45-0500 Systolic blood pressure 107 mm[Hg] COMBINE DRIVER-C Albina Aponte COMBINE DRIVER Work Phone: [facility] 08-03-2022 11:21-0500 Heart rate 90 /min COMBINE DRIVER-C Albina Aponte COMBINE DRIVER Work Phone: [facility] 08-03-2022 11:21-0500 SaO2% (BldA) [Mass fraction] 94 % COMBINE DRIVER-C Albina Aponte COMBINE DRIVER Work Phone: [facility] 08-03-2022 08:09-0500 Body height 177.8 cm COMBINE DRIVER-C Albina Aponte COMBINE DRIVER Work Phone: [facility] 08-03-2022 08:09-0500 Body mass index (BMI) [Ratio] 31.1 kg/m2 COMBINE DRIVER-C Albina Aponte COMBINE DRIVER Work Phone: [facility] 08-03-2022 08:09-0500 Body temperature 97.5 [degF] COMBINE DRIVER-C Albina Aponte COMBINE DRIVER Work Phone: [facility] 08-03-2022 08:09-0500 Body weight 98.42 kg COMBINE DRIVER-C Albina Aponte COMBINE DRIVER Work Phone: [facility] 08-03-2022 08:09-0500 Diastolic blood pressure 84 mm[Hg] COMBINE DRIVER-C Albina Aponte COMBINE DRIVER Work Phone: [facility] 08-03-2022 08:09-0500 Respiratory rate 18 /min COMBINE DRIVER-C Albina Aponte COMBINE DRIVER Work Phone: [facility] 08-03-2022 08:09-0500 Systolic blood pressure 160 mm[Hg] COMBINE DRIVER-C Albina Aponte COMBINE DRIVER Work Phone: [facility] 07-28-2022 17:45-0500 Body mass index (BMI) [Ratio] 28.7 kg/m2 COMBINE DRIVER-C Albina Aponte COMBINE DRIVER Work Phone: [facility] 07-28-2022 17:45-0500 Body temperature 97.7 [degF] COMBINE DRIVER-C Albina Aponte COMBINE DRIVER Work Phone: [facility] 07-28-2022 17:45-0500 Body weight 90.71 kg COMBINE DRIVER-C Albina Aponte COMBINE DRIVER Work Phone: [facility] 07-28-2022 17:45-0500 Diastolic blood pressure 90 mm[Hg] COMBINE DRIVER-C Albina Aponte COMBINE DRIVER Work Phone: 4(582)792-277171 [place] [address] 07-28-2022 17:45-0500 Heart rate 74 /min COMBINE DRIVER-C Albina Aponte COMBINE DRIVER Work Phone: [facility] 07-28-2022 17:45-0500 Inhaled oxygen flow rate 20 L/min COMBINE DRIVER-C Albina Aponte COMBINE DRIVER Work Phone: 5(164)098-745371 [place] [address] 07-28-2022 17:45-0500 Respiratory rate 18 /min COMBINE DRIVER-C Albina Aponte COMBINE DRIVER Work Phone: 4(650)874-669971 [place] [address] 07-28-2022 17:45-0500 SaO2% (BldA) [Mass fraction] 89 % COMBINE DRIVER-C Albina Aponte COMBINE DRIVER Work Phone: [facility] 07-28-2022 17:45-0500 Systolic blood pressure 170 mm[Hg] COMBINE DRIVER-C Albina Aponte COMBINE DRIVER Work Phone: [facility] 01-28-2022 13:06-0400 Body height 179.07 cm COMBINE DRIVER-C Albina Aponte COMBINE DRIVER Work Phone: [facility] Work Phone: 01-20-2022 13:08-0400 Body height 179.07 cm COMBINE DRIVER-C Albina Aponte COMBINE DRIVER Work Phone: [facility] Work Phone: 01-20-2022 13:08-0400 Body mass index (BMI) [Ratio] 32.2 kg/m2 COMBINE DRIVER-C Albina Aponte COMBINE DRIVER Work Phone: [facility] Work Phone: 01-20-2022 13:08-0400 Body temperature 97.9 [degF] COMBINE DRIVER-C Albina Aponte COMBINE DRIVER Work Phone: [facility] Work Phone: 01-20-2022 13:08-0400 Body weight 102.51 kg COMBINE DRIVER-C Albina Aponte COMBINE DRIVER Work Phone: [facility] Work Phone: 01-20-2022 13:08-0400 Body weight 103.41 kg COMBINE DRIVER-C Albnia Aponte COMBINE DRIVER Work Phone: [facility] Work Phone: 01-20-2022 13:08-0400 Diastolic blood pressure 69 mm[Hg] COMBINE DRIVER-C Albina Aponte COMBINE DRIVER Work Phone: [facility] Work Phone: 01-20-2022 13:08-0400 Heart rate 56 /min COMBINE DRIVER-C Albina Aponte COMBINE DRIVER Work Phone: [facility] Work Phone: 01-20-2022 13:08-0400 Heart rate 59 /min COMBINE DRIVER-C Albina Aponte COMBINE DRIVER Work Phone: [facility] Work Phone: 01-20-2022 13:08-0400 Respiratory rate 17 /min COMBINE DRIVER-C Albina Aponte COMBINE DRIVER Work Phone: [facility] Work Phone: 01-20-2022 13:08-0400 SaO2% (BldA) [Mass fraction] 95 % COMBINE DRIVER-C Albina Aponte COMBINE DRIVER Work Phone: [facility] Work Phone: 01-20-2022 13:08-0400 SaO2% (BldA) [Mass fraction] 93 % COMBINE DRIVER-C Albina Aponte COMBINE DRIVER Work Phone: [facility] Work Phone: 01-20-2022 13:08-0400 Systolic blood pressure 129 mm[Hg] COMBINE DRIVER-C Albina Aponte COMBINE DRIVER Work Phone: [facility] Work Phone: 12-27-2021 11:59-0400 Body mass index (BMI) [Ratio] 33 kg/m2 COMBINE DRIVER-C Albina Aponte COMBINE DRIVER Work Phone: [facility] Work Phone: 12-27-2021 11:59-0400 Body temperature 98 [degF] COMBINE DRIVER-C Albina Aponte COMBINE DRIVER Work Phone: [facility] Work Phone: 12-27-2021 11:59-0400 Body weight 104.32 kg COMBINE DRIVER-C Albina Aponte COMBINE DRIVER Work Phone: [facility] Work Phone: 12-27-2021 11:59-0400 Diastolic blood pressure 75 mm[Hg] COMBINE DRIVER-C Albina Aponte COMBINE DRIVER Work Phone: [facility] Work Phone: 12-27-2021 11:59-0400 Heart rate 65 /min COMBINE DRIVER-C Albina Aponte COMBINE DRIVER Work Phone: [facility] Work Phone: 12-27-2021 11:59-0400 Respiratory rate 19 /min COMBINE DRIVER-C Albina Aponte COMBINE DRIVER Work Phone: [facility] Work Phone: 12-27-2021 11:59-0400 SaO2% (BldA) [Mass fraction] 93 % COMBINE DRIVER-C Albina Aponte COMBINE DRIVER Work Phone: [facility] Work Phone: 12-27-2021 11:59-0400 Systolic blood pressure 123 mm[Hg] COMBINE DRIVER-C Albina Aponte COMBINE DRIVER Work Phone: [facility] Work Phone: 12-01-2021 11:59-0400 Diastolic blood pressure 72 mm[Hg] [facility] Work Phone: 12-01-2021 11:59-0400 Heart rate 75 /min [facility] Work Phone: 12-01-2021 11:59-0400 Respiratory rate 17 /min [facility] Work Phone: 12-01-2021 11:59-0400 SaO2% (BldA) [Mass fraction] 95 % [facility] Work Phone: 12-01-2021 11:59-0400 Systolic blood pressure 161 mm[Hg] [facility] Work Phone: 12-01-2021 09:09-0400 Body height 177.8 cm [facility] Work Phone: 12-01-2021 09:09-0400 Body mass index (BMI) [Ratio] 30.7 kg/m2 [facility] Work Phone: 12-01-2021 09:09-0400 Body temperature 97.7 [degF] [facility] Work Phone: 12-01-2021 09:09-0400 Body weight 97.06 kg [facility] Work Phone: 11-30-2021 15:25-0400 Body mass index (BMI) [Ratio] 30.7 kg/m2 [facility] Work Phone: 11-30-2021 15:25-0400 Body temperature 97.5 [degF] [facility] Work Phone: 11-30-2021 15:25-0400 Body weight 97.06 kg [facility] Work Phone: 11-30-2021 15:25-0400 Diastolic blood pressure 80 mm[Hg] [facility] Work Phone: 11-30-2021 15:25-0400 Heart rate 64 /min [facility] Work Phone: 11-30-2021 15:25-0400 Respiratory rate 18 /min [facility] Work Phone: 11-30-2021 15:25-0400 SaO2% (BldA) [Mass fraction] 94 % [facility] Work Phone: 11-30-2021 15:25-0400 Systolic blood pressure 160 mm[Hg] [facility] Work Phone: 09-14-2021 17:53-0400 Body mass index (BMI) [Ratio] 28.7 kg/m2 [facility] Work Phone: 09-14-2021 17:53-0400 Body temperature 97.9 [degF] [facility] Work Phone: 09-14-2021 17:53-0400 Body weight 90.71 kg [facility] Work Phone: 09-14-2021 17:53-0400 Diastolic blood pressure 80 mm[Hg] [facility] Work Phone: 09-14-2021 17:53-0400 Heart rate 79 /min [facility] Work Phone: 09-14-2021 17:53-0400 Respiratory rate 18 /min [facility] Work Phone: 09-14-2021 17:53-0400 SaO2% (BldA) [Mass fraction] 92 % [facility] Work Phone: 09-14-2021 17:53-0400 Systolic blood pressure 158 mm[Hg] [facility] Work Phone: 09-14-2021 17:53-0400 Body height 177.8 cm [facility] Work Phone: 09-14-2021 17:53-0400 Body mass index (BMI) [Ratio] 28.7 kg/m2 [facility] Work Phone: 09-14-2021 17:53-0400 Body temperature 97.9 [degF] [facility] Work Phone: 09-14-2021 17:53-0400 Body weight 90.71 kg [facility] Work Phone: 09-14-2021 17:53-0400 Diastolic blood pressure 80 mm[Hg] [facility] Work Phone: 09-14-2021 17:53-0400 Heart rate 79 /min [facility] Work Phone: 09-14-2021 17:53-0400 Respiratory rate 18 /min [facility] Work Phone: 09-14-2021 17:53-0400 SaO2% (BldA) [Mass fraction] 92 % [facility] Work Phone: 09-14-2021 17:53-0400 Systolic blood pressure 158 mm[Hg] [facility] Work Phone: 02-02-2020 14:19-0400 Body Temperature 98.29 [degF] [facility], [place] 02-02-2020 14:19-0400 BP Diastolic 95 mm[Hg] [facility] , [place] 02-02-2020 14:19-0400 BP Systolic 138 mm[Hg] [facility] , [place] 02-02-2020 14:19-0400 Pulse (Heart Rate) 103 /min [facility], [place] 02-02-2020 14:19-0400 Pulse Oximetry 96 % [facility] , [place] 02-02-2020 14:19-0400 Respiratory Rate 16 /min [facility], [place] 09-05-2019 10:24-0400 BMI (Body Mass Index) 22.96 kg/m2 Evan Mcelroy [facility], [place] 09-05-2019 10:24-0400 Body weight [facility] 10: Height 177.8 cm Evan Mcelroy [facility] [place] Encounters Encounter Date Encounter Type Care Provider Facility Start: 04-23-2025 End: 04-23-2025 ambulatory Olga Vernon Facility[facility] Start: 03-01-2025 End: 03-01-2025 Subsequent hospital visit by physician Beba Leyva Work Phone: [facility] Vascular Lab Comment on above: Peripheral vascular disease, unspecified (HCC) Start: 03-01-2025 End: 03-01-2025 [facility] Start: 02-10-2025 End: 02-10-[address] Beba Leyva DO Work Phone: -[facility] Start: 02-10-2025 End: 02-10-[address] Rafael Lopez MD -[facility] Work Phone: Start: 12-06-2024 Non-patient / Non-visit Dr. Aroldo Tirado MD -[facility] Start: 12-06-2024 End: 12-06-[address] Sriram Tomlin MD Work Phone: -Cardiovascular Services Start: 12-06-2024 End: 12-06-2024 Patient encounter procedure Alejandro AMANDA -Cardiovascular Services Work Phone: Start: 12-06-2024 End: 12-06-2024 ambulatory Beba Leyva Facility:[facility] Start: 11-26-2024 End: 11-26-2024 Patient encounter procedure Alejandro AMANDA -[facility] Work Phone: Start: 11-26-2024 End: 11-26-[address] Beba Leyva DO Work Phone: [facility] Work Phone: Start: 11-11-2024 End: 11-11-[address] Beba Leyva DO Work Phone: [facility] Work Phone: Start: 11-11-2024 End: 11-11-[address] Rafael Lopez MD -[facility] Work Phone: Start: 08-13-2024 Non-patient / Non-visit Dr. Aroldo Tirado MD -[facility] Start: 08-13-2024 End: 08-13-2024 ambulatory Albina Aponte COMBINE DRIVER-C Work Phone: [facility] Work Phone: Start: 08-13-2024 End: 08-13-[address] Sriram Tomlin MD -Cardiovascular Services Work Phone: Start: 08-13-2024 End: 08-13-2024 ambulatory Beba Macy Gordno Facility:[facility] Start: 08-12-2024 End: 08-12-2024 ambulatory [facility] Facility:[facility] Start: 08-12-2024 End: 08-12-[address] Rafael Lopez MD -[facility] Work Phone: Start: 07-11-2024 End: 07-11-[address] Sriram Tomlin MD -[facility] Work Phone: Start: 07-11-2024 End: 07-11-2024 ambulatory Sriram Tomlin Facility:[facility] Start: 06-13-2024 End: 06-13-2024 Telephone encounter Beba Leyva Work Phone: [facility] Clinical Communication Comment on above: Request For Order(s) Start: 05-13-2024 End: 05-13-2024 ambulatory Rafael Lopez Facility:[facility] Start: 05-13-2024 End: 05-13-[address] Rafael Lopez MD -[facility] Work Phone: Start: 05-07-2024 End: 08-06-2024 Subsequent hospital visit by physician Bebajoel Johnsonon Work Phone: [facility] Radiology Comment on above: Pain in right should er Pain in right should er (Primary Dx) Start: 05-07-2024 End: 05-07-2024 ambulatory BEBA LEYVA [facility] Start: 05-03-2024 End: 05-03-2024 ambulatory Destini Villanueva RN [facility] Clinical Communication Start: 05-03-2024 End: 05-03-2024 Patient encounter procedure [facility] Start: 10-03-2023 Non-patient / Non-visit COMBINE DRIVER-C Albina Aponte COMBINE DRIVER Work Phone: [facility] Work Phone: Start: 09-29-2023 Non-patient / Non-visit COMBINE DRIVER-C Albina Aponte COMBINE DRIVER Work Phone: [facility] Start: 09-29-2023 Non-patient / Non-visit COMBINE DRIVER-C Albina Aponte COMBINE DRIVER Work Phone: [facility] Start: 09-29-2023 End: 09-29-2023 ambulatory COMBINE DRIVER-C Albina Aponte COMBINE DRIVER Work Phone: [facility] Work Phone: Start: 09-29-2023 End: 09-29-2023 Patient encounter procedure COMBINE DRIVER-C Albina Aponte COMBINE DRIVER [facility] Start: 09-22-2023 End: 09-22-2023 ambulatory COMBINE DRIVER-C Albina Aponte COMBINE DRIVER Work Phone: [facility] Work Phone: Start: 09-22-2023 End: 09-22-2023 Patient encounter procedure COMBINE DRIVER-C Albina Aponte COMBINE DRIVER Work Phone: [facility] Work Phone: Start: 09-08-2023 End: 09-08-2023 ambulatory COMBINE DRIVER-C Albina Aponte COMBINE DRIVER Work Phone: [facility] Work Phone: Start: 09-08-2023 End: 09-08-2023 Patient encounter procedure COMBINE DRIVER-C Albina Aponte COMBINE DRIVER Work Phone: [facility]-Laboratory Work Phone: Start: 09-05-2023 End: 09-06-2023 Patient encounter procedure COMBINE DRIVER-C Albina Aponte COMBINE DRIVER Work Phone: [facility] Work Phone: Start: 09-01-2023 Telephone encounter Latisha pimentel Rehab Services Aide [facility] Cardiac Rehab Comment on above: Appointment (Cardiac Rehab Eval) Start: 08-24-2023 End: 08-24-2023 ambulatory COMBINE DRIVER-C Albina Aponte COMBINE DRIVER Work Phone: [facility] Work Phone: Start: 08-24-2023 End: 08-24-2023 Patient encounter procedure COMBINE DRIVER-C Albina Aponte COMBINE DRIVER Work Phone: [facility] Work Phone: Start: 08-09-2023 End: 08-09-2023 ambulatory COMBINE DRIVER-C Albina Aponte COMBINE DRIVER Work Phone: [facility] Work Phone: Start: 08-09-2023 End: 08-09-2023 Patient encounter procedure COMBINE DRIVER-C Albina Aponte COMBINE DRIVER Work Phone: [facility]-Laboratory, Specimen Work Phone: Start: 08-08-2023 End: 08-08-2023 Patient encounter procedure COMBINE DRIVER-C Albina Aponte COMBINE DRIVER Work Phone: [facility] Work Phone: Start: 08-01-2023 End: 08-01-2023 Patient encounter procedure COMBINE DRIVER-C Albina Fadi COMBINE DRIVER Work Phone: [facility] Work Phone: Start: 08-01-2023 Non-patient / Non-visit COMBINE DRIVER-C Albina Aponte COMBINE DRIVER Work Phone: [facility] Start: 07-31-2023 End: 08-01-2023 Evaluation and management of inpatient COMBINE DRIVER-C Albina Fadi COMBINE DRIVER Work Phone: [facility]-Progressive Care Unit Work Phone: Start: 07-31-2023 End: 08-01-2023 observation encounter COMBINE DRIVER-C Albina Fadi COMBINE DRIVER Work Phone: [facility] Work Phone: Start: 07-27-2023 Non-patient / Non-visit COMBINE DRIVER-C Albina Aponte COMBINE DRIVER Work Phone: [facility] Start: 07-27-2023 End: 07-27-2023 Patient encounter procedure COMBINE DRIVER-C Albina Fadi COMBINE DRIVER Work Phone: [facility] Work Phone: Start: 07-22-2023 End: 07-22-2023 ambulatory COMBINE DRIVER-C Albina Aponte COMBINE DRIVER Work Phone: [facility] Work Phone: Start: 07-22-2023 End: 07-22-2023 Patient encounter procedure COMBINE DRIVER-C Albina Aponte COMBINE DRIVER [facility] Work Phone: Start: 07-22-2023 Non-patient / Non-visit COMBINE DRIVER-C Albina Aponte COMBINE DRIVER Work Phone: [facility] Start: 07-21-2023 Non-patient / Non-visit COMBINE DRIVER-C Albina Aponte COMBINE DRIVER Work Phone: [facility] Start: 07-21-2023 End: 07-22-2023 Evaluation and management of inpatient COMBINE DRIVER-Cornelia Aponte COMBINE DRIVER Work Phone: [facility]-Progressive Care Unit Work Phone: Start: 07-21-2023 End: 07-22-2023 observation encounter COMBINE DRIVER-C Albina Aponte COMBINE DRIVER Work Phone: [facility] Work Phone: Start: 06-21-2023 End: 06-21-2023 ambulatory COMBINE DRIVER-C Albina Aponte COMBINE DRIVER Work Phone: 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elding Teacher/Special Procedures Work Phone: Start: 05-17-2023 Non-patient / Non-visit COMBINE DRIVER-Cornelia Aponte COMBINE DRIVER Work Phone: [facility] Start: 04-20-2023 Non-patient / Non-visit COMBINE DRIVER-C Albina Aponte COMBINE DRIVER Work Phone: [facility] Start: 03-31-2023 Patient encounter status COMBINE DRIVER-Cornelia Aponte COMBINE DRIVER Work Phone: [facility] Start: 03-16-2023 End: 03-16-2023 Patient encounter procedure COMBINE DRIVER-C Albina Aponte COMBINE DRIVER Work Phone: [facility]-Radiology, [facility] Work Phone: Start: 03-16-2023 End: 03-16-2023 Patient encounter procedure COMBINE DRIVER-C Albina Aponte COMBINE DRIVER Work Phone: [facility] Work Phone: Start: 12-02-2022 Non-patient / Non-visit COMBINE DRIVER-C Albina Aponte COMBINE DRIVER Work Phone: [facility] Start: 12-02-2022 End: 12-03-2022 Evaluation and management of inpatient COMBINE DRIVER-C Albina Aponte COMBINE DRIVER Work Phone: [facility]-Progressive Care Unit Start: 12-02-2022 End: 12-03-2022 observation encounter COMBINE DRIVER-C Albina Aponte COMBINE DRIVER Work Phone: [facility] Work Phone: Start: 11-22-2022 Non-patient / Non-visit COMBINE DRIVER-C Albina Aponte COMBINE DRIVER Work Phone: [facility] Start: 11-22-2022 End: 11-22-2022 ambulatory COMBINE DRIVER-C Albina Aponte COMBINE DRIVER Work Phone: [facility] Work Phone: Start: 11-22-2022 End: 11-22-2022 Patient encounter procedure COMBINE DRIVER-C Albina Aponte COMBINE DRIVER Work Phone: [facility]-Cardiovascular Services Start: 11-15-2022 End: 11-15-2022 Patient encounter procedure COMBINE DRIVER-C Albina Aponte COMBINE DRIVER Work Phone: [facility] Start: 11-15-2022 End: 11-15-2022 Emergency department patient visit CHRIS DEX HRICS Facility:[facility] Start: 11-11-2022 Non-patient / Non-visit COMBINE DRIVER-C Albina Aponte COMBINE DRIVER Work Phone: [facility] Start: 11-10-2022 End: 11-10-2022 ambulatory COMBINE DRIVER-C Albina Aponte COMBINE DRIVER Work Phone: [facility] Work Phone: Start: 11-10-2022 End: 11-10-2022 Patient encounter procedure COMBINE DRIVER-C Albina Aponte COMBINE DRIVER Work Phone: [facility]-Laboratory, Specimen Start: 09-15-2022 End: 09-15-2022 Patient encounter procedure COMBINE DRIVER-C Albina Aponte COMBINE DRIVER [facility] Phone[facility] Start: 08-29-2022 Non-patient / Non-visit COMBINE DRIVER-C Albina Aponte COMBINE DRIVER Work Phone: [facility] Start: 08-26-2022 Non-patient / Non-visit COMBINE DRIVER-C Albina Aponte COMBINE DRIVER Work Phone: [facility] Start: 08-26-2022 End: 08-26-2022 ambulatory COMBINE DRIVER-C Albina Aponte COMBINE DRIVER Work Phone: [facility] Work Phone: Start: 08-26-2022 End: 08-26-2022 Patient encounter procedure COMBINE DRIVER-C Albina Aponte COMBINE DRIVER Work Phone: [facility]-Cardiovascular Services Start: 08-20-2022 End: 08-20-2022 Patient encounter procedure COMBINE DRIVER-C Albina Aponte COMBINE DRIVER Work Phone: [facility]-Laboratory Start: 08-11-2022 End: 08-11-2022 ambulatory COMBINE DRIVER-C Albina Aponte COMBINE DRIVER Work Phone: [facility] Work Phone: Start: 08-11-2022 End: 08-11-2022 Patient encounter procedure COMBINE DRIVER-C Albina Aponte COMBINE DRIVER Work Phone: [facility]-Laboratory Start: 08-11-2022 End: 08-11-2022 Patient encounter procedure COMBINE DRIVER-C Albina Aponte COMBINE DRIVER Work Phone: [facility] Start: 08-03-2022 End: 08-03-2022 ambulatory COMBINE DRIVER-C Albina Aponte COMBINE DRIVER Work Phone: [facility] Work Phone: Start: 08-03-2022 End: 08-03-2022 Patient encounter procedure COMBINE DRIVER-C Albina Aponte COMBINE DRIVER Work Phone: [facility] Start: 08-03-2022 End: 08-03-2022 Patient encounter procedure COMBINE DRIVER-C Albina Aponte COMBINE DRIVER Work Phone[facility] Start: 03-18-2022 ambulatory [facility] Start: 02-25-2022 Non-patient / Non-visit COMBINE DRIVER-C Albina Aponte COMBINE DRIVER Work Phone: [facility] Start: 02-25-2022 End: 02-25-2022 ambulatory COMBINE DRIVER-C Albina Aponte COMBINE DRIVER Work Phone: [facility] Work Phone: Start: 02-25-2022 End: 02-25-2022 Patient encounter procedure COMBINE DRIVER-C Albina Aponte COMBINE DRIVER Work Phone: [facility]-Cardiovascular Services Start: 01-28-2022 End: 01-28-2022 Patient encounter procedure COMBINE DRIVER-C Albina Aponte COMBINE DRIVER [facility] Start: 01-21-2022 Non-patient / Non-visit COMBINE DRIVER-C Albina Aponte COMBINE DRIVER Work Phone: [facility] Start: 01-20-2022 End: 01-20-2022 Patient encounter procedure COMBINE DRIVER-Cornelia Aponte COMBINE DRIVER Work Phone[facility] Start: 01-19-2022 Non-patient / Non-visit COMBINE DRIVER-Cornelia Aponte COMBINE DRIVER Work Phone: [facility] Start: 01-18-2022 End: 01-18-2022 Patient encounter procedure COMBINE DRIVER-Cornelia Aponte COMBINE DRIVER Work Phone: [facility]-Pulmonary Services/Neurology Start: 12-27-2021 End: 12-27-2021 Patient encounter procedure COMBINE DRIVER-Cornelia Aponte COMBINE DRIVER [facility] Start: 12-01-2021 End: 12-01-2021 Emergency department patient visit [facility]-Emergency Department Start: 11-30-2021 End: 11-30-2021 Patient encounter procedure [facility]-Laboratory, Specimen Start: 09-14-2021 End: 09-14-2021 Patient encounter procedure [facility]-Laboratory, Specimen Start: 09-02-2021 [facility] Start: 09-02-2021 End: 09-02-2021 Subsequent hospital visit by physician Melva Corbett DO Work Phone: [facility] Comment on above: Hypothyroidism, unsp ecified type Start: 06-08-2021 ambulatory [facility] Start: 01-20-2021 End: 01-20-2021 Subsequent hospital visit by physician Kush Coffman CNP Work Phone: [facility] Comment on above: Right hip pain Start: 10-16-2020 End: 10-16-2020 Subsequent hospital visit by physician Melva Corbett DO Work Phone: [facility] Comment on above: Hypothyroidism, unsp ecified type Start: 09-10-2020 End: 09-10-2020 Subsequent hospital visit by physician Melva Corbett Work Phone: [facility] Comment on above: Need for hepatitis C screening test; 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 Start: 06-19-2020 End: 06-19-2020 Subsequent hospital visit by physician Chele [facility] Work Phone: Radiology Comment on above: Ankle injuries, watson kaminski, initial encounter [S99.911A] Start: 06-02-2020 End: 06-02-2020 Subsequent hospital visit by physician Melva Corbett Work Phone: [place] [facility] Comment on above: Essential hypertensi on; Mixed hyperlipidemia; Postmenopausal Start: 03-12-2020 End: 03-12-2020 Subsequent hospital visit by physician Melva Corbett Work Phone: [facility] Laboratory Comment on above: Hyperkalemia Start: 02-02-2020 End: 02-02-2020 Emergency department patient visit Bryan Esparza Work Phone: [place] [facility] Comment on above: Elbow injury, left, initial encounter (Primary Dx); Elbow effusion, left; Thrush Start: 01-30-2020 End: 01-30-2020 Subsequent hospital visit by physician Josefa Arguello Work Phone: [facility] Laboratory Comment on above: Urinary frequency Start: 09-05-2019 End: 09-05-2019 Subsequent hospital visit by physician Evan Mcelroy Work Phone: [facility] [address] [facility] Comment on above: 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) ; Essential hypertension; Angina pectoris (HCC) Start: 08-26-2019 End: 08-26-2019 Subsequent hospital visit by physician Melva Corbett Work Phone: [place] [facility] Comment on above: Shortness of breath; Chest heaviness Start: 08-06-2019 End: 08-06-2019 Subsequent hospital visit by physician Melva Corbett Work Phone: [place] [facility] Comment on above: Vitamin D deficiency Start: 04-17-2019 End: 04-17-2019 Subsequent hospital visit by physician Melva Corbett Work Phone: [place] [facility] Comment on above: Vitamin D deficiency , unspecified ; Chronic fatigue Start: 01-24-2019 End: 01-24-2019 Subsequent hospital visit by physician Clara Rubio Work Phone: [facility] Procedures Date Procedure Procedure Detail Performing Clinician Start: 03-01-2025 Non-invasive physiol ogic study extremity 3 jv Leyva Work Phone: Start: 08-01-2023 Plain chest X-ray COMBINE DRIVER-C Albina Aponte COMBINE DRIVER Work Phone: Start: 03-16-2023 Plain chest X-ray COMBINE DRIVER-C Albina Aponte COMBINE DRIVER Work Phone: Start: 12-02-2022 US urinary tract COMBINE DRIVER-C Humrea Aponte COMBINE DRIVER Work Phone: Start: 08-26-2022 Cardiovascular stres s test using pharmacologic stress agent COMBINE DRIVER-C Albina Aponte COMBINE DRIVER Work Phone: Start: 08-03-2022 CT angiography of ch est with contrast COMBINE DRIVER-C Albina Aponte COMBINE DRIVER Work Phone: Start: 12-01-2021 Plain chest X-ray Start: 09-02-2021 Assay of free thyroxine Kush Huynh PAGEANT DIRECTOR - MUSIC ORCHESTRATOR Work Phone: Start: 06-08-2021 Lipid 1996 panel - S juan r or Plasma Destini Villanueva RN Start: 01-20-2021 Radex hip unilateral with pelvis 2-3 views Kush Huynh PAGEANT DIRECTOR - MUSIC ORCHESTRATOR Work Phone: Start: 10-16-2020 End: 10-16-2020 Assay of free thyroxine Melva russell DO Work Phone: Start: 09-10-2020 Assay of free thyroxine Melva Corbett Work Phone: Start: 09-10-2020 Assay of thyroid sti mulating hormone tsh Melva Corbett Work Phone: Start: 09-10-2020 Hepatitis c antibody Ch edgar Corbett Work Phone: Start: 09-10-2020 Thyrotropin [Units/v olume] in Serum or Plasma Destini Villanueva RN Start: 06-19-2020 Radex ankle complete minimum 3 views Shaquille Duke APRNRolandoMUSIC ORCHESTRATOR Work Phone: Start: 06-02-2020 Dxa bone density chante dy 1/> sites axial skel Melva M Corbett Work Phone: Start: 06-02-2020 Comprehensive metabo lic panel Melva Cullen Corbett Work Phone: Start: 06-02-2020 Lipid panel Melva Corbett Work Phone: Start: 03-12-2020 Potassium serum plas ma/whole blood Melva Corbett Work Phone: Start: 02-02-2020 Radex elbow complete minimum 3 views Bryan Esparza Work Phone: Start: 01-30-2020 Comprehensive metabo lic panel Josefa Saundra Work Phone: Start: 09-05-2019 ECHOCARDIOGRAM PHARMACOLOGICAL STRESS TEST Evan Linda Eliane Work Phone: Start: 08-26-2019 Radiologic exam ches t 2 views Melva Corbett Work Phone: Start: 08-26-2019 Blood count complete automated Melva Corbett Work Phone: Start: 08-26-2019 Comprehensive metabo lic panel Melva Cullen Corbett Work Phone: Start: 08-06-2019 25 hydroxy includes fractions if performed Melva Corbett Work Phone: Start: 04-17-2019 Assay of thyroid sti mulating hormone tsh Melva Corbett Work Phone: Start: 04-17-2019 Blood count complete auto&auto difrntl wbc Melva Corbett Work Phone: Start: 04-17-2019 Comprehensive metabo lic panel Melva Corbett Work Phone: Start: 04-17-2019 Cyanocobalamin vitamin b-12 Melva Corbett Work Phone: Viral antigen assay Plan of Treatment Date Care Activity Detail Author Start: 06-08-2026 Diabetes Screening Diabetes Screening [facility] Start: 06-08-2026 Lipid panel Lipid Panel [facility] Start: 11-14-2025 Diabetes Screening Diabetes Screening [facility] Start: 02-10-2025 COVID-19 Vaccine ( season) COVID-19 Vaccine () [facility] Start: 02-10-2025 Influenza vaccination Influenza Vaccine (#1) [facility] Start: 07-11-2024 Evaluation of diagnostic study results [facility] Start: 06-12-2024 Medicare Advantage Annual Wellness Visit Medicare Advantage Annual Wellness Visit [facility] Start: 02-11-2024 Covid-19 Vaccine () Covid-19 Vaccine () [facility] Start: 02-11-2024 Influenza vaccination Influenza Vaccine (#1) [facility] Start: 08-01-2023 Patient discharge [facility] Start: 08-01-2023 Referral to occupational therapist [facility] Start: 08-01-2023 Referral to service [facility] Start: 07-31-2023 Admission procedure [facility] Start: 07-31-2023 Bedrest [facility] Start: 07-31-2023 Elevation of head of bed [facility] Start: 07-31-2023 Taking patient vital signs [facility] Start: 07-31-2023 Wound care [facility] Start: 07-31-2023 [facility] Start: 07-27-2023 Urinalysis complete panel - Urine [facility] Start: 07-24-2023 Electrocardiographic procedure [facility] Start: 07-23-2023 Electrocardiographic procedure [facility] Start: 07-22-2023 Patient discharge [facility] Start: 07-21-2023 Referral to service [facility] Start: 07-21-2023 Patient referral [facility] Work Phone: Start: 07-21-2023 Following clinical pathway protocol [facility] Start: 07-21-2023 Ambulation without limitation [facility] Start: 07-21-2023 Cardiac monitoring [facility] Start: 07-21-2023 Cardiac rehabilitation - phase 1 [facility] Start: 07-21-2023 Cardiac rehabilitation - phase 2 [facility] Start: 02-09-2024 Notification of physician [facility] Start: 07-21-2023 Oxygen therapy [facility] Start: 07-21-2023 Patient discharge [facility] [facility] Start: 07-21-2023 Taking patient vital signs [facility] Start: 07-21-2023 Vascular disease risk assessment [facility] Start: 07-21-2023 Vital signs measurements [facility] Start: 07-21-2023 End: 07-21-2023 [facility] Start: 07-21-2023 Admission procedure [facility] Start: 06-12-2023 Advance Directive Discussion Advance Directive Discussion [facility] Start: 06-12-2023 Medicare Advantage Annual Wellness Visit Medicare Advantage Annual Wellness Visit [facility] Start: 05-19-2023 Patient discharge [facility] Start: 02-10-2023 Covid-19 Vaccine () Covid-19 Vaccine () [facility] Start: 02-10-2023 Influenza vaccination Influenza Vaccine (#1) [facility] Start: 12-03-2022 Patient discharge [facility] Start: 12-02-2022 Following clinical pathway protocol [facility] Start: 12-02-2022 Notification of physician [facility] Start: 12-02-2022 Provision of activity privileges [facility] Start: 12-02-2022 Wound care [facility] Start: 12-02-2022 Admission procedure [facility] Start: 09-02-2022 Thyroid stimulating hormone measurement TSH testing [facility] Start: 08-03-2022 Patient referral [facility] Work Phone: Start: 06-12-2022 Advance Directive Discussion Advance Directive Discussion [facility] Start: 06-09-2022 Annual Wellness Visit (AWV) Annual Wellness Visit (AWV) [facility] Start: 06-08-2022 Creatinine measurement Creatinine monitoring [facility] Start: 06-08-2022 Depression Screen Depression Screen [facility] Start: 06-08-2022 Hepatitis B surface antibody level LDL Cholesterol [facility] Start: 06-08-2022 Lipid panel Lipid screen [facility] Start: 06-08-2022 Potassium monitoring Potassium monitoring [facility] Start: 12-07-2021 End: 12-07-2021 Patient encounter procedure 12/07/2021 Office Visit Family Medicine Melva Corbett, DO [address] [place] [address] [facility] Start: 12-01-2021 [facility] Work Phone: Start: 10-16-2021 Thyroid stimulating hormone measurement TSH testing [facility] Work Phone: Start: 09-10-2021 Thyroid stimulating hormone measurement [facility] Start: 09-10-2021 TSH Qn TSH testing [facility] Work Phone: Start: 08-05-2021 COVID-19 Vaccine (3 - Booster for Pfizer series) COVID-19 Vaccine (3 - Booster for Pfizer series) [facility] Start: 06-07-2021 End: 06-07-2021 Office Visit 06/07/2021 Office Visit Family Medicine Melva Corbett DO [address], [place] [id number] [facility] Start: 06-02-2021 Creatinine measurement Creatinine monitoring [facility] [place] [place] Start: 06-02-2021 Lipid panel [facility] [place] [place] Start: 06-02-2021 Potassium monitoring Potassium monitoring [facility] [place] Start: 05-31-2021 End: 05-31-2021 Patient encounter procedure 05/31/2021 Office Visit Family Medicine Melva Corbett DO [address], [place] [address] [facility] Start: 05-30-2021 Annual Wellness Visit (AWV) Annual Wellness Visit (AWV) [facility] [place] [place] Start: 02-10-2021 Influenza vaccination [facility] Work Phone: Start: 02-06-2021 Creatinine measurement Creatinine monitoring [facility] [place] Start: 02-06-2021 Potassium monitoring Potassium monitoring [facility] [place] Start: 01-29-2021 Creatinine measurement Creatinine monitoring [facility] [place] Start: 01-29-2021 Potassium monitoring Potassium monitoring [facility] [place], [place] Start: 11-27-2020 End: 11-27-2020 Office Visit 11/27/2020 Office Visit Family Medicine Melva Corbett DO [address] [place] [address] [phone] [facility] Start: 09-29-2020 Statin Therapy Statin Therapy [facility] [place], [place] Start: 08-25-2020 Creatinine measurement Creatinine monitoring [facility] Start: 08-25-2020 Creatinine monitoring Creatinine monitoring [facility] [place] , [place] Start: 08-25-2020 Potassium monitoring Potassium monitoring [facility] [place], [place] Start: 05-29-2020 End: 05-29-2020 Office Visit 05/29/2020 Office Visit Family Medicine Melva Corbett DO [address] [place] [id number] [facility] Start: 04-17-2020 Creatinine monitoring Creatinine monitoring [facility] [place] , [place] Start: 04-17-2020 Potassium monitoring Potassium monitoring [facility] [place] Start: 04-17-2020 TSH Qn TSH testing [facility], [place] Start: 04-17-2020 TSH testing TSH testing [facility], [place] Start: 02-11-2020 Influenza vaccination Flu vaccine (#1) [place] Start: 02-03-2020 End: 02-03-2020 Office Visit 02/03/2020 Office Visit Family Medicine rToy Adkins MD [address] [place] [phone] [facility] Start: 10-18-2019 End: 10-18-2019 Office Visit 10/18/2019 Office Visit Cardiology Evan Mcelroy MD [address] [place] [address] [phone] [facility] Start: 03-07-2019 End: 03-07-2019 Office Visit 03/07/2019 Office Visit Geriatric Medicine Clara Rubio MD [address] [place] [phone] [facility] Start: 02-10-2019 Influenza vaccination Flu vaccine (#1) [place] Start: 11-29-2018 Annual Wellness Visit (AWV) Annual Wellness Visit (AWV) [place] Start: 11-01-2018 Creatinine monitoring Creatinine monitoring [place] Start: 11-01-2018 Lipid panel Lipid [place] Start: 11-01-2018 Lipid screen Lip[place] Start: 11-01-2018 Potassium monitoring Potassium [place] Start: 11-01-2018 TSH testing [place] testing [place] Start: 2016 RSV Immunization for Adults (1 - 1-dose 75+ series) RSV Immunization for Adults (1 - 1-dose 75+ series) [facility] Start: 2016 RSV Vaccine (1 - 1-dose 75+ series) RSV Vaccine (1 - 1-dose 75+ series) [facility] Start: 2006 DEXA (modify frequency per FRAX score) DEXA (modify frequency per FRAX score) [place] Start: 2004 Annual Wellness Visit (AWV) Annual Wellness Visit (AWV) [place] Start: 2001 RSV Vaccine (1 - 1-dose 60+ series) RSV Vaccine (1 - 1-dose 60+ series) [facility] Start: 1996 DEXA (modify frequency per FRAX score) DEXA (modify frequency per FRAX score) [place] Start: [address] lung screening Low dose CT lung screening [place] Start: 1996 Screening for osteoporosis DEXA (modify frequency per FRAX score) [place] Start: 11-29-1991 Screening for malignant neoplasm of lung Low dose CT lung screening [facility] Start: 11-29-1991 Shingles Vaccine (1 of 2) Shingles Vaccine (1 of 2) [facility] Start: 11-29-1991 Shingrix Vaccine (1 of 2) Shingrix Vaccine (1 of 2) [facility] Start: 11-29-1991 Zoster Vaccines (1 of 2) Zoster Vaccines (1 of 2) [facility] Start: 1960 DTaP/Tdap/Td vaccine (1 - Tdap) DTaP/Tdap/Td vaccine (1 - Tdap) [facility] Start: 1960 DTaP/Tdap/Td Vaccines (1 - Tdap) DTaP/Tdap/Td Vaccines (1 - Tdap) [facility] Start: 1960 Urine microalbumin profile DTaP,Tdap,Td Vaccine (1 - Tdap) [facility] Start: 11-29-1959 Spirometry Spirometry [facility] Start: 1957 COVID-19 Vaccine (1) COVID-19 Vaccine (1) [facility] Work Phone: Start: 1953 COVID-19 Vaccine (1) COVID-19 Vaccine (1) [facility] Work Phone: Start: 1953 Depression Screening Depression Screening [facility] Start: 1952 DTaP/Tdap/Td vaccine (1 - Tdap) DTaP/Tdap/Td vaccine (1 - Tdap) [facility], [place] Start: 1941 Thyroid stimulating hormone measurement TSH Level [facility] Blood chemistry [facility] Brain natriuretic pe ptide measurement [facility] NM Heart Views W str ess and W radionuclide IV [facility] OUTSIDE PROCEDURE SCAN OUTSIDE P ROCEDURE SCAN Procedures Ordered: 05/07/2024 [facility] Comment on above: Ordered: 05/07/2024 Patient Education [facility] Work Phone: Patient referral [place] Work Phone: End: 09-02-2021 TSH with Reflex TSH with Reflex Lab Routine Hypothyroidism, unspecified type 1 Occurrences starting 09/02/2021 until 09/02/2021 [facility] Work Phone: Comment on above: 1 Occurrences starting 09/02/2021 until 09/02/2021 Carotid arteries [facility] Carotid arteries [facility] Renal artery [facility] End: 04-17-2019 Vitamin D 25 Hydroxy Vitamin D 25 Hydroxy Lab Routine Vitamin D deficiency, unspecified Chronic fatigue 1 Occurrences starting 04/17/2019 until 04/17/2019 [facility]: 1 Occurrences starting 04/17/2019 until 04/17/2019 Vitamin D 25 Hydroxy Vitamin D 2 5 Hydroxy Lab Routine Vitamin D deficiency, unspecified Chronic fatigue 04/17/2019 2:21 PM EST [facility] End: 05-07-2024 XR Shoulder - right 2 Views [facility] [employer] [facility] Work Phone: Comment on above: Once for 1 Occurrences starting 05/07/20 24 until 05/07/2024 [facility] Immunizations Immunization Date Immunization Notes Care Provider Robert arechiga 04-01-2022 influenza, injectabl e, quadrivalent, preservative free COMBINE DRIVER-C Albina Aponte COMBINE DRIVER Work Phone: [facility] 04-01-2022 influenza, seasonal, injectable COMBINE DRIVER-C Albina Aponte COMBINE DRIVER Work Phone: [facility] 04-01-2022 influenza virus vacc ine, unspecified formulation Dex Gomez MD Work Phone: [facility] 06-08-2021 Influenza, High-dose , Quadv, 65 yrs +, IM (Fluzone) Melva Corbett DO Work Phone: [facility] 03-05-2021 Pfizer SARS-CoV-2 Vaccination Destini Villanueva RN [facility] 02-12-2021 Pfizer SARS-CoV-2 Vaccination Destini Villanueva RN [facility] 04-17-2018 pneumococcal polysaccharide vaccine, 23 valent Clara Rubio [facility] 11-03-2016 pneumococcal conjuga te vaccine, 13 valent Clara Rubio [facility] Payers Date Payer Category Payer Self-pay [id number] 2021 Medicare HMO [id number] 2019 Medicare [id number] 1. [id number] 2019 Unknown 2016 Medicare xxxxxxxxxxxx 1. [id number] 1941 Unknown [id number] 2.16. [id number] 1941 Unknown [id number] 2.16. [id number] 1941 Unknown [id number] 2.16. [id number] Unknown [id number] [id number] Unknown [id number] 2.16.8 [id number] Unknown [id number] 2.16.8 [id number] Unknown [id number] 2.16.8 [id number] Unknown [id number] 2.16.8 [id number] Unknown [id number] 2.16.8 [id number] Unknown [id number] 2.16.8 [id number] Unknown [id number] 2.16.8 [id number] Unknown [id number] 2.16.8 [id number] Unknown [id number] 2.16.8 [id number] Unknown [id number] 2.16.8 [id number] Unknown [id number] 2.16.8 [id number] Unknown [id number] 2.16.8 [id number] Social History Date Type Detail Facility Start: 01-24-2019 End: 09-22-2023 Tobacco smoking status NHIS Former smoker [facility] [place] Start: 01-24-2019 End: 03-04-2022 Alcohol intake No [facility] Work Phone: Start: 1940 Sex Assigned At Not on file [place] End: 04-17-2007 History of tobacco use Current smoker [place] End: 04-17-2007 History of tobacco use Cigarette [place] Start: 04-17-2019 End: 03-04-2022 Cigarettes smoked current (pack per day) - Reported [facility] Work Phone: Start: 06-20-2019 End: 03-04-2022 Alcohol intake Current non-drinker of alcohol (finding) [place] Start: 02-02-2020 End: 06-19-2020 Tobacco use and exposure Never used [facility] [place] Start: 05-20-2020 End: 06-19-2020 Exposure to SARS-CoV-2 (event) Not sure [place] Exposure to SARS-CoV -2 (event) Yes [place] Start: 1940 Sex Assigned At Female S [facility] Work Phone: Start: 12-01-2019 End: 09-22-2023 Tobacco smoking status MIIS Unknown if ever smoked [facility] Start: 06-19-2020 Tobacco smoking stat us MIIS Never smoked tobacco [facility] Start: 11-14-2022 Alcohol intake Lifetime non-d lyla (finding) [facility] How often to you hav e a drink containing alcohol? Never [facility] Work Phone: Average Number of Drinks Not on file [facility] Start: 01-10-2022 End: 08-27-2024 Sex Female (finding) [employer] [facility] Procedure Code Equipment Code Equipment Origin al Text Equipment Identifier Dates Peripheral arter y stent, bare-metal ()[id number] FDA Start: 12-02-2022 Drug-eluting cor onary artery stent, icn-bgkkubfunxghs-pvu ymer-coated ()[id number] FDA Start: 07-21-2023 Drug-eluting cor onary artery stent, wwl-gkrfurqczbioo-acj ymer-coated ()[id number] FDA Start: 07-21-2023 ([id number]) Dual-chamber implantable pacemaker, rate-responsive ()[id number] FDA Start: 07-31-2023 ([id number]) Endocardial paci ng lead ()[id number] FDA Start: 07-31-2023 ([id number]) Endocardial paci ng lead ()[id number] FDA Start: 07-31-2023 Goals Date Patient Goal Desired Activity /State Comment on above: CC Self Management GOAL 1:Patient will keep appointment at the [facility] on [facility]26 at 12:45[facility] location. BARRIERS to GOAL 1:None INTERVENTIONS 1:Stone Repairer will contact patient's daughterKat to confirm appointment. Expected time to complete goal: Two weeks Likely to work on goal 1-10 : 5 GOAL 2:None at this time. BARRIERS to GOAL 2:None at this time INTERVENTIONS 2:NOne Expected time to complete goal:None Likely to work on goal 1-10:None PERSONAL GOAL 3:None at this time. BARRIERS to GOAL 3:None INTERVENTIONS 3:None Expected time to complete goal:None Likely to work on goal 1-10:None Follow up plan: See below progress note. Goals were created in conjunction with PCP, patient and [facility] Stone Repairer. Copy given to patient. [facility] Stone Repairer:Megan Walsh Formatting of this n ote might be different from the original. CC Self Management GOAL 1:Patient will keep appointment at the [facility] on 04/26 at 12:[facility] location. BARRIERS to GOAL 1:None INTERVENTIONS 1:Stone Repairer will contact patient's daughterKat to confirm appointment. Expected time to complete goal: Two weeks Likely to work on goal 1-10 : 5 GOAL 2:None at this time. BARRIERS to GOAL 2:None at this time INTERVENTIONS 2:NOne Expected time to complete goal:None Likely to work on goal 1-10:None PERSONAL GOAL 3:None at this time. BARRIERS to GOAL 3:None INTERVENTIONS 3:None Expected time to complete goal:None Likely to work on goal 1-10:None Follow up plan: See below progress note. Goals were created in conjunction with PCP, patient and [facility] Stone Repairer. Copy given to patient. [facility] Stone Repairer:Megan Walsh Functional Status Date Assessment Result Facility 08-01-2023 Functional status Chair [facility] Work Phone: 07-22-2023 Functional status Ambulates;Up ad irene [facility] Work Phone: 12-03-2022 Functional status Ambulates;Bathroom Priv ilege [facility] Work Phone: Mental Status Date Assessment Result Facility 08-01-2023 Cognitive function Voice/Name [facility] Work Phone: 07-22-2023 Cognitive function Voice/Name [facility] Work Phone: 12-03-2022 Cognitive function Voice/Name [facility] Work Phone: Clinical Notes 06-19-2020 to 11-26-2024 Note Date & Type Note Facility 11-26-2024 Evaluation note Diagnosis Onset Date Resolution Left carotid artery stenosis acute November 26, 2024 7:54am Stented coronary artery July, acute November 26, 2024 7:54am Dyslipidemia chronic November 26 025 7:54am History of renal artery stenosis chronic November 26, 2024 7:54am History of stent insertion of renal artery chronic November 26, 2024 7:54am Hypertension chronic November 26 025 7:54am Hypothyroidism chronic November 26, 2024 7:54am Presence of cardiac pacemaker 2023 chronic November 26, 2024 7:54am Sick sinus syndrome chronic November 26, 2024 7:54am [facility] Work Phone: [phone]) 500-304701-08-2025 Telephone encounter Note* Telephone Encounter - Jeanne Correia MA - 06/19/2024 3:[address] Corbett I have not seen her in over 3 years, I can not place orders for therapy or supply notes [id number] Miscellaneous Notes* Telephone Encounter - Jeanne Correia MA - 06/19/2024 3:[address] Corbett I have not seen her in over 3 years, I can not place orders for therapy or supply notes * Telephone Encounter - Melva Corbett DO - 06/19/2024 2:38 PM EST I have not seen her in over 3 years, I can not place orders for therapy or supply notes * Telephone Encounter - Yudy Guevara LPN - 06/19/2024 1:18 PM EST Last time pt saw you 06/08/21 * Telephone Encounter - Jihan Pizano - 06/19/2024 11:59 AM EST Name of caller: lopez Contact phone number: [phone] Relationship to Patient: [facility] Provider: deisi Practice: [facility] Chief Complaint/Reason for Call: Lopez is requesting an order for occupational therapy for the pt for her right shoulder. Lopez also stated did physical therapy eval with pt today and will be seeing her once a week for 5 weeks for physical therapy. Please advise. Best time of day caller can be reached: AM Patient advised that office/PCP has 24-48 business hours to return their call: Yes * Telephone Encounter - Albina Brandon - 06/13/2024 4:20 PM EST Name of caller: Martha Contact phone number: [phone] Relationship to Patient: [facility] Provider: Dr Leyva Practice: [facility] Chief Complaint/Reason for Call: Martha states that the patient and facility is requesting physical therapy for the patient and would need a facesheet, visit notes, history and physical, order for Physical Therapy. Visit notes has to talk about the diagnosis and what was done to qualify her for therapy. Information can be faxed to fax# [phone]. Thank you Best time of day caller can be reached: any Patient advised that office/PCP has 24-48 business hours to return their call: Yes documented in this encounterSMercy [id number] Telephone encounter Note* Telephone Encounter - Melva Corbett DO - 06/19/2024 2:38 PM EST I have not seen her in over 3 years, I can not place orders for therapy or supply notes [employer] Work Phone: 1(221) 314-730101-08-2025 Telephone encounter Note* Telephone Encounter - Yudy Guevara LPN - 06/19/2024 1:18 PM EST Last time pt saw you 06/08/21 [facility] [id number] Telephone encounter Note* Telephone Encounter - Jihan Pizano - 06/19/2024 11:59 AM EST Name of caller: lopez Contact phone number: [phone] Relationship to Patient: [facility] Provider: deisi Practice: [facility] Chief Complaint/Reason for Call: Lopez is requesting an order for occupational therapy for the pt for her right shoulder. Lopez also stated did physical therapy eval with pt today and will be seeing her once a week for 5 weeks for physical therapy. Please advise. Best time of day caller can be reached: AM Patient advised that office/PCP has 24-48 business hours to return their call: Yes [facility] [id number] Telephone encounter Note* Telephone Encounter - Albina AlvarezRolando Brandon - 06/13/2024 4:20 PM EST Name of caller: Martha Contact phone number: [phone] Relationship to Patient: [facility] Provider: Dr Leyva Practice: [facility] Chief Complaint/Reason for Call: Martha states that the patient and facility is requesting physical therapy for the patient and would need a facesheet, visit notes, history and physical, order for Physical Therapy. Visit notes has to talk about the diagnosis and what was done to qualify her for therapy. Information can be faxed to fax# [phone]. Thank you Best time of day caller can be reached: any Patient advised that office/PCP has 24-48 business hours to return their call: Yes [id number] Miscellaneous Notes* Telephone Encounter - Albina Brandon - 06/13/2024 4:20 PM EST Name of caller: Martha Contact phone number: [phone] Relationship to Patient: [facility] Provider: Dr Leyva Practice: [facility] Chief Complaint/Reason for Call: Martha states that the patient and facility is requesting physical therapy for the patient and would need a facesheet, visit notes, history and physical, order for Physical Therapy. Visit notes has to talk about the diagnosis and what was done to qualify her for therapy. Information can be faxed to fax# [phone]. Thank you Best time of day caller can be reached: any Patient advised that office/PCP has 24-48 business hours to return their call: Yes documented in this [facility]11-22-2024 Telephone encounter Note* Telephone Encounter - Destini Villanueva RN - 05/03/2024 12:24 PM EST S: Patient spoke with [facility] nurse regarding medication question B: Onset of symptoms/concern n/a A: Patient states that she was seen earlier today 05/03 and questioning where the Albuterol inhalerRx was sent to, she was not given a Rx in hand. R: Advised the patient that the Rx was sent to [facility] as seen in [facility]. Patient voiced understanding. No further needs at this time. Reason for Disposition Caller with prescription and triager answers question Protocols used: Medication Refill and Renewal [id number] [facility] [id number] Miscellaneous Notes* Telephone Encounter - Destini Villanueva RN - 05/03/2024 12:24 PM EST S: Patient spoke with [facility] nurse regarding medication question B: Onset of symptoms/concern n/a A: Patient states that she was seen earlier today 05/03 and questioning where the Albuterol inhalerRx was sent to, she was not given a Rx in hand. R: Advised the patient that the Rx was sent to [facility] as seen in [facility]. Patient voiced understanding. No further needs at this time. Reason for Disposition Caller with prescription and triager answers question Protocols used: Medication Refill and Renewal [id number] documented in this [facility]03-22-2024 Miscellaneous Notes* Telephone Encounter - Latisha Ruiz Rehab Services Aide - 09/01/2023 2:19 PM EDT Called patient regarding cardiac rehab program. Patient did not answer, so I left a message on voicemail with instructions on how to contact me. [facility] Discharge summary Author Rafael Lopez [facility] August 01, 2023 8:46am Note Date/Time August 01, 2023 8:46am [facility] Medical Records Department [address] [place] [address] Instructions for Home/Discharge Instructions 08/01/23 0843 MR#: [id number] Acct: [id number] Name: PARVEEN CARUSO Rep #:[id number] 2 : 1940 82 From: Rafael Lopez MD PCP: MICHAEL GreenC Status:ADM MILAGRO Discharge Instructions Diet Discharge Diet: No restrictions (as you feel able. No excessive stretching. No lifting your arm over your head (keep elbow below shoulder level) until seen foryour pacemaker check. Do not lift your elbow away from your side until you are seen for your first visit. Keep the arm sling on if it helps remind you not to lift your arm.) Activity Discharge Activity: May Not Drive May shower in (days): 2 Additional Activity Instructions:: May shower or bathe on [day 3]. Do not scrub the incision or soak in the tub. Just wash with soap and let the water run over the incision. Gently pat dry with towel. Medications: Take your pain medication as directed. Refer to your discharge instruction sheet for a list of medications you are to take. Dressing / Incision Call your doctor if your incision/area has: Continuous Slow Oozing, Sudden Increased Bleeding, Increased Pain/ Swelling, Increased Redness, Foul Smelling Discharge and Swelling at the incision site Call your doctor if you observe: Fever of 101 or Higher, Shortness of breath, Dizziness, Fainting spells, Swelling in the ankles, Chest pain, Prolonged hiccupping and Increased palpitations (irregular heartbeat) Suture Line Care: Avoid Pulling/Pushing and Avoid Pinching/Bending Additional Dressing/Incision Instructions:: When dressing is removed, wash and dry incision. Keep covered with a light bandage if it is rubbing against your clothing. Do not cover the incision with an airtight bandage. Change the bandagedaily. Do not remove steri strips. The strips will fall off on their own. Follow Up Care Please Follow Up With: Rafael Lopez MD When: Pacer follow-up on aug 08 at 10:30 Test Results: Test results from this visit will be discussed in further detail at your follow- up appointment, if applicable. Discharge Plan Admission Admit Date/Time: 07/31/23 14:28 Attending Provider: Rafael Lopez Primary Care Provider: Albina pAonte NP Consulting Providers: Sriram Tomlin; [place] Discharge Orders/Prescriptions Prescriptions: No Action ascorbic acid (vitamin C) 500 mg tablet 500 mg PO DAILY pravastatin 40 mg tablet 40 mg PO QHS Patient Comments: take 1 tablet by mouth at bedtime calcium carbonate [Calcium 600] 600 mg calcium (1,500 mg) tablet 600 mg PO DAILY coenzyme [id number] E 100-100 mg-unit capsule 1 cap PO DAILY Fish Oil 300-500 mg capsule 1 cap PO DAILY levothyroxine 112 mcg tablet 112 mcg PO DAILY Qty: 90 3RF aspirin 81 MG tablet,chewable 81 mg PO DAILY cholecalciferol (vitamin D3) 2,000 UNIT capsule 2,000 unit PO DAILY multivitamin Tablet 1 tab PO DAILY potassium chloride 10 mEq capsule, extended release 10 meq PO DAILY Qty: 90 3RF clopidogrel [Plavix] 75 mg tablet 75 mg PO DAILY Qty: 90 3RF pantoprazole 20 mg tablet,delayed release (DR/EC) 20 mg PO DAILY Qty: 90 1RF isosorbide mononitrate 30 mg tablet extended release 24 hr 30 mg PO DAILY Qty: 90 3RF furosemide 40 mg tablet 40 mg PO DAILY Qty: 90 3RF valsartan 160 mg tablet 160 mg PO DAILY Qty: 90 3RF nitrofurantoin monohyd/m-cryst [Macrobid] 100 mg capsule 100 mg PO Q12H 7 Days Qty: 14 0RF Rx Instructions: must administer with a meal/food Referrals / Follow Up: Albina Aponte NP, COMBINE DRIVER-C [Primary Care Provider] - Disposition Disposition (needs filled in before D/C Order can be placed): Home, Self Care 08/01/23 0846<Electronically signed by Rafael Lopez MD>Rafael Lopez MD CC: TREASURE Aponte; Dr. Sriram Tomlin MD; CIERRA Desouza ~ Signed [facility] Work Phone: 1(720) 179-388502-20-2024 Progress note Author Rafael Lopez [facility] August 01, 2023 8:40am Note Date/Time August 01, 2023 7:58am [facility] Medical Records Department [address] [place] [address] Progress Note - Cardiology 08/01/23 0755 MR#: [id number] Acct: [id number] Name: PARVEEN CARUSO Rep #:[id number] 4 : 1940 82 From: Rafael Lopez MD PCP: TREASURE Green Status:ADM MILAGRO Location: [place] [address] Subjective Subjective Patient seen and evaluated. Objective Data Vital Signs: Vital Signs Temp Pulse Resp BP Pulse Ox O2 Del Method 97.6 F L 65 18 148/62 H 95 Room Air 08/01/23 07:36 08/01/23 07:36 08/01/23 07:36 08/01/23 07:36 08/01/23 07:36 08/01/23 07:36 Oxygen Delivery Method Room Air Weight: 226 lb Body Mass Index (BMI) 32.4 Intake & Output: Intake and Output for Last 24 Hours 07/30/23 07/31/23 08/01/23 23:59 23:59 23:59 Intake Total 240 / 240 Output Total 400 / 400 850 / 850 Balance -160 / -160 -850 / -850 Cardiology Labs/Tests Rhythm: EKG: ECHO: Stress Test: Cardiac Cath: PCI: CT Surgery: Holter monitor: EPS: PPM: CXR: Chest CT Scan: Radiography Diagnostic Testing: Radiology Impression Chest X-Ray 08/01/23 05:55 IMPRESSION: 1. Appropriate positioning of intracardiac pacemaker without obvious pneumothorax. 2. Cardiomegaly and mild pulmonary vascular congestion. Electronically Signed: Soheila Zamorano MD at 5:07 EST Reading Location ID and State: [facility] / [place] , Service support , Physical Exam Const alert, oriented x3 and no apparent distress General Appearance: cooperative HEENT hearing grossly normal bilaterally Head and Scalp: atraumatic Eyes EOMs intact bilaterally Neck General: normal visual inspection Chest inspection of chest normal and palpation of chest normal Resp normal respiratory effort Auscultation: clear to auscultation bilaterally Cardio regular rate, regular rhythm, S1 normal heart sound and S2 normal heart sound Jugular Venous Distention: JVD GI normal to inspection, nondistended, normoactive bowel sounds Extremity normal capillary refill and no pedal edema Peripheral Pulses: Yes pulses 2+ throughout and femoral pulses present Skin no rashes or lesions noted Neuro oriented x3 and CN's II-XII intact bilaterally Psych Appearance: grossly normal and appropriate Assessment & Plan Assessment/Plan (1) Sick sinus syndrome: PLAN: Patient is status post permanent pacemaker implantation. Chest x-ray demonstrates adequate positioning. Device interrogated this morning and noted to be functioning well. Will schedule for outpatient follow-up. 08/01/23 0840 <Electronically signed by Rafael Lopez MD> Cosigner Signature (if applicable): CC: ~ Signed [facility] Work Phone: 1([phone]) 927-311602-15-2024 History and physical note Author Bee Park [facility] July 27, 2023 4:39pm Note Date/Time July 27, 2023 4:39pm [facility] Medical Records Department [address] [place] [address] History & Physical Exam 07/27/23 1631 MR#: [id number] Acct: [id number] Name: PARVEEN CARUSO Rep #:[id number] 9 : 1940 82 From: Bee NORTON PCP: TREASURE Green Status:PRE [facility] Location: [facility] History and Physical Parveen Caruso is an 82-year-old female that presents here today for a pacemaker placement for sick sinus syndrome. While she was here in the hospitalfor a staged procedure for stenting she was noted to have marked bradycardia at times and a 3-second pauses. She was not on beta-blockers. She has not been onbeta-blockers due to her bradycardia. She does have a history of coronary artery disease. In June 2023 she underwent balloon angioplasty with a drug-eluting stent to her RCA. This was done by Dr. Gomez in [place]. In July 2023 she had staged procedure to her LAD. This was done here. She also has a history of hypertension, hyperlipidemia and bilateral renal artery stenosis with stenting in November [address] Tomlin. [facility] Medical History Abnormal ECG Bilateral renal artery stenosis CAD (coronary artery disease) Chest discomfort Cough COVID Dizzy LIRA (dyspnea on exertion) Dyslipidemia History of renal artery stenosis Hypertension Hypothyroidism Hypothyroidism (acquired) Left shoulder pain Malaise Obesity Pneumonia RCA occlusion Rib pain on right side Sinusitis, acute maxillary SOB (shortness of breath) Unilateral edema of lower extremity Weight loss observed on examination Wellness examination Surgical History History of heart artery stent History of stent insertion of renal artery History of thyroid irradiation Hx of breast augmentation Hx of cardiac catheterization (~06/07/23) Hx of hernia repair S/P appendectomy Stented coronary artery (~06/07/23) Tubal ligation status Family History Mother Lung cancer Father Heart disease Pacemaker COPD (chronic obstructive pulmonary disease) Other Breast cancer Social History Smoking Status: Former smoker pack-years: 15 Tobacco: How many years used: 30 Electronic Cigarette Use: not used second hand exposure: No alcohol intake: current alcohol intake frequency: holidays/special occasions only substance use type: does not use caffeine: Yes Type: coffee Number of servings: 1 and tea Number of servings: 2 ROS Const Const: Negative for fatigue, weakness, headache(s), frequent falls, difficulty sleeping or excessive sweating Eyes Eyes: Negative for loss of peripheral vision, transient loss of vision, blurry vision, double vision or tunnel vision ENT ENT: Positive for balance problems; Negative for headache(s), dizziness or Nosebleed/epistaxis Cardio Chest Pain: Yes Frequency: weekly (couple times a week) Character: dull Location: mid sternal and left chest Duration: minutes (5 minutes) Palpitations: No Edema: None Muscle aches with walking: None Resp Respiratory: Positive for SOB with activity (especially when using arms); Negative for SOB at rest, SOB orthopnea\SOB lying down, Cough or paroxysmal nocturnal dyspnea GI GI: Positive for heartburn (occasionally); Negative nausea, vomiting or black,tarry stools : Negative for hematuria Musc Musc: Positive for balance problems; Negative for muscle aches/ myalgia, muscle weakness or joint pain Skin Skin: Negative non-healing lesions, rash or unusual bruising Neuro Neuro: Positive for lightheadedness; Negative for dizziness, near syncope, syncope, frequent falls, headache(s), weakness, blurry vision, double vision or lack of coordination [place] Hematologic/Lymphatic: Negative for easy bleeding or easy bruising Endo Endo: Negative for fatigue, excessive sweating or increased thirst/drinking Psych Psych: Negative for anxiety or depression Allergy Allergy/Immunology: Negative for hives and Negative for rash Cardiology Exam Const Appearance: comfortable and no acute distress Nutritional Appearance: well nourished Neck Neck: no JVD Carotids: Negative bruit Chest Auscultation: Bilateral: Clear to Auscultation Cardio Rate: regular rate Rhythm: regular rhythm Heart sounds: S1 normal and S2 normal 2/6 systolic murmur at base Neuro General: patient alert, patient awake and patient oriented x3 Extremities Lower Extremity Edema: None: Bilateral Supplemental Info Supplemental Information ECHOCARDIOGRAM 08/26/22 Interpretation Summary The left ventricular ejection fraction is 60 %. Mildly dilated aortic root. ECHOCARDIOGRAM 02/25/22: Interpretation Summary The study was technically difficult. Left ventricular systolic function is normal. The estimated ejection fraction is 65 %. The right atrium is mildly enlarged. Prominent eustachian valve. Trivial mitral valve insufficiency. Trivial tricuspid valve insufficiency. The aortic valve is not well visualized, however, based upon the 2D echocardiographic images obtained there appears to be thickening, calcification, and partial restriction. Trivial aortic valve insufficiency. Right ventricular systolic pressure estimated to be 31 mmHg. No evidence for diastolic dysfunction. Stress Test Report:Date: 08/26/2022 The patient underwent pharmacologic (Regadenoson 0.4mg ) evaluation with a peak heart rate of 75 beats per minute (50%predicted maximal heart rate) and a peak blood pressure of 134/80 mmHg. The baseline ECG demonstrated normal sinus rhythm with left bundle branch block. The peak pharmacologic ECG demonstrated no diagnostic change. There were no cardiac dysrhythmias pretest, during pharmacologic infusion, or recovery. There was no complaint of chest discomfort during pharmacologic infusion or recovery. The patient was injected with 15.0 millicuries of technetium 99m Cardiolite and subsequently rest SPECT Cardiolite nuclear imaging was obtained in the horizontal long, vertical long, and short axis views. The patient underwent pharmacologic (Regadenoson) evaluation. The patient was injected with 45.0 millicuries of technetium 99m Cardiolite and subsequently stress SPECT Cardiolite nuclear imaging was obtained in the horizontal long, vertical long, and short axis views. A gated Cardiolite study at peak stress was obtained. The examination was stopped secondary to completion of protocol. Rest and stress SPECT Cardiolite nuclear imaging status post realignment, normalization, and attenuation correction demonstrate no fixed or reversible perfusion defects. There is end systolic thickening and brightening. The gatedCardiolite study demonstrates myocardial thickening and inward wall motion. Thereported LVEF is 75%. Impression: 1. Pharmacologic (Regadenoson) evaluation 2. Peak pharmacologic ECG with no diagnostic changes. 3. There were no cardiac dysrhythmias pretest, during pharmacologic infusion, or recovery. 5. No fixed or reversible perfusion defects. 6. The gated Cardiolite study reports an LVEF of 75%. CTA CHEST 08/03/22: IMPRESSION: No demonstrated pulmonary embolism or arterial dissection. 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 Bilateral breast implants. Mild cardiomegaly. Atrophic right kidney. Fullness change or midpole left kidney. If stability not previously established recommend ultrasound for further evaluation if clinically warranted. Mild degenerative changes lower thoracic spine. CARDIAC CATHETERIZATION 05/18/23: CONCLUSIONS 80% Prox Mid, 65% distal Mid LAD Calcified Prox LCX with no luminal obstruction 70% calcified Prox RCA; 80% heavily calcified eccentric Mid RCA Accessory/dual LAD from RCA noted. Heavily calcified distal Ascending Aorta and Arch RECOMMENDATIONS Refer for consideration for rotablation of Mid RCA. Staged PCI to LAD CORONARY ANGIOGRAPHY DOMINANCE: Right Dominant LEFT MAIN: 20% distal LEFT ANTERIOR DESCENDING ARTERY: LAD: Tubular 80% Mid lesion in LAD Tubular 65% Mid lesion in LAD OM 1: Tubular 50% Ostial lesion in MARG1 OM 2: Tubular 50% Ostial lesion in MARG1 RIGHT CORONARY ARTERY: RCA: Calcified 70% Proximal lesion in RCA Eccentric Calcified 80% Mid lesion in RCA COMPLICATIONS No Complications CARDIAC CATHETERIZATION 06/07/23: FINDINGS Right Coronary Artery: Large dominant vessel with moderate to severe calcification from the proximal to the distal vessel. There is a large PDA and posterior ventricular branch. There is an eccentric 70-80% stenosis that starts from the proximal to the mid distal vessel with an area in the mid to distal with eccentric calcification and a severe 80% stenosis on IVUS evaluation. Initial intravascular ultrasound images were obtained. The lesions were able to be predilated with placement of a 4.0 x 48 mm Synergy stent. The stent was able to be successfully postdilated to 4.6 mm with a good angiographic and intravascular ultrasound result. Assessment & Plan Assessment/Plan (1) Sick sinus syndrome: (2) Stented coronary artery: (3) History of stent insertion of renal artery: (4) Hypertension: QUALIFIERS: Hypertension type: essential hypertension Qualified Code(s): I10 - Essential (primary) hypertension (5) Dyslipidemia: PLAN: Plan Patient will undergo pacemaker insertion. She will follow-up in our office accordingly after. 07/27/23 1541 <Electronically signed by Bee NORTON> Cosigner Signature (if applicable): CC: TREASURE Aponte; CIERRA Desouza~ Signed [facility] Work Phone: [phone]) 709-459002-10-2024 Discharge summary Author Sriram Tomlin [facility] July 22, 2023 9:41am Note Date/Time July 22, 2023 9:39am [facility] Medical Records Department [address] [place] [address] Instructions for Home/Discharge Instructions 07/22/23 0937 MR#: [id number] Acct: [id number] Name: PARVEEN CARUSO Rep #:[id number] 4 : 1940 82 From: Sriram Tomlin MD PCP: TREASURE Green Status:ADM MILAGRO Discharge Instructions Diet Discharge Diet: Low fat / Low cholesterol Dressing / Incision Call your doctor if your incision/area has: Continuous Slow Oozing, Sudden Increased Bleeding, Increased Pain/ Swelling, Increased Redness, Foul Smelling Discharge and Swelling at the incision site Follow Up Care Please Follow Up With: Sriram Tomlin MD Test Results: Test results from this visit will be discussed in further detail at your follow- up appointment, if applicable. Discharge Plan Admission Admit Date/Time: 07/21/23 10:36 Attending Provider: Sriram Tomlin Primary Care Provider: Albina Aponte NP Discharge Orders/Prescriptions Prescriptions: New valsartan 160 mg tablet 160 mg PO DAILY Qty: 30 3RF Continued ascorbic acid (vitamin C) 500 mg tablet 500 mg PO DAILY pravastatin 40 mg tablet 40 mg PO QHS Patient Comments: take 1 tablet by mouth at bedtime calcium carbonate [Calcium 600] 600 mg calcium (1,500 mg) tablet 600 mg PO DAILY coenzyme [id number] E 100-100 mg-unit capsule 1 cap PO DAILY Fish Oil 300-500 mg capsule 1 cap PO DAILY levothyroxine 112 mcg tablet 112 mcg PO DAILY Qty: 90 3RF aspirin 81 MG tablet,chewable 81 mg PO DAILY cholecalciferol (vitamin D3) 2,000 UNIT capsule 2,000 unit PO DAILY multivitamin Tablet 1 tab PO DAILY furosemide [Lasix] 20 mg tablet 20 mg PO DAILY Qty: 90 3RF potassium chloride 10 mEq capsule, extended release 10 meq PO DAILY Qty: 90 3RF clopidogrel [Plavix] 75 mg tablet 75 mg PO DAILY Qty: 90 3RF pantoprazole 20 mg tablet,delayed release (DR/EC) 20 mg PO DAILY Qty: 90 1RF isosorbide mononitrate 30 mg tablet extended release 24 hr 30 mg PO DAILY Qty: 90 3RF Discontinued amlodipine 5 mg tablet 5 mg PO DAILY Qty: 90 3RF valsartan 80 mg tablet 80 mg PO DAILY Qty: 90 3RF Referrals / Follow Up: Albina Aponte NP, NP-C [Primary Care Provider] - Disposition Disposition (needs filled in before D/C Order can be placed): Home, Self Care 07/22/23 0941<Electronically signed by Sriram Tomlin MD>Sriram Tomlin MD CC: COMBINE DRIVER-C Albina Aponte ~ Signed [facility] Work Phone: [phone]) [phone] Progress note Author Sriram Tomlin [facility] July 22, 2023 9:37am Note Date/Time July 22, 2023 9:37am [facility] Medical Records Department [address] [place] [address] Progress Note 07/22/23935 MR#: [id number] Acct: [id number] Name: PARVEEN CARUSO Rep #:[id number] 1 : 1940 82 From: Sriram Tomlin MD PCP: Albina Aponte, COMBINE DRIVER-C Status:ADM MILAGRO Location: [place] [address] Progress Note Patient noted to have marked sinus bradycardia. One 3-second pause overnight. DC amlodipine. Check 48-hour Holter monitor. Increase valsartan for blood pressure control. Follow-up as outpatient. 07/22/23936 <Electronically signed by Sriram Tomlin MD> Sriram Tomlin MD Cosigner Signature (if applicable): CC: ~ Signed [facility] Work Phone: 1([phone]) 428-442602-09-2024 Consult note Author Abhishek Almanzar [facility] July 21, 2023 12:07pm Note Date/Time July 21, 2023 1 2:07pm [facility] Medical Records Department [address] [place] [address] Counseling Note - Pharmacy 07/21/23 1207 MR#: [id number] Acct: [id number] Name: PARVEEN CARUSO Rep #:[id number] 1 : 1940 82 From: Abhishek Almanzar PCP: MICHAEL GreenC Status:ADM MILAGRO Y Location: [place] [address] Pharmacy DC Med Reconciliation Pharmacy Service has performed discharge medication reconciliation for this patient. The patient's discharge medication list was reviewed for discrepancies and discrepancies were resolved. Medications at Discharge Home Medications aspirin 81 mg chewable tablet 81 mg PO DAILY 12/01/19 cholecalciferol (vitamin D3) 50 mcg (2,000 unit) capsule 2,000 unit PO DAILY 12/01/19 calcium carbonate 600 mg calcium (1,500 mg) tablet (Calcium) 600 mg PO DAILY 09/16/21 multivitamin 1 tab PO DAILY 08/10/22 furosemide 20 mg tablet (Lasix) 20 mg PO DAILY #90 tabs 08/22/22 potassium chloride 10 mEq capsule,extended release 10 meq PO DAILY #90 caps 08/22/22 coenzyme L24-[id number] E 100 mg-100 unit capsule 1 cap PO DAILY 11/10/22 omega-3 fatty acids-fish oil 300 mg-500 mg capsule (Fish Oil) 1 cap PO DAILY 11/10/22 levothyroxine 112 mcg tablet 112 mcg PO DAILY #90 tabs 11/11/22 ascorbic acid (vitamin C) 500 mg tablet 500 mg PO DAILY 11/15/22 amlodipine 5 mg tablet 5 mg PO DAILY #90 tabs 05/02/23 clopidogrel 75 mg tablet (Plavix) 75 mg PO DAILY #90 tabs 05/15/23 pantoprazole 20 mg tablet,delayed release 20 mg PO DAILY #90 tabs 05/22/23 valsartan 80 mg tablet 80 mg PO DAILY #90 tabs 05/22/23 isosorbide mononitrate 30 mg tablet,extended release 24 hr 30 mg PO DAILY #90 tabs 06/14/23 pravastatin 40 mg tablet 40 mg PO QHS 06/21/23 07/21/23 1207 <Electronically signed by Abhishek cates> Date _ Abhishek Duarteigner Signature (if applicable): Date CC: ~ Signed [facility] Work Phone: [phone] 316-888802-09-2024 Discharge summary Author Sriram Tomlin [facility] July 21, 2023 10:45am Note Date/Time July 21, 2023 1 0:45am [facility] Medical Records Department [address] [place] [address] Instructions for Home/Discharge Instructions 07/21/23 1044 MR#: [id number] Acct: [id number] Name: PARVEEN CARUSO Rep #:[id number] 6 : 1940 82 From: Sriram Tomlin MD PCP: TREASURE Green Status:[facility] Discharge Instructions Diet Discharge Diet: Low fat / Low cholesterol Activity Discharge Activity: Return to Normal Activity Dressing / Incision Call your doctor if your incision/area has: Continuous Slow Oozing, Sudden Increased Bleeding, Increased Pain/ Swelling, Increased Redness, Foul Smelling Discharge and Swelling at the incision site Follow Up Care Please Follow Up With: Sriram Tomlin MD When: 2-4 weeks Test Results: Test results from this visit will be discussed in further detail at your follow- up appointment, if applicable. Discharge Plan Admission Attending Provider: Sriram Tomlin Primary Care Provider: Albina Aponte NP Discharge Orders/Prescriptions Prescriptions: Continued ascorbic acid (vitamin C) 500 mg tablet 500 mg PO DAILY pravastatin 40 mg tablet 40 mg PO QHS Patient Comments: take 1 tablet by mouth at bedtime calcium carbonate [Calcium 600] 600 mg calcium (1,500 mg) tablet 600 mg PO DAILY coenzyme [id number] E 100-100 mg-unit capsule 1 cap PO DAILY Fish Oil 300-500 mg capsule 1 cap PO DAILY levothyroxine 112 mcg tablet 112 mcg PO DAILY Qty: 90 3RF aspirin 81 MG tablet,chewable 81 mg PO DAILY cholecalciferol (vitamin D3) 2,000 UNIT capsule 2,000 unit PO DAILY multivitamin Tablet 1 tab PO DAILY furosemide [Lasix] 20 mg tablet 20 mg PO DAILY Qty: 90 3RF potassium chloride 10 mEq capsule, extended release 10 meq PO DAILY Qty: 90 3RF amlodipine 5 mg tablet 5 mg PO DAILY Qty: 90 3RF clopidogrel [Plavix] 75 mg tablet 75 mg PO DAILY Qty: 90 3RF valsartan 80 mg tablet 80 mg PO DAILY Qty: 90 3RF pantoprazole 20 mg tablet,delayed release (DR/EC) 20 mg PO DAILY Qty: 90 1RF isosorbide mononitrate 30 mg tablet extended release 24 hr 30 mg PO DAILY Qty: 90 3RF Referrals / Follow Up: Albina Aponte NP, COMBINE DRIVER-C [Primary Care Provider] - Disposition Disposition (needs filled in before D/C Order can be placed): Home, Self Care 07/21/23 1045<Electronically signed by Sriram Tomlin MD>Sriram Tomlin MD CC: COMBINE DRIVER-C Albina Aponte ~ Signed [facility] Work Phone: 1(565) 534-113702-01-2024 Evaluation note* Diagnosis Onset Date Resolution Status LIRA (dyspnea on exertion) [place] Stented coronary artery July, [place] CAD (coronary artery disease) chronic History of renal artery stenosis chronic History of stent insertion of renal artery chronic Hypertension chronic Hypothyroidism chronic [facility] Work Phone: 1(920) 879-908002-01-2024 Evaluation note* Diagnosis Onset Date Resolution Status LIRA (dyspnea on exertion) [place] Stented coronary artery July, [place] CAD (coronary artery disease) chronic History of renal artery stenosis chronic History of stent insertion of renal artery chronic Hypertension chronic Hypothyroidism chronic Sick sinus syndrome acute Sinus pause acute Dyslipidemia acute Sick sinus syndrome acute Stented coronary artery July, [place] History of stent insertion of renal artery chronic Hypertension [facility] Work Phone: [phone]) 289-516002-01-2024 Evaluation note* Diagnosis Onset Date Resolution Status LIRA (dyspnea on exertion) [place] Stented coronary artery July, [place] CAD (coronary artery disease) chronic History of renal artery stenosis chronic History of stent insertion of renal artery chronic Hypertension chronic Hypothyroidism chronic Sick sinus syndrome acute Sinus pause acute Dyslipidemia acute Sick sinus syndrome acute Stented coronary artery July, [place] History of stent insertion of renal artery chronic Hypertension chronic Presence of cardiac pacemaker acute Sick sinus syndrome acute Sinus pause acute Presence of cardiac pacemaker acute Sick sinus syndrome acute Sinus pause acute [facility] Work Phone: [phone]) 977-699702-01-2024 Evaluation note* Diagnosis Onset Date Resolution Status LIRA (dyspnea on exertion) [place] Stented coronary artery July, [place] CAD (coronary artery disease) chronic History of renal artery stenosis chronic History of stent insertion of renal artery chronic Hypertension chronic Hypothyroidism chronic Sinus pause acute Sick sinus syndrome chronic Dyslipidemia acute Stented coronary artery July, [place] History of stent insertion of renal artery chronic Hypertension chronic Sick sinus syndrome chronic Sinus pause acute Presence of cardiac pacemaker 2023 chronic Sick sinus syndrome chronic Sinus pause acute Presence of cardiac pacemaker 2023 chronic Sick sinus syndrome chronic Fatigue acute Stented coronary artery July, [place] CAD (coronary artery disease) chronic History of renal artery stenosis chronic History of stent insertion of renal artery chronic Hypertension chronic Hypothyroidism chronic Presence of cardiac pacemaker 2023 chronic Sick sinus syndrome [facility] Work Phone: 1([phone]) 152-434802-01-2024 Evaluation note* Diagnosis Onset Date Resolution Status LIRA (dyspnea on exertion) [place] Stented coronary artery July, [place] CAD (coronary artery disease) chronic History of renal artery stenosis chronic History of stent insertion of renal artery chronic Hypertension chronic Hypothyroidism chronic Sinus pause acute Sick sinus syndrome chronic Dyslipidemia acute Stented coronary artery July, [place] History of stent insertion of renal artery chronic Hypertension chronic Sick sinus syndrome chronic Sinus pause acute Presence of cardiac pacemaker 2023 chronic Sick sinus syndrome chronic Sinus pause acute Presence of cardiac pacemaker 2023 chronic Sick sinus syndrome chronic Fatigue acute Stented coronary artery July, [place] CAD (coronary artery disease) chronic History of renal artery stenosis chronic History of stent insertion of renal artery chronic Hypertension chronic Hypothyroidism chronic Presence of cardiac pacemaker 2023 chronic Sick sinus syndrome chronic Sinus pause acute Presence of cardiac pacemaker 2023 chronic Sick sinus syndrome [facility] Work Phone: [phone]) [phone] Evaluation note* Diagnosis Onset Date Resolution Status LIRA (dyspnea on exertion) [place] Stented coronary artery July, [place] CAD (coronary artery disease) chronic History of renal artery stenosis chronic History of stent insertion of renal artery chronic Hypertension chronic Hypothyroidism chronic Sinus pause acute Sick sinus syndrome chronic Dyslipidemia acute Stented coronary artery July, [place] History of stent insertion of renal artery chronic Hypertension chronic Sick sinus syndrome chronic Sinus pause acute Presence of cardiac pacemaker 2023 chronic Sick sinus syndrome chronic Sinus pause acute Presence of cardiac pacemaker 2023 chronic Sick sinus syndrome chronic Fatigue acute Stented coronary artery July, [place] CAD (coronary artery disease) chronic History of renal artery stenosis chronic History of stent insertion of renal artery chronic Hypertension chronic Hypothyroidism chronic Presence of cardiac pacemaker 2023 chronic Sick sinus syndrome chronic Sinus pause acute Presence of cardiac pacemaker 2023 chronic Sick sinus syndrome chronic Dizzy acute Stented coronary artery July, [place] History of stent insertion of renal artery chronic Hypertension chronic Hypothyroidism chronic Presence of cardiac pacemaker 2023 [facility] Work Phone: 1([phone]) 276-392602-01-2024 Evaluation note* Diagnosis Onset Date Resolution Status Admit Date Stented coronary artery July, acute July 11, 2024 9:09am CAD (coronary artery disease) chroni c July 11, 2024 9:09am Dyslipidemia chronic June 9:09am History of renal artery stenosis chronic July 11 9:09am History of stent insertion o f renal artery chronic July 11 9:09am Hypertension chronic June 9:09am Hypothyroidism chronic July 112024 9:09am Presence of cardiac pacemaker 2023 chroni c July 11, 2024 9:09am Sick sinus syndrome chronic Janua 2024 9:09am [facility] Work Phone: 1([phone]) 479-304102-01-2024 Evaluation note* Diagnosis Onset Date Resolution Status Admit Date Stented coronary artery July, acute November 26, 2024 7:54am Dyslipidemia chronic November 26 7:54am History of renal artery stenosis chronic November 26, 2024 7:54am History of stent insertion o f renal artery chronic November 26, 2024 7:54am Hypertension chronic November 26 7:54am Hypothyroidism chronic November 26, 2024 7:54am Presence of cardiac pacemaker 2023 chroni c November 26, 2024 7:54am Sick sinus syndrome chronic November 26, 2024 7:54am [facility] Work Phone: [phone] NoteHNO ID: [id number] Author: Adrienne Chaney RN Service: Care Management Author Type: Registered Nurse Type: Care Mgt Initial Assessment Filed: 06/08/2023 9:42 AM Note Text: CARE MANAGEMENT: ASSESSMENT AND DISCHARGE PLAN SERVICE DATE: June 08, 2023 SERVICE TIME: 9:41 AM PCP: Albina Aponte APRN.CNP Primary Contact: Extended Emergency Contact Information Primary Emergency Contact: Kat Olmos [facility] Mobile Relation: Daughter Secondary Emergency Contact: Harpreet Caruso Mobile Relation: Son Admission Status: Ambulatory Surgery Insurance Provider: OMID YEPEZ [facility] Discharge Planning requested by: Per Department Practice [...] Walker Discharge Planning Patient Goal(s): Independent living [place] Explained: [place] Given: No Reason Not Given: No placements necessary Are you interested in bedside delivery of your medications? No Discharge Planning Participant(s): Patient Patient/Family Comments: Caregiver Assessment: Transport at Discharge: Needs Prior to Discharge: Needs Prior to Discharge: Ready for Discharge Post-Acute Discharge Plan: Patient from [facility]. Patient admitted as amb surgery s/p heart cath with PCI. +PCP - albina Aponte +Rx - [facility] #[id number] +DME - rollator, walker Patient to return to [place] at discharge. Patient states her son will transport her home. SIGNATURE: Adrienne Chaney RN PATIENT NAME: Parveen Caruso DATE: June 08, 2023 TIME: 9:41 AM CONTACT #: [phone] HNO ID: [id number] Author: Cleo Mattson RN Service: Nursing Author Type: Registered Nurse Type: Nursing Progress Note Filed: 06/07/2023 12:42 PM Note Text: Other: Dr Johnson aware of pain, no new orders given.[facility]06-23[facility]2023 Procedure [facility]02-09-2021 NotePatient Outreach (COVAMN) ZULYPARVEEN Pena ([id number]) 1940 F Date Time Provider Department 07/21/20 OLGA BUCKLEY During your visit today, we recorded the following information about you: Allergies As of Date: 07/21/2020 Noted Allergy Reaction ESOMEPRAZOLE MAGNESIUM 01/08/2015 2 - Rash PENICILLINS 01/08/2015 2 - Rash Date Reviewed: 06/19/2020 Reviewed by: Betzaida Martins Ma - Fully Assessed Order(s):SARS-COVID VACCINE 1ST DOSE APPT [[id number]] Order #: [id number] FUTURE Prescriptions as of 07/21/2020 Sig: ASPIRIN [...] Text Encounter Status:Closed by ALEXUS, PRODUSER on 07/24/20[facility] 06-19-2020 History of Present illness Narrative* Madeline Kamara (Rt)Snehal - 06/19/2020 5:30 PM EST Radiology Service Progress Note PATIENT NAME: Parveen Caruso DATE OF SERVICE: June 19, 2020 TIME: 5:25 PM PATIENT IDENTITY VERIFICATION COMPLETED USING TWO (2) IDENTIFIERS: Name and Date of confirmedby patient verbally. FALL SCREENING: Has the patient had 2 falls in the last year or 1 fall with injury or currently using an Ambulatory Assistive Device (Walker, Cane, Wheelchair, Crutches, etc.)? Yes, Patient High Riskfor Falls What interventions were put in place to prevent falls during this visit? Instructed Patient to Callfor Help if Needed, Offered Assistance with Transfers/Clothing and Increased Observations by Caregivers PATIENT GENDER DATA: Female. status: : No status: NO. PATIENT RELEVANT IMPLANT DATA REVIEWED: Yes RADIOLOGY DEPARTMENT: General X-ray: Exam(s) Completed: Lower Extremity X- Ray(s): Ankle, Right: PERIPHERAL IV DATA: Not applicable SIGNED BY: RT Clarence June 19, 2020 5:25 PM [facility]* Diagnosis Hypothyroidism, unspecified type documented in this encounter [facility] Work Phone: Evaluation note* Diagnosis Right hip pain Pain in joint, pelvic region and thigh [facility] Work Phone: Evaluation note* Diagnosis Hypothyroidism, unspecified type documented [facility] Work Phone: Evaluation note* Diagnosis Onset Date Resolution Status Hypothyroidism (acquired) [place] Hypertension [facility] Work Phone: Evaluation note* Diagnosis Onset Date Resolution Status Hypothyroidism (acquired) [place] Hypertension chronic Hypothyroidism (acquired) [place] SOB (shortness of breath) [place] Hypertension [facility] Work Phone: Evaluation note* Diagnosis Onset Date Resolution Status Hypothyroidism (acquired) [place] SOB (shortness of breath) [place] Hypertension chronic Obesity acute SOB (shortness of breath) [facility] Work Phone: Evaluation note* Diagnosis Onset Date Resolution Status Hypothyroidism (acquired) [place] SOB (shortness of breath) [place] Hypertension chronic Obesity acute SOB (shortness of breath) [place] SOB (shortness of breath) [facility] Work Phone: Evaluation note* Diagnosis Onset Date Resolution Status SOB (shortness of breath) [place] Hypertension chronic Obesity acute SOB (shortness of breath) [facility] Work Phone: Evaluation note* Diagnosis Onset Date Resolution Status Hypertension chronic SOB (shortness of breath) [place] SOB (shortness of breath) [place] Abnormal ECG chronic Hypertension chronic SOB (shortness of breath) [place] [facility] Work Phone: Evaluation note* Diagnosis Onset Date Resolution Status Hypertension chronic SOB (shortness of breath) [place] SOB (shortness of breath) [place] Abnormal ECG chronic Hypertension chronic SOB (shortness of breath) [place] SOB (shortness of breath) [place] Hypertension chronic Hypothyroidism chronic Hypertension chronic Hypothyroidism [facility] Work Phone: Evaluation note* Diagnosis Onset Date Resolution Status Abnormal ECG chronic Hypertension chronic SOB (shortness of breath) [place] SOB (shortness of breath) [place] Hypertension chronic Hypothyroidism chronic Hypertension chronic Hypothyroidism [facility] Work Phone: Evaluation note* Diagnosis Coronary artery disease of [place] artery of [place] heart with stable angina pectoris (HCC)- Primary NSTEMI (non-ST elevated myocardial infarction) (HCC) Acute myocardial infarction, subendocardial infarction, episode of care unspecified documented in this encounter [facility] Diagnosis Onset Date Resolution Status LIRA (dyspnea on exertion) [place] Chest discomfort chronic History of renal artery stenosis chronic History of stent insertion of renal artery chronic Hypertension chronic Hypothyroidism chronic LIRA (dyspnea on exertion) [place] Stented coronary artery May, [place] CAD (coronary artery disease) chronic History of renal artery stenosis chronic History of stent insertion of renal artery chronic Hypertension chronic Hypothyroidism [facility] Work Phone: Evaluation note* Diagnosis Pain in right shoulder documented in this encounter [facility]* Diagnosis Pain in right shoulder- Primary Pain in right shoulder [facility] Diagnosis Peripheral vascular disease, unspecified (HCC) Peripheral vascular disease, unspecified [facility] (n[facility]ative)No reason for referral information availableWOhioHealth [facility] Work Phone: Reason for visit Narrative* Imaging (Routine) - Pending Review Specialty Diagnoses / Procedures Referred By Desirae kaminski Referred To Contact Cardiology Diagnoses Peripheral vascular disease, unspecified (HCC) Procedures Vascular US lower extremity arterial PVR/LEIDA W/O Exercise Vascular US lower extremity arterial PVR/LEIDA with [place] [address] Phone: tel: fax: Referral ID Status Reason Start Date Expiration Date V isits Requested Visits Authorized [id number] Pending Review 02/27/2025 02/27/2027 1 1 [facility] Advance Directives No Advanced Directives Records FoundDocuments on File Type Date Recorded Patient Senior Systems Analyst Expl anation Advance Directives and Living Will Power of Damage Inside Adjuster Power of Damage Inside Adjuster 11/19/2015 1:07 PM 2015 Power of Damage Inside Adjuster Documents on File Type Date Recorded Patient Senior Systems Analyst Expl anation Advance Directives and Living Will Advance Directives and Living Will 03/07/2019 8:55 AM Living Will Power of Damage Inside Adjuster Power of Damage Inside Adjuster 11/19/2015 1:07 PM 2015 Power of Damage Inside Adjuster Power of Damage Inside Adjuster 03/07/2019 8:56 AM healt h care Power of Damage Inside Adjuster Documents on File Type Date Recorded Patient Senior Systems Analyst Expl anation Advance Directives and Living Will Advance Directives and Living Will 03/07/2019 8:55 AM Living Will Power of Damage Inside Adjuster Power of Damage Inside Adjuster 11/19/2015 1:07 PM 2015 Power of Damage Inside Adjuster Power of Damage Inside Adjuster 03/07/2019 8:56 AM healt h care Power of Damage Inside Adjuster Documents on File Type Date Recorded Patient Senior Systems Analyst Expl anation ACP-Advance Directive ACP-Advance Directive 03/07/2019 8:55 AM L iving Will ACP-Power of Damage Inside Adjuster ACP-Power of Damage Inside Adjuster 11/19/2015 1:07 PM Power of Damage Inside Adjuster ACP-Power of Damage Inside Adjuster 03/07/2019 8:56 AM h ealth care Power of Damage Inside Adjuster Documents on File Type Date Recorded Patient Senior Systems Analyst Expl anation ACP-Advance Directive ACP-Advance Directive 03/07/2019 8:55 AM L iving Will ACP-Power of Damage Inside Adjuster ACP-Power of Damage Inside Adjuster 11/19/2015 1:07 PM Power of Damage Inside Adjuster ACP-Power of Damage Inside Adjuster 03/07/2019 8:56 AM h ealth care Power of Damage Inside Adjuster Documents on File Type Date Recorded Patient Senior Systems Analyst Expl anation ACP-Advance Directive ACP-Power of Damage Inside Adjuster ACP-Advance Directive 03/07/2019 8:55 AM L iving Will ACP-Power of Damage Inside Adjuster 03/07/2019 8:56 AM h ealth care Power of Damage Inside Adjuster ACP-Power of Damage Inside Adjuster 11/19/2015 1:07 PM Power of Damage Inside Adjuster Advance Directive Response Recorded Date/ Time Living Will Yes December 01, 2019 8:53pm Power of Damage Inside Adjuster Yes November 30 8:53pm Advance Directive Response Recorded Date/ Time Living Will No December 01, 2021 9:22am Power of Damage Inside Adjuster No December 01 9:22am Advance Directive Response Recorded Date/ Time Living Will No December 01, 2021 8:22am Power of Damage Inside Adjuster No December 01 8:22am Advance Directive Response Recorded Date/ Time Living Will No November 09, 2022 8 :59pm Power of Damage Inside Adjuster No November 09, 2022 8:59pm Advance Directive Response Recorded Date/ Time Advance Directives on File Yes December 02, 2022 7:38am Name of Medical Power of Damage Inside Adjuster Kat Olmos December 02, 2022 12:22pm Advance Directives Yes December 02 7:38am Living Will Yes December 02, 2022 12:22pm Power of Damage Inside Adjuster Yes December 02 12:22pm Latest Code Status on File Code Status [...] Comments Full Code Order Discussed With: Patient Advance Directive Response Recorded Date/ Time Advance Directives on File No Dece2022 7:01am Name of Medical Power of Damage Inside Adjuster Kat Wilsoner May 18, 2023 7:01am Advance Directives Yes May 18, 2023 7:01am Living Will Yes May 18 7:01am Power of Damage Inside Adjuster Yes May 18, 2023 7:01am Advance Directive Response Recorded Date/ Time Advance Directives on File No Decem 2022 7:01am Name of Medical Power of Damage Inside Adjuster Kat Nickolas May 18, 2023 7:01am Advance Directives on File No [place] alonso 2023 7:35am Name of Medical Power of Damage Inside Adjuster Kat Olmos- daughter July 21, 2023 7:35am Advance Directives Yes July 21, 2023 7:35am Living Will Yes February 9th, 20 24 7:35am Power of Damage Inside Adjuster Yes July 21, 2023 7:35am Advance Directive Response Recorded Date/ Time Advance Directives on File No Decem lay 2022 7:01am Name of Medical Power of Damage Inside Adjuster Kat Olmos May 18, 2023 7:01am Advance Directives on File No u celeste 2023 7:35am Name of Medical Power of Damage Inside Adjuster Kat Nickolas- daughter July 21, 2023 7:35am Advance Directives on File Yes 2023 11:43am Name of Medical Power of Damage Inside Adjuster Kat (daught er) July 31, 2023 3:00pm Advance Directives Yes July 11:43am Living Will Yes July 31, 024 3:00pm Power of Damage Inside Adjuster Yes July 31, 2023 3:00pm Advance Directive Response Recorded Date/ Time Advance Directives on File No Decem 2022 8:01am Name of Medical Power of Damage Inside Adjuster Kat Olmos May 18, 2023 8:01am Advance Directives on File No u 2023 8:35am Name of Medical Power of Damage Inside Adjuster Kat Nickolas- daughter July 21, 2023 8:35am Advance Directives on File Yes 2023 12:43pm Name of Medical Power of Damage Inside Adjuster Kat (daught er) July 31, 2023 4:00pm Advance Directives Yes July 12:43pm Living Will Yes July 31, 024 4:00pm Power of Damage Inside Adjuster Yes July 31, 2023 4:00pm Documents on File Type Date Recorded Patient Senior Systems Analyst Expl anation Advance Directive(s) 06/07/2023 6:53 AM Date Activated Date Inactivated Comments 09/10/2021 5:19 PM 09/11/2021 3:29 PM Question Answer Comments DNR Order Discussed With: Patient Date Activated Date Inactivated Comments 09/10/2021 5:06 PM 09/10/2021 5:19 PM Question Answer Comments Full Code Order Discussed With: Patient Date Activated Date Inactivated Comments 07/27/2020 5:07 PM 08/06/2020 9:32 PM Question Answer Comments DNR Order Discussed With: Patient Date Activated Date Inactivated Comments 07/25/2020 4:36 PM 07/27/2020 5:07 PM Question Answer Comments Full Code Order Discussed With: Patient Advance Directive Response Recorded Date/ Time Advance Directives on File No 2023 8:35am Name of Medical Power of Damage Inside Adjuster Kat Nickolas- daughter July 21, 2023 8:35am Advance Directives on File Yes 2023 12:43pm Name of Medical Power of Damage Inside Adjuster Kat (daught er) July 31, 2023 4:00pm Advance Directives Yes July 12:43pm Living Will Yes July 31 4:00pm Power of Damage Inside Adjuster Yes July 31, 2023 4:00pm Advance Directive Response Recorded Date/ Time Advance Directives Yes July 12:43pm Assessments Diagnosis Vitamin D deficiency, unspecified Chronic [...] Purpose Family History No Family History Records Found Relationship Condition Age at Onset Recorded Date/T pavan Not Specified Malignant neoplasm of breast Unknown Chronic obstructive pulmonary disease Unk nown Relationship Condition Age at Onset Recorded Date/T pavan Not Specified Malignant neoplasm of breast Unknown Chronic obstructive pulmonary disease Unk nown mother Malignant neoplasm of lung Unknown Relationship Condition Age at Onset Recorded Date/T pavan Not Specified Malignant neoplasm of breast Unknown mother Malignant neoplasm of lung Unknown father Cardiac disease Unknown Presence of cardiac pacemaker Unknown Chronic obstructive pulmonary disease Unk nown Reason for Referral Status Reason Specialty Diagnoses / Procedures Re ferred By Contact Referred To Contact Closed Cardiology Diagnoses Stable angina pectoris (HCC) Essential hypertension Angina pectoris (HCC) Procedures ECHO (Dobutamine) Pharmacological Stress Test Evan Mcelroy MD [address] [place] [address] Status Reason Specialty Diagnoses / Procedures Referred By Contact Referred To Contact Open Specialty Services Required Orthopedic Surgery Diagnoses Elbow effusion, left Bryan Esparza MD [address] [place] [address] [facility] [id number] [place] [address] Scheduling Instructions [facility] [address] Status Reason Specialty Diagnoses / Procedures Referre d By Contact Referred To Contact Open Radiology Diagnoses Postmenopausal Procedures DEXA BONE DENSITY AXIAL SKELETON Melva Corbett DO [address] [place] [address] Discharge Instructions * Instructions* Bryan Esparza MD [...] be sent through Care Everywhere. * Candidiasis (Pakistani) * Radial Head Fracture (Pakistani) documented in this encounter Chief Complaint and Reason for Visit Chief Complaint Hypertension & F/up from Hospital Reason for Visit Hypothyroidism (acqu ired) Hypertension Chief Complaint Hypertension & F/up from Hospital Shortness of breath Swollen legs & labs abnormal lab Reason for Visit Hypothyroidism (acqu ired) Hypertension Hypothyroidism (acquired) SOB (shortness of breath) Hypertension Chief Complaint Shortness of breath Swollen legs & labs abnormal lab Hospital FU SOB Shortness of breath SOB Shortness of breath Reason for Visit Hypothyroidism (acqu ired) SOB (shortness of breath) Hypertension Obesity SOB (shortness of breath) Chief Complaint Shortness of breath Swollen legs & labs abnormal lab Hospital FU SOB Shortness of breath SOB Shortness of breath 1 M FU SOB Reason for Visit Hypothyroidism (acqu ired) SOB (shortness of breath) Hypertension Obesity SOB (shortness of breath) SOB (shortness of breath) Chief Complaint Shortness of breath Discuss O2 DYSPNEA Reason for Visit SOB (shortness of br eath) Hypertension Obesity SOB (shortness of breath) Chief Complaint Shortness of breath Discuss O2 DYSPNEA SOB (PMW) E ORDERS Reason for Visit Hypertension SOB (shortness of breath) SOB (shortness of breath) Abnormal ECG Hypertension SOB (shortness of breath) Chief Complaint Shortness of breath Discuss O2 DYSPNEA SOB (PMW) E ORDERS EORDER SOB, CHEST HEAVINESS SOB, CHEST HEAVINESS Reason for Visit Hypertension SOB (shortness of breath) SOB (shortness of breath) Abnormal ECG Hypertension SOB (shortness of breath) Chief Complaint Shortness of breath Discuss O2 DYSPNEA SOB (PMW) E ORDERS EORDER SOB, CHEST HEAVINESS SOB, CHEST HEAVINESS 6 week fu medication refills Amb Documentation f/u per Albina Aponte COMBINE DRIVER: HTN L.L. Reason for Visit Hypertension SOB (shortness of breath) SOB (shortness of breath) Abnormal ECG Hypertension SOB (shortness of breath) SOB (shortness of breath) Hypertension Hypothyroidism Hypertension Hypothyroidism Chief Complaint Shortness of breath Discuss O2 DYSPNEA SOB (PMW) E ORDERS EORDER SOB, CHEST HEAVINESS SOB, CHEST HEAVINESS 6 week fu medication refills Amb Documentation f/u per Albina Aponte COMBINE DRIVER: HTN L.L. HYPERTENSION Reason for Visit Hypertension SOB (shortness of breath) SOB (shortness of breath) Abnormal ECG Hypertension SOB (shortness of breath) SOB (shortness of breath) Hypertension Hypothyroidism Hypertension Hypothyroidism Chief Complaint SOB (PMW) E ORDERS EORDER SOB, CHEST HEAVINESS SOB, CHEST HEAVINESS 6 week fu medication refills Amb Documentation f/u per Albina Aponte COMBINE DRIVER: HTN L.L. HYPERTENSION POSSIBLE STENTING POSSIBLE STENTING Reason for Visit Abnormal ECG Hypertension SOB (shortness of breath) SOB (shortness of breath) Hypertension Hypothyroidism Hypertension Hypothyroidism Chief Complaint Bradycardia without rate limiting meds L.L. EORDERS Preventive wellness exam PE LEFT HEART CATH SOB LEFT HEART CATH SOB LEFT HEART CATH SOB E-ORDER S/P [facility] 06/07 (SCNANNED) Reason for Visit LIRA (dyspnea on exer tion) Chest discomfort History of renal artery stenosis History of stent insertion of renal artery Hypertension Hypothyroidism LIRA (dyspnea on exertion) Stented coronary artery CAD (coronary artery disease) History of renal artery stenosis History of stent insertion of renal artery Hypertension Hypothyroidism Chief Complaint Preventive wellness exam PE LEFT HEART CATH SOB LEFT HEART CATH SOB LEFT HEART CATH SOB E-ORDER S/P [facility] 06/07 (SCNANNED) CAD LIRA CAD LIRA HOLTER MONITOR Reason for Visit LIRA (dyspnea on exer tion) Stented coronary artery CAD (coronary artery disease) History of renal artery stenosis History of stent insertion of renal artery Hypertension Hypothyroidism Chief Complaint Preventive wellness exam PE LEFT HEART CATH SOB LEFT HEART CATH SOB LEFT HEART CATH SOB E-ORDER S/P [facility] 06/07 (SCNANNED) CAD LIRA CAD LIRA HOLTER MONITOR NEW PPM IMPLANT TEACHING / PPM IMPLANT 07/31 Reason for Visit LIRA (dyspnea on exer tion) Stented coronary artery CAD (coronary artery disease) History of renal artery stenosis History of stent insertion of renal artery Hypertension Hypothyroidism Chief Complaint LEFT HEART CATH SOB LEFT HEART CATH SOB LEFT HEART CATH SOB E-ORDER S/P [facility] 06/07 (SCNANNED) CAD LIRA CAD LIRA HOLTER MONITOR NEW PPM IMPLANT TEACHING / PPM IMPLANT 07/31 IMPLANT IMPLANT IMPLANT INPATIENT 1st day post implant check Reason for Visit LIRA (dyspnea on exer tion) Stented coronary artery CAD (coronary artery disease) History of renal artery stenosis History of stent insertion of renal artery Hypertension Hypothyroidism Sick sinus syndrome Sinus pause Dyslipidemia Sick sinus syndrome Stented coronary artery History of stent insertion of renal artery Hypertension Chief Complaint LEFT HEART CATH SOB LEFT HEART CATH SOB LEFT HEART CATH SOB E-ORDER S/P [facility] 06/07 (SCNANNED) CAD LIRA CAD LIRA HOLTER MONITOR NEW PPM IMPLANT TEACHING / PPM IMPLANT 07/31 IMPLANT IMPLANT IMPLANT INPATIENT 1st day post implant check Pacer Check Remote Pacer Check Remote 1 wk s/p PPM implant wound check Reason for Visit LIRA (dyspnea on exer tion) Stented coronary artery CAD (coronary artery disease) History of renal artery stenosis History of stent insertion of renal artery Hypertension Hypothyroidism Sick sinus syndrome Sinus pause Dyslipidemia Sick sinus syndrome Stented coronary artery History of stent insertion of renal artery Hypertension Presence of cardiac pacemaker Sick sinus syndrome Sinus pause Presence of cardiac pacemaker Sick sinus syndrome Sinus pause Chief Complaint LEFT HEART CATH SOB LEFT HEART CATH SOB E-ORDER S/P [facility] 06/07 (SCNANNED) CAD LIRA CAD LIRA HOLTER MONITOR NEW PPM IMPLANT TEACHING / PPM IMPLANT 07/31 IMPLANT IMPLANT IMPLANT INPATIENT 1st day post implant check Pacer Check Remote Pacer Check Remote 1 wk s/p PPM implant wound check 2 M FU E-ORDER Reason for Visit LIRA (dyspnea on exer tion) Stented coronary artery CAD (coronary artery disease) History of renal artery stenosis History of stent insertion of renal artery Hypertension Hypothyroidism Sinus pause Sick sinus syndrome Dyslipidemia Stented coronary artery History of stent insertion of renal artery Hypertension Sick sinus syndrome Sinus pause Presence of cardiac pacemaker Sick sinus syndrome Sinus pause Presence of cardiac pacemaker Sick sinus syndrome Fatigue Stented coronary artery CAD (coronary artery disease) History of renal artery stenosis History of stent insertion of renal artery Hypertension Hypothyroidism Presence of cardiac pacemaker Sick sinus syndrome Chief Complaint LEFT HEART CATH SOB LEFT HEART CATH SOB E-ORDER S/P [facility] 06/07 (SCNANNED) CAD LIRA CAD LIRA HOLTER MONITOR NEW PPM IMPLANT TEACHING / PPM IMPLANT 07/31 IMPLANT IMPLANT IMPLANT INPATIENT 1st day post implant check Pacer Check Remote Pacer Check Remote 1 wk s/p PPM implant wound check 2 M FU E-ORDER Pacer Check Remote 6 wk post PPM implant f/highu RV threshold E-ORDER Reason for Visit LIRA (dyspnea on exer tion) Stented coronary artery CAD (coronary artery disease) History of renal artery stenosis History of stent insertion of renal artery Hypertension Hypothyroidism Sinus pause Sick sinus syndrome Dyslipidemia Stented coronary artery History of stent insertion of renal artery Hypertension Sick sinus syndrome Sinus pause Presence of cardiac pacemaker Sick sinus syndrome Sinus pause Presence of cardiac pacemaker Sick sinus syndrome Fatigue Stented coronary artery CAD (coronary artery disease) History of renal artery stenosis History of stent insertion of renal artery Hypertension Hypothyroidism Presence of cardiac pacemaker Sick sinus syndrome Sinus pause Presence of cardiac pacemaker Sick sinus syndrome Chief Complaint E-ORDER S/P [facility] 06/07 (SCNANNED) CAD LIRA CAD LIRA HOLTER MONITOR NEW PPM IMPLANT TEACHING / PPM IMPLANT 07/31 IMPLANT IMPLANT IMPLANT INPATIENT 1st day post implant check Pacer Check Remote Pacer Check Remote 1 wk s/p PPM implant wound check 2 M FU E-ORDER Pacer Check Remote 6 wk post PPM implant f/highu RV threshold Pacer Check Remote E-ORDER 4 W FU E-ORDER Reason for Visit LIRA (dyspnea on exer tion) Stented coronary artery CAD (coronary artery disease) History of renal artery stenosis History of stent insertion of renal artery Hypertension Hypothyroidism Sinus pause Sick sinus syndrome Dyslipidemia Stented coronary artery History of stent insertion of renal artery Hypertension Sick sinus syndrome Sinus pause Presence of cardiac pacemaker Sick sinus syndrome Sinus pause Presence of cardiac pacemaker Sick sinus syndrome Fatigue Stented coronary artery CAD (coronary artery disease) History of renal artery stenosis History of stent insertion of renal artery Hypertension Hypothyroidism Presence of cardiac pacemaker Sick sinus syndrome Sinus pause Presence of cardiac pacemaker Sick sinus syndrome Dizzy Stented coronary artery History of stent insertion of renal artery Hypertension Hypothyroidism Presence of cardiac pacemaker Chief Complaint E-ORDER S/P [facility] 06/07 (SCNANNED) CAD LIRA CAD LIRA HOLTER MONITOR NEW PPM IMPLANT TEACHING / PPM IMPLANT 07/31 IMPLANT IMPLANT IMPLANT INPATIENT 1st day post implant check Pacer Check Remote Pacer Check Remote 1 wk s/p PPM implant wound check 2 M FU E-ORDER Pacer Check Remote 6 wk post PPM implant f/highu RV threshold Pacer Check Remote E-ORDER 4 W FU E-ORDER CAD [facility] Amb Documentation Reason for Visit LIRA (dyspnea on exer tion) Stented coronary artery CAD (coronary artery disease) History of renal artery stenosis History of stent insertion of renal artery Hypertension Hypothyroidism Sinus pause Sick sinus syndrome Dyslipidemia Stented coronary artery History of stent insertion of renal artery Hypertension Sick sinus syndrome Sinus pause Presence of cardiac pacemaker Sick sinus syndrome Sinus pause Presence of cardiac pacemaker Sick sinus syndrome Fatigue Stented coronary artery CAD (coronary artery disease) History of renal artery stenosis History of stent insertion of renal artery Hypertension Hypothyroidism Presence of cardiac pacemaker Sick sinus syndrome Sinus pause Presence of cardiac pacemaker Sick sinus syndrome Dizzy Stented coronary artery History of stent insertion of renal artery Hypertension Hypothyroidism Presence of cardiac pacemaker Chief Complaint Admit Date Pacer Check Remote May 13, 2024 2 :04am 6 M FU July 11, 2024 9 :09am Pacer Check Remote August 12, 2024 1:51 am ATHEROSCLEROSIS OF RENAL ARTERY August 8:37am Reason for Visit Admit Date Stented coronary artery July 11 9:09am CAD (coronary artery disease) July 112024 9:09am Dyslipidemia July 11, 2024 9 :09am History of renal artery stenosis July 11, 2024 9:09am History of stent insertion of renal darren ry July 11, 2024 9:09am Hypertension July 11, 2024 9 :09am Hypothyroidism July 11, 2024 9 :09am Presence of cardiac pacemaker July 112024 9:09am Sick sinus syndrome July 11, 2024 9 :09am Chief Complaint Admit Date Pacer Check Remote August 12, 2024 1:51 am ATHEROSCLEROSIS OF RENAL ARTERY August 8:37am 6 M FU November 26, 2024 7:54 am Reason for Visit Admit Date Stented coronary artery November 26, 2024 7:54am Dyslipidemia November 26, 2024 7:54 am History of renal artery stenosis November 262024 7:54am History of stent insertion of renal darren ry November 26, 2024 7:54am Hypertension November 26, 2024 7:54 am Hypothyroidism November 26, 2024 7:54 am Presence of cardiac pacemaker November 26, 2024 7:54am Sick sinus syndrome November 26, 2024 7:54 am Chief Complaint Admit Date Pacer Check Remote August 12, 2024 1:51 am ATHEROSCLEROSIS OF RENAL ARTERY August 8:37am Pacer Check Remote November 11, 2024 1:51a m 6 M FU November 26, 2024 7:54 am Reason for Visit Admit Date Left carotid artery stenosis November 26, 2024 7:54am Stented coronary artery November 26, 2024 7:54am Dyslipidemia November 26, 2024 7:54 am History of renal artery stenosis November 262024 7:54am History of stent insertion of renal darren ry November 26, 2024 7:54am Hypertension November 26, 2024 7:54 am Hypothyroidism November 26, 2024 7:54 am Presence of cardiac pacemaker November 26, 2024 7:54am Sick sinus syndrome November 26, 2024 7:54 am Chief Complaint Admit Date ATHEROSCLEROSIS OF RENAL ARTERY August 8:37am Pacer Check Remote November 11, 2024 1:51a m 6 M FU November 26, 2024 7:54 am RE-EVAL LT SIDE DISEASE December 06, 2024 8:30am Chief Complaint Admit Date Pacer Check Remote November 11, 2024 1:51a m 6 M FU November 26, 2024 7:54 am RE-EVAL LT SIDE DISEASE December 06, 2024 8:30am Pacer Check Remote February 10, 2025 2:17am Additional Source Comments INFORMATION SOURCE (unrecogn ized section and content) DATE CREATED AUTHOR 09/09/2019 [facility] DATE CREATED AUTHOR AUTHOR'S ORGANIZ ATION 07/07/2021 [facility] DATE CREATED AUTHOR AUTHOR'S ORGANIZ ATION 03/19/2022 [facility] DATE CREATED AUTHOR AUTHOR'S ORGANIZ ATION 06/10/2023 [facility] DATE CREATED AUTHOR AUTHOR'S ORGANIZ ATION 09/03/2023 [facility] DATE CREATED AUTHOR AUTHOR'S ORGANIZ ATION 03/02/2025 [facility] DATE CREATED AUTHOR AUTHOR'S ORGANIZ ATION 04/23/2025 [facility] Reason for Visit (unrecogniz ed section and content) Reason Comments Arm Pain Arm Injury Reason Comments Appointment Cardiac Rehab Eval Reason Onset Date Comments Medication Question 05/03/2024 Reason Onset Date Comments Request For Order(s) 06/13/2024 Care Teams (unrecognized sec tion and content) Team Status: Active Member Role Status Dates Albina Aponte COMBINE DRIVER, COMBINE DRIVER-C Primary Care Provider Active Team Status: Inactive Member Role Status Dates Albina Aponte COMBINE DRIVER, COMBINE DRIVER-C Primary Care Provider, Referr ing Provider Active Dr. Sriram Tomlin MD Attending Provider Active Team Status: Active Member Role Status Dates Albina Aponte NP, COMBINE DRIVER-C Primary Care Provider Active Dr. Sriram Tomlin MD Attending Provider, Referring Pr ovider Active Team Status: Active Member Role Status Dates Albina Aponte NP, COMBINE DRIVER-C Primary Care Provider Active Dr. Sriram Tomlin MD Admit Provider, At tending Provider, Referring Provider, Other Provider Active Team Status: Inactive Member Role Status Dates Albina Aponte COMBINE DRIVER, COMBINE DRIVER-C Primary Care Provider, Referr ing Provider Active Erika Franklin Attending Provider Active Team Status: Active Member Role Status Dates Albina Aponte NP, COMBINE DRIVER-C Primary Care Provider Active Dr. Rafael Lopez MD Referring Provider, Other Provide r Active Dr. Sriram Tomlin MD Other Provider Active [place] PA, PA Attending Provider, Other Provider Active Team Status: Inactive Member Role Status Dates Albina Aponte NP, COMBINE DRIVER-C Primary Care Provider Active Erika Franklin Active Dr. Rafael Lopez MD Attending Provider, Referring Pro vider Active Team Status: Active Member Role Status Dates Albina Aponte COMBINE DRIVER, COMBINE DRIVER-C Primary Care Provider Active Dr. Rafael Lopez MD Admit Provider, Att ending Provider, Referring Provider, Other Provider Active Dr. Sriram Tomlin MD Other Provider Active [place] PA, PA Other Provider Active Team Status: Inactive Member Role Status Dates Albina Aponte COMBINE DRIVER, COMBINE DRIVER-C Primary Care Provider Active Dr. Rafael Lopez MD Attending Provider Active Team Status: Inactive Member Role Status Dates Albina Aponte COMBINE DRIVER, COMBINE DRIVER-C Primary Care Provider, Referr ing Provider Active Riley Araiza COMBINE DRIVER, COMBINE DRIVER-C Attending Provider Active Team Status: Inactive Member Role Status Dates Albina Aponte COMBINE DRIVER, COMBINE DRIVER-C Primary Care Provider Active Dr. Sriram Tomlin MD Attending Provider, Referring Pr ovider Active Team Status: Inactive Member Role Status Dates Albina Aponte COMBINE DRIVER, COMBINE DRIVER-C Primary Care Provider Active Dr. Sriram Tomlin MD Admit Provider, At tending Provider, Referring Provider Active Team Status: Inactive Member Role Status Dates Albina Aponte COMBINE DRIVER, COMBINE DRIVER-C Primary Care Provider Active Dr. Rafael Lopez MD Admit Provider, Att ending Provider, Referring Provider Active Dr. Sriram Tomlin MD Other Provider Active [place] PA, PA Other Provider Active Team Status: Inactive Member Role Status Dates Albina Aponte COMBINE DRIVER, COMBINE DRIVER-C Primary Care Provider, Attend ing Provider Active Team Status: Inactive Member Role Status Dates Albina Aponte COMBINE DRIVER, COMBINE DRIVER-C Primary Care Provider Active Riley Araiza COMBINE DRIVER, COMBINE DRIVER-C Attending Provider, Referring P rovider Active Team Status: Inactive Member Role Status Dates Riley Araiza COMBINE DRIVER, COMBINE DRIVER-C Attending Provider, Referring P rovider Active Albina Aponte COMBINE DRIVER, COMBINE DRIVER-C Primary Care Provider Active Team Status: Active Member Role Status Dates Albina Aponte COMBINE DRIVER, COMBINE DRIVER-C Primary Care Provider Active Dr. Sriram Tomlin MD Attending Provider, Other Provid er Active Team Status: Active Member Role Status Yang Aponte COMBINE DRIVER, COMBINE DRIVER-C Primary Care Provider Active Dr. Sriram Tomlin MD Attending Provider , Referring Provider, Other Provider Active Team Status: Active Member Role Status Yang Aponte COMBINE DRIVER, COMBINE DRIVER-C Primary Care Provider Active Dr. Sriram Tomlin MD Attending Provider Active Team Status: Inactive Member Role Status Dates Albina Aponte COMBINE DRIVER, COMBINE DRIVER-C Primary Care Pr ovider, Attending Provider, Referring Provider Active Systems Navigator Relationship Specialty Start Date End Date Melva Corbett, [address] [place] [address] PCP - General Internal Medicine 08/31/20 Team Status: Inactive Member Role Status Dates Albina Aponte COMBINE DRIVER, COMBINE DRIVER-C Primary Care Provider, Referr ing Provider Active Dr. Darryl Ramos DO Attending Provider Active Team Status: Inactive Member Role Status Dates Albina Aponte COMBINE DRIVER, COMBINE DRIVER-C Primary Care Provider Active Dr. Darryl Ramos DO Attending Provider Active Team Status: Inactive Member Role Status Dates Albina Aponte COMBINE DRIVER, COMBINE DRIVER-C Primary Care Provider, Referr ing Provider Active Melva Donaldson COMBINE DRIVER, COMBINE DRIVER-C Attending Provider Active Team Status: Active Member Role Status Dates Albina Aponte COMBINE DRIVER, COMBINE DRIVER-C Primary Care Provider Active Bee Stephens Attending Provider Active Team Status: Active Member Role Status Dates Albina Aponte COMBINE DRIVER, COMBINE DRIVER-C Primary Care Provider Active Dr. Aroldo Tirado MD Attending Provider Active Systems Navigator Relationship Specialty Start Date End Date Albina Aponte, PAGEANT DIRECTOR.MUSIC ORCHESTRATOR [address] [place] [address] PCP - General Family Medicine 11/14/22 Team Status: Active Member Role Status Dates Albina Aponte COMBINE DRIVER, COMBINE DRIVER-C Primary Care Provider, Referr ing Provider Active Erika Franklin Attending Provider Active Team Status: Active Member Role Status Dates Albina Aponte COMBINE DRIVER, COMBINE DRIVER-C Primary Care Provider Active Dr. Rafael Lopez MD Attending Provider Active Systems Navigator Relationship Specialty Start Date End Date Albina Aponte, PAGEANT DIRECTOR.MUSIC ORCHESTRATOR [address] [place] [address] PCP - General Family Medicine 11/14/22 Team Status: Active Member Role Status Dates Albina Aponte COMBINE DRIVER, COMBINE DRIVER-C Primary Care Provider Active Dr. Aroldo Tirado MD Attending Provider Active Riley Araiza NP, COMBINE DRIVER-C Referring Provider Active Team Status: Active Member Role Status Dates Albina Aponte COMBINE DRIVER, COMBINE DRIVER-C Primary Care Provider Active Riley Araiza COMBINE DRIVER, COMBINE DRIVER-C Attending Provider Active Systems Navigator Relationship Specialty Start Date End Date Melva Corbett DO [address] [place] [id number] PCP - General 08/31/20 Systems Navigator Relationship Specialty Start Date End Date Melva Corbett DO [address] [place] [id number] PCP - General 08/31/20 Systems Navigator Relationship Specialty Start Date End Date Melva Corbett DO [address] [place] [id number] PCP - General 08/31/20 Systems Navigator Relationship Specialty Start Date End Date Melva Corbett DO [address] [place] [address] PCP - General 08/31/20 Team Status: Active Member Role Status Dates Dr. Beba Leyva DO Primary Care Provider Ac tive Team Status: Inactive Member Role Status Dates Albina Aponte NP, COMBINE DRIVER-C Primary Care Provider Active Start: May 13, 2024 End: May 13, 2024 Dr. Rafael Lopez MD Attending Provider Active S tart: May 13, 2024 End: May 13, 2024 Dr. Rafael Lopez MD Referring Provider Active S tart: May 13, 2024 End: May 13, 2024 Team Status: Inactive Member Role Status Dates Albina Aponte NP, COMBINE DRIVER-C Referring Provider Active Start: July 11, 2024 End: July 11, 2024 Dr. Sriram Tomlin MD Attending Provider Active Start: July 11, 2024 End: July 11, 2024 Out [facility] Doctor Primary Care Provider Active Start: July 11, 2024 End: July 11, 2024 Team Status: Inactive Member Role Status Dates Dr. Beba Leyva DO Primary Care Provider Ac tive Start: August 12, 2024 End: August 12, 2024 Dr. Rafael Lopez MD Attending Provider Active S tart: August 12, 2024 End: August 12, 2024 Team Status: Inactive Member Role Status Dates Dr. Sriram Tomlin MD Attending Provider Active Start: August 13, 2024 End: August 13, 2024 Dr. Sriram Tomlin MD Referring Provider Active Start: August 13, 2024 End: August 13, 2024 Dr. Beba Lyeva DO Primary Care Provider Ac tive Start: August 13, 2024 End: August 13, 2024 Team Status: Active Member Role Status Dates Dr. Beba Leyva DO Primary Care Provider Ac tive Start: August 13, 2024 Dr. Aroldo Tirado MD Attending Provider Active S tart: August 13, 2024 Dr. Sriram Tomlin MD Referring Provider Active Start: August 13, 2024 Team Status: Inactive Member Role Status Dates Dr. Beba Leyva DO Primary Care Provider Ac tive Start: August 12, 2024 End: August 12, 2024 Dr. Rafael Lopez MD Attending Provider Active S tart: August 12, 2024 End: August 12, 2024 Dr. Rafael Lopez MD Referring Provider Active S tart: August 12, 2024 End: August 12, 2024 Team Status: Inactive Member Role Status Dates Dr. Beba Leyva DO Primary Care Provider Ac tive Start: November 26, 2024 End: November 26, 2024 Dr. Beba Leyva DO Referring Provider Activ e Start: November 26, 2024 End: November 26, 2024 Alejandro Nicole COMBINE DRIVER, COMBINE DRIVER-C Attending Provider Active S tart: November 26, 2024 End: November 26, 2024 Team Status: Inactive Member Role Status Dates Dr. Beba Leyva DO Primary Care Provider Ac tive Start: November 11, 2024 End: November 11, 2024 Dr. Rafael Lopez MD Attending Provider Active S tart: November 11, 2024 End: November 11, 2024 Team Status: Active Member Role/Relationship Status Dates Dr. Beba Leyva DO Primary Care Provider Ac tive Team Status: Inactive Member Role/Relationship Status Dates Dr. Sriram Tomlin MD Attending Provider Active Start: August 13, 2024 End: August 13, 2024 Dr. Sriram Tomlin MD Referring Provider Active Start: August 13, 2024 End: August 13, 2024 Dr. Beba Leyva DO Primary Care Provider Ac tive Start: August 13, 2024 End: August 13, 2024 Team Status: Active Member Role/Relationship Status Dates Dr. Beba Leyva DO Primary Care Provider Ac tive Start: August 13, 2024 Dr. Aroldo Tirado MD Attending Provider Active S tart: August 13, 2024 Dr. Sriram Tomlin MD Referring Provider Active Start: August 13, 2024 Team Status: Inactive Member Role/Relationship Status Dates Dr. Beba Leyva DO Primary Care Provider Ac tive Start: November 11, 2024 End: November 11, 2024 Dr. Rafael Lopez MD Attending Provider Active S tart: November 11, 2024 End: November 11, 2024 Dr. Rafael Lopez MD Referring Provider Active S tart: November 11, 2024 End: November 11, 2024 Team Status: Inactive Member Role/Relationship Status Dates Dr. Beba Leyva DO Primary Care Provider Ac tive Start: November 26, 2024 End: November 26, 2024 Dr. Beba Leyva DO Referring Provider Activ e Start: November 26, 2024 End: November 26, 2024 Alejandro Nicole COMBINE DRIVER, COMBINE DRIVER-C Attending Provider Active S tart: November 26, 2024 End: November 26, 2024 Team Status: Inactive Member Role/Relationship Status Dates Dr. Beba Leyva DO Primary Care Provider Ac tive Start: December 06, 2024 End: December 06, 2024 Alejandro Nicole COMBINE DRIVER, COMBINE DRIVER-C Attending Provider Active S tart: December 06, 2024 End: December 06, 2024 Alejandro Nicole COMBINE DRIVER, COMBINE DRIVER-C Referring Provider Active S tart: December 06, 2024 End: December 06, 2024 Team Status: Active Member Role/Relationship Status Dates Dr. Beba Leyva DO Primary Care Provider Ac tive Start: December 06, 2024 Dr. Aroldo Tirado MD Attending Provider Active S tart: December 06, 2024 Team Status: Inactive Member Role/Relationship Status Dates Dr. Beba Leyva DO Primary Care Provider Ac tive Start: November 11, 2024 End: November 11, 2024 Dr. Rafael Lopez MD Attending Provider Active S tart: November 11, 2024 End: November 11, 2024 Dr. Rafael Lopez MD Referring Provider Active S tart: November 11, 2024 End: November 11, 2024 Team Status: Inactive Member Role/Relationship Status Dates Dr. Beba Leyva DO Primary Care Provider Ac tive Start: November 26, 2024 End: November 26, 2024 Dr. Beba Leyva DO Referring Provider Activ e Start: November 26, 2024 End: November 26, 2024 Alejandro Nicole COMBINE DRIVER, COMBINE DRIVER-C Attending Provider Active S tart: November 26, 2024 End: November 26, 2024 Team Status: Inactive Member Role/Relationship Status Dates Dr. Beba Leyva DO Primary Care Provider Ac tive Start: December 06, 2024 End: December 06, 2024 Alejandro Nicole COMBINE DRIVER, COMBINE DRIVER-C Attending Provider Active S tart: December 06, 2024 End: December 06, 2024 Alejandro Nicole COMBINE DRIVER, COMBINE DRIVER-C Referring Provider Active S tart: December 06, 2024 End: December 06, 2024 Team Status: Active Member Role/Relationship Status Dates Dr. Beba Leyva DO Primary Care Provider Ac tive Start: December 06, 2024 Dr. Aroldo Tirado MD Attending Provider Active S tart: December 06, 2024 Alejandro Nicole COMBINE DRIVER, COMBINE DRIVER-C Referring Provider Active S tart: December 06, 2024 Team Status: Inactive Member Role/Relationship Status Dates Dr. Beba Leyva DO Primary Care Provider Ac tive Start: February 10, 2025 End: February 10, 2025 Dr. Rafael Lopez MD Attending Provider Active S tart: February 10, 2025 End: February 10, 2025 Systems Navigator Relationship Specialty Start Date End Date Beba Leyva [address] [place] [address] PCP - General Family Medicine 02/27/25 Goals (unrecognized section and content) Goals may be documented in a n alternate sectionGoals may be documented in an alternate sectionGoals may be documented in an alternate sectionGoals may be documented in an alternate sectionGoals may be documented in an alternate sectionGoals may be documented in an alternate sectionGoals may be documented in an alternate sectionGoals may be documented in an alternate sectionGoals may be documented in an alternate sectionGoals may be documented in an alternate sectionGoals may be documented in an alternate sectionGoals may be documented in an alternate sectionGoals may be documented in an alternate sectionGoals may be documented in an alternate sectionGoals may be documented in an alternate sectionGoals may be documented in an alternate section Source Comments (unrecognize d section and content) In the event this informatio n is protected by the Federal Confidentiality of Alcohol and Drug Abuse Patient Records regulations: The Federal rules restrict any use of the information to criminally investigate or prosecute any alcohol or drug abuse patient.[facility] Center[facility] the event this information is protected by the Federal Confidentiality of Alcohol and Drug Abuse Patient Records regulations: The Federal rules restrict any use of the information to criminally investigate or prosecute any alcohol or drug abuse patient.[facility] CenterIn the event this information is protected by the Federal Confidentiality of Alcohol and Drug Abuse Patient Records regulations: The Federal rules restrict any use of the information to criminally investigate or prosecute any alcohol or drug abuse patient.[facility] FOR RECORDS PERTAINING TO PATIENTS WHO ARE [...] BE BASED ON THE PRIMARY CLINICAL RECORDS. [facility] [employer] [facility]. provides no warranty or guarantee of the accuracy or completeness of information in this document.
[2025-06-02 08:03] LABS: Hematocrit 39.3 % (37-47); Hemoglobin 13.0 g/dL (12.0-15.0); Mean Corp Hgb Conc 33.1 g/dL (32-36); Mean Corpuscular Volume 89.9 fL (81-99); Mean Platelet Vol. 10.0 fl (6.2-12.0); Platelet Count 354 K/mm3 (150-450); RBC Distribution Width CV 12.6 % (11.6-14.6); RBC Distribution Width SD 42.0 fl (35.1-43.9); Red Blood Count 4.37 M/mm3 (4.2-5.4); White Blood Count 7.1 K/mm3 (4.4-11.0)
[2025-06-02 08:30] LABS: Anion Gap 11 (5-15); BUN 17 mg/dL (4-19); BUN/Creat Ratio 17.4 RATIO (10-20); Calcium,Total 9.3 mg/dL (7.6-11.0); Carbon Dioxide 25.2 mmol/L (21.0-32.0); Chloride 96 mmol/L (98-108); Glucose 98 mg/dL (70-99); Potassium 4.5 mmol/L (3.3-5.1)
== END ==
LOC: OLS.ACH 05:00
PROVIDERS: PCP Family Medicine; Visit Provider Internal Medicine
DX: J09.X1 Influenza due to identified novel influenza A virus with pneumonia (principal); J96.11 Chronic respiratory failure with hypoxia
CPT/HCPCS: 36415; 80048; 85027